=== PATIENT | male | born 1960 | race Caucasian/White ===

== ENCOUNTER 2016-07-12 14:00 | Inpatient (IN) | payer OTHER, MEDICARE ==
[~2016-07-12] VITALS: Ht 177.8 cm; Wt 69.6 kg
[2016-07-12] MEDS ORDERED: Post-op Orders (for Pharmacy) MISC XX ONE (15:30)
[2016-07-12] MEDS ORDERED: NALOXONE HCL 0.4 MG/ML AMP IV PRN (15:30)
[2016-07-12] MEDS ORDERED: MORPHINE SULFATE 4 MG/ML INJ IV PRN (15:30)
[2016-07-12] MEDS ORDERED: SODIUM CHLORIDE 0.9% FLUSH 5 ML FLUSH IVF PRN ×2 (15:30→17:00)
[2016-07-12] MEDS ORDERED: ONDANSETRON HCL 4 MG/2 ML VIAL IV PRN (15:30)
[2016-07-12 16:44] VITALS: BP 103/54; PULSE 99; RESP 18; TEMP 98.4; O2SAT 96
[2016-07-12] MEDS ORDERED: HEPARIN SODIUM - IV 10,000 UNITS/10 ML VIAL XX PRN (17:00)
[2016-07-12] MEDS: HEPARIN SODIUM - SQ 10,000 UNITS/ML VIAL SQ SCH (17:50)
[2016-07-12 17:57] LABS: BASOPHIL # 0.1 TH/MM3 (0-0.2); BASOPHIL % 0.5 % (0.0-2.0); EOSINOPHIL % 0.2 % (0.0-4.0); HEMATOCRIT 24.1 % (39.0-51.0); HEMO FLAGS DIFF FINAL; LYMPHOCYTE # 0.8 TH/MM3 (1.0-4.8); MEAN CORPUSCULAR HEMOGLOBIN 29.8 PG (27.0-34.0); MEAN CORPUSCULAR HGB CONC 32.4 % (32.0-36.0); MONO % 6.5 % (0.0-8.0); NEUT % 88.8 % (16.0-70.0); PLATELET COUNT 502 TH/MM3 (150-450); RED BLOOD COUNT 2.62 MIL/MM3 (4.50-5.90); WHITE BLOOD COUNT 19.2 TH/MM3 (4.0-11.0)
[2016-07-12] MEDS: oxyCODONE/ACETAMINOPHEN 5 MG/325 MG TAB PO PRN ×2 (17:57→17:58)
[2016-07-12] MEDS ORDERED: PANTOPRAZOLE SOD 40 MG DELAYED RELEASE TAB PO SCH (18:00)
[2016-07-12 18:14] LABS: BICARBONATE 26.5 MEQ/L (21.0-32.0); POTASSIUM 3.1 MEQ/L (3.5-5.1)
[2016-07-12 20:00] VITALS: BP 140/60; PULSE 97; RESP 20; TEMP 98.8; O2SAT 100
[2016-07-12] MEDS: SODIUM CHLORIDE 0.9% FLUSH 5 ML FLUSH IVF SCH (23:34)
[2016-07-13] VITALS (13 sets, daily range): BP systolic 151–177; BP diastolic 70–82; PULSE 68–98; RESP 16–20; TEMP 96.8–98.6; O2SAT 95–100
[2016-07-13] MEDS: oxyCODONE/ACETAMINOPHEN 5 MG/325 MG TAB PO PRN ×2 (00:27→09:08)
[2016-07-13] MEDS: HEPARIN SODIUM - SQ 10,000 UNITS/ML VIAL SQ SCH (06:00)
[2016-07-13] MEDS ORDERED: INSULIN HUMAN REGULAR 1,000 UNITS/10 ML VIAL SQ PRN (06:15)
[2016-07-13] MEDS ORDERED: METOPROLOL TARTRATE 25 MG TAB PO PRN (06:15)
[2016-07-13] MEDS: LACTATED RINGER'S 1000 ML IV SCH (09:08)
[2016-07-13] MEDS: SODIUM CHLORIDE 0.9% FLUSH 5 ML FLUSH IVF SCH ×2 (09:09→21:00)
[2016-07-13] MEDS: SODIUM CHLORID 0.9% 500 ML IV SCH ×2 (09:11→22:55)
[2016-07-13] MEDS ORDERED: POTASSIUM CHLORIDE 10 MEQ CONTROLLED RELEASE TAB PO ONE ×2 (10:30→18:15)
[2016-07-13] MEDS ORDERED: FAMOTIDINE 20 MG/2 ML VIAL ONE (10:45)
[2016-07-13] MEDS ORDERED: MIDAZOLAM HCL 5 MG/5 ML VIAL ONE (10:45)
[2016-07-13] MEDS ORDERED: BUPIVACAINE HCL PF 0.5% 30 ML VIAL NB ONE (10:52)
[2016-07-13] MEDS ORDERED: BUPIVACAINE HCL PF 0.25% 30 ML VIAL NB ONE (10:52)
[2016-07-13] MEDS ORDERED: ONDANSETRON HCL 4 MG/2 ML VIAL IV PUSH ONE (12:00)
[2016-07-13] MEDS ORDERED: PHENYLEPH/NS 1000 MCG/10 ML SYR IV ONE (12:00)
[2016-07-13] MEDS ORDERED: SODIUM CHLOR 0.9% 1000 ML INJ 1,000 ML IV ONE (12:00)
[2016-07-13] MEDS ORDERED: ePHEDrine/NS 50 MG/5 ML SYR IV ONE (12:00)
[2016-07-13] MEDS ORDERED: ATROPINE SULFATE 0.4 MG/ML VIAL IV PUSH ONE (12:00)
[2016-07-13] MEDS ORDERED: PROPOFOL 200 MG/20 ML AMP IV ONE (12:00)
[2016-07-13] MEDS: SEVELAMER CARBONATE 800 MG TAB PO SCH ×2 (12:00→17:00)
[2016-07-13] MEDS ORDERED: DOPamine INJ PREMIX 500 ML ONE (12:25)
--- NOTE | 2016-07-13 13:10 | PD.CONS ---
[facility] Service Nephrology Consult Requested By Reason for Consult ESRD on PD Primary Care Physician History of Present Illness This is a 56 y/o male patient direct admitted under the care of Dr. Kenyon with vascular services. PMH of ESRD on PD, HTN, DM II, and PAD. He was admitted for left BKA and I&D/revision of right BKA. We were consulted for dialysis management. He went to OR early this morning. Apparently he became bradycardic during the operation, was given atropine and epinephrine. He is seen in the PACU this afternoon. He is still intubated, unresponsive, hypertensive. He underwent PD last night without complications. We were consulted for PD management. (Ermelinda Jeong) Review of Systems ROS Limitations: Clinical Condition, Intubated (Ermelinda Jeong) Past Family Social History Allergies: Coded Allergies: No Known Allergies (Unverified , 06/29/16) Past Medical History ESRD on PD HTN PAD DM colon CA Past Surgical History unable to obtain previous right BKA Reported Medications reviewed with patient Active Ordered Medications Current Medications Medications (Trade) Dose Ordered Sig/Lorie Route Start Time Stop Time Status Last Admin (NS Flush) 2 ml UNSCH PRN IVF 07/12/16 15:30 (NS Flush) 2 ml BID IVF 07/12/16 21:00 07/13/16 09:09 (Zofran Inj) 4 mg Q6H PRN IV 07/12/16 15:30 (Protonix) 40 mg Q24H PO 07/12/16 18:00 07/12/16 17:50 (Percocet 5-325 Mg) 1 tab Q6H PRN PO 07/12/16 15:30 07/13/16 09:08 (Morphine Inj) 4 mg Q3H PRN IV 07/12/16 15:30 (Narcan Inj) 0.4 mg UNSCH PRN IV 07/12/16 15:30 (Heparin Inj) 5,000 units Q12H SQ 07/12/16 18:00 07/12/16 17:50 IV Flush 10 ml 10 ml UNSCH PRN IVF 07/12/16 17:00 Lactated Ringer's 1,000 ml @ 30 mls/hr Q24H IV 07/13/16 06:15 07/13/16 09:08 (NS 500 ml Inj) 500 ml @ 30 mls/hr [id number] IV 07/13/16 06:15 07/14/16 06:14 07/13/16 09:11 (Renvela) 800 mg TIDAC PO 07/13/16 12:00 Family History No hx of renal disorders Social History smoking ETOH drugs retired full code independent (Ermelinda Jeong) Physical Exam Vital Signs Vital Signs Date Time Temp Pulse Resp B/P Pulse Ox O2 Delivery O2 Flow Rate FiO2 07/13/16 09:08 Room Air 07/13/16 04:00 98.6 98 20 173/73 97 07/13/16 00:00 98.0 97 20 166/74 95 07/12/16 20:00 Room Air 07/12/16 20:00 98.8 97 20 140/60 100 07/12/16 17:03 Room Air 07/12/16 16:44 98.4 99 18 103/54 96 Physical Exam Gen: unresponsive on vent Neuro: unresponsive, CV: S1/S2, regular rate, no murmurs Resp: vented lung sounds, diminished in bases GI: PD catheter appears benign : anuric at baseline, no jaramillo Ext: b/l BKA, dressings in place bilaterally A line right femoral TLC right subclavian Laboratory Laboratory Tests Test 07/12/16 17:45 White Blood Count 19.2 Red Blood Count 2.62 Hemoglobin 7.8 Hematocrit 24.1 Mean Corpuscular Volume 92.0 Mean Corpuscular Hemoglobin 29.8 Mean Corpuscular Hemoglobin 32.4 Concent Red Cell Distribution Width 18.0 Platelet Count 502 Mean Platelet Volume 8.4 Neutrophils (%) (Auto) 88.8 Lymphocytes (%) (Auto) 4.0 Monocytes (%) (Auto) 6.5 Eosinophils (%) (Auto) 0.2 Basophils (%) (Auto) 0.5 Neutrophils # (Auto) 17.0 Lymphocytes # (Auto) 0.8 Monocytes # (Auto) 1.2 Eosinophils # (Auto) 0.0 Basophils # (Auto) 0.1 CBC Comment DIFF FINAL Differential Comment Activated Partial 25.0 Thromboplast Time Sodium Level 135 Potassium Level 3.1 Chloride Level 93 Carbon Dioxide Level 26.5 Anion Gap 16 Blood Urea Nitrogen 51 Creatinine 10.42 Estimat Glomerular Filtration 5 Rate Random Glucose 234 Calcium Level 8.6 Phosphorus Level 8.5 (Ermelinda Jeong) Result Diagram: 07/12/16 [id number] Assessment and Plan Problem List: (1) ESRD (end stage renal disease) on dialysis Plan: ESRD due to diabetic nephropathy He is on nightly PD, currently going well K low, oral replacement ordered, follow up labs monitor catheter site no evidence of acidosis or fluid excess dialysis orders reviewed, continue current plan labs in am (2) Gangrene of toe Plan: vascular (Dr. Kenyon) following had left BKA and revision of right BKA (07/13) prn pain control antibiotics per vascular if needed (3) Anemia of renal disease Plan: Hb low check iron profile will give a dose of epogen, 20,000 units (4) Diabetes Plan: monitor blood sugar insulin as needed per sliding scale (5) HTN (hypertension) Plan: Blood pressure acceptable continue oral medications (6) Metabolic bone disease Plan: Renvela initiated monitor phos periodically (Ermelinda Jeong) Assessment and Plan patient was seen and examined. He is currently intubated, sedated with Diprivan. Discussed with RN. Reviewed chart. Apparently during surgery, he became hypotensive, duration of hypotension apparently uncertain. Received Epinephrine and atropine in PACU. He had CT of the head which did not reveal any acute findings. He is a patient with ESRD on PD (Dr. Niño). Has PAD, DM2. Currently on PD. Mild hypokalemia is noted. Replace cautiously. Severe anemia is noted, blood transfusion has been ordered. Epogen ordered. Very low albumin is noted: poor prognostic indicator. His prognosis is guarded at this time. (Ricardo Liu MD) Problem Qualifiers (1) Diabetes: Ermelinda Jeong Jul 13, 2016 13:10 Ricardo Liu MD Jul 13, 2016 17:51
[2016-07-13] MEDS ORDERED: MORPHINE SULFATE 4 MG/ML INJ IV PRN (13:15)
[2016-07-13] MEDS ORDERED: PROPOFOL 1000 MG/100 ML INJ 100 ML IV SCH ×2 (13:15→17:30)
[2016-07-13] MEDS ORDERED: ONDANSETRON HCL 4 MG/2 ML VIAL IV PRN (13:15)
[2016-07-13] MEDS ORDERED: Post-op Orders (for Pharmacy) MISC XX ONE (13:15)
[2016-07-13] MEDS ORDERED: SODIUM CHLORIDE 0.9% FLUSH 5 ML FLUSH IVF PRN (13:15)
[2016-07-13] MEDS ORDERED: NALOXONE HCL 0.4 MG/ML AMP IV PRN (13:15)
[2016-07-13 14:18] LABS: BLOOD GAS BASE EXCESS -6.4 mmol/L (-2-2); BLOOD GAS CARBOXYHEMOGLOBIN 1.8 % (0-4); BLOOD GAS HCO3 19 mmol/L (22-26); BLOOD GAS METHEMOGLOBIN 1.5 % (0-2); BLOOD GAS O2 HGB SATURATION 95 % (90-100); BLOOD GAS OXYGEN CONTENT 12.1 Vol % (12.0-20.0); BLOOD GAS PCO2 38 mmHg (38-42); BLOOD GAS PO2 157 mmHg (61-120); BLOOD GAS TOTAL HGB 8.8 G/DL (12.0-16.0); CRITICAL VALUE NO; OXYGEN DEVICE VENTILATOR; TEMP CORR TO 98.6
[2016-07-13 14:19] LABS: DRAW SITE ART LINE; FIO2 50 %; NUMBER OF ARTERIAL PUNCTURES 0; STAT NO; ULNAR PULSE PRESENT; VENT SETTINGS AC16/530/PEEP5
[2016-07-13] MEDS ORDERED: LABETALOL HCL 100 MG/20 ML VIAL ONE (14:32)
[2016-07-13] MEDS ORDERED: fentaNYL CITRATE 250 MCG/5 ML AMP ONE (14:34)
[2016-07-13] MEDS ORDERED: DO NOT ADM ANY ANTICOAGULANT DRUGS XX PRN (14:45)
--- NOTE | 2016-07-13 14:47 | RADRPT ---
EXAM DATE/TIME: 07/13/2016 13:45 [facility] COMPARISON: CHEST SINGLE AP, May 10, 2016, 18:34. INDICATIONS : Intubation TLC MEDICAL HISTORY : Hypertension. Diabetes mellitus type II. SURGICAL HISTORY : Infuse a port. Amputation right lower leg. ENCOUNTER: Initial ACUITY: 1 day PAIN SCORE: Non-responsive. LOCATION: Bilateral chest FINDINGS: Endotracheal tube is present with tip 6-7 cm above the gui. Right chest port is present in satisfa ctory position and is accessed. A left subclavian central line is also present with tip overlying SVC . There is no evidence of pneumothorax. There is mild infiltrate in the lower lobes bilaterally and s mall effusions. The cardiomediastinal contours are grossly satisfactory. CONCLUSION: Satisfactory endotracheal tube and central line positioning. Bilateral infiltrates and effusions. Venkatesh Bloom MD on July 13, 2016 at 14:38 Board Certified Radiologist. This report was verified electronically.
[2016-07-13] MEDS ORDERED: OXYC1TAB63 PO (15:13)
[2016-07-13] MEDS ORDERED: AUGM875T PO (15:16)
[2016-07-13] MEDS ORDERED: COLA100C3 PO (15:17)
[2016-07-13 15:23] LABS: BLOOD GAS BASE EXCESS -4.8 mmol/L (-2-2); BLOOD GAS CARBOXYHEMOGLOBIN 1.8 % (0-4); BLOOD GAS HCO3 20 mmol/L (22-26); BLOOD GAS METHEMOGLOBIN 1.4 % (0-2); BLOOD GAS O2 HGB SATURATION 96 % (90-100); BLOOD GAS OXYGEN CONTENT 10.2 Vol % (12.0-20.0); BLOOD GAS PCO2 35 mmHg (38-42); BLOOD GAS PO2 213 mmHg (61-120); BLOOD GAS TOTAL HGB 7.1 G/DL (12.0-16.0); CRITICAL VALUE NO; DRAW SITE ART LINE; FIO2 50 %; NUMBER OF ARTERIAL PUNCTURES 0; OXYGEN DEVICE VENTILATOR; STAT YES; TEMP CORR TO 98.6; ULNAR PULSE PRESENT; VENT SETTINGS AC16/530/PEEP5
[2016-07-13] MEDS ORDERED: EPOETIN ALFA 20,000 UNITS/ML VIAL SQ ONE (15:45)
[2016-07-13] MEDS: PANTOPRAZOLE SODIUM 40 MG VIAL IV SCH (15:53)
[2016-07-13] MEDS: METOPROLOL TARTRATE 5 MG/5 ML VIAL IV PUSH SCH ×2 (15:54→21:38)
[2016-07-13 16:13] LABS: AUTOMATED NEUTROPHIL # 19.8 TH/MM3 (1.8-7.7); BASOPHIL % 0.2 % (0.0-2.0); HEMATOCRIT 22.8 % (39.0-51.0); HEMO FLAGS DIFF FINAL; LYMPHOCYTE # 0.4 TH/MM3 (1.0-4.8); MEAN CELL VOLUME 90.8 FL (80.0-100.0); MEAN CORPUSCULAR HEMOGLOBIN 28.2 PG (27.0-34.0); MEAN CORPUSCULAR HGB CONC 31.1 % (32.0-36.0); MONO % 5.5 % (0.0-8.0); NEUT % 92.3 % (16.0-70.0); PLATELET COUNT 510 TH/MM3 (150-450); RED BLOOD COUNT 2.51 MIL/MM3 (4.50-5.90); RED CELL DISTRIBUTION WIDTH 17.5 % (11.6-17.2); WHITE BLOOD COUNT 21.4 TH/MM3 (4.0-11.0)
[2016-07-13] MEDS ORDERED: EPINEPHrine HCL (1:10,000) 1 MG/10 ML SYRINGE ONE (16:30)
[2016-07-13] MEDS ORDERED: ATROPINE SULFATE 1 MG/10 ML SYRINGE ONE (16:30)
[2016-07-13 16:40] LABS: ANION GAP 15 MEQ/L (5-15)
[2016-07-13 16:46] LABS: ALKALINE PHOSPHATASE 92 U/L (45-117); ALT (GPT) 11 U/L (12-78); AST (GOT) 11 U/L (15-37); BICARBONATE 21.9 MEQ/L (21.0-32.0); BLOOD UREA NITROGEN 52 MG/DL (7-18); CHLORIDE 101 MEQ/L (98-107); GLOMERULAR FILTRATION RATE 5 ML/MIN (>89); MAGNESIUM 1.9 MG/DL (1.5-2.5); POTASSIUM 3.4 MEQ/L (3.5-5.1); SODIUM (NA) 138 MEQ/L (136-145); TOTAL BILIRUBIN ADULT 0.2 MG/DL (0.2-1.0)
--- NOTE | 2016-07-13 17:08 | PD.CONS ---
HPI Service Critical Care Medicine Consult Requested By Reason for Consult vent management Primary Care Physician History of Present Illness 56 year old male with ESRD on PD, HTN, DM II, and PAD. He was admitted for left BKA and I&D/revision of right BKA. While in the OR early this morning, he became bradycardic during the operation, was given atropine and epinephrine. He is transfered to ICU intubated, unresponsive, hypertensive. He underwent PD last night without complications. Review of Systems ROS Unable to obtain, patient is sedated and intubated Past Family Social History Allergies: Coded Allergies: No Known Allergies (Unverified , 06/29/16) Past Medical History ESRD on PD HTN PAD DM colon CA Past Surgical History previous right BKA Active Ordered Medications Current Medications Medications (Trade) Dose Ordered Sig/Lorie Route PRN Reason Start Time Stop Time Status Last Admin Dose Admin Oxycodone/ Acetaminophen (Percocet 5-325 Mg) 1 tab Q6H PRN PO PAIN SCALE 3 TO 5 07/12/16 15:30 07/13/16 09:08 Morphine Sulfate (Morphine Inj) 4 mg Q3H PRN IV BREAKTHROUGH PAIN 07/12/16 15:30 IV Flush 10 ml 10 ml UNSCH PRN IVF SEE LABEL COMMENTS 07/12/16 17:00 Lactated Ringer's 1,000 ml @ 30 mls/hr Q24H IV 07/13/16 06:15 07/13/16 09:08 Sodium Chloride (NS 500 ml Inj) 500 ml @ 30 mls/hr [id number] IV 07/13/16 06:15 07/14/16 06:14 07/13/16 09:11 Sevelamer Carbonate (Renvela) 800 mg TIDAC PO 07/13/16 12:00 IV Flush (NS Flush) 2 ml UNSCH PRN IVF FLUSH AFTER USING IV ACCESS 07/13/16 13:15 IV Flush (NS Flush) 2 ml BID IVF 07/13/16 21:00 Ondansetron HCl (Zofran Inj) 4 mg Q6H PRN IV NAUSEA OR VOMITING 07/13/16 13:15 Pantoprazole Sodium 40 mg 40 mg Q24H IV 07/13/16 15:00 07/13/16 15:53 Clindamycin Phosphate/Sodium Chloride (Cleocin Inj/NS Inj) 104 ml @ 108 mls/hr Q8H IV 07/13/16 16:00 07/14/16 08:58 Morphine Sulfate (Morphine Inj) 4 mg Q3H PRN IV Pain 6-10;if unable to take PO 07/13/16 13:15 Naloxone HCl (Narcan Inj) 0.4 mg UNSCH PRN IV SEE LABEL COMMENTS 07/13/16 13:15 Heparin Sodium (Porcine) (Heparin Inj) 5,000 units Q12H SQ 07/14/16 12:30 Metoprolol Tartrate 5 mg 5 mg Q6H IV PUSH 07/13/16 14:00 07/13/16 15:54 Propofol (Diprivan 1000 Mg/100ml Inj) 100 ml @ 0 mls/hr TITRATE IV 07/13/16 13:15 Miscellaneous Information ALL NURSING DEPARTME... UNSCH PRN XX SEE LABEL COMMENTS 07/13/16 14:45 07/14/16 14:44 Family History Noncontributory Social History Unable to obtain Physical Exam Vital Signs Vital Signs Date Time Temp Pulse Resp B/P Pulse Ox O2 Delivery O2 Flow Rate FiO2 07/13/16 15:45 97 50 07/13/16 15:20 97.5 83 16 97 Mechanical Ventilator 50 168/84 07/13/16 15:15 83 16 166/82 97 07/13/16 15:00 77 16 165/83 97 07/13/16 14:45 82 16 165/81 99 07/13/16 14:30 99 16 173/85 100 07/13/16 14:15 100 16 177/88 98 07/13/16 14:00 100 16 209/95 98 07/13/16 13:45 101 16 178/85 99 Mechanical Ventilator 50 07/13/16 13:30 50 07/13/16 13:30 97.9 111 16 223/96 99 Mechanical Ventilator 50 199/93 07/13/16 13:30 07/13/16 13:25 99 50 07/13/16 09:08 Room Air 07/13/16 04:00 98.6 98 20 173/73 97 07/13/16 00:00 98.0 97 20 166/74 95 07/12/16 20:00 Room Air 07/12/16 20:00 98.8 97 20 140/60 100 07/12/16 17:03 Room Air Physical Exam GENERAL: Well-nourished, well-developed patient, critically appearing SKIN: Warm and dry. HEAD: Normocephalic. EYES: No scleral icterus. No injection or drainage. NECK: Supple, trachea midline. No JVD or lymphadenopathy. CARDIOVASCULAR: Regular rate and rhythm without murmurs, gallops, or rubs. RESPIRATORY: Breath sounds equal bilaterally. No accessory muscle use. GASTROINTESTINAL: Abdomen soft, non-tender, nondistended. MUSCULOSKELETAL: No cyanosis, or edema. BACK: Nontender without obvious deformity. No CVA tenderness. EXTREMITIES: BL BKA Laboratory Laboratory Tests Test 07/12/16 07/13/16 07/13/16 07/13/16 17:45 13:55 14:02 15:19 White Blood Count 19.2 Red Blood Count 2.62 Hemoglobin 7.8 Hematocrit 24.1 Mean Corpuscular Volume 92.0 Mean Corpuscular Hemoglobin 29.8 Mean Corpuscular Hemoglobin 32.4 Concent Red Cell Distribution Width 18.0 Platelet Count 502 Mean Platelet Volume 8.4 Neutrophils (%) (Auto) 88.8 Lymphocytes (%) (Auto) 4.0 Monocytes (%) (Auto) 6.5 Eosinophils (%) (Auto) 0.2 Basophils (%) (Auto) 0.5 Neutrophils # (Auto) 17.0 Lymphocytes # (Auto) 0.8 Monocytes # (Auto) 1.2 Eosinophils # (Auto) 0.0 Basophils # (Auto) 0.1 CBC Comment DIFF FINAL Differential Comment Activated Partial 25.0 Thromboplast Time Sodium Level 135 Potassium Level 3.1 Chloride Level 93 Carbon Dioxide Level 26.5 Anion Gap 16 Blood Urea Nitrogen 51 Creatinine 10.42 Estimat Glomerular Filtration 5 Rate Random Glucose 234 Calcium Level 8.6 Phosphorus Level 8.5 Blood Gas Puncture Site ART LINE ART LINE Blood Gas Patient Temperature 98.6 98.6 Blood Gas HCO3 19 20 Blood Gas Base Excess -6.4 -4.8 Blood Gas Oxygen Saturation 95 96 Arterial Blood pH 7.31 7.36 Arterial Blood Partial 38 35 Pressure CO2 Arterial Blood Partial 157 213 Pressure O2 Arterial Blood Oxygen Content 12.1 10.2 Arterial Blood 1.8 1.8 Carboxyhemoglobin Arterial Blood Methemoglobin 1.5 1.4 Blood Gas Hemoglobin 8.8 7.1 Oxygen Delivery Device VENTILATOR VENTILATOR Blood Gas Ventilator Setting AC16/530/PEEP5 AC16/530/PEEP5 Blood Gas Inspired Oxygen 50 50 Total Creatine Kinase 76 Troponin I 0.31 Test 07/13/16 15:36 White Blood Count 21.4 Red Blood Count 2.51 Hemoglobin 7.1 Hematocrit 22.8 Mean Corpuscular Volume 90.8 Mean Corpuscular Hemoglobin 28.2 Mean Corpuscular Hemoglobin 31.1 Concent Red Cell Distribution Width 17.5 Platelet Count 510 Mean Platelet Volume 8.6 Neutrophils (%) (Auto) 92.3 Lymphocytes (%) (Auto) 2.0 Monocytes (%) (Auto) 5.5 Eosinophils (%) (Auto) 0.0 Basophils (%) (Auto) 0.2 Neutrophils # (Auto) 19.8 Lymphocytes # (Auto) 0.4 Monocytes # (Auto) 1.2 Eosinophils # (Auto) 0.0 Basophils # (Auto) 0.0 CBC Comment DIFF FINAL Differential Comment Sodium Level 138 Potassium Level 3.4 Chloride Level 101 Carbon Dioxide Level 21.9 Anion Gap 15 Blood Urea Nitrogen 52 Creatinine 10.29 Estimat Glomerular Filtration 5 Rate Random Glucose 236 Lactic Acid Level 1.5 Calcium Level 8.1 Magnesium Level 1.9 Total Bilirubin 0.2 Aspartate Amino Transf 11 (AST/SGOT) Alanine Aminotransferase 11 (ALT/SGPT) Alkaline Phosphatase 92 Total Protein 6.8 Albumin 1.6 Result Diagram: 07/13/16 1536 07/13/16 1536 Imaging Last 24 hours Impressions Chest X-Ray 07/13/16 0000 Signed Impressions: Service Date/Time: Wednesday, July 13, 2016 13:45 - CONCLUSION: Satisfactory endotracheal tube and central line positioning. Bilateral infiltrates and effusions. Venkatesh Bloom MD Septic Shock Reassessment Heart: Regular rate and rhythm Lungs: Clear Skin: Warm Peripheral Pulses: Bounding Right Radial Bounding Left Radial Assessment and Plan Assessment and Plan Respiratory failure - post-op - no weaning until neurologically improved - CXR, ABG daily - vent bundle - elevated head Diabetes mellitus - ISS - bedside glucose monitor Q6H Peripheral vascular disease - status post BL BKA - management per vascular surgery End-stage renal disease - peritoneal dialysis - management per nephrology Hypothyroidism - Synthroid per home dose Hypertension - Hydralazine PRN History of colon cancer - completed chemotherapy - now in remission?? DVT/GI prophylaxis - Heparin/Lansoprazole Level 3 Padilla Llanos MD Jul 13, 2016 17:08
--- NOTE | 2016-07-13 17:08 | RADRPT ---
EXAM DATE/TIME: 07/13/2016 16:54 [facility] COMPARISON: No previous studies available for comparison. INDICATIONS : New onset of fixed pupils. RADIATION DOSE: 56.35 CTDIvol (mGy) MEDICAL HISTORY : Hypertension. Carcinoma, rectal. SURGICAL HISTORY : None. ENCOUNTER: Initial ACUITY: 1 day PAIN SCALE: Non-responsive LOCATION: cranial TECHNIQUE: Multiple contiguous axial images were obtained of the head. Using automated exposure control and adj ustment of the mA and/or kV according to patient size, radiation dose was kept as low as reasonably a chievable to obtain optimal diagnostic quality images. FINDINGS: CEREBRUM: The ventricles are normal for age. No evidence of midline shift, mass lesion, hemorrhage or acute in farction. No extra-axial fluid collections are seen. POSTERIOR FOSSA: The cerebellum and brainstem are intact. The 4th ventricle is midline. The cerebellopontine angle i s unremarkable. EXTRACRANIAL: The visualized portion of the orbits is intact. SKULL: The calvaria is intact. No evidence of skull fracture. CONCLUSION: Normal examination. Venkatesh Bloom MD on July 13, 2016 at 17:05 Board Certified Radiologist. This report was verified electronically.
--- NOTE | 2016-07-13 17:11 | EC ---
Study Study Date:07/13/2016 STUDY CONCLUSIONS SUMMARY - Procedure narrative: Transthoracic echocardiography. Image quality was adequate. Scanning was performed from the parasternal, apical, and subcostal acoustic windows. - Left ventricle: The cavity size was mildly dilated. Wall thickness was normal. Global hypokinesis more pronounced in the inferior region. - Aortic valve: Trileaflet; mildly thickened leaflets. Mild regurgitation. - Mitral valve: Moderate regurgitation. - Right ventricle: Systolic function was moderately to severely reduced. - Tricuspid valve: Mild regurgitation. - Pulmonary arteries: PA peak pressure: 63mm Hg (S). - Pericardium, extracardiac: There was a left pleural effusion. If LV function is below 40, please consider prescribing an ACEI or ARB or document rationale for non-use. PROCEDURE DATA STUDY STATUS: Elective. Procedure: Transthoracic echocardiography. Image quality was adequate. Scanning was performed from the parasternal, apical, and subcostal acoustic windows. Study completion: The patient tolerated the procedure well. Transthoracic echocardiography. M-mode, complete 2D, complete spectral Doppler, and color Doppler. Height: Height: 70in. Weight: Weight: 149.7lb. Body mass index: BMI: 21.5kg/m^2. Body surface area: BSA: 1.85m^2. Patient status: Inpatient. CARDIAC ANATOMY LEFT VENTRICLE: The cavity size was mildly dilated. Wall thickness was normal. Systolic function was severely reduced. The estimated ejection fraction was 25%. Global hypokinesis more pronounced in the inferior region. AORTIC VALVE: Trileaflet; mildly thickened leaflets. Doppler: Transvalvular velocity was within the normal range. There was no stenosis. Mild regurgitation. AORTA: Aortic root: The aortic root was normal in size. MITRAL VALVE: Structurally normal valve. Doppler: Transvalvular velocity was within the normal range. There was no evidence for stenosis. Moderate regurgitation. Peak gradient: 2mm Hg (D). LEFT ATRIUM: The atrium was normal in size. RIGHT VENTRICLE: The cavity size was normal. Wall thickness was normal. Systolic function was moderately to severely reduced. PULMONIC VALVE: Doppler: Transvalvular velocity was within the normal range. There was no evidence for stenosis. No regurgitation. TRICUSPID VALVE: Structurally normal valve. Doppler: Transvalvular velocity was within the normal range. Mild regurgitation. PULMONARY ARTERY: The main pulmonary artery was normal-sized. Systolic pressure was within the normal range. RIGHT ATRIUM: The atrium was normal in size. PERICARDIUM: There was no pericardial effusion. SYSTEMIC VEINS: Inferior vena cava: The vessel was normal in size. Pleura: There was a left pleural effusion. Patient weight: 149.7lb _Ejection fraction:_ 65-75% _Fractional shortening:_ 32% up to 5Kg 5-11.5Kg 11.6-22.9Kg 23-45Kg 45-57Kg Aortic Root 7-13 <17 13-22 17-27 17-27 LA diam 6-13 <23 24-38 33-47 37-40 RVID 10-17 7-15 7-15 7-18 8-17 LVIDd 12-22 <32 24-38 33-47 37-40 LVPW 2-4 3-6 5-7 6-8 7-8 IVS 2-4 3-6 5-7 6-8 7-8 BASIC MEASUREMENTS ADULT Normal Left ventricle LV internal dimension, ED, chordal level, *54.2 mm 43-52 PLAX LV posterior wall thickness, ED 13.7 mm IVS/LVPW ratio, ED 1.12 <1.3 Ventricular septum Septal thickness, ED 15.4 mm Aortic valve Leaflet separation 18 mm 15-26 Aorta Root diameter, ED 34 mm Left atrium Anterior-posterior dimension 30 mm Anterior-posterior dimension index 1.62 cm/m^2 <2.2 Right ventricle RV internal dimension, ED, PLAX 31.1 mm 19-38 BASIC MEASUREMENTS ADULT Normal Aortic valve Leaflet separation 18 mm 15-26 DOPPLER MEASUREMENTS ADULT Normal Main pulmonary artery Pressure, S *63 mm Hg =30 Aortic valve Regurgitant velocity, ED 409 cm/s Regurgitant deceleration 3300 cm/s^2 Regurgitant pressure half-time 363 ms Regurgitant gradient, ED 67 mm Hg Mitral valve Peak E-wave velocity 78 cm/s Peak A-wave velocity 48.9 cm/s Deceleration time 173 ms 150-230 Peak gradient, D 2 mm Hg Peak E/A ratio 1.6 Tricuspid valve Regurgitant peak velocity 346 cm/s Peak RV-RA gradient, S 48 mm Hg Maximal regurgitant velocity 346 cm/s Right ventricle RV pressure, S *63 mm Hg <30 LEGEND: Mean values are shown as u=mean value. Asterisk (*) haskins values outside specified normal range. Prepared and signed by Conor Geiger [id number]
[2016-07-13] MEDS ORDERED: fentaNYL DRIP 250 ML IV SCH (17:30)
--- NOTE | 2016-07-13 17:34 | MH ---
cc: JW AGARWAL MD DATE OF ADMISSION: 07/12/[address] Agarwal, Vascular Surgery REASON FOR ADMISSION Gangrene of the left foot, ischemia of the left leg. HISTORY OF PRESENT ILLNESS This 57-year-old male presented to my office, he underwent right below-knee amputation for severe non-reconstructable vascular disease earlier this year. The patient presents with an eschar-looking area on the right stump measuring about 0.5 x 2 inches in the lateral aspect of the stump but dry. The patient says that from time to time this drains so he would like to have it revised which I agree with. On the left side, the patient unfortunately has completely gangrenous foot all the way up to his ankle. This is black with oozing and a combination of wet and dry gangrene, foul-smelling. The patient states that this has happened in the last few weeks, but his family was telling me in his presence that he refused to come to the hospital to be seen. The patient is now being admitted for a below-knee amputation. PAST MEDICAL HISTORY 1. Colon cancer for which he underwent chemotherapy. 2. Severe peripheral vascular disease. 3. Hypertension. 4. Hypothyroidism. 5. Hyperlipidemia. 6. Diabetes mellitus. 7. End-stage renal disease for which the patient is on dialysis. PAST SURGICAL HISTORY 1. Peritoneal dialysis catheter placement. 2. Port-A-Cath. 3. Right inguinal hernia repair. 4. Right and left leg angioplasty, stents, revisions. 5. Right BKA. 6. I believe colectomy but I do not see it there. MEDICATIONS Medications can be found on the record. SOCIAL HISTORY The patient has been diabetic for many, many years. Smoked until about 5-6 years ago. Lives with some roommates. PHYSICAL EXAMINATION GENERAL: Reveals an unfortunate [id number], in no acute distress. HEENT: Normocephalic. No trauma to the head. Pupils equal and reactive. Extraocular muscles intact. NECK: Neck is supple. Bilateral carotid pulses. CHEST: Bilateral breath sounds, decreased over both lung owens consistent with moderate degree of COPD. HEART: Regular rhythm. ABDOMEN: Soft, patulous, active bowel sounds. EXTREMITIES: The patient has a right BKA which has an eschar as above-noted on the right side and then has a left gangrenous leg all the way to his ankle. This is combination of wet and dry gangrene and patient needs urgent amputation. ASSESSMENT AND PLAN The patient has dopplerable groin pulse and no distal pulses. I have explained to the patient that below-knee amputation is as low as I can go and even that may not heal in the long run but the patient would like to try at least this. I also explained the risks and benefits of surgery in the sense of his general status including the risk of heart attack, stroke, long-term disability and such. The patient understands. He is being admitted for surgery and left Below-knee amputation. Jw RAINES/NERY /4:41 PM /4:56 PM ROBERT
[2016-07-13] MEDS: CLINDAMYCIN INJ 600 MG in SODIUM CHLORIDE 0.9% INJ 100 ML IV SCH ×2 (18:20→23:06)
[2016-07-13] MEDS ORDERED: POTASSIUM CL 40 MEQ/30 ML LIQ UDC TUBE ONE (20:15)
--- NOTE | 2016-07-13 20:50 | EKG ---
Date Performed: 07/13/2016 Time Performed: 06:03:30 PTAGE: 56 years EKG: Sinus rhythm Rightward axis Right bundle branch block LVH with secondary repolarization abnormality Inferior/late ral ST-T changes Abnormal ECG PREVIOUS TRACING : 04/05/2016 10.05 Compared to the previous tracing, ST-T changes present DOCTOR: Chino Moncada Interpretating Date/Time 07/13/2016 20:48:32
[2016-07-13] MEDS: hydrALAZINE HCL 20 MG/ML VIAL IV PUSH PRN (23:06)
[2016-07-14] VITALS (20 sets, daily range): BP systolic 93–183; BP diastolic 56–90; PULSE 49–93; RESP 16–19; TEMP 98.2–99.7; O2SAT 96–100
[2016-07-14] MEDS ORDERED: hydrALAZINE HCL 20 MG/ML VIAL IV PUSH ONE
[2016-07-14] MEDS: LABETALOL HCL 100 MG/20 ML VIAL IV PUSH PRN ×2 (00:33→04:31)
[2016-07-14] MEDS: METOPROLOL TARTRATE 5 MG/5 ML VIAL IV PUSH SCH ×2 (01:15→08:00)
[2016-07-14] MEDS: hydrALAZINE HCL 20 MG/ML VIAL IV PUSH PRN (03:09)
[2016-07-14] MEDS ORDERED: FOSPHENYTOIN INJ 1,000 MGPE in SODIUM CHLORIDE 0.9% INJ 50 ML IV ONE (03:15)
[2016-07-14] MEDS: amLODIPine BESYLATE 5 MG TAB TUBE SCH ×2 (03:21→09:00)
[2016-07-14 05:12] LABS: BLOOD GAS BASE EXCESS -5.2 mmol/L (-2-2); BLOOD GAS CARBOXYHEMOGLOBIN 1.2 % (0-4); BLOOD GAS HCO3 18 mmol/L (22-26); BLOOD GAS METHEMOGLOBIN 0.9 % (0-2); BLOOD GAS O2 HGB SATURATION 97 % (90-100); BLOOD GAS OXYGEN CONTENT 13.2 Vol % (12.0-20.0); BLOOD GAS PCO2 29 mmHg (38-42); BLOOD GAS PO2 138 mmHg (61-120); BLOOD GAS TOTAL HGB 9.5 G/DL (12.0-16.0); CRITICAL VALUE NO; DRAW SITE ART LINE; FIO2 40 %; OXYGEN DEVICE VENTILATOR; TEMP CORR TO 98.6; VENT SETTINGS AC 16/530/5PEEP
[2016-07-14 05:13] LABS: STAT NO
[2016-07-14 05:51] LABS: BASOPHIL % 0.3 % (0.0-2.0); HEMATOCRIT 28.4 % (39.0-51.0); HEMO FLAGS DIFF FINAL; LYMPH % 2.2 % (9.0-44.0); LYMPHOCYTE # 0.3 TH/MM3 (1.0-4.8); MEAN CELL VOLUME 87.1 FL (80.0-100.0); MEAN CORPUSCULAR HGB CONC 33.4 % (32.0-36.0); MONO % 7.8 % (0.0-8.0); NEUT % 89.7 % (16.0-70.0); PLATELET COUNT 489 TH/MM3 (150-450); RED BLOOD COUNT 3.26 MIL/MM3 (4.50-5.90); RED CELL DISTRIBUTION WIDTH 17.8 % (11.6-17.2); WHITE BLOOD COUNT 14.5 TH/MM3 (4.0-11.0)
[2016-07-14] MEDS: LACTATED RINGER'S 1000 ML IV SCH (06:15)
[2016-07-14 06:22] LABS: ALKALINE PHOSPHATASE 99 U/L (45-117); ALT (GPT) 10 U/L (12-78); ANION GAP 18 MEQ/L (5-15); AST (GOT) 25 U/L (15-37); BICARBONATE 19.7 MEQ/L (21.0-32.0); BLOOD UREA NITROGEN 48 MG/DL (7-18); CHLORIDE 97 MEQ/L (98-107); GLOMERULAR FILTRATION RATE 5 ML/MIN (>89); POTASSIUM 3.8 MEQ/L (3.5-5.1); SODIUM (NA) 135 MEQ/L (136-145); TOTAL BILIRUBIN ADULT 0.3 MG/DL (0.2-1.0)
--- NOTE | 2016-07-14 06:33 | RADRPT ---
EXAM DATE/TIME: 07/14/2016 05:41 [facility] COMPARISON: CHEST SINGLE AP, July 13, 2016, 13:45. INDICATIONS : Evaluate for pulmonary disease. MEDICAL HISTORY : Hypertension. Diabetes mellitus type II. SURGICAL HISTORY : Infuse a port. Amputation right lower leg ENCOUNTER: Subsequent ACUITY: 2 days PAIN SCORE: Non-responsive. LOCATION: Bilateral chest FINDINGS: Mild consolidation and small effusion seen right base. No pneumothorax. Mild cardiomegaly is stable. Endotracheal tube tip is about 5 cm above the gui, at the level of the thoracic inlet. There is a nasogastric tube coursing into the stomach. Bilateral subclavian central venous catheters with tips i n the superior vena cava again noted. CONCLUSION: No significant change mild consolidation and small effusion right base. Mild cardiomegaly. Venkatesh Stevens MD on July 14, 2016 at 6:31 Board Certified Radiologist. This report was verified electronically.
[2016-07-14] MEDS: SEVELAMER CARBONATE 800 MG TAB PO SCH (08:00)
[2016-07-14] MEDS: SODIUM CHLORIDE 0.9% FLUSH 5 ML FLUSH IVF SCH ×2 (08:03→21:15)
[2016-07-14] MEDS: CLINDAMYCIN INJ 600 MG in SODIUM CHLORIDE 0.9% INJ 100 ML IV SCH (10:08)
[2016-07-14] MEDS ORDERED: EPINEPHrine HCL (1:10,000) 1 MG/10 ML SYRINGE ONE ×2 (10:12→10:13)
[2016-07-14] MEDS ORDERED: ATROPINE SULFATE 1 MG/10 ML SYRINGE ONE ×2 (10:13)
[2016-07-14] MEDS ORDERED: LIDOCAINE HCL 2% 100 MG/5 ML SYRINGE ONE (10:13)
--- NOTE | 2016-07-14 11:09 | HHI.CCPN ---
Subjective Remarks/Hospital Course 56 year old male with ESRD on PD, HTN, DM II, and PAD. He was admitted for left BKA and I&D/revision of right BKA. While in the OR early this morning, he became bradycardic during the operation, was given atropine and epinephrine. He is transfered to ICU intubated, unresponsive, hypertensive. Objective Vital Signs Date Time Temp Pulse Resp B/P Pulse Ox O2 Delivery O2 Flow Rate FiO2 07/14/16 10:22 98 40 07/14/16 08:00 99.1 68 16 115/63 07/13/16 15:20 Mechanical Ventilator Intake and Output 07/13/16 07/13/16 07/14/16 08:00 16:00 00:00 Intake Total 1800 ml 229 ml Output Total 1036 ml 50 ml 50 ml Balance -1036 ml 1750 ml 179 ml Result Diagram: 07/14/16 0530 07/14/16 0530 Other Results Laboratory Tests Test 07/13/16 07/13/16 07/14/16 13:55 15:19 05:02 Blood Gas Puncture Site ART LINE ART LINE ART LINE Blood Gas Patient Temperature 98.6 98.6 98.6 Blood Gas HCO3 19 mmol/L 20 mmol/L 18 mmol/L (22-26) (22-26) (22-26) Blood Gas Base Excess -6.4 mmol/L -4.8 mmol/L -5.2 mmol/L (-2-2) (-2-2) (-2-2) Blood Gas Oxygen Saturation 95 % (90-100) 96 % (90-100) 97 % (90-100) Arterial Blood pH 7.31 7.36 7.42 (7.380-7.420) (7.380-7.420) (7.380-7.420) Arterial Blood Partial 38 mmHg (38-42) 35 mmHg (38-42) 29 mmHg (38-42) Pressure CO2 Arterial Blood Partial 157 mmHg 213 mmHg 138 mmHg Pressure O2 (61-120) (61-120) (61-120) Arterial Blood Oxygen Content 12.1 Vol % 10.2 Vol % 13.2 Vol % (12.0-20.0) (12.0-20.0) (12.0-20.0) Arterial Blood 1.8 % (0-4) 1.8 % (0-4) 1.2 % (0-4) Carboxyhemoglobin Arterial Blood Methemoglobin 1.5 % (0-2) 1.4 % (0-2) 0.9 % (0-2) Blood Gas Hemoglobin 8.8 G/DL 7.1 G/DL 9.5 G/DL (12.0-16.0) (12.0-16.0) (12.0-16.0) Oxygen Delivery Device VENTILATOR VENTILATOR VENTILATOR Blood Gas Ventilator Setting AC16/530/PEEP5 AC16/530/PEEP5 AC 16/530/5PEEP Blood Gas Inspired Oxygen 50 % 50 % 40 % Imaging Last 24 hours Impressions Chest X-Ray 07/13/16 0000 Signed Impressions: Service Date/Time: Wednesday, July 13, 2016 13:45 - CONCLUSION: Satisfactory endotracheal tube and central line positioning. Bilateral infiltrates and effusions. Venkatesh Bloom MD Objective Remarks GENERAL: Well-nourished, well-developed patient, critically appearing SKIN: Warm and dry. HEAD: Normocephalic. EYES: No scleral icterus. No injection or drainage. NECK: Supple, trachea midline. No JVD or lymphadenopathy. CARDIOVASCULAR: Regular rate and rhythm without murmurs, gallops, or rubs. RESPIRATORY: Breath sounds equal bilaterally. No accessory muscle use. GASTROINTESTINAL: Abdomen soft, non-tender, nondistended. MUSCULOSKELETAL: No cyanosis, or edema. BACK: Nontender without obvious deformity. No CVA tenderness. EXTREMITIES: BL BKA A/P Assessment and Plan Respiratory failure - post-op - anoxic brain encephalopathy??? - no weaning until neurologically improved - CXR, ABG daily - vent bundle - elevated head Encephalopathy - anoxic brain injury??? - MRI stat today - CT negative - hold sedation Diabetes mellitus - ISS - bedside glucose monitor Q6H Peripheral vascular disease - status post BL BKA - management per vascular surgery End-stage renal disease - peritoneal dialysis - further per nephrology Hypothyroidism - Synthroid per home dose Hypertension - Hydralazine PRN History of colon cancer - completed chemotherapy - now in remission?? DVT/GI prophylaxis - Heparin/Lansoprazole Level 3 Padilla Llanos MD Jul 14, 2016 11:09
--- NOTE | 2016-07-14 11:30 | RADRPT ---
EXAM DATE/TIME: 07/14/2016 10:57 [facility] COMPARISON: No previous studies available for comparison. INDICATIONS : Unresponsive. MEDICAL HISTORY : Hypertension. Carcinoma, colon. Renal disease, end stage. Diabetes. SURGICAL HISTORY : Umbilical hernia repair. Bilateral BKA. ENCOUNTER: Subsequent ACUITY: 2 day PAIN SCORE: Nonresponsive. LOCATION: head. TECHNIQUE: Multiplanar, multisequence MRI of the brain was performed without contrast. FINDINGS: CEREBRUM: The ventricles are normal for age. No evidence of midline shift, mass lesion, hemorrhage or acute in farction. No extraaxial fluid collections are seen. The pituitary gland and suprasellar cistern are normal in configuration. WHITE MATTER: No significant signal abnormalities are seen in the white matter. POSTERIOR FOSSA: The cerebellum and brainstem are intact. The 4th ventricle is midline. The cerebellopontine angle is unremarkable. The cerebellar tonsils are normal in position. DIFFUSION IMAGING: No focal areas of restricted diffusion are seen. No evidence of acute infarction. EXTRACRANIAL: The visualized portions of the orbits are unremarkable. Mucus retention cyst is noted within the left maxillary sinus. CONCLUSION: 1. No acute infarct, acute hemorrhage, mass effect or extra-axial fluid collections. 2. Mucus retention cyst within the left maxillary sinus. Dontae Segura MD on July 14, 2016 at 11:25 Board Certified Radiologist. This report was verified electronically.
[2016-07-14] MEDS ORDERED: GLUCAGON 1 MG/ML VIAL OTHER PRN (11:45)
[2016-07-14] MEDS ORDERED: DEXTROSE 50% IN WATER 50 ML VIAL(D50) IV PUSH PRN ×2 (11:45→22:00)
--- NOTE | 2016-07-14 12:05 | HHI.NPPN ---
Subjective Interval History Patient had Brain MRI and EEG today. He is unresponsive off sedation. Bradycardic, hypotensive. Also weak pulses, hands mottled, fingers cyanotic. ( Ermelinda Jeong) Review of Systems General General Remarks unable to obtain due to unresponsiveness (Ermelinda Jeong) Objective Data Data 07/13/16 07/14/16 19:00 07:00 Intake Total 1800 ml 991 ml Output Total 1086 ml 125 ml Balance 714 ml 866 ml IV Total 491 ml Packed Cells 500 ml Other 1800 ml Output Urine Total 125 ml Stool Total 0 ml Peritoneal Fluid 1036 ml Estimated Blood Loss 50 ml Vital Signs Date Time Temp Pulse Resp B/P Pulse Ox O2 Delivery O2 Flow Rate FiO2 07/14/16 10:22 98 40 07/14/16 08:00 99.1 68 16 115/63 99 07/14/16 08:00 70 07/14/16 07:57 99 40 07/14/16 04:02 98 40 07/14/16 04:00 99.7 76 16 167/76 98 07/14/16 01:50 98.4 88 16 174/84 99 07/14/16 01:07 98 40 07/14/16 00:00 98.6 93 16 183/90 98 07/13/16 22:10 100 50 07/13/16 21:20 98.6 73 16 164/78 99 07/13/16 20:00 151/71 07/13/16 20:00 98.2 68 16 177/75 100 151/70 07/13/16 20:00 68 07/13/16 19:37 100 50 07/13/16 18:00 70 07/13/16 17:00 76 07/13/16 16:44 100 07/13/16 16:00 74 07/13/16 16:00 96.8 74 16 164/78 100 07/13/16 15:45 80 07/13/16 15:45 97 50 07/13/16 15:45 97.2 80 16 174/82 100 07/13/16 15:20 97.5 83 16 97 Mechanical Ventilator 50 168/84 07/13/16 15:15 83 16 166/82 97 07/13/16 15:00 100 100 07/13/16 15:00 77 16 165/83 97 07/13/16 14:45 82 16 165/81 99 07/13/16 14:30 99 16 173/85 100 07/13/16 14:15 100 16 177/88 98 07/13/16 14:00 100 16 209/95 98 07/13/16 13:45 101 16 178/85 99 Mechanical Ventilator 50 07/13/16 13:30 50 07/13/16 13:30 97.9 111 16 223/96 99 Mechanical Ventilator 50 199/93 07/13/16 13:30 07/13/16 13:25 99 50 (Ermelinda Jeong) -: 07/14/16 0530 07/14/16 0530 Imaging Last 48 hours Impressions Chest X-Ray 07/14/16 0600 Signed Impressions: Service Date/Time: June 05:41 - CONCLUSION: No significant change mild consolidation and small effusion right base. Mild cardiomegaly. Venkatesh Stevens MD Brain MRI 07/14/16 0000 Signed Impressions: Service Date/Time: June 10:57 - CONCLUSION: 1. No acute infarct, acute hemorrhage, mass effect or extra-axial fluid collections. 2. Mucus retention cyst within the left maxillary sinus. Dontae Segura MD Head CT 07/13/16 0000 Signed Impressions: Service Date/Time: Wednesday, July 13, 2016 16:54 - CONCLUSION: Normal examination. Venkatesh Bloom MD Chest X-Ray 07/13/16 0000 Signed Impressions: Service Date/Time: Wednesday, July 13, 2016 13:45 - CONCLUSION: Satisfactory endotracheal tube and central line positioning. Bilateral infiltrates and effusions. Venkatesh Bloom MD Tubes & Lines: Tenckhoff Catheter (Ermelinda Jeong) Physical Exam General Appearance: Comfortable Appearance Remarks intubated/unresponsive (Ermelinda Jeong) Eyes Eye Exam: Pupils Equal (Ermelinda Jeong) Throat Throat Exam: Oral Mucosa [place] & Moist (Ermelinda Jeong) Pulmonary Resp Exam: Clear Bilaterally, Breath Sounds Equal (Ermelinda Jeong) Cardiology CV Exam: Regular, Bradycardia (Ermelinda Jeong) Gastrointestinal/Abdomen GI Exam: Soft, Non-Tender, Bowel Sounds Present GI Remarks PD catheter (Ermelinda Jeong) Musculoskeletal MS Exam: Joints Intact MS Remarks b/l BKA (Ermelinda Jeong) Integumentary Skin Exam: Clear, Cool Skin Remarks hands cool, mottled, cyanotic finger tips dressings in place b/l BKA (Ermelinda Jeong) Extremeties Extremities Exam: No Edema (Ermelinda Jeong) Neurologic Neuro Exam: Unresponsive (Ermelinda Jeong) Assessment/Plan Assessment Summary: Anemia of CKD, Hypotension, End Stage Renal Disease Electrolyte Assessment: Metabolic Acidosis Assessment Remarks hyperphosphatemia Problem List: (1) ESRD (end stage renal disease) on dialysis Plan: ESRD due to diabetic nephropathy He is on nightly PD, currently going well K has corrected monitor catheter site no evidence of fluid excess slight acidosis, oral bicarb ordered as I would avoid IVF in a dialysis patient dialysis orders reviewed, continue current plan labs in am (2) Gangrene of toe Plan: vascular (Dr. Kenyon) following had left BKA and revision of right BKA (07/13) prn pain control antibiotics per vascular if needed (3) Anemia of renal disease Plan: Hb low iron profile in process will give a dose of epogen, 20,000 units (4) Diabetes Plan: monitor blood sugar insulin as needed per sliding scale check A1c (5) HTN (hypertension) Plan: Blood pressure low, also bradycardic antihypertensive agents on hold receiving prn epi follow BP, pressors if needed (6) Metabolic bone disease Plan: Renvela changed to Phoslo as it will be given through OG tube monitor phos periodically (7) Encephalopathy Plan: MRI and EEG obtained unresponsive off sedation vent settings: A/C, 16/500/40/5 (Ermelinda Jeong) Plan patient was seen and examined. Discussed with dialysis staff. PD will be continued tonight. All the notes were reviewed. Patient is doing poorly. May have suffered hypoxic encephalopathy. Anemia has improved after transfusion. Potassium is acceptable. Phosphorus is very high, but currently he is getting feeding. (Ricardo Liu MD) Problem Qualifiers (1) Diabetes: Ermelinda Jeong Jul 14, 2016 12:05 Ricardo Liu MD Jul 14, 2016 18:02
[2016-07-14] MEDS ORDERED: DOPamine INJ PREMIX 500 ML ONE (12:29)
[2016-07-14] MEDS ORDERED: levETIRAcetam INJ 500 MG in SODIUM CHLORIDE 0.9% INJ 100 ML IV SCH (13:00)
[2016-07-14] MEDS ORDERED: ALBUMIN HUMAN 5% 25 GM/500 ML BOTTLE IV ONE (13:00)
[2016-07-14] MEDS ORDERED: NOREPINEPHRINE-DEXTROSE DRIP 250 ML IV ONE (13:03)
--- NOTE | 2016-07-14 13:13 | PD.CAR.PN ---
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 During the surgery, Patient the had a episode of hypotension and bradycardia is corrected by anesthesia. Patient was then brought to the ICU on the ventilator and despite discontinuation of sedation did not wake up. [place] Coma Scale remained 4 and patient had some spontaneous extremity movements Patient was taken to CT of the brain which was negative. During the CT scan patient started ripping and tearing on his endotracheal tube and lines so had to be sedated down there by the nursing and radiology staff Patient came up and was sedated and again did not wake up. Remains on the ventilator Because of decreased level of consciousness which cannot be explained by simple means patient underwent an MRI of the brain today which did not show any abnormalities either Today patient again had a period of sustained bradycardia with a heart rate in 40s and systolic blood pressure dropped into the 80s. Patient was given atropine and started on dopamine drip There are now 2 issues to consider 1. Patient's neurologic status is now not explained by simple means of either stroke intracranial bleed or such. This appears to be metabolic encephalopathy based on the hepatic and renal underlying pathology. Patient did not have hypoxia in the operating room or there after that would account for any period of anoxia or hypoxia. EEG was performed in order to rule out seizures and none were confirmed. Nonetheless patient is on prophylactic Keppra at this point This will be an issue for time will show which way the patient is going 2. Patient has periods of sustained sinus bradycardia on top of his bundle branch block which makes me think that patient probably has sick sinus syndrome Atropine corrected immediately and patient is now on small dose dopamine at 3 mics per kilo per minute sustaining hemodynamic parameters Critical care help is greatly appreciated Cardiology is consulted and we will follow their lead on this issue Objective: Vital Signs Date Time Temp Pulse Resp B/P Pulse Ox O2 Delivery O2 Flow Rate FiO2 07/14/16 10:22 98 40 07/14/16 08:00 99.1 68 16 115/63 99 07/14/16 08:00 70 07/14/16 07:57 99 40 07/14/16 04:02 98 40 07/14/16 04:00 99.7 76 16 167/76 98 07/14/16 01:50 98.4 88 16 174/84 99 07/14/16 01:07 98 40 07/14/16 00:00 98.6 93 16 183/90 98 07/13/16 22:10 100 50 07/13/16 21:20 98.6 73 16 164/78 99 07/13/16 20:00 151/71 07/13/16 20:00 98.2 68 16 177/75 100 151/70 07/13/16 20:00 68 07/13/16 19:37 100 50 07/13/16 18:00 70 07/13/16 17:00 76 07/13/16 16:44 100 07/13/16 16:00 74 07/13/16 16:00 96.8 74 16 164/78 100 07/13/16 15:45 80 07/13/16 15:45 97 50 07/13/16 15:45 97.2 80 16 174/82 100 07/13/16 15:20 97.5 83 16 97 Mechanical Ventilator 50 168/84 07/13/16 15:15 83 16 166/82 97 07/13/16 15:00 100 100 07/13/16 15:00 77 16 165/83 97 07/13/16 14:45 82 16 165/81 99 07/13/16 14:30 99 16 173/85 100 07/13/16 14:15 100 16 177/88 98 07/13/16 14:00 100 16 209/95 98 07/13/16 13:45 101 16 178/85 99 Mechanical Ventilator 50 07/13/16 13:30 50 07/13/16 13:30 97.9 111 16 223/96 99 Mechanical Ventilator 50 199/93 07/13/16 13:30 07/13/16 13:25 99 50 Labs: Laboratory Tests Test 07/14/16 07/14/16 07/14/16 05:02 05:30 11:36 Blood Gas Puncture Site ART LINE Blood Gas Patient Temperature 98.6 Blood Gas HCO3 18 mmol/L (22-26) Blood Gas Base Excess -5.2 mmol/L (-2-2) Blood Gas Oxygen Saturation 97 % (90-100) Arterial Blood pH 7.42 (7.380-7.420) Arterial Blood Partial 29 mmHg (38-42) Pressure CO2 Arterial Blood Partial 138 mmHg Pressure O2 (61-120) Arterial Blood Oxygen Content 13.2 Vol % (12.0-20.0) Arterial Blood 1.2 % (0-4) Carboxyhemoglobin Arterial Blood Methemoglobin 0.9 % (0-2) Blood Gas Hemoglobin 9.5 G/DL (12.0-16.0) Oxygen Delivery Device VENTILATOR Blood Gas Ventilator Setting AC 16/530/5PEEP Blood Gas Inspired Oxygen 40 % White Blood Count 14.5 TH/MM3 (4.0-11.0) Red Blood Count 3.26 MIL/MM3 (4.50-5.90) Hemoglobin 9.5 GM/DL (13.0-17.0) Hematocrit 28.4 % (39.0-51.0) Mean Corpuscular Volume 87.1 FL (80.0-100.0) Mean Corpuscular Hemoglobin 29.0 PG (27.0-34.0) Mean Corpuscular Hemoglobin 33.4 % Concent (32.0-36.0) Red Cell Distribution Width 17.8 % (11.6-17.2) Platelet Count 489 TH/MM3 (150-450) Mean Platelet Volume 8.6 FL (7.0-11.0) Neutrophils (%) (Auto) 89.7 % (16.0-70.0) Lymphocytes (%) (Auto) 2.2 % (9.0-44.0) Monocytes (%) (Auto) 7.8 % (0.0-8.0) Eosinophils (%) (Auto) 0.0 % (0.0-4.0) Basophils (%) (Auto) 0.3 % (0.0-2.0) Neutrophils # (Auto) 13.0 TH/MM3 (1.8-7.7) Lymphocytes # (Auto) 0.3 TH/MM3 (1.0-4.8) Monocytes # (Auto) 1.1 TH/MM3 (0-0.9) Eosinophils # (Auto) 0.0 TH/MM3 (0-0.4) Basophils # (Auto) 0.0 TH/MM3 (0-0.2) CBC Comment DIFF FINAL Differential Comment Nasal Screen MRSA (PCR) NEGATIVE (NEGATIVE) Sodium Level 135 MEQ/L (136-145) Potassium Level 3.8 MEQ/L (3.5-5.1) Chloride Level 97 MEQ/L (98-107) Carbon Dioxide Level 19.7 MEQ/L (21.0-32.0) Anion Gap 18 MEQ/L (5-15) Blood Urea Nitrogen 48 MG/DL (7-18) Creatinine 10.33 MG/DL (0.60-1.30) Estimat Glomerular Filtration 5 ML/MIN (>89) Rate Random Glucose 361 MG/DL (74-106) Calcium Level 8.7 MG/DL (8.5-10.1) Phosphorus Level 9.6 MG/DL (2.5-4.9) Magnesium Level 2.0 MG/DL (1.5-2.5) Iron Level 31 MCG/DL (65-175) Total Bilirubin 0.3 MG/DL (0.2-1.0) Aspartate Amino Transf 25 U/L (15-37) (AST/SGOT) Alanine Aminotransferase 10 U/L (12-78) (ALT/SGPT) Alkaline Phosphatase 99 U/L (45-117) Total Protein 7.6 GM/DL (6.4-8.2) Albumin 1.7 GM/DL (3.4-5.0) Thyroid Stimulating Hormone 3.080 uIU/ML 3rd Gen (0.358-3.740) Random Cortisol 133.3 MCG/DL Result Diagram: 07/14/16 0530 07/14/1630 Jw Becerra MD Jul 14, 2016 13:13
[2016-07-14] MEDS ORDERED: NOREPINEPHRINE-DEXTROSE DRIP 250 ML IV SCH (13:15)
[2016-07-14] MEDS ORDERED: TERBUTALINE INJ 1 MG/ML AMP SQ PRN (13:15)
[2016-07-14 13:22] LABS: BLOOD GAS BASE EXCESS -13.1 mmol/L (-2-2); BLOOD GAS CARBOXYHEMOGLOBIN 0.9 % (0-4); BLOOD GAS HCO3 12 mmol/L (22-26); BLOOD GAS METHEMOGLOBIN 0.8 % (0-2); BLOOD GAS O2 HGB SATURATION 96 % (90-100); BLOOD GAS OXYGEN CONTENT 16.1 Vol % (12.0-20.0); BLOOD GAS PCO2 26 mmHg (38-42); BLOOD GAS PO2 144 mmHg (61-120); BLOOD GAS TOTAL HGB 11.7 G/DL (12.0-16.0); TEMP CORR TO 98.6
[2016-07-14 13:23] LABS: CRITICAL VALUE YES; OXYGEN DEVICE VENTILATOR; VENT SETTINGS AC 16/530/+5
[2016-07-14 13:24] LABS: DRAW SITE ART LINE; FIO2 40 %; STAT YES
[2016-07-14] MEDS: HEPARIN SODIUM - SQ 10,000 UNITS/ML VIAL SQ SCH (13:24)
[2016-07-14] MEDS: SODIUM BICARBONATE 650 MG TAB PO SCH ×2 (13:24→21:15)
[2016-07-14] MEDS: levETIRAcetam INJ 500 MG in SODIUM CHLORIDE 0.9% INJ 100 ML IV SCH ×2 (13:25→21:15)
[2016-07-14] MEDS: PANTOPRAZOLE SODIUM 40 MG VIAL IV SCH (13:30)
[2016-07-14] MEDS ORDERED: HYDROCORTISONE SOD SUCCINATE 100 MG VIAL IV ONE (13:45)
[2016-07-14] MEDS ORDERED: SODIUM BICARBONATE 8.4% INJ 50 MEQ/50 ML SYR IV ONE (13:45)
[2016-07-14] MEDS ORDERED: DOPamine 800 MG/D5W PREMIX 500 ML IV SCH (13:45)
[2016-07-14] MEDS ORDERED: EPINEPHrine HCL (1:1000) 1 MG/ML VIAL IV ONE (14:00)
[2016-07-14] MEDS ORDERED: ATROPINE SULFATE 1 MG/ML VIAL IV PUSH ONE (14:00)
[2016-07-14] MEDS ORDERED: methylPREDNISolone SO SUCC INJ 500 MG in DEXTROSE 5% IN WATER 100ML INJ 100 ML IV ONE ×2 (14:00)
[2016-07-14 14:22] LABS: TRANSFERRIN IRON PROFILE 134 MG/DL (200-360)
[2016-07-14] MEDS ORDERED: SODIUM BICARBONATE 8.4% INJ 150 MEQ in DEXTROSE 5% IN WATE 1000ML INJ 1,000 ML IV SCH ×2 (15:00)
--- NOTE | 2016-07-14 15:22 | MB ---
cc: ODILIA GARZA MD DATE OF CONSULTATION: 07/14/2016 REASON FOR CONSULTATION: This is a 56-year-old who presents to the hospital with gangrene of his left lower extremity. He underwent a left below-knee amputation as well as debridement of his stump on his right side. Since his surgery he has been hypotensive and unresponsive. I have been asked to see him in that he has had problems with two episodes of bradycardia with heart rate at 46 and 48 with some drop in his blood pressure. He is currently being maintained on norepinephrine and dopamine blood pressures and heart rates have been stable for the last several hours at 136/80 with heart rates running in the 80's. Apparently no prior history of bradycardia has been present. The patient is unresponsive and unable answer questions, most of the history comes from the nurse and chart. PAST MEDICAL HISTORY: His past medical history is otherwise significant for end-stage renal disease for which he has been on peritoneal dialysis his last potassium was normal. He does have some mild anemia which is probably consequence of his surgery. He has also had a history of hypertension, hypothyroidism, hyperlipidemia and type 2 diabetes. As well as severe peripheral vascular disease. He has also underwent chemotherapy for colon cancer and the status of that at this point and time is uncertain. SOCIAL HISTORY The patient apparently was a smoker until five or six years ago he does not smoke or drink at present. PHYSICAL EXAMINATION: IN GENERAL: On physical exam he is intubated and unresponsive blood pressure is 136/70. NECK: There is no neck vein distension. Carotids are normal. LUNGS: The lungs are clear. CARDIOVASCULAR SYSTEM: The cardiovascular examination reveals a regular rate and rhythm. There is no significant murmur, no gallop is noted. ABDOMEN: The abdomen is soft without tenderness. EXTREMITIES: The extremities revealed bilateral below-knee amputation. ASSESSMENT/PLAN: The patient has had two episodes of bradycardia it is unclear why the patient is hypotensive certainly be a combination of his anesthesia and slow clearing we do note that echocardiogram was done revealing severe left ventricular dysfunction with an ejection fraction of 20 to 25%. He certainly can have trouble metabolizing his previous anesthesia. There is also a question of having suffered hypoxic injury at surgery and that being the case mild cerebral edema could also be accounting for his brief episodes of bradycardia. At this point and time we continue his supportive care as were doing. If he has any further episodes of transient bradycardia I think it would probably reasonable to put an external pacer on and we will watch carefully for that. In the meantime we will continue supportive care. MD GABINO Burns/maddie /2:37 PM /3:11 PM
--- NOTE | 2016-07-14 15:28 | PD.ID.CON ---
History of Present Illness Service ID Consult Requested By Dr Llanos Reason for Consult sepsis Primary Care Physician Diagnoses: History of Present Illness 56 yo male with severe unreconstuctable PVD and poorly controlled DM presented yday with L LE gangrene and previous RBKA failure to heal He underwent L BKA and RBKA revision last night and developped hemodynamic instability during surgery His lactic acid went from normal to 7.2 He remains intubated He is on pressors Hisd fingertips are cyanotic He was stable prior to surgery, lactic acid WNL He has ESRD and is on PD Minimal urine output Review of Systems ROS Limitations: Clinical Condition, Intubated, Altered Mental Status, Unresponsive Past Family Social History Allergies: Coded Allergies: No Known Allergies (Unverified , 06/29/16) Past Medical History ESRD on PD HTN PAD DM colon CA Past Surgical History previous right BKA Active Ordered Medications Medications where reviewed in EMR Antibiotics Include: no abx Family History Non-Contributory. Social History No Tobacco. + some ETOH. No Illicit Drugs. Physical Exam Vital Signs Vital Signs Date Time Temp Pulse Resp B/P Pulse Ox O2 Delivery O2 Flow Rate FiO2 07/14/16 13:34 96 40 07/14/16 10:22 98 40 07/14/16 08:00 99.1 68 16 115/63 99 07/14/16 08:00 70 07/14/16 07:57 99 40 07/14/16 04:02 98 40 07/14/16 04:00 99.7 76 16 167/76 98 07/14/16 01:50 98.4 88 16 174/84 99 07/14/16 01:07 98 40 07/14/16 00:00 98.6 93 16 183/90 98 07/13/16 22:10 100 50 07/13/16 21:20 98.6 73 16 164/78 99 07/13/16 20:00 151/71 07/13/16 20:00 98.2 68 16 177/75 100 151/70 07/13/16 20:00 68 07/13/16 19:37 100 50 07/13/16 18:00 70 07/13/16 17:00 76 07/13/16 16:44 100 07/13/16 16:00 74 07/13/16 16:00 96.8 74 16 164/78 100 07/13/16 15:45 80 07/13/16 15:45 97 50 07/13/16 15:45 97.2 80 16 174/82 100 Physical Exam CONSTITUTIONAL/GENERAL: This is a thin chronically ill appearing patient, in no apparent distress. Sedated intubated on merch vent TUBES/LINES/DRAINS: SKIN: No jaundice, rashes, or lesions. Skin temperature appropriate. Not diaphoretic. HEAD: Atraumatic. Normocephalic. EYES: Pupils equal and round and reactive. Extraocular motions intact. No scleral icterus. No injection or drainage. Fundi not examined. ENT: Nose without bleeding or purulent drainage. Oral mucosae partially visulaysed without visible erythema, exudates, masses, or lesions. NECK: Trachea midline. Supple, nontender. CARDIOVASCULAR: Regular rate and rhythm with + harsh systolic and diastolic 3/6 murmurs (max on RUSB), S3 gallop, no rubs. No JVD. Peripheral pulses symmetric. RESPIRATORY/CHEST: Symmetric, unlabored respirations. Clear to auscultation. Breath sounds equal bilaterally. No wheezes, rales, or rhonchi. GASTROINTESTINAL: Abdomen soft, non-tender, mildly to moderartely distended. PD cath i place LLQ No hepato-splenomegaly, or palpable masses. No guarding. Bowel sounds present. GENITOURINARY: Without palpable bladder distension. Coffman catheter in place with small amount of yellow clear urine MUSCULOSKELETAL: Upper extremities without clubbing, Marked cyanosis with cold blue fingertips with no refill No edema. Bl dressings on BLE, intact LYMPHATICS: No palpable cervical or supraclavicular adenopathy. NEUROLOGICAL:sedated iunresponsive PSYCHIATRIC: unable to assess 2/2 mental status Laboratory Laboratory Tests Test 07/13/16 07/13/16 07/14/16 07/14/16 15:36 17:56 05:02 05:30 White Blood Count 21.4 14.5 Red Blood Count 2.51 3.26 Hemoglobin 7.1 9.5 Hematocrit 22.8 28.4 Mean Corpuscular Volume 90.8 87.1 Mean Corpuscular Hemoglobin 28.2 29.0 Mean Corpuscular Hemoglobin 31.1 33.4 Concent Red Cell Distribution Width 17.5 17.8 Platelet Count 510 489 Mean Platelet Volume 8.6 8.6 Neutrophils (%) (Auto) 92.3 89.7 Lymphocytes (%) (Auto) 2.0 2.2 Monocytes (%) (Auto) 5.5 7.8 Eosinophils (%) (Auto) 0.0 0.0 Basophils (%) (Auto) 0.2 0.3 Neutrophils # (Auto) 19.8 13.0 Lymphocytes # (Auto) 0.4 0.3 Monocytes # (Auto) 1.2 1.1 Eosinophils # (Auto) 0.0 0.0 Basophils # (Auto) 0.0 0.0 CBC Comment DIFF FINAL DIFF FINAL Differential Comment Sodium Level 138 135 Potassium Level 3.4 3.8 Chloride Level 101 97 Carbon Dioxide Level 21.9 19.7 Anion Gap 15 18 Blood Urea Nitrogen 52 48 Creatinine 10.29 10.33 Estimat Glomerular Filtration 5 5 Rate Random Glucose 236 361 Lactic Acid Level 1.5 Calcium Level 8.1 8.7 Phosphorus Level 8.9 9.6 Magnesium Level 1.9 2.0 Total Bilirubin 0.2 0.3 Aspartate Amino Transf 11 25 (AST/SGOT) Alanine Aminotransferase 11 10 (ALT/SGPT) Alkaline Phosphatase 92 99 Total Protein 6.8 7.6 Albumin 1.6 1.7 Blood Type B POSITIVE Antibody Screen POSITIVE Crossmatch Leukocyte-Reduced Red Blood Cells Blood Bank Comment Blood Gas Puncture Site ART LINE Blood Gas Patient Temperature 98.6 Blood Gas HCO3 18 Blood Gas Base Excess -5.2 Blood Gas Oxygen Saturation 97 Arterial Blood pH 7.42 Arterial Blood Partial 29 Pressure CO2 Arterial Blood Partial 138 Pressure O2 Arterial Blood Oxygen Content 13.2 Arterial Blood 1.2 Carboxyhemoglobin Arterial Blood Methemoglobin 0.9 Blood Gas Hemoglobin 9.5 Oxygen Delivery Device VENTILATOR Blood Gas Ventilator Setting AC 16/530/5PEEP Blood Gas Inspired Oxygen 40 Nasal Screen MRSA (PCR) NEGATIVE Iron Level 31 Test 07/14/16 07/14/16 07/14/16 07/14/16 11:36 13:10 13:40 13:57 Thyroid Stimulating Hormone 3.080 3rd Gen Random Cortisol 133.3 Blood Gas Puncture Site ART LINE Blood Gas Patient Temperature 98.6 Blood Gas HCO3 12 Blood Gas Base Excess -13.1 Blood Gas Oxygen Saturation 96 Arterial Blood pH 7.30 Arterial Blood Partial 26 Pressure CO2 Arterial Blood Partial 144 Pressure O2 Arterial Blood Oxygen Content 16.1 Arterial Blood 0.9 Carboxyhemoglobin Arterial Blood Methemoglobin 0.8 Blood Gas Hemoglobin 11.7 Oxygen Delivery Device VENTILATOR Blood Gas Ventilator Setting AC 16/530/+5 Blood Gas Inspired Oxygen 40 Iron Level 185 Total Iron Binding Capacity 188 Percent Iron Saturation 98.6 Albumin 1.8 Phenytoin (Dilantin) Level 9.4 Lactic Acid Level 7.2 Test 07/14/16 14:17 Ammonia LESS THAN 10 Result Diagram: 07/14/16 0530 07/14/16 0530 Imaging Last Impressions Chest X-Ray 07/14/16 0600 Signed Impressions: Service Date/Time: June 05:41 - CONCLUSION: No significant change mild consolidation and small effusion right base. Mild cardiomegaly. Venkatesh Stevens MD Brain MRI 07/14/16 0000 Signed Impressions: Service Date/Time: June 10:57 - CONCLUSION: 1. No acute infarct, acute hemorrhage, mass effect or extra-axial fluid collections. 2. Mucus retention cyst within the left maxillary sinus. Dontae Segura MD Head CT 07/13/16 0000 Signed Impressions: Service Date/Time: Wednesday, July 13, 2016 16:54 - CONCLUSION: Normal examination. Venkatesh Bloom MD Assessment and Plan Assessment and Plan Sepsis Septick shock Source unclear Severe PVD s/p LBK and R BKA revision - start zosyn, vancomycin, micafungin - fu blood clx - chk PD fluid - CT A/P when stable Discussed Condition With Dr Llanos spouse at b/s Veena Benitez MD Jul 14, 2016 15:28
[2016-07-14] MEDS ORDERED: VANCOMYCIN INJ 1,000 MG in SODIUM CHLOR 0.9% 250 ML INJ 250 ML IV ONE (17:00)
[2016-07-14] MEDS: CALCIUM ACETATE 667 MG CAP PO SCH (17:00)
[2016-07-14] MEDS: INSULIN ASPART SUPPLEMENTAL SCALE SQ SCH ×2 (17:02→21:26)
--- NOTE | 2016-07-14 17:12 | MB ---
cc: ODILIA BAKER DATE OF CONSULTATION 07/14/16 A 56-year-old man with history of end-stage renal disease on peritoneal dialysis, mild anemia, hypertension, hypothyroidism, hyperlipidemia, type 2 diabetes, peripheral vascular disease, colon cancer status post chemo. He went in to have a debridement of his lower extremities and underwent a left below-knee amputation and became hypotensive and unresponsive, has not woken up since. According to the nurse, he stopped his Diprivan approximately 24 hours ago. He has not awaken. I am asked to see him for mental status change. Known ejection fraction from an echo here 20-25%. REVIEW OF SYSTEMS Unable to perform. SOCIAL HISTORY Smoker until about five years ago, not a drinker, lives with his and granddaughter. MEDICATIONS Current meds. 1. Calcium. 2. Keppra q 12 500 mg, although the nurse has not noted any seizure herself. 3. Amlodipine 4. He had a dose of fosphenytoin at 3:00 a.m. this morning, although the nurse said no prior knowledge of any seizures. The granddaughter thought he had some right facial twitching earlier today. 5. [place] as needed 6. Dilaudid 7. P.r.n. morphine. 8. He did get a Percocet on the at 9:00 a.m. PHYSICAL EXAMINATION VITAL SIGNS: 115/63, 70, 99. NECK: No carotid bruits. HEART: Regular rhythm. I did not detect a murmur. The pupils are equal. Eyes are somewhat disconjugate. With deep nasal stimulation, he had a little bit of closing of the left eye slightly more so than the right but bilaterally. To deep pain, he had some what appeared to be almost localizing flexion of the left elbow and some apparent decerebrate posturing on the right side. He has below-knee amputation bilaterally. DTRs absent throughout. He is comatose at this time. LABORATORY DATA CBC - white count 14.5, hematocrit 28, platelet count 489, sed rate in April was greater than 140, Dilantin level today was 9.4. Lactic acid 7.2, iron low at 185, albumin 1.8, TSH normal. Troponin 0.31 yesterday. Ammonia level today less than 10. CPK normal. LFTs normal. Creatinine is 10, BUN is 48. Sodium 135. CPK was normal. Blood gases have all been near normal. IMAGING STUDIES He had an MRI of his brain showed no acute abnormality. Diffusion image was negative for any infarcts. Reviewing her MRI - the flare images may show just a slight preponderance of cortical ribboning hyperintensity compared to normal and it is possible that there could be some mild diffuse cerebral damage there. Nothing shows up on the diffusion images though so if it is hypoxic change, it appears relatively mild from an MRI point of view. IMPRESSION Encephalopathy. We will continue to monitor. He evidently had an EEG done and possibly some focal seizure activity. We will watch for anymore of that and keep him off the sedatives and see what the EEG shows. I will be following him. I note he is in renal failure and a low albumin affects somewhat the antiepileptics he could take. It is unclear to me why he was started on seizure meds at this point according to a nursing point of view she had not documented any seizures. I was encouraged by his left arm response to pain, however. He is certainly not brain at this time. My hope is that he will have some slow recovery. MD LANCE Melendez/ /4:24 PM /4:43 PM
[2016-07-14] MEDS ORDERED: DIATRIZOATE MEGLUM/DIATRIZOATE SOD 9 ML CUP PO ONE (17:15)
[2016-07-14 17:42] LABS: FREE T4 1.43 NG/DL (0.76-1.46)
[2016-07-14] MEDS: PIPERACIL-TAZO 2.25 GM PREMIX 50 ML IV SCH (18:22)
--- NOTE | 2016-07-14 19:30 | RADRPT ---
EXAM DATE/TIME: 07/14/2016 19:02 [facility] COMPARISON: CT ABDOMEN & PELVIS W/O CONTRAST, March 16, 2016, 17:35. INDICATIONS : Septic ORAL CONTRAST: Prescribed oral contrast ingested. RADIATION DOSE: 14.89 CTDIvol (mGy) MEDICAL HISTORY : Hypertension. Hernia, hiatal. Diabetes mellitus type 2.Renal failure. SURGICAL HISTORY : Colectomy. ENCOUNTER: Initial ACUITY: 1 day PAIN SCALE: Non-responsive LOCATION: Diffuse abdomen TECHNIQUE: Volumetric scanning of the abdomen and pelvis was performed. Using automated exposure control and ad justment of the mA and/or kV according to patient size, radiation dose was kept as low as reasonably achievable to obtain optimal diagnostic quality images. FINDINGS: CT Abdomen: Slight bilateral pleural effusions are present with bibasilar compressive collapse and/or consolidation. There is increase in ascitic fluid since the prior examination and a Tenckhoff type c atheter is in place. The kidneys are small and shrunken bilaterally. Chronic vascular calcifications are present involving the aorta, iliac arteries without any significant stenosis or aneurysmal dilata tions for technique.The liver, spleen, pancreas, adrenals are unremarkable. There is no evidence for any appreciable pathological adenopathy, free fluid, or bowel obstruction. CT pelvis: There is no evidence for mass, abscess formation, or any significant adenopathy within the pelvis. CONCLUSION: Bilateral pleural effusions and bibasilar compressive collapse and or consolidation w ith increase in the ascitic fluid since the prior study. Cary Sanchez MD on July 14, 2016 at 19:24 Board Certified Radiologist. This report was verified electronically.
[2016-07-14 19:43] LABS: HEMOGLOBIN A1a 1.3 %; HEMOGLOBIN A1b 1.3 %; HEMOGLOBIN Ao 79.5 %; HEMOGLOBIN F 1.1 %; HEMOGLOBIN LA1C 4.4 %; HEMOGLOBIN P3 7.1 %
--- NOTE | 2016-07-14 20:42 | EKG ---
Date Performed: 07/13/2016 Time Performed: 13:38:04 PTAGE: 56 years EKG: SINUS TACHYCARDIA RIGHT BUNDLE BRANCH BLOCK WITH SECONDARY ST-T WAVE CHANGES ABNORMAL ECG PREVIOUS TRACING : 07/13/[address]-T WAVE CHANGES ARE SIMILAR TO THE PRIOR TRACING. CANNOT EXCLUDE ISCHEMIA DOCTOR: Huey Camacho Interpretating Date/Time 07/14/2016 20:41:37
[2016-07-14] MEDS: MICAFUNGIN INJ 150 MG in SODIUM CHLORIDE 0.9% INJ 100 ML IV SCH (21:16)
[2016-07-14] MEDS ORDERED: INSULIN REGULAR 100 UNITS/100 ML NS ALGORITHM 4 IV SCH ×2 (22:00)
[2016-07-15] VITALS (18 sets, daily range): BP systolic 141–191; BP diastolic 65–84; PULSE 83–95; RESP 16–19; TEMP 99.3–100.1; O2SAT 100
[2016-07-15] MEDS ORDERED: SODIUM CHLOR 0.9% 250 ML INJ 250 ML ONE (00:33)
[2016-07-15] MEDS: PIPERACIL-TAZO 2.25 GM PREMIX 50 ML IV SCH ×4 (00:46→16:34)
[2016-07-15] MEDS: HEPARIN SODIUM - SQ 10,000 UNITS/ML VIAL SQ SCH ×2 (00:46→11:52)
[2016-07-15] MEDS: niCARdipine 25 MG/NS 250 ML Vial2Bag or IV room IV SCH ×2 (00:46)
[2016-07-15 05:44] LABS: BLOOD GAS BASE EXCESS -1.1 mmol/L (-2-2); BLOOD GAS CARBOXYHEMOGLOBIN 1.7 % (0-4); BLOOD GAS HCO3 22 mmol/L (22-26); BLOOD GAS METHEMOGLOBIN 1.1 % (0-2); BLOOD GAS O2 HGB SATURATION 96 % (90-100); BLOOD GAS OXYGEN CONTENT 15.4 Vol % (12.0-20.0); BLOOD GAS PCO2 32 mmHg (38-42); BLOOD GAS PO2 126 mmHg (61-120); BLOOD GAS TOTAL HGB 11.3 G/DL (12.0-16.0); CRITICAL VALUE NO; DRAW SITE LT BRACHIAL; FIO2 40 %; NUMBER OF ARTERIAL PUNCTURES 1; OXYGEN DEVICE VENTILATOR; TEMP CORR TO 98.6; VENT SETTINGS AC16/530/PEEP5
[2016-07-15 05:45] LABS: STAT NO; ULNAR PULSE PRESENT
[2016-07-15 05:57] LABS: AUTOMATED NEUTROPHIL # 20.3 TH/MM3 (1.8-7.7); BASOPHIL % 0.1 % (0.0-2.0); HEMATOCRIT 29.8 % (39.0-51.0); LYMPH % 2.8 % (9.0-44.0); LYMPHOCYTE # 0.6 TH/MM3 (1.0-4.8); MEAN CELL VOLUME 88.2 FL (80.0-100.0); MEAN CORPUSCULAR HEMOGLOBIN 28.9 PG (27.0-34.0); MEAN CORPUSCULAR HGB CONC 32.7 % (32.0-36.0); MONO % 5.8 % (0.0-8.0); NEUT % 91.3 % (16.0-70.0); PLATELET COUNT 385 TH/MM3 (150-450); RED BLOOD COUNT 3.37 MIL/MM3 (4.50-5.90); RED CELL DISTRIBUTION WIDTH 17.2 % (11.6-17.2); WHITE BLOOD COUNT 22.2 TH/MM3 (4.0-11.0)
[2016-07-15] MEDS: LACTATED RINGER'S 1000 ML IV SCH (05:59)
[2016-07-15 06:02] LABS: HEMATOLOGY STUDY COMMENT ND; HEMO FLAGS AUTO DIFF
[2016-07-15 06:36] LABS: ALKALINE PHOSPHATASE 92 U/L (45-117); ALT (GPT) 749 U/L (12-78); ANION GAP 19 MEQ/L (5-15); AST (GOT) 5281 U/L (15-37); BLOOD UREA NITROGEN 54 MG/DL (7-18); CHLORIDE 100 MEQ/L (98-107); GLOMERULAR FILTRATION RATE 6 ML/MIN (>89); MAGNESIUM 1.7 MG/DL (1.5-2.5); SODIUM (NA) 140 MEQ/L (136-145); TOTAL BILIRUBIN ADULT 1.2 MG/DL (0.2-1.0)
[2016-07-15 06:43] LABS: POTASSIUM 2.3 MEQ/L (3.5-5.1)
--- NOTE | 2016-07-15 07:02 | RADRPT ---
EXAM DATE/TIME: 07/15/2016 06:06 [facility] COMPARISON: CHEST SINGLE AP, July 14, 2016, 5:41. INDICATIONS : Shortness of breath. MEDICAL HISTORY : Hypertension. Diabetes mellitus type II. SURGICAL HISTORY : None. ENCOUNTER: Subsequent ACUITY: 3 days PAIN SCORE: Non-responsive. LOCATION: Bilateral chest FINDINGS: Endotracheal tube is present with tip 8-9 cm below the gui. Nasogastric tube descends to the stoma ch. Left subclavian central line is stable in good position. As slight interval improvement in aerati on with some clearance of basilar parenchymal opacities. Cardiac contours are grossly stable. CONCLUSION: Improving aeration Venkatesh Bloom MD on July 15, 2016 at 6:59 Board Certified Radiologist. This report was verified electronically.
--- NOTE | 2016-07-15 07:23 | HHI.PR ---
Objective Vital Signs Date Time Temp Pulse Resp B/P Pulse Ox O2 Delivery O2 Flow Rate FiO2 07/15/16 06:00 83 07/15/16 04:00 99.5 90 19 142/65 100 145/69 07/15/16 04:00 90 07/15/16 03:58 100 40 07/15/16 02:00 88 07/15/16 00:00 99.3 86 19 191/80 100 141/84 07/15/16 00:00 87 07/14/16 23:43 100 40 07/14/16 22:00 82 07/14/16 20:25 100 100 07/14/16 20:23 100 40 07/14/16 20:00 98.2 77 18 158/77 100 07/14/16 20:00 79 07/14/16 19:00 158/75 07/14/16 18:00 73 07/14/16 18:00 133/67 07/14/16 17:56 96 40 07/14/16 17:00 145/71 07/14/16 16:00 99.0 79 19 145/71 100 07/14/16 13:34 96 40 07/14/16 12:00 99.0 49 16 93/56 100 07/14/16 10:22 98 40 07/14/16 08:00 99.1 68 16 115/63 99 07/14/16 08:00 70 07/14/16 07:57 99 40 I/O 07/14/16 07/14/16 07/14/16 07/15/16 07/15/16 07/15/16 07:00 15:00 23:00 07:00 15:00 23:00 Intake Total 762 ml 792 ml 1012 ml 820 ml Output Total 75 ml 1219 ml 30 ml 5 ml Balance 687 ml -427 ml 982 ml 815 ml IV Total 262 ml 292 ml 1012 ml 820 ml Albumin 500 ml Packed Cells 500 ml Output Urine Total 75 ml 50 ml 30 ml 5 ml Stool Total 0 ml 0 ml 0 ml Gastric Drainage Total 0 ml 0 ml Peritoneal Fluid 1169 ml Result Diagram: 07/15/16 0455 07/15/16 0455 Objective Remarks more responsive nl dolls normal but bilat depressed corneas and nasal stim much more rxt with eye blink bilat now bue pain localizes with elbow flexion Assessment and Plan Assessment and Plan imp he is twice as good as yesterday and should continue to improve unclear if a small amount of cortical edema on mri diffuselsy or just nl variant for him i would not be against hemodialysis to normalize his numbers and see if he improves mentally so much more and could even normalize if ok with family as such a young age will fu eeg and fu monday watch for any mouth twitching and if so call neuro doll surgeon none seen this am Nathan Henry MD Jul 15, 2016 07:22
[2016-07-15] MEDS ORDERED: GLUCAGON 1 MG/ML VIAL OTHER PRN (07:30)
[2016-07-15] MEDS ORDERED: DEXTROSE 50% IN WATER 50 ML VIAL(D50) IV PUSH PRN (07:30)
[2016-07-15] MEDS ORDERED: PLEASE DISCONTINUE PREVIOUS SUPPLEMENTAL SCALE INSULIN ORDERS XX ONE (07:30)
[2016-07-15] MEDS: CALCIUM ACETATE 667 MG CAP PO SCH ×3 (08:00→16:33)
--- NOTE | 2016-07-15 08:04 | MP ---
cc: JW AGARWAL MD DATE OF SURGERY: 07/13/2016 PREOPERATIVE DIAGNOSIS 1. Gangrene of the left foot. 2. Ischemia of the left leg. 3. Peripheral vascular disease. 4. Coronary artery disease. 5. Chronic renal failure. 6. Previous stroke. 7. Diabetes mellitus. POSTOPERATIVE DIAGNOSIS 1. Gangrene of the left foot. 2. Ischemia of the left leg. 3. Peripheral vascular disease. 4. Coronary artery disease. 5. Chronic renal failure. 6. Previous stroke. 7. Diabetes mellitus. OPERATIVE PROCEDURE 1. Left below-knee amputation. 2. Right BKA stump revision. SURGEON Dr. Agarwal ANESTHESIA General. ESTIMATED BLOOD LOSS 30 cc. DETAILS OF PROCEDURE The patient was prepped and draped in the usual fashion. First the left side was attended. With a silk the skin is indented in order to get a straight line of transection and then incision is made over the tibia anteriorly, carried down laterally and then inferiorly creating the posterior flap with a 10 blade. This was deepened down to the level of the tibia and fibula transecting the extensor muscles and then tying off the anterior tibial artery and veins which are essentially occluded. The fibula is now exposed and the tibia is exposed. The periosteum is elevated about 2 inches above the level of the skin incision and then both are transected with the oscillating saw. The posterior flap is created with an amputation knife and specimen removed. The trifurcation branches are barely bleeding. These are tied off with 2-0 Vicryl stick ties and this bleeding is controlled. The area is irrigated with saline. Meticulous hemostasis is obtained. The tibia is now cut under an angle with the oscillating saw and then rasped down for smoothness. The posterior flap is now flipped anteriorly and the soleus muscle and the remnants of the gastrocnemius muscles are incorporated into the closure, deep fascia to deep fascia with 0 Prolene, the superficial fascia with 0 Vicryl and skin is closed with 3-0 Prolene interrupted stitches. Dressing is applied. Now the right side is attended. The patient has an area of eschar on the right side stump. This is excised with a 10 blade in an elliptical fashion. The area is irrigated with copious amounts of saline and then closed with interrupted 3-0 Prolene. The patient tolerated the procedure well. Jw RAINES/GILBERTO /4:35 PM /7:55 AM
[2016-07-15] MEDS: SODIUM CHLORIDE 0.9% FLUSH 5 ML FLUSH IVF SCH ×2 (08:08→20:15)
--- NOTE | 2016-07-15 08:18 | PD.CARD.PN ---
Subjective Subjective Remarks Remains intubated and unresponsive. No further episodes of bradycardia. BP good on no meds and given cardene for HTN Objective Vital Signs / I&O Vital Signs Date Time Temp Pulse Resp B/P Pulse Ox O2 Delivery O2 Flow Rate FiO2 07/15/16 06:00 83 07/15/16 04:00 99.5 90 19 142/65 100 145/69 07/15/16 04:00 90 07/15/16 03:58 100 40 07/15/16 02:00 88 07/15/16 00:00 99.3 86 19 191/80 100 141/84 07/15/16 00:00 87 07/14/16 23:43 100 40 07/14/16 22:00 82 07/14/16 20:25 100 100 07/14/16 20:23 100 40 07/14/16 20:00 98.2 77 18 158/77 100 07/14/16 20:00 79 07/14/16 19:00 158/75 07/14/16 18:00 73 07/14/16 18:00 133/67 07/14/16 17:56 96 40 07/14/16 17:00 145/71 07/14/16 16:00 99.0 79 19 145/71 100 07/14/16 13:34 96 40 07/14/16 12:00 99.0 49 16 93/56 100 07/14/16 10:22 98 40 I/O 07/14/16 07/14/16 07/14/16 07/15/16 07/15/16 07/15/16 07:00 15:00 23:00 07:00 15:00 23:00 Intake Total 762 ml 792 ml 1012 ml 820 ml Output Total 75 ml 1219 ml 30 ml 5 ml Balance 687 ml -427 ml 982 ml 815 ml IV Total 262 ml 292 ml 1012 ml 820 ml Albumin 500 ml Packed Cells 500 ml Output Urine Total 75 ml 50 ml 30 ml 5 ml Stool Total 0 ml 0 ml 0 ml Gastric Drainage Total 0 ml 0 ml Peritoneal Fluid 1169 ml Physical Exam Lungs clear RRR Laboratory Laboratory Tests Test 07/14/16 07/14/16 07/14/16 07/14/16 11:36 13:10 13:40 13:57 Vitamin B12 Level 1500 PG/ML Free Thyroxine 1.43 NG/DL Thyroid Stimulating Hormone 3.080 uIU/ML 3rd Gen Random Cortisol 133.3 MCG/DL Blood Gas Puncture Site ART LINE Blood Gas Patient Temperature 98.6 Blood Gas HCO3 12 mmol/L Blood Gas Base Excess -13.1 mmol/L Blood Gas Oxygen Saturation 96 % Arterial Blood pH 7.30 Arterial Blood Partial 26 mmHg Pressure CO2 Arterial Blood Partial 144 mmHg Pressure O2 Arterial Blood Oxygen Content 16.1 Vol % Arterial Blood 0.9 % Carboxyhemoglobin Arterial Blood Methemoglobin 0.8 % Blood Gas Hemoglobin 11.7 G/DL Oxygen Delivery Device VENTILATOR Blood Gas Ventilator Setting AC 16/530/+5 Blood Gas Inspired Oxygen 40 % Hemoglobin A1c 6.2 % Iron Level 185 MCG/DL Total Iron Binding Capacity 188 MCG/DL Percent Iron Saturation 98.6 % Albumin 1.8 GM/DL Phenytoin (Dilantin) Level 9.4 MCG/ML Lactic Acid Level 7.2 mmol/L Test 07/14/16 07/15/16 07/15/16 14:17 04:55 05:36 Ammonia LESS THAN 10 MCMOL/L White Blood Count 22.2 TH/MM3 Red Blood Count 3.37 MIL/MM3 Hemoglobin 9.7 GM/DL Hematocrit 29.8 % Mean Corpuscular Volume 88.2 FL Mean Corpuscular Hemoglobin 28.9 PG Mean Corpuscular Hemoglobin 32.7 % Concent Red Cell Distribution Width 17.2 % Platelet Count 385 TH/MM3 Mean Platelet Volume 8.9 FL Neutrophils (%) (Auto) 91.3 % Lymphocytes (%) (Auto) 2.8 % Monocytes (%) (Auto) 5.8 % Eosinophils (%) (Auto) 0.0 % Basophils (%) (Auto) 0.1 % Neutrophils # (Auto) 20.3 TH/MM3 Lymphocytes # (Auto) 0.6 TH/MM3 Monocytes # (Auto) 1.3 TH/MM3 Eosinophils # (Auto) 0.0 TH/MM3 Basophils # (Auto) 0.0 TH/MM3 CBC Comment AUTO DIFF Hematology Comments Sodium Level 140 MEQ/L Potassium Level 2.3 MEQ/L Chloride Level 100 MEQ/L Carbon Dioxide Level 21.0 MEQ/L Anion Gap 19 MEQ/L Blood Urea Nitrogen 54 MG/DL Creatinine 9.64 MG/DL Estimat Glomerular Filtration 6 ML/MIN Rate Random Glucose 192 MG/DL Calcium Level 8.8 MG/DL Phosphorus Level 5.8 MG/DL Magnesium Level 1.7 MG/DL Total Bilirubin 1.2 MG/DL Aspartate Amino Transf 5281 U/L (AST/SGOT) Alanine Aminotransferase 749 U/L (ALT/SGPT) Alkaline Phosphatase 92 U/L Total Protein 7.2 GM/DL Albumin 2.0 GM/DL Random Vancomycin Level 16.1 COMMENT Blood Gas Puncture Site LT BRACHIAL Blood Gas Patient Temperature 98.6 Blood Gas HCO3 22 mmol/L Blood Gas Base Excess -1.1 mmol/L Blood Gas Oxygen Saturation 96 % Arterial Blood pH 7.46 Arterial Blood Partial 32 mmHg Pressure CO2 Arterial Blood Partial 126 mmHg Pressure O2 Arterial Blood Oxygen Content 15.4 Vol % Arterial Blood 1.7 % Carboxyhemoglobin Arterial Blood Methemoglobin 1.1 % Blood Gas Hemoglobin 11.3 G/DL Oxygen Delivery Device VENTILATOR Blood Gas Ventilator Setting AC16/530/PEEP5 Blood Gas Inspired Oxygen 40 % Assessment and Plan Assessment and Plan Stable. Once extubated will benefit from addition of carvedilol and ISI-I. Nathan Hare MD, FACC Jul 15, 2016 08:18
[2016-07-15 08:34] LABS: METAMYELOCYTES 3 % (0-1); MYELOCYTES 1 % (0-0); NEUTROPHIL # MANUAL DIFF 19.3 TH/MM3 (1.8-7.7); POLYS (SEG NEUTROPHILS) 83 % (16-70); WBC DIFF SAMPLE 100
[2016-07-15 08:35] LABS: PLATELET ESTIMATE SMEAR NORMAL (NORMAL); PLATELET MORPHOLOGY NORMAL (NORMAL); SCAN/DIFF FINAL DIFF MANUAL
[2016-07-15] MEDS: POTASSIUM CHLOR 20 MEQ PREMIX 100 ML IV SCH ×2 (09:04→09:07)
[2016-07-15] MEDS: levETIRAcetam INJ 500 MG in SODIUM CHLORIDE 0.9% INJ 100 ML IV SCH (09:04)
[2016-07-15] MEDS: SODIUM BICARBONATE 650 MG TAB PO SCH (09:04)
[2016-07-15] MEDS: amLODIPine BESYLATE 5 MG TAB TUBE SCH (09:06)
[2016-07-15 11:00] LABS: BACTERIA, URINE RARE /hpf; BLOOD, URINE MOD (NEG); GLUCOSE,URINE 300 mg/dL (NEG); KETONE, URINE TRACE mg/dL (NEG); MUCUS URINE FEW /lpf (OCC); NITRITE,URINE NEG (NEG); URINE COLOR YELLOW (YELLW/STRAW)
[2016-07-15 11:04] LABS: COMMENT (UR) CATH-CULTURE IND; CULTURE IF INDICATED CATH CULTURE IND
[2016-07-15] MEDS: HIGH DOSE INSULIN NOVOLIN REGULAR SUPPLEMENTAL SCALE SQ SCH ×3 (11:53→20:34)
--- NOTE | 2016-07-15 12:10 | PD.CAR.PN ---
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 During the surgery, Patient the had a episode of hypotension and bradycardia is corrected by anesthesia. Patient was then brought to the ICU on the ventilator and despite discontinuation of sedation did not wake up. [place] Coma Scale remained 4 and patient had some spontaneous extremity movements Patient was taken to CT of the brain which was negative. During the CT scan patient started ripping and tearing on his endotracheal tube and lines so had to be sedated down there by the nursing and radiology staff Patient came up and was sedated and again did not wake up. Remains on the ventilator Because of decreased level of consciousness which cannot be explained by simple means patient underwent an MRI of the brain today which did not show any abnormalities either Today patient again had a period of sustained bradycardia with a heart rate in 40s and systolic blood pressure dropped into the 80s. Patient was given atropine and started on dopamine drip There are now 2 issues to consider 1. Patient's neurologic status is now not explained by simple means of either stroke intracranial bleed or such. This appears to be metabolic encephalopathy based on the hepatic and renal underlying pathology. Patient did not have hypoxia in the operating room or there after that would account for any period of anoxia or hypoxia. EEG was performed in order to rule out seizures and none were confirmed. Nonetheless patient is on prophylactic Keppra at this point This will be an issue for time will show which way the patient is going 2. Patient has periods of sustained sinus bradycardia on top of his bundle branch block which makes me think that patient probably has sick sinus syndrome Atropine corrected immediately and patient is now on small dose dopamine at 3 mics per kilo per minute sustaining hemodynamic parameters Critical care help is greatly appreciated Cardiology is consulted and we will follow their lead on this issue 07/15/16 Status post BKA and revision of stump Patient at this point has metabolic encephalopathy and neurology nephrology cardiology and ICU care is greatly appreciated Neurologically patient is improved and at this point opens eyes spontaneously moves both upper and lower extremities making [place] Coma Scale about 6 or 7 Hemodynamic Patient has been stable since yesterday through the night, but earlier yesterday patient dropped blood pressure and became bradycardic as above noted. Cardiology was consulted Patient may have sick sinus syndrome with intermittent manifestations and when he wakes up and improves he may need a pacemaker Interim, patient is hypertensive on chronic basis and currently managed for the same Abdomen soft and I do not believe patient has bacterial peritonitis however it is known to happen in patients with peritoneal dialysis and sometimes presenting in an insidious way CT of abdomen and pelvis does not reveal any collections only some retained fluid Stumps are clean and dry dressing is intact Plan Will have to wait until patient wakes up and manage him supportively I've discussed this with family length Objective: Vital Signs Date Time Temp Pulse Resp B/P Pulse Ox O2 Delivery O2 Flow Rate FiO2 07/15/16 11:26 100 35 07/15/16 10:00 95 07/15/16 09:19 100 50 07/15/16 08:00 99.3 88 16 100 150/83 07/15/16 08:00 88 07/15/16 06:00 83 07/15/16 04:00 99.5 90 19 142/65 100 145/69 07/15/16 04:00 90 07/15/16 03:58 100 40 07/15/16 02:00 88 07/15/16 00:00 99.3 86 19 191/80 100 141/84 07/15/16 00:00 87 07/14/16 23:43 100 40 07/14/16 22:00 82 07/14/16 20:25 100 100 07/14/16 20:23 100 40 07/14/16 20:00 98.2 77 18 158/77 100 07/14/16 20:00 79 07/14/16 19:00 158/75 07/14/16 18:00 73 07/14/16 18:00 133/67 07/14/16 17:56 96 40 07/14/16 17:00 145/71 07/14/16 16:00 99.0 79 19 145/71 100 07/14/16 13:34 96 40 Labs: Laboratory Tests Test 07/15/16 07/15/16 07/15/16 04:55 05:36 10:26 White Blood Count 22.2 TH/MM3 (4.0-11.0) Red Blood Count 3.37 MIL/MM3 (4.50-5.90) Hemoglobin 9.7 GM/DL (13.0-17.0) Hematocrit 29.8 % (39.0-51.0) Mean Corpuscular Volume 88.2 FL (80.0-100.0) Mean Corpuscular Hemoglobin 28.9 PG (27.0-34.0) Mean Corpuscular Hemoglobin 32.7 % Concent (32.0-36.0) Red Cell Distribution Width 17.2 % (11.6-17.2) Platelet Count 385 TH/MM3 (150-450) Mean Platelet Volume 8.9 FL (7.0-11.0) Neutrophils (%) (Auto) 91.3 % (16.0-70.0) Lymphocytes (%) (Auto) 2.8 % (9.0-44.0) Monocytes (%) (Auto) 5.8 % (0.0-8.0) Eosinophils (%) (Auto) 0.0 % (0.0-4.0) Basophils (%) (Auto) 0.1 % (0.0-2.0) Neutrophils # (Auto) 20.3 TH/MM3 (1.8-7.7) Lymphocytes # (Auto) 0.6 TH/MM3 (1.0-4.8) Monocytes # (Auto) 1.3 TH/MM3 (0-0.9) Eosinophils # (Auto) 0.0 TH/MM3 (0-0.4) Basophils # (Auto) 0.0 TH/MM3 (0-0.2) CBC Comment AUTO DIFF Differential Total Cells 100 Counted Neutrophils % (Manual) 83 % (16-70) Lymphocytes % 5 % (9-44) Monocytes % 8 % (0-8) Neutrophils # (Manual) 19.3 TH/MM3 (1.8-7.7) Metamyelocytes 3 % (0-1) Myelocytes 1 % (0-0) Differential Comment FINAL DIFF MANUAL Platelet Estimate NORMAL (NORMAL) Platelet Morphology Comment NORMAL (NORMAL) Hematology Comments Sodium Level 140 MEQ/L (136-145) Potassium Level 2.3 MEQ/L (3.5-5.1) Chloride Level 100 MEQ/L (98-107) Carbon Dioxide Level 21.0 MEQ/L (21.0-32.0) Anion Gap 19 MEQ/L (5-15) Blood Urea Nitrogen 54 MG/DL (7-18) Creatinine 9.64 MG/DL (0.60-1.30) Estimat Glomerular Filtration 6 ML/MIN (>89) Rate Random Glucose 192 MG/DL (74-106) Calcium Level 8.8 MG/DL (8.5-10.1) Phosphorus Level 5.8 MG/DL (2.5-4.9) Magnesium Level 1.7 MG/DL (1.5-2.5) Total Bilirubin 1.2 MG/DL (0.2-1.0) Aspartate Amino Transf 5281 U/L (AST/SGOT) (15-37) Alanine Aminotransferase 749 U/L (12-78) (ALT/SGPT) Alkaline Phosphatase 92 U/L (45-117) Total Protein 7.2 GM/DL (6.4-8.2) Albumin 2.0 GM/DL (3.4-5.0) Random Vancomycin Level 16.1 COMMENT Blood Gas Puncture Site LT BRACHIAL Blood Gas Patient Temperature 98.6 Blood Gas HCO3 22 mmol/L (22-26) Blood Gas Base Excess -1.1 mmol/L (-2-2) Blood Gas Oxygen Saturation 96 % (90-100) Arterial Blood pH 7.46 (7.380-7.420) Arterial Blood Partial 32 mmHg (38-42) Pressure CO2 Arterial Blood Partial 126 mmHg Pressure O2 (61-120) Arterial Blood Oxygen Content 15.4 Vol % (12.0-20.0) Arterial Blood 1.7 % (0-4) Carboxyhemoglobin Arterial Blood Methemoglobin 1.1 % (0-2) Blood Gas Hemoglobin 11.3 G/DL (12.0-16.0) Oxygen Delivery Device VENTILATOR Blood Gas Ventilator Setting AC16/530/PEEP5 Blood Gas Inspired Oxygen 40 % Urine Color YELLOW (YELLW/STRAW) Urine Turbidity HAZY (CLEAR) Urine pH 6.0 (5.0-8.5) Urine Specific [place] 1.022 (1.002-1.035) Urine Protein 300 mg/dL (NEG-TRACE) Urine Glucose (UA) 300 mg/dL (NEG) Urine Ketones TRACE mg/dL (NEG) Urine Occult Blood MOD (NEG) Urine Nitrite NEG (NEG) Urine Bilirubin NEG (NEG) Urine Urobilinogen LESS THAN 2.0 MG/DL (LESS THAN 2.0) Urine Leukocyte Esterase NEG (NEG) Urine RBC 1 /hpf (0-3) Urine WBC 3 /hpf (0-5) Urine Bacteria RARE /hpf (NONE) Urine Mucus FEW /lpf (OCC) Microscopic Urinalysis Comment CATH-CULTURE IND Result Diagram: 07/15/16 0455 07/15/16 0455 Jw Becerra MD Jul 15, 2016 12:09
[2016-07-15 12:43] LABS: PERITONEAL HISTIOCYTES 1 %; PERITONEAL LYMPHS 77 %; PERITONEAL MESOTHELIAL 14 %; PERITONEAL MONOS 4 %; PERITONEAL POLYS(SEGS) 2 %; PERITONEAL WBC 145 /MM3 (0-10)
[2016-07-15 12:54] LABS: PERITONEAL FL SPECIFIC GRAVITY 1.009
--- NOTE | 2016-07-15 13:24 | HHI.NPPN ---
Subjective General Problems: Hypertension Renal Failure: Chronic, End Stage Renal Disease Interval History He remains unresponsive. On nicardipine infusion. Critically low potassium. ( Ermelinda Jeong) Review of Systems General General Remarks unable to obtain due to unresponsiveness (Ermelinda Jeong) Objective Data Data 07/14/16 07/15/16 19:00 07:00 Intake Total 792 ml 1832 ml Output Total 1219 ml 35 ml Balance -427 ml 1797 ml IV Total 292 ml 1832 ml Albumin 500 ml Output Urine Total 50 ml 35 ml Stool Total 0 ml Gastric Drainage Total 0 ml Peritoneal Fluid 1169 ml Vital Signs Date Time Temp Pulse Resp B/P Pulse Ox O2 Delivery O2 Flow Rate FiO2 07/15/16 11:26 100 35 07/15/16 10:00 95 07/15/16 09:19 100 50 07/15/16 08:00 99.3 88 16 100 150/83 07/15/16 08:00 88 07/15/16 06:00 83 07/15/16 04:00 99.5 90 19 142/65 100 145/69 07/15/16 04:00 90 07/15/16 03:58 100 40 07/15/16 02:00 88 07/15/16 00:00 99.3 86 19 191/80 100 141/84 07/15/16 00:00 87 07/14/16 23:43 100 40 07/14/16 22:00 82 07/14/16 20:25 100 100 07/14/16 20:23 100 40 07/14/16 20:00 98.2 77 18 158/77 100 07/14/16 20:00 79 07/14/16 19:00 158/75 07/14/16 18:00 73 07/14/16 18:00 133/67 07/14/16 17:56 96 40 07/14/16 17:00 145/71 07/14/16 16:00 99.0 79 19 145/71 100 07/14/16 13:34 96 40 (Ermelinda Jeong) -: 07/15/16 0455 07/15/16 0455 Microbiology 07/15/16 Aerobic Blood Culture, Received Pending 07/15/16 Anaerobic Blood Culture, Received Pending 07/15/16 Gram Stain, Received Pending 07/15/16 Sputum Culture, Received Pending 07/15/16 Urine Culture, Received Pending 07/15/16 Aerobic Blood Culture, Received Pending 07/15/16 Anaerobic Blood Culture, Received Pending Imaging Last 72 hours Impressions Chest X-Ray 07/15/16 0600 Signed Impressions: Service Date/Time: Friday, July 15, 2016 06:06 - CONCLUSION: Improving aeration Venkatesh Bloom MD Chest X-Ray 07/14/16 0600 Signed Impressions: Service Date/Time: June 05:41 - CONCLUSION: No significant change mild consolidation and small effusion right base. Mild cardiomegaly. Venkatesh Stevens MD Brain MRI 07/14/16 0000 Signed Impressions: Service Date/Time: June 10:57 - CONCLUSION: 1. No acute infarct, acute hemorrhage, mass effect or extra-axial fluid collections. 2. Mucus retention cyst within the left maxillary sinus. Dontae Segura MD Abdomen/Pelvis CT 07/14/16 0000 Signed Impressions: Service Date/Time: June 19:02 - CONCLUSION: Bilateral pleural effusions and bibasilar compressive collapse and or consolidation with increase in the ascitic fluid since the prior study. Cary Sanchez MD Head CT 07/13/16 0000 Signed Impressions: Service Date/Time: Wednesday, July 13, 2016 16:54 - CONCLUSION: Normal examination. Venkatesh Bloom MD Chest X-Ray 07/13/16 0000 Signed Impressions: Service Date/Time: Wednesday, July 13, 2016 13:45 - CONCLUSION: Satisfactory endotracheal tube and central line positioning. Bilateral infiltrates and effusions. Venkatesh Bloom MD Tubes & Lines: Tenckhoff Catheter Drip Comment bicarb drip, nicardipine, insulin (Ermelinda Jeong) Physical Exam General Appearance: Well Developed, Comfortable, Malnourished Appearance Remarks intubated/unresponsive (Ermelinda JeongP) Eyes Eye Exam: Pupils Equal (Ermelinda Jeong) Throat Throat Exam: Oral Mucosa [place] & Moist (Ermelinda JeongP) Pulmonary Resp Exam: Clear Bilaterally, Breath Sounds Equal Resp Remarks vented lung sounds (Ermelinda Jeong) Cardiology CV Exam: Regular, Bradycardia (Ermelinda Jeong) Gastrointestinal/Abdomen GI Exam: Soft, Non-Tender, Bowel Sounds Present GI Remarks PD catheter (Ermelinda Jeong) Musculoskeletal MS Exam: Joints Intact MS Remarks b/l BKA (Ermelinda Jeong) Integumentary Skin Exam: Clear, Cool Skin Remarks hands cool, mottled, cyanotic finger tips dressings in place b/l BKA (Ermelinda Jeong) Extremeties Extremities Exam: No Edema (Ermelinda Jeong) Neurologic Neuro Exam: Unresponsive, Sedated (Ermelinda Jeong) Assessment/Plan Assessment Summary: Anemia of CKD, Hypotension, End Stage Renal Disease Electrolyte Assessment: Metabolic Acidosis Problem List: (1) ESRD (end stage renal disease) on dialysis Plan: ESRD due to diabetic nephropathy He is on nightly PD, currently going well potassium critically low, IV replacement ordered, may be due to insulin drip continue bicarb drip , follow metabolic profile dialysis orders reviewed, continue current plan, if he continues to be unstable he may require hemodialysis temporarily monitor catheter site daily labs i ordered culture of peritoneal fluid per ID request (2) Gangrene of toe Plan: vascular (Dr. Kenyon) following had left BKA and revision of right BKA (07/13) prn pain control antibiotics per vascular if needed (3) Anemia of renal disease Plan: Hb low iron profile showing hemochromatosis on epogen (4) Diabetes Plan: A1c 6.2, he is on insulin drip monitor blood sugar, goal 140-180 mg/dL (5) HTN (hypertension) Plan: previously hypotensive, now on nicardipine (6) Metabolic bone disease Plan: On phoslo however he is currenaly NPO it can be given through OG tube monitor phos periodically (7) Encephalopathy Plan: unknown etiology, may have suffered anoxic injury intraoperatively MRI and EEG obtained, neurology following remains unresponsive ammonia normal vent settings: A/C, 16/500/40/5 continue supportive care (8) Septic shock Plan: unknown source, ID following on vancomycin, micafungin, and zosyn monitor levels when appropriate (Ermelinda Jeong) Problem List: (1) ESRD (end stage renal disease) on dialysis Plan: ESRD due to diabetic nephropathy He is on nightly PD, currently going well potassium critically low, IV replacement ordered, may be due to insulin drip continue bicarb drip , follow metabolic profile dialysis orders reviewed, continue current plan, if he continues to be unstable he may require hemodialysis temporarily monitor catheter site daily labs i ordered culture of peritoneal fluid per ID request (2) Gangrene of toe Plan: vascular (Dr. Kenyon) following had left BKA and revision of right BKA (07/13) prn pain control antibiotics per vascular if needed (3) Anemia of renal disease Plan: Hb low iron profile showing hemochromatosis on epogen (4) Diabetes Plan: A1c 6.2, he is on insulin drip monitor blood sugar, goal 140-180 mg/dL (5) HTN (hypertension) Plan: previously hypotensive, now on nicardipine (6) Metabolic bone disease Plan: On phoslo however he is currenaly NPO it can be given through OG tube monitor phos periodically (7) Encephalopathy Plan: unknown etiology, may have suffered anoxic injury intraoperatively MRI and EEG obtained, neurology following remains unresponsive ammonia normal vent settings: A/C, 16/500/40/5 continue supportive care (8) Septic shock Plan: unknown source, ID following on vancomycin, micafungin, and zosyn monitor levels when appropriate Plan patient was seen and examined. PD carried out at night. Potassium has been replaced. Increase in LFTs noted. He required Levophed yesterday, was hypotensive. Could be ischemic hepatitis. TF started: changed to Nepro. Off Cardene and bicarbonate drip. No immediate need to switch him to HD. Will monitor over the weekend. Obtain ammonia level. Patient continues to be critical. (Ricardo Liu MD) Problem Qualifiers (1) Diabetes: Ermelinda Jeong Jul 15, 2016 13:24 Ricardo Liu MD Jul 15, 2016 15:17
--- NOTE | 2016-07-15 14:22 | HHI.CCPN ---
Subjective Remarks/Hospital Course 56 year old male with ESRD on PD, HTN, DM II, and PAD. He was admitted for left BKA and I&D/revision of right BKA. While in the OR early this morning, he became bradycardic during the operation, was given atropine and epinephrine. He is transfered to ICU intubated, unresponsive, hypertensive. Objective Vital Signs Date Time Temp Pulse Resp B/P Pulse Ox O2 Delivery O2 Flow Rate FiO2 07/15/16 11:26 100 35 07/15/16 10:00 95 07/15/16 08:00 99.3 16 150/83 07/13/16 15:20 Mechanical Ventilator Intake and Output 07/14/16 07/14/16 07/15/16 08:00 16:00 00:00 Intake Total 762 ml 792 ml 1012 ml Output Total 1244 ml 50 ml 30 ml Balance -482 ml 742 ml 982 ml Result Diagram: 07/15/16 0455 07/15/16 0455 Other Results Laboratory Tests Test 07/15/16 05:36 Blood Gas Puncture Site LT BRACHIAL Blood Gas Patient Temperature 98.6 Blood Gas HCO3 22 mmol/L (22-26) Blood Gas Base Excess -1.1 mmol/L (-2-2) Blood Gas Oxygen Saturation 96 % (90-100) Arterial Blood pH 7.46 (7.380-7.420) Arterial Blood Partial 32 mmHg (38-42) Pressure CO2 Arterial Blood Partial 126 mmHg Pressure O2 (61-120) Arterial Blood Oxygen Content 15.4 Vol % (12.0-20.0) Arterial Blood 1.7 % (0-4) Carboxyhemoglobin Arterial Blood Methemoglobin 1.1 % (0-2) Blood Gas Hemoglobin 11.3 G/DL (12.0-16.0) Oxygen Delivery Device VENTILATOR Blood Gas Ventilator Setting AC16/530/PEEP5 Blood Gas Inspired Oxygen 40 % Imaging Last 24 hours Impressions Chest X-Ray 07/13/16 0000 Signed Impressions: Service Date/Time: Wednesday, July 13, 2016 13:45 - CONCLUSION: Satisfactory endotracheal tube and central line positioning. Bilateral infiltrates and effusions. Venkatesh Bloom MD Objective Remarks GENERAL: Well-nourished, well-developed patient, critically appearing SKIN: Warm and dry. HEAD: Normocephalic. EYES: No scleral icterus. No injection or drainage. NECK: Supple, trachea midline. No JVD or lymphadenopathy. CARDIOVASCULAR: Regular rate and rhythm without murmurs, gallops, or rubs. RESPIRATORY: Breath sounds equal bilaterally. No accessory muscle use. GASTROINTESTINAL: Abdomen soft, non-tender, nondistended. MUSCULOSKELETAL: No cyanosis, or edema. BACK: Nontender without obvious deformity. No CVA tenderness. EXTREMITIES: BL BKA A/P Assessment and Plan Respiratory failure - post-op - anoxic brain encephalopathy??? - no weaning until neurologically improved - CXR, ABG daily - vent bundle - elevated head Encephalopathy - anoxic brain injury??? - MRI without evidence of acute damage - neurology evaluation appreciated - CT negative - off sedation Diabetes mellitus - ISS - bedside glucose monitor Q6H - Insulin gtt initiated - will change D5W Bicarb to 1/2 NS Peripheral vascular disease - status post BL BKA - management per vascular surgery End-stage renal disease - peritoneal dialysis - further per nephrology Hypothyroidism - Synthroid per home dose Hypertension - Hydralazine PRN History of colon cancer - completed chemotherapy - now in remission?? DVT/GI prophylaxis - Heparin/Lansoprazole Level 3 Padilla Llanos MD Jul 15, 2016 14:22
--- NOTE | 2016-07-15 16:32 | RADRPT ---
EXAM DATE/TIME: 07/15/2016 15:09 [facility] COMPARISON: No previous studies available for comparison. EXTERNAL COMPARISON : [facility], US KIDNEY - BILATERAL, January 28, 2015 INDICATIONS : Increased lab values. MEDICAL HISTORY : Peripheral vascular disease. Gastroesophageal reflux disease. Carcinoma, colon. HTN. Thyroid disease. Dyspnea. Renal failure. Diabetes. Anemia. Gangrene. SURGICAL HISTORY : Hernia repair. Partial colon removal. Peritoneal dialysis. Blood transfusions. Chemotherapy. ENCOUNTER: Initial ACUITY: 1 day PAIN SCORE: Nonresponsive. LOCATION: Bilateral upper quadrant MEASUREMENTS: LIVER: 20.1 cm length COMMON DUCT: 5 mm RIGHT KIDNEY: 10.5 x 4.0 x 4.3 cm SPLEEN: 8.7 cm length FINDINGS: The liver is enlarged. No focal hepatic mass is noted. No biliary ductal dilatation is noted. A tin y right pleural effusion is noted. The gallbladder contains echogenic stones in the region of the ne ck. The wall of the gallbladder is mildly thickened. If there is clinical concern for acute cholecyst itis a hepatobiliary scan may be helpful to confirm cystic duct obstruction. The head and body of th e pancreas are unremarkable. The tail of the pancreas is obscured by overlying bowel gas. The right kidney is somewhat echogenic suggesting medical renal disease. There is some perinephric fluid. Ther e is no hydronephrosis or solid renal mass within the right kidney. The spleen is normal in size and contains punctate calcifications suggesting granulomatous disease. CONCLUSION: 1. Thick-walled gallbladder containing stones in the neck. If there is clinical concern for acute cho lecystitis a hepatobiliary scan may be helpful to confirm cystic duct obstruction. 2. Hepatomegaly. 3. Tiny right pleural effusion. 4. Echogenic right kidney with minimal perinephric fluid suggesting possible medical renal disease. Clinical correlation is recommended. Dontae Segura MD on July 15, 2016 at 16:08 Board Certified Radiologist. This report was verified electronically.
[2016-07-15] MEDS: PANTOPRAZOLE SODIUM 40 MG VIAL IV SCH (16:34)
[2016-07-15] MEDS: hydrALAZINE HCL 20 MG/ML VIAL IV PUSH PRN (16:46)
[2016-07-15] MEDS ORDERED: BENEPROTEIN POWDER 1 PACK G-TUBE SCH (18:00)
[2016-07-15] MEDS: MICAFUNGIN INJ 150 MG in SODIUM CHLORIDE 0.9% INJ 100 ML IV SCH (20:15)
--- NOTE | 2016-07-15 23:21 | HHI.IDPN ---
Subjective Subjective Remarks LE better today having low grade fevers remains on vent off pressors Antibiotics zosyn micafungin vanco Allergies: Coded Allergies: No Known Allergies (Unverified , 06/29/16) Objective . Vital Signs Date Time Temp Pulse Resp B/P Pulse Ox O2 Delivery O2 Flow Rate FiO2 07/15/16 22:18 100 35 07/15/16 20:25 100 35 07/15/16 18:00 95 07/15/16 16:28 100 35 07/15/16 16:00 95 07/15/16 16:00 100.0 95 16 100 156/70 07/15/16 14:00 100.0 94 16 100 164/75 07/15/16 14:00 94 07/15/16 12:00 94 07/15/16 12:00 100.1 94 16 100 163/74 07/15/16 11:26 100 35 07/15/16 10:00 95 07/15/16 09:19 100 50 07/15/16 08:00 99.3 88 16 100 150/83 07/15/16 08:00 88 07/15/16 06:00 83 07/15/16 04:00 99.5 90 19 142/65 100 145/69 07/15/16 04:00 90 07/15/16 03:58 100 40 07/15/16 02:00 88 07/15/16 00:00 99.3 86 19 191/80 100 141/84 07/15/16 00:00 87 07/14/16 23:43 100 40 07/14/16 07/14/16 07/15/16 14:59 22:59 06:59 Intake Total 792 ml 1012 ml 820 ml Output Total 1219 ml 30 ml 5 ml Balance -427 ml 982 ml 815 ml IV Total 292 ml 1012 ml 820 ml Albumin 500 ml Output Urine Total 50 ml 30 ml 5 ml Stool Total 0 ml 0 ml Gastric Drainage Total 0 ml 0 ml Peritoneal Fluid 1169 ml . Laboratory Tests Test 07/14/16 07/15/16 05:30 04:55 White Blood Count 14.5 TH/MM3 22.2 TH/MM3 Red Blood Count 3.26 MIL/MM3 3.37 MIL/MM3 Hemoglobin 9.5 GM/DL 9.7 GM/DL Hematocrit 28.4 % 29.8 % Mean Corpuscular Volume 87.1 FL 88.2 FL Mean Corpuscular Hemoglobin 29.0 PG 28.9 PG Mean Corpuscular Hemoglobin 33.4 % 32.7 % Concent Red Cell Distribution Width 17.8 % 17.2 % Platelet Count 489 TH/MM3 385 TH/MM3 Mean Platelet Volume 8.6 FL 8.9 FL Neutrophils (%) (Auto) 89.7 % 91.3 % Lymphocytes (%) (Auto) 2.2 % 2.8 % Monocytes (%) (Auto) 7.8 % 5.8 % Eosinophils (%) (Auto) 0.0 % 0.0 % Basophils (%) (Auto) 0.3 % 0.1 % Neutrophils # (Auto) 13.0 TH/MM3 20.3 TH/MM3 Lymphocytes # (Auto) 0.3 TH/MM3 0.6 TH/MM3 Monocytes # (Auto) 1.1 TH/MM3 1.3 TH/MM3 Eosinophils # (Auto) 0.0 TH/MM3 0.0 TH/MM3 Basophils # (Auto) 0.0 TH/MM3 0.0 TH/MM3 CBC Comment DIFF FINAL AUTO DIFF Differential Comment FINAL DIFF MANUAL Differential Total Cells 100 Counted Neutrophils % (Manual) 83 % Lymphocytes % 5 % Monocytes % 8 % Neutrophils # (Manual) 19.3 TH/MM3 Metamyelocytes 3 % Myelocytes 1 % Platelet Estimate NORMAL Platelet Morphology Comment NORMAL Hematology Comments Laboratory Tests Test 07/14/16 07/14/16 07/14/16 07/14/16 05:30 11:36 13:40 13:57 Sodium Level 135 MEQ/L Potassium Level 3.8 MEQ/L Chloride Level 97 MEQ/L Carbon Dioxide Level 19.7 MEQ/L Anion Gap 18 MEQ/L Blood Urea Nitrogen 48 MG/DL Creatinine 10.33 MG/DL Estimat Glomerular Filtration 5 ML/MIN Rate Random Glucose 361 MG/DL Calcium Level 8.7 MG/DL Phosphorus Level 9.6 MG/DL Magnesium Level 2.0 MG/DL Iron Level 31 MCG/DL 185 MCG/DL Total Bilirubin 0.3 MG/DL Aspartate Amino Transf 25 U/L (AST/SGOT) Alanine Aminotransferase 10 U/L (ALT/SGPT) Alkaline Phosphatase 99 U/L Total Protein 7.6 GM/DL Albumin 1.7 GM/DL 1.8 GM/DL Vitamin B12 Level 1500 PG/ML Free Thyroxine 1.43 NG/DL Thyroid Stimulating Hormone 3.080 uIU/ML 3rd Gen Random Cortisol 133.3 MCG/DL Hemoglobin A1c 6.2 % Total Iron Binding Capacity 188 MCG/DL Percent Iron Saturation 98.6 % Lactic Acid Level 7.2 mmol/L Test 07/14/16 07/15/16 07/15/16 14:17 04:55 14:40 Ammonia LESS THAN 10 LESS THAN 10 MCMOL/L MCMOL/L Sodium Level 140 MEQ/L Potassium Level 2.3 MEQ/L Chloride Level 100 MEQ/L Carbon Dioxide Level 21.0 MEQ/L Anion Gap 19 MEQ/L Blood Urea Nitrogen 54 MG/DL Creatinine 9.64 MG/DL Estimat Glomerular Filtration 6 ML/MIN Rate Random Glucose 192 MG/DL Calcium Level 8.8 MG/DL Phosphorus Level 5.8 MG/DL Magnesium Level 1.7 MG/DL Total Bilirubin 1.2 MG/DL Aspartate Amino Transf 5281 U/L (AST/SGOT) Alanine Aminotransferase 749 U/L (ALT/SGPT) Alkaline Phosphatase 92 U/L Total Protein 7.2 GM/DL Albumin 2.0 GM/DL Microbiology Date/Time Procedure Status Source Growth 07/15/16 10:20 Aerobic Blood Culture Received Blood Peripheral Pending 07/15/16 10:20 Anaerobic Blood Culture Received Blood Peripheral Pending 07/15/16 10:26 Gram Stain - Final Resulted Sputum Endotracheal 07/15/16 10:26 Sputum Culture Resulted Sputum Endotracheal Pending 07/15/16 10:26 Urine Culture Received Urine Catheterized Urine Pending 07/15/16 10:27 Aerobic Blood Culture Received Blood Peripheral Pending 07/15/16 10:27 Anaerobic Blood Culture Received Blood Peripheral Pending Imaging Last Impressions Chest X-Ray 07/15/16 0600 Signed Impressions: Service Date/Time: Friday, July 15, 2016 06:06 - CONCLUSION: Improving aeration Venkatesh Bloom MD Liver Ultrasound 07/15/16 0000 Signed Impressions: Service Date/Time: Friday, July 15, 2016 15:09 - CONCLUSION: 1. Thick-walled gallbladder containing stones in the neck. If there is clinical concern for acute cholecystitis a hepatobiliary scan may be helpful to confirm cystic duct obstruction. 2. Hepatomegaly. 3. Tiny right pleural effusion. 4. Echogenic right kidney with minimal perinephric fluid suggesting possible medical renal disease. Clinical correlation is recommended. Dontae Segura MD Brain MRI 07/14/16 0000 Signed Impressions: Service Date/Time: June 10:57 - CONCLUSION: 1. No acute infarct, acute hemorrhage, mass effect or extra-axial fluid collections. 2. Mucus retention cyst within the left maxillary sinus. Dontae Segura MD Abdomen/Pelvis CT 07/14/16 0000 Signed Impressions: Service Date/Time: June 19:02 - CONCLUSION: Bilateral pleural effusions and bibasilar compressive collapse and or consolidation with increase in the ascitic fluid since the prior study. Cary Sanchez MD Head CT 07/13/16 0000 Signed Impressions: Service Date/Time: Wednesday, July 13, 2016 16:54 - CONCLUSION: Normal examination. Venkatesh Bloom MD Physical Exam CONSTITUTIONAL/GENERAL: This is a thin chronically ill appearing patient, in no apparent distress. Sedated intubated on merch vent TUBES/LINES/DRAINS: SKIN: No jaundice, rashes, or lesions. Skin temperature appropriate. Not diaphoretic. HEAD: Atraumatic. Normocephalic. EYES: Pupils equal and round and reactive. Extraocular motions intact. No scleral icterus. No injection or drainage. Fundi not examined. ENT: Nose without bleeding or purulent drainage. Oral mucosae partially visulaysed without visible erythema, exudates, masses, or lesions. NECK: Trachea midline. Supple, nontender. CARDIOVASCULAR: Regular rate and rhythm with + harsh systolic and diastolic 3/6 murmurs (max on RUSB), S3 gallop, no rubs. No JVD. Peripheral pulses symmetric. RESPIRATORY/CHEST: Symmetric, unlabored respirations. Clear to auscultation. Breath sounds equal bilaterally. No wheezes, rales, or rhonchi. GASTROINTESTINAL: Abdomen soft, non-tender, moderartely distended. PD cath i place LLQ No hepato-splenomegaly, or palpable masses. No guarding. Bowel sounds present. GENITOURINARY: Without palpable bladder distension. Coffman catheter in place with small amount of yellow clear urine MUSCULOSKELETAL: Upper extremities without clubbing, Marked cyanosis with cold blue fingertips with no refill + some edema. Bl dressings on BLE, intact NEUROLOGICAL:sedated iunresponsive PSYCHIATRIC: unable to assess 2/2 mental status Assessment & Plan Remarks Sepsis Septick shock - improving Source unclear Severe PVD s/p LBK and R BKA revision - cont zosyn, , micafungin - vancomycin per levels - will chk in am - fu blood clx untill final - chk PD fluid - Discussed Condition With Veena Menchaca MD Jul 15, 2016 23:21
[2016-07-16] VITALS (20 sets, daily range): BP systolic 144–176; BP diastolic 65–80; PULSE 87–100; RESP 16–18; TEMP 99.7–100.4; O2SAT 100
[2016-07-16] MEDS: PIPERACIL-TAZO 2.25 GM PREMIX 50 ML IV SCH ×4 (00:31→18:36)
[2016-07-16] MEDS: HEPARIN SODIUM - SQ 10,000 UNITS/ML VIAL SQ SCH ×2 (00:34→11:42)
[2016-07-16] MEDS ORDERED: POTASSIUM CHLOR 20 MEQ PREMIX 100 ML IV SCH (00:45)
--- NOTE | 2016-07-16 02:19 | EKG ---
Date Performed: 07/14/2016 Time Performed: 12:45:18 PTAGE: 56 years EKG: Sinus rhythm Rightward axis Right bundle branch block Inferior ST elevation - possible early repolarization Infer ior/lateral ST-T changes suggest myocardial injury/ischemia Abnormal ECG PREVIOUS TRACING : 07/13/2016 13.38 Since previous tracing, no significant change noted DOCTOR: Darci Serrato Interpretating Date/Time 07/16/2016 02:16:56
[2016-07-16 05:36] LABS: BLOOD GAS CARBOXYHEMOGLOBIN 1.2 % (0-4); BLOOD GAS HCO3 23 mmol/L (22-26); BLOOD GAS METHEMOGLOBIN 0.9 % (0-2); BLOOD GAS O2 HGB SATURATION 97 % (90-100); BLOOD GAS OXYGEN CONTENT 14.9 Vol % (12.0-20.0); BLOOD GAS PCO2 34 mmHg (38-42); BLOOD GAS PO2 152 mmHg (61-120); BLOOD GAS TOTAL HGB 10.7 G/DL (12.0-16.0); CRITICAL VALUE NO; DRAW SITE ART LINE; FIO2 35 %; OXYGEN DEVICE VENTILATOR; STAT NO; TEMP CORR TO 98.6; VENT SETTINGS A/C16/530/PEEP5
[2016-07-16 05:49] LABS: BASOPHIL # 0.1 TH/MM3 (0-0.2); BASOPHIL % 0.3 % (0.0-2.0); HEMATOCRIT 30.8 % (39.0-51.0); LYMPH % 2.9 % (9.0-44.0); LYMPHOCYTE # 0.8 TH/MM3 (1.0-4.8); MEAN CELL VOLUME 87.4 FL (80.0-100.0); MEAN CORPUSCULAR HEMOGLOBIN 28.4 PG (27.0-34.0); MEAN CORPUSCULAR HGB CONC 32.5 % (32.0-36.0); MONO % 5.6 % (0.0-8.0); NEUT % 91.2 % (16.0-70.0); PLATELET COUNT 356 TH/MM3 (150-450); RED BLOOD COUNT 3.52 MIL/MM3 (4.50-5.90); RED CELL DISTRIBUTION WIDTH 17.4 % (11.6-17.2); WHITE BLOOD COUNT 26.3 TH/MM3 (4.0-11.0)
[2016-07-16 05:54] LABS: HEMO FLAGS AUTO DIFF
--- NOTE | 2016-07-16 06:18 | RADRPT ---
EXAM DATE/TIME: 07/16/2016 04:13 [facility] COMPARISON: CHEST SINGLE AP, July 15, 2016, 6:06. INDICATIONS : Shortness of breath, possible pulmonary disease. MEDICAL HISTORY : Hypertension. Diabetes mellitus type II. SURGICAL HISTORY : None. ENCOUNTER: Subsequent ACUITY: 4 - 6 days PAIN SCORE: Non-responsive. LOCATION: Bilateral chest FINDINGS: Support lines and tubes are stable in satisfactory position. Mild basilar parenchymal opacities are g rossly stable. Cardiomediastinal contours are stable. CONCLUSION: No significant change. Venkatesh Bloom MD on July 16, 2016 at 6:15 Board Certified Radiologist. This report was verified electronically.
[2016-07-16 06:20] LABS: ALKALINE PHOSPHATASE 98 U/L (45-117); ALT (GPT) 382 U/L (12-78); ANION GAP 16 MEQ/L (5-15); AST (GOT) 1047 U/L (15-37); BICARBONATE 24.9 MEQ/L (21.0-32.0); BLOOD UREA NITROGEN 63 MG/DL (7-18); CHLORIDE 95 MEQ/L (98-107); GLOMERULAR FILTRATION RATE 6 ML/MIN (>89); MAGNESIUM 1.8 MG/DL (1.5-2.5); POTASSIUM 3.8 MEQ/L (3.5-5.1); SODIUM (NA) 136 MEQ/L (136-145); TOTAL BILIRUBIN ADULT 0.7 MG/DL (0.2-1.0)
[2016-07-16] MEDS: HIGH DOSE INSULIN NOVOLIN REGULAR SUPPLEMENTAL SCALE SQ SCH ×4 (06:35→21:40)
[2016-07-16 07:25] LABS: CORRECTED NUCLEATED RBC 3 /100 WBC (0-0); NEUTROPHIL # MANUAL DIFF 24.7 TH/MM3 (1.8-7.7); PLATELET ESTIMATE SMEAR NORMAL (NORMAL); PLATELET MORPHOLOGY NORMAL (NORMAL); POLYS (SEG NEUTROPHILS) 94 % (16-70); SCAN/DIFF FINAL DIFF MANUAL; WBC DIFF SAMPLE 100
--- NOTE | 2016-07-16 08:14 | HHI.CCPN ---
Subjective Remarks/Hospital Course 56 year old male with ESRD on PD, HTN, DM II, and PAD. He was admitted for left BKA and I&D/revision of right BKA. While in the OR early this morning, he became bradycardic during the operation, was given atropine and epinephrine. He is transfered to ICU intubated, unresponsive, hypertensive. Objective Vital Signs Date Time Temp Pulse Resp B/P Pulse Ox O2 Delivery O2 Flow Rate FiO2 07/16/16 07:42 100 35 07/16/16 06:00 91 07/16/16 04:00 99.9 16 176/74 160/70 07/13/16 15:20 Mechanical Ventilator Intake and Output 07/15/16 07/15/16 07/16/16 08:00 16:00 00:00 Intake Total 820 ml 856 ml 429 ml Output Total 5 ml 5 ml 29 ml Balance 815 ml 851 ml 400 ml Result Diagram: 07/16/16 0530 07/16/16 0530 Other Results Laboratory Tests Test 07/16/16 05:26 Blood Gas Puncture Site ART LINE Blood Gas Patient Temperature 98.6 Blood Gas HCO3 23 mmol/L (22-26) Blood Gas Base Excess -1.0 mmol/L (-2-2) Blood Gas Oxygen Saturation 97 % (90-100) Arterial Blood pH 7.44 (7.380-7.420) Arterial Blood Partial 34 mmHg (38-42) Pressure CO2 Arterial Blood Partial 152 mmHg Pressure O2 (61-120) Arterial Blood Oxygen Content 14.9 Vol % (12.0-20.0) Arterial Blood 1.2 % (0-4) Carboxyhemoglobin Arterial Blood Methemoglobin 0.9 % (0-2) Blood Gas Hemoglobin 10.7 G/DL (12.0-16.0) Oxygen Delivery Device VENTILATOR Blood Gas Ventilator Setting A/C16/530/PEEP5 Blood Gas Inspired Oxygen 35 % Imaging Last 24 hours Impressions Chest X-Ray 07/13/16 0000 Signed Impressions: Service Date/Time: Wednesday, July 13, 2016 13:45 - CONCLUSION: Satisfactory endotracheal tube and central line positioning. Bilateral infiltrates and effusions. Venkatesh Bloom MD Objective Remarks GENERAL: Well-nourished, well-developed patient, critically appearing SKIN: Warm and dry. HEAD: Normocephalic. EYES: No scleral icterus. No injection or drainage. NECK: Supple, trachea midline. No JVD or lymphadenopathy. CARDIOVASCULAR: Regular rate and rhythm without murmurs, gallops, or rubs. RESPIRATORY: Breath sounds equal bilaterally. No accessory muscle use. GASTROINTESTINAL: Abdomen soft, non-tender, nondistended. MUSCULOSKELETAL: No cyanosis, or edema. BACK: Nontender without obvious deformity. No CVA tenderness. EXTREMITIES: BL BKA A/P Assessment and Plan Respiratory failure - post-op - anoxic brain encephalopathy??? - no weaning until neurologically improved - CXR, ABG daily - vent bundle - elevated head - CXR unchanged Encephalopathy - metabolic toxic? - anoxic brain injury??? - MRI without evidence of acute damage - neurology evaluation appreciated - CT negative - off sedation - monitor neurochecks per ICU routine - consider HD per nephrology if no improvement Diabetes mellitus - ISS - bedside glucose monitor Q6H - Insulin gtt initiated - will change D5W Bicarb to 1/2 NS Peripheral vascular disease - status post BL BKA - management per vascular surgery End-stage renal disease - peritoneal dialysis - considering HD - further per nephrology Hypothyroidism - Synthroid per home dose Hypertension - Hydralazine PRN History of colon cancer - completed chemotherapy - now in remission?? DVT/GI prophylaxis - Heparin/Lansoprazole Patient critically ill with multiple organ failures. Level 3 Padilla Llanos MD Jul 16, 2016 08:14
--- NOTE | 2016-07-16 09:03 | HHI.NPPN ---
Subjective General Problems: Hypertension Renal Failure: Chronic, End Stage Renal Disease Interval History patient was seen and examined. Unresponsive on the ventilator. PD carried out. Using 2.5 % dextrose PD solution. On small dose of Cardene drip. On Tube feeds. Review of Systems General General Remarks unable to obtain due to unresponsiveness Objective Data Data 07/15/16 07/16/16 19:00 07:00 Intake Total 856 ml 904 ml Output Total 5 ml 42 ml Balance 851 ml 862 ml IV Total 856 ml 682 ml Tube Feeding 222 ml Output Urine Total 5 ml 38 ml Stool Total 0 ml 4 ml Gastric Drainage Total 0 ml Vital Signs Date Time Temp Pulse Resp B/P Pulse Ox O2 Delivery O2 Flow Rate FiO2 07/16/16 07:42 100 35 07/16/16 06:00 91 07/16/16 04:28 100 35 07/16/16 04:00 99.9 94 16 176/74 100 160/70 07/16/16 04:00 94 07/16/16 02:00 92 07/16/16 01:05 100 35 07/16/16 00:00 87 07/16/16 00:00 99.9 87 16 159/67 100 144/65 07/15/16 22:18 100 35 07/15/16 22:00 91 07/15/16 20:25 100 35 07/15/16 20:00 99.5 93 16 162/67 100 153/69 07/15/16 20:00 93 07/15/16 18:00 95 07/15/16 16:28 100 35 07/15/16 16:00 95 07/15/16 16:00 100.0 95 16 100 156/70 07/15/16 14:00 100.0 94 16 100 164/75 07/15/16 14:00 94 07/15/16 12:00 94 07/15/16 12:00 100.1 94 16 100 163/74 07/15/16 11:26 100 35 07/15/16 10:00 95 07/15/16 09:19 100 50 -: 07/16/16 0530 07/16/16 0530 Microbiology 07/15/16 Aerobic Blood Culture, Received Pending 07/15/16 Anaerobic Blood Culture, Received Pending 07/15/16 Gram Stain - Final, Resulted 07/15/16 Sputum Culture, Resulted Pending 07/15/16 Urine Culture, Received Pending 07/15/16 Aerobic Blood Culture, Received Pending 07/15/16 Anaerobic Blood Culture, Received Pending Tubes & Lines: Tenckhoff Catheter Drip Comment bicarb drip, nicardipine, insulin Physical Exam General Appearance: Well Developed, Comfortable, Malnourished Eyes Eye Exam: Pupils Equal Throat Throat Exam: Oral Mucosa [place] & Moist Pulmonary Resp Exam: Clear Bilaterally, Breath Sounds Equal Cardiology CV Exam: Regular Gastrointestinal/Abdomen GI Exam: Soft, Non-Tender, Bowel Sounds Present Musculoskeletal MS Exam: Joints Intact Integumentary Skin Exam: Clear, Cool Extremeties Extremities Exam: No Edema Neurologic Neuro Exam: Unresponsive, Sedated Assessment/Plan Assessment Summary: Anemia of CKD, Hypotension, End Stage Renal Disease Electrolyte Assessment: Metabolic Acidosis Problem List: (1) ESRD (end stage renal disease) on dialysis Plan: ESRD due to diabetic nephropathy He is on nightly PD, waste products are stable. Serum potassium is now acceptable. No immediate indication for switching to HD, but will continue to monitor. (2) Gangrene of toe Plan: vascular (Dr. Kenyon) following had left BKA and revision of right BKA (07/13) (3) Anemia of renal disease Plan: Hb low iron profile showing hemochromatosis on epogen (4) Diabetes Plan: A1c 6.2, insulin drip has been stopped. Blood sugar is high today, recommend insulin coverage to maintain blood glucose of 140-180. Hyperglycemia may impair fluid removal with PD. (5) HTN (hypertension) Plan: previously hypotensive, now on nicardipine (6) Metabolic bone disease Plan: phosphorus is high at 7.1. Preferable to use non calcium containing binders. Talked to pharmacy, Will switch to Fosrenol which can be crushed and given through OG tube. (7) Encephalopathy Plan: Neurology following. Anoxic encephalopathy is a possibility. Metabolic encephalopathy is in the differential. Also appears to be septic. (8) Septic shock Plan: ID following. Peritoneal dialysate WBC count more than 100 suggesting peritonitis? On Micafungin, Vancomycin and Zosyn. Problem Qualifiers (1) Diabetes: Ricardo Liu MD Jul 16, 2016 09:03
[2016-07-16] MEDS: SODIUM CHLORIDE 0.9% FLUSH 5 ML FLUSH IVF SCH ×2 (09:41→21:00)
[2016-07-16] MEDS: INSULIN DETEMIR 100 UNITS/ML VIAL SQ SCH ×2 (09:41→21:40)
[2016-07-16] MEDS: amLODIPine BESYLATE 5 MG TAB TUBE SCH (09:42)
--- NOTE | 2016-07-16 11:12 | PD.CAR.PN ---
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 During the surgery, Patient the had a episode of hypotension and bradycardia is corrected by anesthesia. Patient was then brought to the ICU on the ventilator and despite discontinuation of sedation did not wake up. [place] Coma Scale remained 4 and patient had some spontaneous extremity movements Patient was taken to CT of the brain which was negative. During the CT scan patient started ripping and tearing on his endotracheal tube and lines so had to be sedated down there by the nursing and radiology staff Patient came up and was sedated and again did not wake up. Remains on the ventilator Because of decreased level of consciousness which cannot be explained by simple means patient underwent an MRI of the brain today which did not show any abnormalities either Today patient again had a period of sustained bradycardia with a heart rate in 40s and systolic blood pressure dropped into the 80s. Patient was given atropine and started on dopamine drip There are now 2 issues to consider 1. Patient's neurologic status is now not explained by simple means of either stroke intracranial bleed or such. This appears to be metabolic encephalopathy based on the hepatic and renal underlying pathology. Patient did not have hypoxia in the operating room or there after that would account for any period of anoxia or hypoxia. EEG was performed in order to rule out seizures and none were confirmed. Nonetheless patient is on prophylactic Keppra at this point This will be an issue for time will show which way the patient is going 2. Patient has periods of sustained sinus bradycardia on top of his bundle branch block which makes me think that patient probably has sick sinus syndrome Atropine corrected immediately and patient is now on small dose dopamine at 3 mics per kilo per minute sustaining hemodynamic parameters Critical care help is greatly appreciated Cardiology is consulted and we will follow their lead on this issue 07/15/16 Status post BKA and revision of stump Patient at this point has metabolic encephalopathy and neurology nephrology cardiology and ICU care is greatly appreciated Neurologically patient is improved and at this point opens eyes spontaneously moves both upper and lower extremities making [place] Coma Scale about 6 or 7 Hemodynamic Patient has been stable since yesterday through the night, but earlier yesterday patient dropped blood pressure and became bradycardic as above noted. Cardiology was consulted Patient may have sick sinus syndrome with intermittent manifestations and when he wakes up and improves he may need a pacemaker Interim, patient is hypertensive on chronic basis and currently managed for the same Abdomen soft and I do not believe patient has bacterial peritonitis however it is known to happen in patients with peritoneal dialysis and sometimes presenting in an insidious way CT of abdomen and pelvis does not reveal any collections only some retained fluid Stumps are clean and dry dressing is intact Plan Will have to wait until patient wakes up and manage him supportively I've discussed this with family length 07/16/16 Patient is neurologically unchanged he opens his eyes flexes on the left side more than the right which might be slight improvement actually At this point working diagnosis is toxic encephalopathy, but hypoxic damage of course possible On the ventilator patient is doing well we'll try him on CPAP trial but regardless of it level of consciousness does not allow for extubation for patient could not keep his upper airway open Barring any improvements patient will require tracheostomy We'll go ahead with tracheostomy Monday if patient doesn't improve neurologically Dressing has been removed from right and left BKA stump and both are well- perfused healing nicely incisions are clean and dry Objective: Vital Signs Date Time Temp Pulse Resp B/P Pulse Ox O2 Delivery O2 Flow Rate FiO2 07/16/16 07:42 100 35 07/16/16 06:00 91 07/16/16 04:28 100 35 07/16/16 04:00 99.9 94 16 176/74 100 160/70 07/16/16 04:00 94 07/16/16 02:00 92 07/16/16 01:05 100 35 07/16/16 00:00 87 07/16/16 00:00 99.9 87 16 159/67 100 144/65 07/15/16 22:18 100 35 07/15/16 22:00 91 07/15/16 20:25 100 35 07/15/16 20:00 99.5 93 16 162/67 100 153/69 07/15/16 20:00 93 07/15/16 18:00 95 07/15/16 16:28 100 35 07/15/16 16:00 95 07/15/16 16:00 100.0 95 16 100 156/70 07/15/16 14:00 100.0 94 16 100 164/75 07/15/16 14:00 94 07/15/16 12:00 94 07/15/16 12:00 100.1 94 16 100 163/74 07/15/16 11:26 100 35 Labs: Laboratory Tests Test 07/16/16 07/16/16 05:26 05:30 Blood Gas Puncture Site ART LINE Blood Gas Patient Temperature 98.6 Blood Gas HCO3 23 mmol/L (22-26) Blood Gas Base Excess -1.0 mmol/L (-2-2) Blood Gas Oxygen Saturation 97 % (90-100) Arterial Blood pH 7.44 (7.380-7.420) Arterial Blood Partial 34 mmHg (38-42) Pressure CO2 Arterial Blood Partial 152 mmHg Pressure O2 (61-120) Arterial Blood Oxygen Content 14.9 Vol % (12.0-20.0) Arterial Blood 1.2 % (0-4) Carboxyhemoglobin Arterial Blood Methemoglobin 0.9 % (0-2) Blood Gas Hemoglobin 10.7 G/DL (12.0-16.0) Oxygen Delivery Device VENTILATOR Blood Gas Ventilator Setting A/C16/530/PEEP5 Blood Gas Inspired Oxygen 35 % White Blood Count 26.3 TH/MM3 (4.0-11.0) Red Blood Count 3.52 MIL/MM3 (4.50-5.90) Hemoglobin 10.0 GM/DL (13.0-17.0) Hematocrit 30.8 % (39.0-51.0) Mean Corpuscular Volume 87.4 FL (80.0-100.0) Mean Corpuscular Hemoglobin 28.4 PG (27.0-34.0) Mean Corpuscular Hemoglobin 32.5 % Concent (32.0-36.0) Red Cell Distribution Width 17.4 % (11.6-17.2) Platelet Count 356 TH/MM3 (150-450) Mean Platelet Volume 9.4 FL (7.0-11.0) Neutrophils (%) (Auto) 91.2 % (16.0-70.0) Lymphocytes (%) (Auto) 2.9 % (9.0-44.0) Monocytes (%) (Auto) 5.6 % (0.0-8.0) Eosinophils (%) (Auto) 0.0 % (0.0-4.0) Basophils (%) (Auto) 0.3 % (0.0-2.0) Neutrophils # (Auto) 24.0 TH/MM3 (1.8-7.7) Lymphocytes # (Auto) 0.8 TH/MM3 (1.0-4.8) Monocytes # (Auto) 1.5 TH/MM3 (0-0.9) Eosinophils # (Auto) 0.0 TH/MM3 (0-0.4) Basophils # (Auto) 0.1 TH/MM3 (0-0.2) CBC Comment AUTO DIFF Differential Total Cells 100 Counted Neutrophils % (Manual) 94 % (16-70) Lymphocytes % 3 % (9-44) Monocytes % 3 % (0-8) Neutrophils # (Manual) 24.7 TH/MM3 (1.8-7.7) Nucleated Red Blood Cells 3 /100 WBC (0-0) Differential Comment FINAL DIFF MANUAL Platelet Estimate NORMAL (NORMAL) Platelet Morphology Comment NORMAL (NORMAL) Sodium Level 136 MEQ/L (136-145) Potassium Level 3.8 MEQ/L (3.5-5.1) Chloride Level 95 MEQ/L (98-107) Carbon Dioxide Level 24.9 MEQ/L (21.0-32.0) Anion Gap 16 MEQ/L (5-15) Blood Urea Nitrogen 63 MG/DL (7-18) Creatinine 9.35 MG/DL (0.60-1.30) Estimat Glomerular Filtration 6 ML/MIN (>89) Rate Random Glucose 401 MG/DL (74-106) Calcium Level 8.3 MG/DL (8.5-10.1) Phosphorus Level 7.1 MG/DL (2.5-4.9) Magnesium Level 1.8 MG/DL (1.5-2.5) Total Bilirubin 0.7 MG/DL (0.2-1.0) Aspartate Amino Transf 1047 U/L (AST/SGOT) (15-37) Alanine Aminotransferase 382 U/L (12-78) (ALT/SGPT) Alkaline Phosphatase 98 U/L (45-117) Total Protein 6.7 GM/DL (6.4-8.2) Albumin 1.9 GM/DL (3.4-5.0) Random Vancomycin Level 12.4 COMMENT Result Diagram: 07/16/1652907/16/16529 Jw Becerra MD Jul 16, 2016 11:12
[2016-07-16] MEDS: niCARdipine 25 MG/NS 250 ML Vial2Bag or IV room IV SCH ×6 (11:41→21:49)
[2016-07-16] MEDS ORDERED: CALCIUM ACETATE 667 MG CAP OG SCH ×2 (13:00)
--- NOTE | 2016-07-16 13:57 | HHI.IDPN ---
Subjective Subjective Remarks ID COVERAGE Notes reviewed D/W RN Temps ok Not on pressors On the vent Not waking up BLE stump looks good, dry, no ischemia noted, no redness or drainage Has thick secretions from ET Sputum normal resp rosetta All BC negative CXR stable opacities Antibiotics zosyn micafungin vanco Lines Port R chest LSC TLC Past Medical History Reviewed Allergies: Coded Allergies: No Known Allergies (Unverified , 06/29/16) Objective . Vital Signs Date Time Temp Pulse Resp B/P Pulse Ox O2 Delivery O2 Flow Rate FiO2 07/16/16 12:39 100 60 07/16/16 12:34 100 35 07/16/16 07:42 100 35 07/16/16 06:00 91 07/16/16 04:28 100 35 07/16/16 04:00 99.9 94 16 176/74 100 160/70 07/16/16 04:00 94 07/16/16 02:00 92 07/16/16 01:05 100 35 07/16/16 00:00 87 07/16/16 00:00 99.9 87 16 159/67 100 144/65 07/15/16 22:18 100 35 07/15/16 22:00 91 07/15/16 20:25 100 35 07/15/16 20:00 99.5 93 16 162/67 100 153/69 07/15/16 20:00 93 07/15/16 18:00 95 07/15/16 16:28 100 35 07/15/16 16:00 95 07/15/16 16:00 100.0 95 16 100 156/70 07/15/16 14:00 100.0 94 16 100 164/75 07/15/16 14:00 94 07/15/16 07/15/16 07/16/16 15:00 23:00 07:00 Intake Total 856 ml 429 ml 475 ml Output Total 5 ml 29 ml 13 ml Balance 851 ml 400 ml 462 ml IV Total 856 ml 333 ml 349 ml Tube Feeding 96 ml 126 ml Output Urine Total 5 ml 28 ml 10 ml Stool Total 0 ml 1 ml 3 ml Gastric Drainage Total 0 ml . Laboratory Tests Test 07/15/16 07/16/16 04:55 05:30 White Blood Count 22.2 TH/MM3 26.3 TH/MM3 Red Blood Count 3.37 MIL/MM3 3.52 MIL/MM3 Hemoglobin 9.7 GM/DL 10.0 GM/DL Hematocrit 29.8 % 30.8 % Mean Corpuscular Volume 88.2 FL 87.4 FL Mean Corpuscular Hemoglobin 28.9 PG 28.4 PG Mean Corpuscular Hemoglobin 32.7 % 32.5 % Concent Red Cell Distribution Width 17.2 % 17.4 % Platelet Count 385 TH/MM3 356 TH/MM3 Mean Platelet Volume 8.9 FL 9.4 FL Neutrophils (%) (Auto) 91.3 % 91.2 % Lymphocytes (%) (Auto) 2.8 % 2.9 % Monocytes (%) (Auto) 5.8 % 5.6 % Eosinophils (%) (Auto) 0.0 % 0.0 % Basophils (%) (Auto) 0.1 % 0.3 % Neutrophils # (Auto) 20.3 TH/MM3 24.0 TH/MM3 Lymphocytes # (Auto) 0.6 TH/MM3 0.8 TH/MM3 Monocytes # (Auto) 1.3 TH/MM3 1.5 TH/MM3 Eosinophils # (Auto) 0.0 TH/MM3 0.0 TH/MM3 Basophils # (Auto) 0.0 TH/MM3 0.1 TH/MM3 CBC Comment AUTO DIFF AUTO DIFF Differential Total Cells 100 100 Counted Neutrophils % (Manual) 83 % 94 % Lymphocytes % 5 % 3 % Monocytes % 8 % 3 % Neutrophils # (Manual) 19.3 TH/MM3 24.7 TH/MM3 Metamyelocytes 3 % Myelocytes 1 % Differential Comment FINAL DIFF FINAL DIFF MANUAL MANUAL Platelet Estimate NORMAL NORMAL Platelet Morphology Comment NORMAL NORMAL Hematology Comments Nucleated Red Blood Cells 3 /100 WBC Laboratory Tests Test 07/14/16 07/14/16 07/15/16 07/15/16 13:57 14:17 04:55 14:40 Lactic Acid Level 7.2 mmol/L Ammonia LESS THAN 10 LESS THAN 10 MCMOL/L MCMOL/L Sodium Level 140 MEQ/L Potassium Level 2.3 MEQ/L Chloride Level 100 MEQ/L Carbon Dioxide Level 21.0 MEQ/L Anion Gap 19 MEQ/L Blood Urea Nitrogen 54 MG/DL Creatinine 9.64 MG/DL Estimat Glomerular Filtration 6 ML/MIN Rate Random Glucose 192 MG/DL Calcium Level 8.8 MG/DL Phosphorus Level 5.8 MG/DL Magnesium Level 1.7 MG/DL Total Bilirubin 1.2 MG/DL Aspartate Amino Transf 5281 U/L (AST/SGOT) Alanine Aminotransferase 749 U/L (ALT/SGPT) Alkaline Phosphatase 92 U/L Total Protein 7.2 GM/DL Albumin 2.0 GM/DL Test 07/15/16 07/16/16 22:45 05:30 Potassium Level 3.3 MEQ/L 3.8 MEQ/L Sodium Level 136 MEQ/L Chloride Level 95 MEQ/L Carbon Dioxide Level 24.9 MEQ/L Anion Gap 16 MEQ/L Blood Urea Nitrogen 63 MG/DL Creatinine 9.35 MG/DL Estimat Glomerular Filtration 6 ML/MIN Rate Random Glucose 401 MG/DL Calcium Level 8.3 MG/DL Phosphorus Level 7.1 MG/DL Magnesium Level 1.8 MG/DL Total Bilirubin 0.7 MG/DL Aspartate Amino Transf 1047 U/L (AST/SGOT) Alanine Aminotransferase 382 U/L (ALT/SGPT) Alkaline Phosphatase 98 U/L Total Protein 6.7 GM/DL Albumin 1.9 GM/DL Microbiology Date/Time Procedure Status Source Growth 07/15/16 10:20 Aerobic Blood Culture - Preliminary Resulted Blood Peripheral NO GROWTH IN 1 DAY 07/15/16 10:20 Anaerobic Blood Culture - Preliminary Resulted Blood Peripheral NO GROWTH IN 1 DAY 07/15/16 10:26 Gram Stain - Final Resulted Sputum Endotracheal 07/15/16 10:26 Sputum Culture - Preliminary Resulted Sputum Endotracheal HEAVY GROWTH NORMAL RESPIRATORY ROSETTA... 07/15/16 10:26 Urine Culture - Preliminary Resulted Urine Catheterized Urine NO GROWTH IN 24 HOURS. 07/15/16 10:27 Aerobic Blood Culture - Preliminary Resulted Blood Peripheral NO GROWTH IN 1 DAY 07/15/16 10:27 Anaerobic Blood Culture - Preliminary Resulted Blood Peripheral NO GROWTH IN 1 DAY Imaging Last Impressions Chest X-Ray 07/15/16 0600 Signed Impressions: Service Date/Time: Friday, July 15, 2016 06:06 - CONCLUSION: Improving aeration Venkatesh Bloom MD Liver Ultrasound 07/15/16 0000 Signed Impressions: Service Date/Time: Friday, July 15, 2016 15:09 - CONCLUSION: 1. Thick-walled gallbladder containing stones in the neck. If there is clinical concern for acute cholecystitis a hepatobiliary scan may be helpful to confirm cystic duct obstruction. 2. Hepatomegaly. 3. Tiny right pleural effusion. 4. Echogenic right kidney with minimal perinephric fluid suggesting possible medical renal disease. Clinical correlation is recommended. Dontae Segura MD Brain MRI 07/14/16 0000 Signed Impressions: Service Date/Time: June 10:57 - CONCLUSION: 1. No acute infarct, acute hemorrhage, mass effect or extra-axial fluid collections. 2. Mucus retention cyst within the left maxillary sinus. Dontae Segura MD Abdomen/Pelvis CT 07/14/16 0000 Signed Impressions: Service Date/Time: June 19:02 - CONCLUSION: Bilateral pleural effusions and bibasilar compressive collapse and or consolidation with increase in the ascitic fluid since the prior study. Cary Sanchez MD Head CT 07/13/16 0000 Signed Impressions: Service Date/Time: Wednesday, July 13, 2016 16:54 - CONCLUSION: Normal examination. Venkatesh Bloom MD Physical Exam GENERAL: Sedated, intubated SKIN: No jaundice, rashes, or lesions. Skin temperature appropriate. Not diaphoretic. HEENT: Pupils equal and round and reactive. No scleral icterus. No injection or drainage. ET in mouth NECK: Trachea midline. Supple, nontender. CARDIOVASCULAR: Regular rate and rhythm with + harsh systolic and diastolic 3/6 murmurs (max on RUSB) RESPIRATORY/CHEST: Symmetric, unlabored respirations. Clear to auscultation. Breath sounds equal bilaterally. No wheezes, rales, or rhonchi. GASTROINTESTINAL: Abdomen soft, non-tender, not distended. PD cath in place. No guarding. Bowel sounds present. GENITOURINARY: Without palpable bladder distension. Coffman catheter in place with small amount of yellow clear urine MUSCULOSKELETAL: BLE BKA stump - dry, no redness, no ischemia. Has cyanosis RMF NEUROLOGICAL:sedated, unresponsive PSYCHIATRIC: unable to assess LINES: NO evidence of infection Assessment & Plan Remarks Sepsis, shock, better - C/S negative - ?due to ischemic BLE Severe PVD S/P LBK and R BKA revision Respiratory failure Encephalopathy PLAN: Continue Zosyn Stop Micafungin Will not give further Vanco MOnitor progress Weaning if mental status improved D/W Dr Llanos D/W RN Spoke with family UrielEmma MD Jul 16, 2016 13:57
[2016-07-16] MEDS: LANTHANUM CARBONATE 500 MG CHEWABLE TABLET OG SCH ×2 (15:31→18:36)
[2016-07-16] MEDS: PANTOPRAZOLE SODIUM 40 MG VIAL IV SCH (15:32)
[2016-07-16] MEDS: hydrALAZINE HCL 20 MG/ML VIAL IV PUSH PRN (17:49)
[2016-07-17] VITALS (19 sets, daily range): BP systolic 157–170; BP diastolic 69–80; PULSE 94–104; RESP 16–22; TEMP 99.3–100.4; O2SAT 100
[2016-07-17] MEDS: PIPERACIL-TAZO 2.25 GM PREMIX 50 ML IV SCH ×4 (00:54→17:03)
[2016-07-17] MEDS: HEPARIN SODIUM - SQ 10,000 UNITS/ML VIAL SQ SCH ×2 (00:54→11:22)
[2016-07-17] MEDS: niCARdipine 25 MG/NS 250 ML Vial2Bag or IV room IV SCH ×8 (01:10→22:06)
[2016-07-17 04:18] LABS: AUTOMATED NEUTROPHIL # 20.6 TH/MM3 (1.8-7.7); BASOPHIL # 0.1 TH/MM3 (0-0.2); BASOPHIL % 0.4 % (0.0-2.0); EOSINOPHIL % 0.1 % (0.0-4.0); HEMATOCRIT 30.7 % (39.0-51.0); LYMPH % 6.1 % (9.0-44.0); LYMPHOCYTE # 1.5 TH/MM3 (1.0-4.8); MEAN CORPUSCULAR HEMOGLOBIN 28.2 PG (27.0-34.0); MONO % 9.5 % (0.0-8.0); NEUT % 83.9 % (16.0-70.0); PLATELET COUNT 357 TH/MM3 (150-450); RED BLOOD COUNT 3.48 MIL/MM3 (4.50-5.90); RED CELL DISTRIBUTION WIDTH 17.4 % (11.6-17.2); WHITE BLOOD COUNT 24.5 TH/MM3 (4.0-11.0)
[2016-07-17 04:34] LABS: HEMO FLAGS AUTO DIFF
[2016-07-17 04:52] LABS: AST (GOT) 410 U/L (15-37); CHLORIDE 99 MEQ/L (98-107); GLOMERULAR FILTRATION RATE 6 ML/MIN (>89); POTASSIUM 3.5 MEQ/L (3.5-5.1); SODIUM (NA) 140 MEQ/L (136-145)
[2016-07-17 05:02] LABS: ALKALINE PHOSPHATASE 129 U/L (45-117); ALT (GPT) 236 U/L (12-78); ANION GAP 16 MEQ/L (5-15); BICARBONATE 25.2 MEQ/L (21.0-32.0); BLOOD UREA NITROGEN 65 MG/DL (7-18); TOTAL BILIRUBIN ADULT 0.5 MG/DL (0.2-1.0)
[2016-07-17 05:03] LABS: CORRECTED NUCLEATED RBC 7 /100 WBC (0-0); MYELOCYTES 1 % (0-0); NEUTROPHIL # MANUAL DIFF 22.3 TH/MM3 (1.8-7.7); OVALOCYTES 1+ (NORMAL); POLYS (SEG NEUTROPHILS) 90 % (16-70); TARGET CELLS 1+ (NORMAL); WBC DIFF SAMPLE 100
[2016-07-17 05:04] LABS: PLATELET ESTIMATE SMEAR HIGH (NORMAL); PLATELET MORPHOLOGY NORMAL (NORMAL); SCAN/DIFF FINAL DIFF MANUAL
--- NOTE | 2016-07-17 05:22 | RADRPT ---
EXAM DATE/TIME: 07/17/2016 03:35 [facility] COMPARISON: CHEST SINGLE AP, July 16, 2016, 4:13. INDICATIONS : Shortness of breath, possible pulmonary disease. MEDICAL HISTORY : Hypertension. Diabetes mellitus type II. SURGICAL HISTORY : None. ENCOUNTER: Subsequent ACUITY: 4 - 6 days PAIN SCORE: Non-responsive. LOCATION: Bilateral chest FINDINGS: Endotracheal tube is present with tip 7 cm above the gui. Left subclavian central line and nasogas tric tube are stable. Right chest port is again noted. Aeration is grossly stable with persistent mil d hazy pleuroparenchymal opacity in the bases. Visualized cardiac contours are grossly stable. CONCLUSION: No significant interval change Venkatesh Bloom MD on July 17, 2016 at 5:18 Board Certified Radiologist. This report was verified electronically.
[2016-07-17 05:36] LABS: BLOOD GAS BASE EXCESS 1.3 mmol/L (-2-2); BLOOD GAS CARBOXYHEMOGLOBIN 1.3 % (0-4); BLOOD GAS HCO3 25 mmol/L (22-26); BLOOD GAS O2 HGB SATURATION 97 % (90-100); BLOOD GAS OXYGEN CONTENT 14.3 Vol % (12.0-20.0); BLOOD GAS PCO2 36 mmHg (38-42); BLOOD GAS PO2 150 mmHg (61-120); BLOOD GAS TOTAL HGB 10.3 G/DL (12.0-16.0); TEMP CORR TO 98.6
[2016-07-17 05:37] LABS: CRITICAL VALUE NO; FIO2 35 %; OXYGEN DEVICE VENTILATOR; VENT SETTINGS AC/RR16/VT530/PEEP5
[2016-07-17 05:38] LABS: DRAW SITE ART LINE; NUMBER OF ARTERIAL PUNCTURES 0; STAT NO; ULNAR PULSE PRESENT
[2016-07-17] MEDS: HIGH DOSE INSULIN NOVOLIN REGULAR SUPPLEMENTAL SCALE SQ SCH ×4 (06:10→20:42)
--- NOTE | 2016-07-17 07:43 | HHI.CCPN ---
Subjective Remarks/Hospital Course 56 year old male with ESRD on PD, HTN, DM II, and PAD. He was admitted for left BKA and I&D/revision of right BKA. During a procedure in the OR, he became bradycardic during the operation, was given atropine and epinephrine. He is transferred to ICU intubated, unresponsive, hypertensive. Objective Vital Signs Date Time Temp Pulse Resp B/P Pulse Ox O2 Delivery O2 Flow Rate FiO2 07/17/16 07:17 35 07/17/16 07:17 100 07/17/16 06:00 98 07/17/16 04:00 100.4 17 157/70 162/70 07/13/16 15:20 Mechanical Ventilator Intake and Output 07/16/16 07/16/16 07/17/16 08:00 16:00 00:00 Intake Total 475 ml 749 ml 845 ml Output Total 13 ml 12 ml 6 ml Balance 462 ml 737 ml 839 ml Result Diagram: 07/17/16 0400 07/17/16 0400 Other Results Laboratory Tests Test 07/17/16 05:27 Blood Gas Puncture Site ART LINE Blood Gas Patient Temperature 98.6 Blood Gas HCO3 25 mmol/L (22-26) Blood Gas Base Excess 1.3 mmol/L (-2-2) Blood Gas Oxygen Saturation 97 % (90-100) Arterial Blood pH 7.45 (7.380-7.420) Arterial Blood Partial 36 mmHg (38-42) Pressure CO2 Arterial Blood Partial 150 mmHg Pressure O2 (61-120) Arterial Blood Oxygen Content 14.3 Vol % (12.0-20.0) Arterial Blood 1.3 % (0-4) Carboxyhemoglobin Arterial Blood Methemoglobin 1.0 % (0-2) Blood Gas Hemoglobin 10.3 G/DL (12.0-16.0) Oxygen Delivery Device VENTILATOR Blood Gas Ventilator Setting AC/RR16/VT530/PEEP5 Blood Gas Inspired Oxygen 35 % Imaging Last 24 hours Impressions Chest X-Ray 07/17/16 0600 Signed Impressions: Service Date/Time: Sunday, July 17, 2016 03:35 - CONCLUSION: No significant interval change Venkatesh Bloom MD Last 24 hours Impressions Chest X-Ray 07/13/16 0000 Signed Impressions: Service Date/Time: Wednesday, July 13, 2016 13:45 - CONCLUSION: Satisfactory endotracheal tube and central line positioning. Bilateral infiltrates and effusions. Venkatesh Bloom MD Objective Remarks GENERAL: Well-nourished, well-developed patient, critically appearing SKIN: Warm and dry. HEAD: Normocephalic. EYES: No scleral icterus. No injection or drainage. NECK: Supple, trachea midline. No JVD or lymphadenopathy. CARDIOVASCULAR: Regular rate and rhythm without murmurs, gallops, or rubs. RESPIRATORY: Breath sounds equal bilaterally. No accessory muscle use. GASTROINTESTINAL: Abdomen soft, non-tender, nondistended. MUSCULOSKELETAL: No cyanosis, or edema. BACK: Nontender without obvious deformity. No CVA tenderness. EXTREMITIES: BL BKA A/P Assessment and Plan Respiratory failure - post-op - anoxic brain encephalopathy??? - no weaning until neurologically improved - CXR, ABG daily - vent bundle - elevated head - CXR unchanged Encephalopathy - metabolic toxic? - anoxic brain injury??? - MRI without evidence of acute damage - neurology evaluation appreciated - EEG w/o seizure activity - CT negative - off sedation - monitor neurochecks per ICU routine - consider HD per nephrology if no improvement Diabetes mellitus - ISS - bedside glucose monitor Q6H - Insulin gtt initiated - D5W Bicarb changed to 1/2 NS Peripheral vascular disease - status post BL BKA - management per vascular surgery End-stage renal disease - peritoneal dialysis - considering HD today - further per nephrology Hypothyroidism - Synthroid per home dose Hypertension - Hydralazine PRN History of colon cancer - completed chemotherapy - now in remission DVT/GI prophylaxis - Heparin/Lansoprazole Patient critically ill with multiple organ failures. Level 3 Padilla Llanos MD Jul 17, 2016 07:43
[2016-07-17] MEDS: LANTHANUM CARBONATE 500 MG CHEWABLE TABLET OG SCH ×3 (08:13→17:03)
[2016-07-17] MEDS: SODIUM CHLORIDE 0.9% FLUSH 5 ML FLUSH IVF SCH ×2 (08:13→20:42)
[2016-07-17] MEDS: INSULIN DETEMIR 100 UNITS/ML VIAL SQ SCH ×2 (08:13→20:42)
[2016-07-17] MEDS: amLODIPine BESYLATE 5 MG TAB TUBE SCH (08:13)
--- NOTE | 2016-07-17 08:36 | HHI.NPPN ---
Subjective General Problems: Hypertension Renal Failure: Chronic, End Stage Renal Disease Interval History patient was seen and examined. Remains unresponsive. On Cardene drip 5 mg / hour. On TF. Right BKA stump is "dusky". Review of Systems General General Remarks unable to obtain due to unresponsiveness Objective Data Data 07/16/16 07/17/16 18:59 06:59 Intake Total 749 ml 1635 ml Output Total 12 ml 7 ml Balance 737 ml 1628 ml IV Total 351 ml 1031 ml Tube Feeding 338 ml 484 ml Tube Irrigant 60 ml 120 ml Output Urine Total 10 ml 5 ml Stool Total 2 ml 2 ml Vital Signs Date Time Temp Pulse Resp B/P Pulse Ox O2 Delivery O2 Flow Rate FiO2 07/17/16 07:17 35 07/17/16 07:17 100 35 07/17/16 06:00 98 07/17/16 04:14 100 35 07/17/16 04:00 100.4 94 17 157/70 100 162/70 07/17/16 04:00 94 07/17/16 02:00 98 07/17/16 01:01 100 35 07/17/16 00:00 96 07/17/16 00:00 99.9 96 16 158/70 100 168/70 07/16/16 22:17 100 35 07/16/16 22:00 96 07/16/16 20:00 100.4 97 17 158/68 100 172/72 07/16/16 20:00 97 07/16/16 19:47 100 35 07/16/16 18:00 100 07/16/16 16:00 35 07/16/16 16:00 94 07/16/16 16:00 100.0 94 18 167/74 100 172/80 07/16/16 15:35 35 07/16/16 15:35 100 35 07/16/16 14:00 94 07/16/16 12:39 100 60 07/16/16 12:34 100 35 07/16/16 12:00 94 07/16/16 12:00 99.7 94 17 159/75 100 156/78 07/16/16 10:00 92 -: 07/17/16 0400 07/17/16 0400 Tubes & Lines: Tenckhoff Catheter Drip Comment bicarb drip, nicardipine, insulin Physical Exam General Appearance: Well Developed, Comfortable, Malnourished Eyes Eye Exam: Pupils Equal Throat Throat Exam: Oral Mucosa Lund & Moist Pulmonary Resp Exam: Clear Bilaterally, Breath Sounds Equal Cardiology CV Exam: Regular Gastrointestinal/Abdomen GI Exam: Soft, Non-Tender, Bowel Sounds Present Musculoskeletal MS Exam: Joints Intact Integumentary Skin Exam: Clear, Cool Extremeties Extremities Exam: No Edema Neurologic Neuro Exam: Unresponsive, Sedated Assessment/Plan Assessment Summary: Anemia of CKD, Hypotension, End Stage Renal Disease Electrolyte Assessment: Metabolic Acidosis Problem List: (1) ESRD (end stage renal disease) on dialysis Plan: ESRD due to diabetic nephropathy Continue PD. Serum potassium lower at 3.5, ordered replacement. No immediate indication for switching to HD, but will continue to monitor. (2) Gangrene of toe Plan: vascular (Dr. 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 Another dose of Epogen today. (4) Diabetes Plan: A1c 6.2, insulin drip has been stopped. Blood sugar is high today, recommend insulin coverage to maintain blood glucose of 140-180. Hyperglycemia may impair fluid removal with PD. (5) HTN (hypertension) Plan: previously hypotensive, now on nicardipine (6) Metabolic bone disease Plan: phosphorus was high at 7.1. Preferable to use non calcium containing binders. Switched phosphorus binder to Lanthanum. (7) Encephalopathy Plan: Neurology following. Anoxic encephalopathy is a possibility. Metabolic encephalopathy is in the differential. Also appears to be septic. (8) Septic shock Plan: ID following. Peritoneal dialysate WBC count more than 100 suggesting peritonitis? Micafungin and Vancomycin stopped, now on Zosyn. Problem Qualifiers (1) Diabetes: Ricardo Liu MD Jul 17, 2016 08:36
[2016-07-17] MEDS ORDERED: EPOETIN ALFA 10,000 UNITS/ML VIAL SQ ONE (08:45)
[2016-07-17] MEDS ORDERED: POTASSIUM CHLORIDE 20 MEQ CONTROLLED RELEASE TAB PO ONE (08:45)
--- NOTE | 2016-07-17 11:11 | PD.CAR.PN ---
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 During the surgery, Patient the had a episode of hypotension and bradycardia is corrected by anesthesia. Patient was then brought to the ICU on the ventilator and despite discontinuation of sedation did not wake up. Deedee Coma Scale remained 4 and patient had some spontaneous extremity movements Patient was taken to CT of the brain which was negative. During the CT scan patient started ripping and tearing on his endotracheal tube and lines so had to be sedated down there by the nursing and radiology staff Patient came up and was sedated and again did not wake up. Remains on the ventilator Because of decreased level of consciousness which cannot be explained by simple means patient underwent an MRI of the brain today which did not show any abnormalities either Today patient again had a period of sustained bradycardia with a heart rate in 40s and systolic blood pressure dropped into the 80s. Patient was given atropine and started on dopamine drip There are now 2 issues to consider 1. Patient's neurologic status is now not explained by simple means of either stroke intracranial bleed or such. This appears to be metabolic encephalopathy based on the hepatic and renal underlying pathology. Patient did not have hypoxia in the operating room or there after that would account for any period of anoxia or hypoxia. EEG was performed in order to rule out seizures and none were confirmed. Nonetheless patient is on prophylactic Keppra at this point This will be an issue for time will show which way the patient is going 2. Patient has periods of sustained sinus bradycardia on top of his bundle branch block which makes me think that patient probably has sick sinus syndrome Atropine corrected immediately and patient is now on small dose dopamine at 3 mics per kilo per minute sustaining hemodynamic parameters Critical care help is greatly appreciated Cardiology is consulted and we will follow their lead on this issue 07/15/16 Status post BKA and revision of stump Patient at this point has metabolic encephalopathy and neurology nephrology cardiology and ICU care is greatly appreciated Neurologically patient is improved and at this point opens eyes spontaneously moves both upper and lower extremities making Fenton Coma Scale about 6 or 7 Hemodynamic Patient has been stable since yesterday through the night, but earlier yesterday patient dropped blood pressure and became bradycardic as above noted. Cardiology was consulted Patient may have sick sinus syndrome with intermittent manifestations and when he wakes up and improves he may need a pacemaker Interim, patient is hypertensive on chronic basis and currently managed for the same Abdomen soft and I do not believe patient has bacterial peritonitis however it is known to happen in patients with peritoneal dialysis and sometimes presenting in an insidious way CT of abdomen and pelvis does not reveal any collections only some retained fluid Stumps are clean and dry dressing is intact Plan Will have to wait until patient wakes up and manage him supportively I've discussed this with family length 07/16/16 Patient is neurologically unchanged he opens his eyes flexes on the left side more than the right which might be slight improvement actually At this point working diagnosis is toxic encephalopathy, but hypoxic damage of course possible On the ventilator patient is doing well we'll try him on CPAP trial but regardless of it level of consciousness does not allow for extubation for patient could not keep his upper airway open Barring any improvements patient will require tracheostomy We'll go ahead with tracheostomy Monday if patient doesn't improve neurologically Dressing has been removed from right and left BKA stump and both are well- perfused healing nicely incisions are clean and dry 07/17/16 No change in neurologic status Discussed with below the when we will repeat the CT scan of the head today to see there is any swelling to account for patient's neurologic deficits Moves all 4 extremities but without purpose opens eyes on stimulation BKA stump was very nice and well perfused yesterday however today there is a livid discoloration of the lower portion of the stump Patient has such precarious flow to this area that he may not maintain the stump and may end up with the above-knee amputation but this is also predicated on his neurologic function in the future We will discuss with family the final goals of this therapy and patient's wishes. Will likely involve palliative care as well Objective: Vital Signs Date Time Temp Pulse Resp B/P Pulse Ox O2 Delivery O2 Flow Rate FiO2 07/17/16 10:00 101 07/17/16 09:48 100 35 07/17/16 08:00 100 07/17/16 08:00 100.1 101 18 160/80 100 Automatic Cuff 07/17/16 07:17 35 07/17/16 07:17 100 35 07/17/16 06:00 98 07/17/16 04:14 100 35 07/17/16 04:00 100.4 94 17 157/70 100 162/70 07/17/16 04:00 94 07/17/16 02:00 98 07/17/16 01:01 100 35 07/17/16 00:00 96 07/17/16 00:00 99.9 96 16 158/70 100 168/70 07/16/16 22:17 100 35 07/16/16 22:00 96 07/16/16 20:00 100.4 97 17 158/68 100 172/72 07/16/16 20:00 97 07/16/16 19:47 100 35 07/16/16 18:00 100 07/16/16 16:00 35 07/16/16 16:00 94 07/16/16 16:00 100.0 94 18 167/74 100 172/80 07/16/16 15:35 35 07/16/16 15:35 100 35 07/16/16 14:00 94 07/16/16 12:39 100 60 07/16/16 12:34 100 35 07/16/16 12:00 94 07/16/16 12:00 99.7 94 17 159/75 100 156/78 Labs: Laboratory Tests Test 07/17/16 07/17/16 04:00 05:27 White Blood Count 24.5 TH/MM3 (4.0-11.0) Red Blood Count 3.48 MIL/MM3 (4.50-5.90) Hemoglobin 9.8 GM/DL (13.0-17.0) Hematocrit 30.7 % (39.0-51.0) Mean Corpuscular Volume 88.0 FL (80.0-100.0) Mean Corpuscular Hemoglobin 28.2 PG (27.0-34.0) Mean Corpuscular Hemoglobin 32.0 % Concent (32.0-36.0) Red Cell Distribution Width 17.4 % (11.6-17.2) Platelet Count 357 TH/MM3 (150-450) Mean Platelet Volume 9.2 FL (7.0-11.0) Neutrophils (%) (Auto) 83.9 % (16.0-70.0) Lymphocytes (%) (Auto) 6.1 % (9.0-44.0) Monocytes (%) (Auto) 9.5 % (0.0-8.0) Eosinophils (%) (Auto) 0.1 % (0.0-4.0) Basophils (%) (Auto) 0.4 % (0.0-2.0) Neutrophils # (Auto) 20.6 TH/MM3 (1.8-7.7) Lymphocytes # (Auto) 1.5 TH/MM3 (1.0-4.8) Monocytes # (Auto) 2.3 TH/MM3 (0-0.9) Eosinophils # (Auto) 0.0 TH/MM3 (0-0.4) Basophils # (Auto) 0.1 TH/MM3 (0-0.2) CBC Comment AUTO DIFF Differential Total Cells 100 Counted Neutrophils % (Manual) 90 % (16-70) Lymphocytes % 6 % (9-44) Monocytes % 3 % (0-8) Neutrophils # (Manual) 22.3 TH/MM3 (1.8-7.7) Myelocytes 1 % (0-0) Nucleated Red Blood Cells 7 /100 WBC (0-0) Differential Comment FINAL DIFF MANUAL Platelet Estimate HIGH (NORMAL) Platelet Morphology Comment NORMAL (NORMAL) Target Cells 1+ (NORMAL) Ovalocytes 1+ (NORMAL) Sodium Level 140 MEQ/L (136-145) Potassium Level 3.5 MEQ/L (3.5-5.1) Chloride Level 99 MEQ/L (98-107) Carbon Dioxide Level 25.2 MEQ/L (21.0-32.0) Anion Gap 16 MEQ/L (5-15) Blood Urea Nitrogen 65 MG/DL (7-18) Creatinine 9.31 MG/DL (0.60-1.30) Estimat Glomerular Filtration 6 ML/MIN (>89) Rate Random Glucose 249 MG/DL (74-106) Calcium Level 8.2 MG/DL (8.5-10.1) Phosphorus Level 5.4 MG/DL (2.5-4.9) Magnesium Level 2.0 MG/DL (1.5-2.5) Total Bilirubin 0.5 MG/DL (0.2-1.0) Aspartate Amino Transf 410 U/L (15-37) (AST/SGOT) Alanine Aminotransferase 236 U/L (12-78) (ALT/SGPT) Alkaline Phosphatase 129 U/L (45-117) Total Protein 6.7 GM/DL (6.4-8.2) Albumin 1.7 GM/DL (3.4-5.0) Blood Gas Puncture Site ART LINE Blood Gas Patient Temperature 98.6 Blood Gas HCO3 25 mmol/L (22-26) Blood Gas Base Excess 1.3 mmol/L (-2-2) Blood Gas Oxygen Saturation 97 % (90-100) Arterial Blood pH 7.45 (7.380-7.420) Arterial Blood Partial 36 mmHg (38-42) Pressure CO2 Arterial Blood Partial 150 mmHg Pressure O2 (61-120) Arterial Blood Oxygen Content 14.3 Vol % (12.0-20.0) Arterial Blood 1.3 % (0-4) Carboxyhemoglobin Arterial Blood Methemoglobin 1.0 % (0-2) Blood Gas Hemoglobin 10.3 G/DL (12.0-16.0) Oxygen Delivery Device VENTILATOR Blood Gas Ventilator Setting AC/RR16/VT530/PEEP5 Blood Gas Inspired Oxygen 35 % Result Diagram: 07/17/16 0400 07/17/16 0400 Jw Becerra MD Jul 17, 2016 11:11
--- NOTE | 2016-07-17 14:04 | HHI.IDPN ---
Subjective Subjective Remarks ID COVERAGE Notes reviewed Temps ok Not on pressors On the vent Has light purplish color on his LLE stump Sputum normal resp rosetta All BC negative CXR stable opacities Antibiotics zosyn micafungin vanco Lines Port R chest LSC TLC Past Medical History Reviewed Allergies: Coded Allergies: No Known Allergies (Unverified , 06/29/16) Objective . Vital Signs Date Time Temp Pulse Resp B/P Pulse Ox O2 Delivery O2 Flow Rate FiO2 07/17/16 13:00 100 35 07/17/16 12:00 99.3 104 18 165/69 100 07/17/16 12:00 100 07/17/16 10:00 101 07/17/16 09:48 100 35 07/17/16 08:00 100 07/17/16 08:00 100.1 101 18 160/80 100 Automatic Cuff 07/17/16 07:17 35 07/17/16 07:17 100 35 07/17/16 06:00 98 07/17/16 04:14 100 35 07/17/16 04:00 100.4 94 17 157/70 100 162/70 07/17/16 04:00 94 07/17/16 02:00 98 07/17/16 01:01 100 35 07/17/16 00:00 96 07/17/16 00:00 99.9 96 16 158/70 100 168/70 07/16/16 22:17 100 35 07/16/16 22:00 96 07/16/16 20:00 100.4 97 17 158/68 100 172/72 07/16/16 20:00 97 07/16/16 19:47 100 35 07/16/16 18:00 100 07/16/16 16:00 35 07/16/16 16:00 94 07/16/16 16:00 100.0 94 18 167/74 100 172/80 07/16/16 15:35 35 07/16/16 15:35 100 35 07/16/16 07/16/16 07/17/16 15:00 23:00 07:00 Intake Total 749 ml 845 ml 790 ml Output Total 12 ml 6 ml 1 ml Balance 737 ml 839 ml 789 ml IV Total 351 ml 513 ml 518 ml Tube Feeding 338 ml 272 ml 212 ml Tube Irrigant 60 ml 60 ml 60 ml Output Urine Total 10 ml 5 ml 0 ml Stool Total 2 ml 1 ml 1 ml . Laboratory Tests Test 07/16/16 07/17/16 05:30 04:00 White Blood Count 26.3 TH/MM3 24.5 TH/MM3 Red Blood Count 3.52 MIL/MM3 3.48 MIL/MM3 Hemoglobin 10.0 GM/DL 9.8 GM/DL Hematocrit 30.8 % 30.7 % Mean Corpuscular Volume 87.4 FL 88.0 FL Mean Corpuscular Hemoglobin 28.4 PG 28.2 PG Mean Corpuscular Hemoglobin 32.5 % 32.0 % Concent Red Cell Distribution Width 17.4 % 17.4 % Platelet Count 356 TH/MM3 357 TH/MM3 Mean Platelet Volume 9.4 FL 9.2 FL Neutrophils (%) (Auto) 91.2 % 83.9 % Lymphocytes (%) (Auto) 2.9 % 6.1 % Monocytes (%) (Auto) 5.6 % 9.5 % Eosinophils (%) (Auto) 0.0 % 0.1 % Basophils (%) (Auto) 0.3 % 0.4 % Neutrophils # (Auto) 24.0 TH/MM3 20.6 TH/MM3 Lymphocytes # (Auto) 0.8 TH/MM3 1.5 TH/MM3 Monocytes # (Auto) 1.5 TH/MM3 2.3 TH/MM3 Eosinophils # (Auto) 0.0 TH/MM3 0.0 TH/MM3 Basophils # (Auto) 0.1 TH/MM3 0.1 TH/MM3 CBC Comment AUTO DIFF AUTO DIFF Differential Total Cells 100 100 Counted Neutrophils % (Manual) 94 % 90 % Lymphocytes % 3 % 6 % Monocytes % 3 % 3 % Neutrophils # (Manual) 24.7 TH/MM3 22.3 TH/MM3 Nucleated Red Blood Cells 3 /100 WBC 7 /100 WBC Differential Comment FINAL DIFF FINAL DIFF MANUAL MANUAL Platelet Estimate NORMAL HIGH Platelet Morphology Comment NORMAL NORMAL Myelocytes 1 % Target Cells 1+ Ovalocytes 1+ Laboratory Tests Test 07/15/16 07/15/16 07/16/16 07/17/16 14:40 22:45 05:30 04:00 Ammonia LESS THAN 10 MCMOL/L Potassium Level 3.3 MEQ/L 3.8 MEQ/L 3.5 MEQ/L Sodium Level 136 MEQ/L 140 MEQ/L Chloride Level 95 MEQ/L 99 MEQ/L Carbon Dioxide Level 24.9 MEQ/L 25.2 MEQ/L Anion Gap 16 MEQ/L 16 MEQ/L Blood Urea Nitrogen 63 MG/DL 65 MG/DL Creatinine 9.35 MG/DL 9.31 MG/DL Estimat Glomerular Filtration 6 ML/MIN 6 ML/MIN Rate Random Glucose 401 MG/DL 249 MG/DL Calcium Level 8.3 MG/DL 8.2 MG/DL Phosphorus Level 7.1 MG/DL 5.4 MG/DL Magnesium Level 1.8 MG/DL 2.0 MG/DL Total Bilirubin 0.7 MG/DL 0.5 MG/DL Aspartate Amino Transf 1047 U/L 410 U/L (AST/SGOT) Alanine Aminotransferase 382 U/L 236 U/L (ALT/SGPT) Alkaline Phosphatase 98 U/L 129 U/L Total Protein 6.7 GM/DL 6.7 GM/DL Albumin 1.9 GM/DL 1.7 GM/DL Microbiology Date/Time Procedure Status Source Growth 07/15/16 10:20 Aerobic Blood Culture - Preliminary Resulted Blood Peripheral NO GROWTH IN 2 DAYS 07/15/16 10:20 Anaerobic Blood Culture - Preliminary Resulted Blood Peripheral NO GROWTH IN 2 DAYS 07/15/16 10:26 Gram Stain - Final Complete Sputum Endotracheal 07/15/16 10:26 Sputum Culture - Final Complete Sputum Endotracheal HEAVY GROWTH NORMAL RESPIRATORY ROSETTA 07/15/16 10:26 Urine Culture - Final Complete Urine Catheterized Urine NO GROWTH IN 48 HOURS. 07/15/16 10:27 Aerobic Blood Culture - Preliminary Resulted Blood Peripheral NO GROWTH IN 2 DAYS 07/15/16 10:27 Anaerobic Blood Culture - Preliminary Resulted Blood Peripheral NO GROWTH IN 2 DAYS Imaging Last Impressions Chest X-Ray 07/15/16 0600 Signed Impressions: Service Date/Time: Friday, July 15, 2016 06:06 - CONCLUSION: Improving aeration Venkatesh Bloom MD Liver Ultrasound 07/15/16 0000 Signed Impressions: Service Date/Time: Friday, July 15, 2016 15:09 - CONCLUSION: 1. Thick-walled gallbladder containing stones in the neck. If there is clinical concern for acute cholecystitis a hepatobiliary scan may be helpful to confirm cystic duct obstruction. 2. Hepatomegaly. 3. Tiny right pleural effusion. 4. Echogenic right kidney with minimal perinephric fluid suggesting possible medical renal disease. Clinical correlation is recommended. Dontae Segura MD Brain MRI 07/14/16 0000 Signed Impressions: Service Date/Time: June 10:57 - CONCLUSION: 1. No acute infarct, acute hemorrhage, mass effect or extra-axial fluid collections. 2. Mucus retention cyst within the left maxillary sinus. Dontae Segura MD Abdomen/Pelvis CT 07/14/16 0000 Signed Impressions: Service Date/Time: June 19:02 - CONCLUSION: Bilateral pleural effusions and bibasilar compressive collapse and or consolidation with increase in the ascitic fluid since the prior study. Cary Sanchez MD Head CT 07/13/16 0000 Signed Impressions: Service Date/Time: Wednesday, July 13, 2016 16:54 - CONCLUSION: Normal examination. Venkatesh Bloom MD Physical Exam GENERAL: Sedated, intubated SKIN: No jaundice, rashes, or lesions. Skin temperature appropriate. Not diaphoretic. HEENT: [place] conjunctiva. No scleral icterus. No injection or drainage. ET in mouth NECK: Trachea midline. Supple, nontender. CARDIOVASCULAR: Regular rate and rhythm with + harsh systolic and diastolic 3/6 murmurs (max on RUSB) RESPIRATORY/CHEST: Clear to auscultation. Breath sounds equal bilaterally. No wheezes, rales, or rhonchi. GASTROINTESTINAL: Abdomen soft, non-tender, not distended. PD cath in place. No guarding. Bowel sounds present. GENITOURINARY: Without palpable bladder distension. Coffman catheter in place with small amount of yellow clear urine MUSCULOSKELETAL: BLE BKA stump - dry, no redness. Has light purple color on his LLE stump. Has cyanosis RMF NEUROLOGICAL:sedated, unresponsive PSYCHIATRIC: unable to assess LINES: NO evidence of infection Assessment & Plan Remarks Sepsis, shock, better - C/S negative - ?due to ischemic BLE Severe PVD S/P LBK and R BKA revision Respiratory failure Encephalopathy PLAN: Continue Zosyn If stable, prob D/C all Abx tomorrow Monitor progress Weaning if mental status improved Emma Trevino MD Jul 17, 2016 14:04
[2016-07-17] MEDS: PANTOPRAZOLE SODIUM 40 MG VIAL IV SCH (14:47)
--- NOTE | 2016-07-17 16:39 | RADRPT ---
EXAM DATE/TIME: 07/17/2016 16:20 [facility] COMPARISON: CT BRAIN W/O CONTRAST, July 13, 2016, 16:54. INDICATIONS : Evaluate for anoxic brain injury. RADIATION DOSE: 50.45 CTDIvol (mGy) MEDICAL HISTORY : Hypertension. Renal failure, chronic. Diabetes mellitus type 1.Colon cancer SURGICAL HISTORY : None. ENCOUNTER: Initial ACUITY: 1 day PAIN SCALE: Non-responsive LOCATION: cranial TECHNIQUE: Multiple contiguous axial images were obtained of the head. Using automated exposure control and adj ustment of the mA and/or kV according to patient size, radiation dose was kept as low as reasonably a chievable to obtain optimal diagnostic quality images. FINDINGS: There is no evidence for intracranial hemorrhage, mass effect, mass lesions, edema, or extra-axial fl uid collections. The visualized bony structures appear intact. The ventricles are normal size for t he patient's age. There are no signs of acute infarction for technique. There is opacification of th e left maxillary sinus chronic in nature. CONCLUSION: Unremarkable study. Cary Sanchez MD on July 17, 2016 at 16:35 Board Certified Radiologist. This report was verified electronically.
[2016-07-18] VITALS (18 sets, daily range): BP systolic 154–170; BP diastolic 68–79; PULSE 64–100; RESP 18–28; TEMP 99.5–101.1; O2SAT 99–100
[2016-07-18] MEDS: PIPERACIL-TAZO 2.25 GM PREMIX 50 ML IV SCH ×4 (00:13→17:08)
[2016-07-18] MEDS: HEPARIN SODIUM - SQ 10,000 UNITS/ML VIAL SQ SCH ×2 (00:13→11:12)
[2016-07-18] MEDS: niCARdipine 25 MG/NS 250 ML Vial2Bag or IV room IV SCH ×8 (01:01→11:12)
[2016-07-18 04:31] LABS: HEMATOCRIT 29.4 % (39.0-51.0); MEAN CELL VOLUME 88.1 FL (80.0-100.0); MEAN CORPUSCULAR HGB CONC 32.9 % (32.0-36.0); PLATELET COUNT 330 TH/MM3 (150-450); RED BLOOD COUNT 3.34 MIL/MM3 (4.50-5.90); RED CELL DISTRIBUTION WIDTH 17.1 % (11.6-17.2); WHITE BLOOD COUNT 23.4 TH/MM3 (4.0-11.0)
[2016-07-18 04:48] LABS: HEMO FLAGS AUTO DIFF
[2016-07-18 04:51] LABS: BLOOD UREA NITROGEN 74 MG/DL (7-18); GLOMERULAR FILTRATION RATE 6 ML/MIN (>89)
[2016-07-18 04:52] LABS: ALKALINE PHOSPHATASE 142 U/L (45-117); ALT (GPT) 139 U/L (12-78); AST (GOT) 233 U/L (15-37); SODIUM (NA) 138 MEQ/L (136-145); TOTAL BILIRUBIN ADULT 0.5 MG/DL (0.2-1.0)
[2016-07-18 04:53] LABS: ANION GAP 14 MEQ/L (5-15); CHLORIDE 100 MEQ/L (98-107); POTASSIUM 3.7 MEQ/L (3.5-5.1)
[2016-07-18 05:22] LABS: BLOOD GAS BASE EXCESS -0.5 mmol/L (-2-2); BLOOD GAS CARBOXYHEMOGLOBIN 1.5 % (0-4); BLOOD GAS HCO3 23 mmol/L (22-26); BLOOD GAS O2 HGB SATURATION 96 % (90-100); BLOOD GAS OXYGEN CONTENT 13.1 Vol % (12.0-20.0); BLOOD GAS PCO2 32 mmHg (38-42); BLOOD GAS PO2 127 mmHg (61-120); BLOOD GAS TOTAL HGB 9.5 G/DL (12.0-16.0); CRITICAL VALUE NO; DRAW SITE ART LINE; FIO2 35 %; OXYGEN DEVICE VENTILATOR; TEMP CORR TO 98.6; VENT SETTINGS AC/16/530/PEEP 5
[2016-07-18 05:23] LABS: STAT NO
[2016-07-18 05:40] LABS: BANDS 3 % (0-6); CORRECTED NUCLEATED RBC 4 /100 WBC (0-0); EOSINOPHILS 1 % (0-4); NEUTROPHIL # MANUAL DIFF 19.9 TH/MM3 (1.8-7.7); PLATELET ESTIMATE SMEAR NORMAL (NORMAL); PLATELET MORPHOLOGY NORMAL (NORMAL); POLYS (SEG NEUTROPHILS) 82 % (16-70); SCAN/DIFF FINAL DIFF MANUAL; TOXIC VACUOLATION PRESENT (NONE SEEN); WBC DIFF SAMPLE 100
--- NOTE | 2016-07-18 05:41 | MG ---
cc: TYRESE KELLY MD Lab No: [id number] Date: 07/17/2016 Age: 56 Sex: M Race: DATE OF 1960 INDICATIONS A 56-year-old with history of stuporous state. FINDINGS Generalized 1-2 Hz, 10-20 microvolt delta activity occurring with rare frontal sharp transients. Single lead EKG showing sinus rhythm. No driving with photic stimulation. INTERPRETATION Severe encephalopathy. Clinical correlation. Jonathan Gamble MD MG/SSB /5:46 PM /5:39 AM
--- NOTE | 2016-07-18 06:42 | RADRPT ---
EXAM DATE/TIME: 07/18/2016 05:32 [facility] COMPARISON: CHEST SINGLE AP, July 17, 2016, 3:35. INDICATIONS : Shortness of breath and respiratory failure. MEDICAL HISTORY : Hypertension. Diabetes mellitus type II. SURGICAL HISTORY : None. ENCOUNTER: Subsequent ACUITY: 1 week PAIN SCORE: Non-responsive. LOCATION: Bilateral chest FINDINGS: A single AP semierect view of the chest was obtained and again demonstrates an endotracheal tube in p lace with tip now at the level of thoracic inlet proximally 6 cm above the gui. A nasogastric tube is again seen coursing through the esophagus into the stomach. The right subclavian central venous c atheter remains in place. There is mild opacity in the lung bases and the right costophrenic angle ma y be mildly blunted. The bony thorax is intact. CONCLUSION: 1. No significant change. Hazy opacity remains at the lung bases and possible small right effusion. 2. The patient remains intubated. Eliecer Magaña MD on July 18, 2016 at 6:39 Board Certified Radiologist. This report was verified electronically.
[2016-07-18] MEDS: HIGH DOSE INSULIN NOVOLIN REGULAR SUPPLEMENTAL SCALE SQ SCH ×2 (07:00→11:00)
[2016-07-18] MEDS: INSULIN DETEMIR 100 UNITS/ML VIAL SQ SCH ×2 (08:27→21:46)
[2016-07-18] MEDS: SODIUM CHLORIDE 0.9% FLUSH 5 ML FLUSH IVF SCH ×2 (08:28→21:45)
[2016-07-18] MEDS: amLODIPine BESYLATE 5 MG TAB TUBE SCH (08:28)
[2016-07-18] MEDS: LANTHANUM CARBONATE 500 MG CHEWABLE TABLET OG SCH ×3 (08:28→17:46)
--- NOTE | 2016-07-18 10:35 | MG ---
cc: LISA BRISCOE MD Lab No: [id number] Date: 07/14/16 Age: 56 Sex: M Race: DATE OF 1960 A 56-year-old with a very allergic comatose state. DESCRIPTION Generalized 1-2 Hz delta activity with pseudoperiodic delta waveforms. No driving with photic stimulation. Single lead EKG showing sinus rhythm. INTERPRETATION Severe encephalopathy. MD PRACHI Márquez/BJF /9:17 PM /10:33 AM MTDD
--- NOTE | 2016-07-18 12:17 | HHI.CCPN ---
Subjective Remarks/Hospital Course 56 year old male with ESRD on PD, HTN, DM II, and PAD. He was admitted for left BKA and I&D/revision of right BKA. During a procedure in the OR, he became bradycardic during the operation, was given atropine and epinephrine. He is transferred to ICU intubated, unresponsive, hypertensive. Subjective 07/18: Currently resting in bed on PSV trial. Unresponsive on the ventilator. Tmax 101.1. Currently 100.1. Tolerating tube feeding at 40 cc an hour with Nepro. No bowel movement. Objective Vital Signs Date Time Temp Pulse Resp B/P Pulse Ox O2 Delivery O2 Flow Rate FiO2 07/18/16 11:35 100 35 07/18/16 10:00 98 07/18/16 08:00 100.1 18 165/72 Intake and Output 07/17/16 07/17/16 07/17/16 07:59 15:59 23:59 Intake Total 790 ml 1234 ml 1610 ml Output Total 1 ml 784 ml 15 ml Balance 789 ml 450 ml 1595 ml Result Diagram: 07/18/16 0410 07/18/16 0410 Other Results Microbiology Date/Time Procedure Status Source Growth 07/15/16 10:27 Aerobic Blood Culture - Preliminary Resulted Blood Peripheral NO GROWTH IN 3 DAYS 07/15/16 10:27 Anaerobic Blood Culture - Preliminary Resulted Blood Peripheral NO GROWTH IN 3 DAYS 07/15/16 10:26 Urine Culture - Final Complete Urine Catheterized Urine NO GROWTH IN 48 HOURS. 07/15/16 10:26 Gram Stain - Final Complete Sputum Endotracheal 07/15/16 10:26 Sputum Culture - Final Complete Sputum Endotracheal HEAVY GROWTH NORMAL RESPIRATORY PAVEL Imaging Last Impressions Chest X-Ray 07/18/16 0600 Signed Impressions: Service Date/Time: Monday, July 18, 2016 05:32 - CONCLUSION: 1. No significant change. Hazy opacity remains at the lung bases and possible small right effusion. 2. The patient remains intubated. Eliecer Magaña MD Head CT 07/17/16 0000 Signed Impressions: Service Date/Time: Sunday, July 17, 2016 16:20 - CONCLUSION: Unremarkable study. KSantos Sanchez MD Liver Ultrasound 07/15/16 0000 Signed Impressions: Service Date/Time: Friday, July 15, 2016 15:09 - CONCLUSION: 1. Thick-walled gallbladder containing stones in the neck. If there is clinical concern for acute cholecystitis a hepatobiliary scan may be helpful to confirm cystic duct obstruction. 2. Hepatomegaly. 3. Tiny right pleural effusion. 4. Echogenic right kidney with minimal perinephric fluid suggesting possible medical renal disease. Clinical correlation is recommended. Dontae Segura MD Brain MRI 07/14/16 0000 Signed Impressions: Service Date/Time: June 10:57 - CONCLUSION: 1. No acute infarct, acute hemorrhage, mass effect or extra-axial fluid collections. 2. Mucus retention cyst within the left maxillary sinus. Dontae Segura MD Abdomen/Pelvis CT 07/14/16 0000 Signed Impressions: Service Date/Time: June 19:02 - CONCLUSION: Bilateral pleural effusions and bibasilar compressive collapse and or consolidation with increase in the ascitic fluid since the prior study. Cary Sanchez MD Objective Remarks GENERAL: 86-year-old male, critically ill currently resting in bed orotracheally intubated SKIN: Warm and dry. Noted bilateral below the medications with some mottling left lower extremity HEAD: Normocephalic. EYES: No scleral icterus. No injection or drainage. NECK: Supple, trachea midline. No JVD or lymphadenopathy. CARDIOVASCULAR: Tachycardic, RR. S1, S2. No S4 without murmur RESPIRATORY: Breath sounds equal bilaterally without wheezes rales or rhonchi. No accessory muscle use. GASTROINTESTINAL: Abdomen soft, non-tender, nondistended. MUSCULOSKELETAL: No new skin peripheral edema. BACK: Nontender without obvious deformity. No CVA tenderness. EXTREMITIES: BL BKA A/P Assessment and Plan Neuro/Psych: Encephalopathy - anoxic versus toxic metabolic - MRI brain without evidence of acute damage - neurology evaluation appreciated - EEG 07/14 and 07/17 revealed severe encephalopathy w/o seizure activity - Off all sedation. Limit any kind of sedation - monitor neurochecks per ICU routine - Neurology following - Previously on Lyrica for peripheral neuropathy CV: Hypertension History dyslipidemia Peripheral vascular disease Status post left [id number] amputation with right [id number] amputation revision 07/[address] Becerra Currently on Cardene drip at 7 mg an hour. Currently on Norvasc 5 mg by mouth daily. Will add Coreg 6.25 twice a day and switched to Cleviprex to limit volume 2-D echocardiogram revealed EF 25-30%. LV dilated. Goal hypokinesis especially inferior. Mild air. Moderate MR. GUZMAN 63 mm Hg Previously on Methyldopa 250 daily and Prinivil 20 mg by mouth daily for blood pressure management Resp: Likely vent dependent respiratory failure - Currently on PSV trial 2/2 and 35% - no weaning until neurologically improved - vent bundle - elevated head - CXR unchanged GI: Transaminitis likely shock liver improving Currently Nepro goal 50 cc an hour Protonix for GI prophylaxis Colace/as needed Senokot for bowel regimen : Coffman if indicated Endo: Diabetes mellitus Hyperglycemia Hypothyroidism Currently on Levemir 20 units subcutaneous twice a day with sliding scale insulin/low lying Accu-Cheks every 4 hours to maintain euglycemia Currently not on any medications for hypothyroidism Renal: End-stage kidney disease - peritoneal dialysis Peritoneal dialysis per nephrology. Heme: History of colon cancer in remission status post radiation therapy Leukocytosis Normocytic anemia/anemia of chronic kidney disease Monitor CBC ID: Currently on Zosyn per infectious disease Pertinent cultures 07/15 - blood cultures 2 - no growth 07/15 - urine culture - negative 07/15 - sputum culture - no growth MSK: PT OT evaluate and treat FEN: Hyperphosphatemia Currently on Fosrenol 1 g every 8 hours Access - Left subclavian CVL - Right Port-A-Cath Prophylaxis - GI - Protonix - DVT - heparin subcutaneous Critical Care: The total critical care time was 35 minutes. Time to perform other separately billable procedures was not included in the critical care time. Jarek Jenkins MD Jul 18, 2016 12:17
[2016-07-18] MEDS ORDERED: SENNOSIDES SYRUP 8.8 MG/5 ML CUP PO ONE (13:00)
[2016-07-18] MEDS: CARVEDILOL 6.25 MG TAB PO SCH ×2 (13:22→21:46)
--- NOTE | 2016-07-18 15:10 | PD.CAR.PN ---
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 During the surgery, Patient the had a episode of hypotension and bradycardia is corrected by anesthesia. Patient was then brought to the ICU on the ventilator and despite discontinuation of sedation did not wake up. [place] Coma Scale remained 4 and patient had some spontaneous extremity movements Patient was taken to CT of the brain which was negative. During the CT scan patient started ripping and tearing on his endotracheal tube and lines so had to be sedated down there by the nursing and radiology staff Patient came up and was sedated and again did not wake up. Remains on the ventilator Because of decreased level of consciousness which cannot be explained by simple means patient underwent an MRI of the brain today which did not show any abnormalities either Today patient again had a period of sustained bradycardia with a heart rate in 40s and systolic blood pressure dropped into the 80s. Patient was given atropine and started on dopamine drip There are now 2 issues to consider 1. Patient's neurologic status is now not explained by simple means of either stroke intracranial bleed or such. This appears to be metabolic encephalopathy based on the hepatic and renal underlying pathology. Patient did not have hypoxia in the operating room or there after that would account for any period of anoxia or hypoxia. EEG was performed in order to rule out seizures and none were confirmed. Nonetheless patient is on prophylactic Keppra at this point This will be an issue for time will show which way the patient is going 2. Patient has periods of sustained sinus bradycardia on top of his bundle branch block which makes me think that patient probably has sick sinus syndrome Atropine corrected immediately and patient is now on small dose dopamine at 3 mics per kilo per minute sustaining hemodynamic parameters Critical care help is greatly appreciated Cardiology is consulted and we will follow their lead on this issue 07/15/16 Status post BKA and revision of stump Patient at this point has metabolic encephalopathy and neurology nephrology cardiology and ICU care is greatly appreciated Neurologically patient is improved and at this point opens eyes spontaneously moves both upper and lower extremities making [place] Coma Scale about 6 or 7 Hemodynamic Patient has been stable since yesterday through the night, but earlier yesterday patient dropped blood pressure and became bradycardic as above noted. Cardiology was consulted Patient may have sick sinus syndrome with intermittent manifestations and when he wakes up and improves he may need a pacemaker Interim, patient is hypertensive on chronic basis and currently managed for the same Abdomen soft and I do not believe patient has bacterial peritonitis however it is known to happen in patients with peritoneal dialysis and sometimes presenting in an insidious way CT of abdomen and pelvis does not reveal any collections only some retained fluid Stumps are clean and dry dressing is intact Plan Will have to wait until patient wakes up and manage him supportively I've discussed this with family length 07/16/16 Patient is neurologically unchanged he opens his eyes flexes on the left side more than the right which might be slight improvement actually At this point working diagnosis is toxic encephalopathy, but hypoxic damage of course possible On the ventilator patient is doing well we'll try him on CPAP trial but regardless of it level of consciousness does not allow for extubation for patient could not keep his upper airway open Barring any improvements patient will require tracheostomy We'll go ahead with tracheostomy Monday if patient doesn't improve neurologically Dressing has been removed from right and left BKA stump and both are well- perfused healing nicely incisions are clean and dry 07/17/16 No change in neurologic status Discussed with below the when we will repeat the CT scan of the head today to see there is any swelling to account for patient's neurologic deficits Moves all 4 extremities but without purpose opens eyes on stimulation BKA stump was very nice and well perfused yesterday however today there is a livid discoloration of the lower portion of the stump Patient has such precarious flow to this area that he may not maintain the stump and may end up with the above-knee amputation but this is also predicated on his neurologic function in the future We will discuss with family the final goals of this therapy and patient's wishes. Will likely involve palliative care as well 07/18/16 Patient has no change in neurologic status at this time Opens eyes spontaneously moves his legs Stump looks fairly ischemic yesterday but today looks better and I'm not sure if vasospasm or some other factors are responsible for this but the livid appearance of the flap yesterday has improved since and now appears to be warmer and well perfused Considering that patient is not waking up its my opinion the patient will need tracheostomy for further care and I'll discuss this with his family We will proceed with tracheostomy probably Monday if patient doesn't get better Repeat CT scan of the brain did not reveal any abnormalities and it somewhat elusive and puzzling why patient is not waking up and what type of metabolic encephalopathy is responsible for this Clearly ischemia as an option at a possibility but no changes on CAT scan are evident in the white matter dhillon matter or the interface Objective: Vital Signs Date Time Temp Pulse Resp B/P Pulse Ox O2 Delivery O2 Flow Rate FiO2 07/18/16 14:00 81 07/18/16 12:00 35 07/18/16 12:00 100 07/18/16 12:00 99.5 100 28 165/76 100 07/18/16 11:35 100 35 07/18/16 10:32 35 07/18/16 10:30 35 07/18/16 10:00 98 07/18/16 08:00 100.1 100 18 165/72 100 07/18/16 08:00 100 07/18/16 08:00 35 07/18/16 07:49 100 35 07/18/16 06:00 96 07/18/16 04:00 96 07/18/16 04:00 100 35 07/18/16 04:00 101.1 96 22 162/68 100 07/18/16 02:00 100 07/18/16 00:57 100 35 07/18/16 00:00 100 07/18/16 00:00 100.7 100 25 170/68 100 07/17/16 22:00 98 07/17/16 20:00 101 07/17/16 20:00 99.7 100 22 170/74 100 07/17/16 19:27 100 35 07/17/16 16:46 100 35 07/17/16 16:30 100 100 07/17/16 15:41 100 35 Labs: Laboratory Tests Test 07/18/16 07/18/16 04:10 05:15 White Blood Count 23.4 TH/MM3 (4.0-11.0) Red Blood Count 3.34 MIL/MM3 (4.50-5.90) Hemoglobin 9.7 GM/DL (13.0-17.0) Hematocrit 29.4 % (39.0-51.0) Mean Corpuscular Volume 88.1 FL (80.0-100.0) Mean Corpuscular Hemoglobin 29.0 PG (27.0-34.0) Mean Corpuscular Hemoglobin 32.9 % Concent (32.0-36.0) Red Cell Distribution Width 17.1 % (11.6-17.2) Platelet Count 330 TH/MM3 (150-450) Mean Platelet Volume 10.2 FL (7.0-11.0) Neutrophils (%) (Auto) % (16.0-70.0) Lymphocytes (%) (Auto) % (9.0-44.0) Monocytes (%) (Auto) % (0.0-8.0) Eosinophils (%) (Auto) % (0.0-4.0) Basophils (%) (Auto) % (0.0-2.0) Neutrophils # (Auto) TH/MM3 (1.8-7.7) Lymphocytes # (Auto) TH/MM3 (1.0-4.8) Monocytes # (Auto) TH/MM3 (0-0.9) Eosinophils # (Auto) TH/MM3 (0-0.4) Basophils # (Auto) TH/MM3 (0-0.2) CBC Comment AUTO DIFF Differential Total Cells 100 Counted Neutrophils % (Manual) 82 % (16-70) Band Neutrophils % 3 % (0-6) Lymphocytes % 5 % (9-44) Monocytes % 9 % (0-8) Eosinophils % 1 % (0-4) Neutrophils # (Manual) 19.9 TH/MM3 (1.8-7.7) Nucleated Red Blood Cells 4 /100 WBC (0-0) Differential Comment FINAL DIFF MANUAL Toxic Vacuolation PRESENT (NONE SEEN) Platelet Estimate NORMAL (NORMAL) Platelet Morphology Comment NORMAL (NORMAL) Red Cell Morphology Comment NORMAL (NORMAL) Sodium Level 138 MEQ/L (136-145) Potassium Level 3.7 MEQ/L (3.5-5.1) Chloride Level 100 MEQ/L (98-107) Carbon Dioxide Level 24.0 MEQ/L (21.0-32.0) Anion Gap 14 MEQ/L (5-15) Blood Urea Nitrogen 74 MG/DL (7-18) Creatinine 9.03 MG/DL (0.60-1.30) Estimat Glomerular Filtration 6 ML/MIN (>89) Rate Random Glucose 248 MG/DL (74-106) Calcium Level 7.6 MG/DL (8.5-10.1) Phosphorus Level 4.9 MG/DL (2.5-4.9) Magnesium Level 2.0 MG/DL (1.5-2.5) Total Bilirubin 0.5 MG/DL (0.2-1.0) Aspartate Amino Transf 233 U/L (15-37) (AST/SGOT) Alanine Aminotransferase 139 U/L (12-78) (ALT/SGPT) Alkaline Phosphatase 142 U/L (45-117) Total Protein 6.6 GM/DL (6.4-8.2) Albumin 1.6 GM/DL (3.4-5.0) Blood Gas Puncture Site ART LINE Blood Gas Patient Temperature 98.6 Blood Gas HCO3 23 mmol/L (22-26) Blood Gas Base Excess -0.5 mmol/L (-2-2) Blood Gas Oxygen Saturation 96 % (90-100) Arterial Blood pH 7.46 (7.380-7.420) Arterial Blood Partial 32 mmHg (38-42) Pressure CO2 Arterial Blood Partial 127 mmHg Pressure O2 (61-120) Arterial Blood Oxygen Content 13.1 Vol % (12.0-20.0) Arterial Blood 1.5 % (0-4) Carboxyhemoglobin Arterial Blood Methemoglobin 1.0 % (0-2) Blood Gas Hemoglobin 9.5 G/DL (12.0-16.0) Oxygen Delivery Device VENTILATOR Blood Gas Ventilator Setting AC/16/530/PEEP 5 Blood Gas Inspired Oxygen 35 % Result Diagram: 07/18/16 0410 07/18/16 0410 Jw Becerra MD Jul 18, 2016 15:10
[2016-07-18] MEDS: INSULIN NovoLIN REGULAR SUPPLEMENTAL SCALE SQ SCH ×2 (15:17→20:00)
[2016-07-18] MEDS: PANTOPRAZOLE SODIUM 40 MG VIAL IV SCH (15:30)
[2016-07-18] MEDS: hydrALAZINE HCL 20 MG/ML VIAL IV PUSH PRN ×2 (17:49→22:05)
--- NOTE | 2016-07-18 17:53 | HHI.NPPN ---
Subjective General Problems: Hypertension Renal Failure: Chronic, End Stage Renal Disease History of Present Illness Patient remains intubated. Review of Systems General General Remarks unable to obtain due to unresponsiveness Objective Data Data 07/17/16 07/18/16 18:59 06:59 Intake Total 1234 ml 2512 ml Output Total 784 ml 20 ml Balance 450 ml 2492 ml Intake Oral 0 ml IV Total 881 ml 2166 ml Tube Feeding 353 ml 246 ml Other 100 ml Output Urine Total 0 ml 20 ml Hemodialysis 784 ml # Bowel Movements 1 1 Vital Signs Date Time Temp Pulse Resp B/P Pulse Ox O2 Delivery O2 Flow Rate FiO2 07/18/16 16:00 35 07/18/16 16:00 64 07/18/16 16:00 100.1 64 21 154/78 100 07/18/16 15:35 99 35 07/18/16 15:17 35 07/18/16 14:00 81 07/18/16 12:00 35 07/18/16 12:00 100 07/18/16 12:00 99.5 100 28 165/76 100 07/18/16 11:35 100 35 07/18/16 10:32 35 07/18/16 10:30 35 07/18/16 10:00 98 07/18/16 08:00 100.1 100 18 165/72 100 07/18/16 08:00 100 07/18/16 08:00 35 07/18/16 07:49 100 35 07/18/16 06:00 96 07/18/16 04:00 96 07/18/16 04:00 100 35 07/18/16 04:00 101.1 96 22 162/68 100 07/18/16 02:00 100 07/18/16 00:57 100 35 07/18/16 00:00 100 07/18/16 00:00 100.7 100 25 170/68 100 07/17/16 22:00 98 07/17/16 20:00 101 07/17/16 20:00 99.7 100 22 170/74 100 07/17/16 19:27 100 35 -: 07/18/16 0410 07/18/16 0410 Tubes & Lines: Tenckhoff Catheter Drip Comment bicarb drip, nicardipine, insulin Medication Review Current Medications . Heparin Sodium (Porcine) (Heparin Inj) 5,000 units Q12H SQ Last administered on 07/12/16at 17:50; Start 07/12/16 at 18:00; Stop 07/13/16 at 14:54; Status DC Heparin Sodium (Porcine) (Heparin Inj) 1,000 units WITH DIALYSIS PRN XX SEE LABEL COMMENTS; Start 07/12/16 at 17:00 IV Flush 10 ml 10 ml UNSCH PRN IVF SEE LABEL COMMENTS; Start 07/12/16 at 17:00 Lactated Ringer's 1,000 ml @ 30 mls/hr Q24H IV Last administered on at 09:08; Start 07/13/16 at 06:15; Stop 07/15/16 at 13:18; Status DC Sodium Chloride (NS 500 ml Inj) 500 ml @ 30 mls/hr [id number] IV Last administered on 07/13/16at 09:11; Start 07/13/16 at 06:15; Stop 07/14/16 at 06 :14; Status DC Insulin Human Regular (NovoLIN R INJ) See Protocol Table ... UNSCH X1 PRN SQ SEE PROTOCOL; Start 07/13/16 at 06:15; Stop 07/14/16 at 06:14; Status DC Metoprolol Tartrate (Lopressor) 25 mg UNSCH X1 PRN PO SEE LABEL COMMENTS; Start 07/13/16 at 06:15; Stop 07/14/16 at 06:14; Status DC Potassium Chloride (KCl) 40 meq ONCE ONCE PO ; Start 07/13/16 at 10:30; Stop 07/13/16 at 10:38; Status DC Sevelamer Carbonate (Renvela) 800 mg TIDAC PO ; Start 07/13/16 at 12:00; Stop 07/14/16 at 12:08; Status DC Midazolam HCl (Versed Inj) 5 mg STK-MED ONCE .ROUTE Last administered on at 10:50; Start 07/13/16 at 10:45; Stop 07/13/16 at 10:46; Status DC Famotidine 20 mg 20 mg STK-MED ONCE .ROUTE Last administered on 07/13/16at 10: 47; Start 07/13/16 at 10:45; Stop 07/13/16 at 10:46; Status DC Dopamine HCl/ Dextrose (DOPamine INJ PREMIX) 500 ml @ As Directed STK-MED ONCE .ROUTE ; Start 07/13/16 at 12:25; Stop 07/13/16 at 12:26; Status DC IV Flush (NS Flush) 2 ml UNSCH PRN IVF FLUSH AFTER USING IV ACCESS; Start at 13:15 IV Flush (NS Flush) 2 ml BID IVF Last administered on 07/18/16at 08:28; Start 07/13/16 at 21:00 Ondansetron HCl (Zofran Inj) 4 mg Q6H PRN IV NAUSEA OR VOMITING; Start at 13:15 Pantoprazole Sodium 40 mg 40 mg Q24H IV Last administered on 07/18/16at 15:30; Start 07/13/16 at 15:00 Clindamycin Phosphate/Sodium Chloride (Cleocin Inj/NS Inj) 104 ml @ 108 mls/hr Q8H IV Last administered on 07/14/16at 10:08; Start 07/13/16 at 16:00; Stop 07/14/16 at 08:58; Status DC Miscellaneous Information (Post-op Orders (for Pharmacy)) STAT ONCE XX ; Start 07/13/16 at 13:15; Stop 07/13/16 at 14:53; Status DC Morphine Sulfate (Morphine Inj) 4 mg Q3H PRN IV Pain 6-10;if unable to take PO ; Start 07/13/16 at 13:15; Stop 07/14/16 at 16:34; Status DC Naloxone HCl (Narcan Inj) 0.4 mg UNSCH PRN IV SEE LABEL COMMENTS; Start at 13:15 Heparin Sodium (Porcine) (Heparin Inj) 5,000 units Q12H SQ Last administered on 07/18/16at 11:12; Start 07/14/16 at 12:30 Metoprolol Tartrate 5 mg 5 mg Q6H IV PUSH Last administered on 07/14/16at 01:15 ; Start 07/13/16 at 14:00; Stop 07/14/16 at 13:15; Status DC Propofol (Diprivan 1000 Mg/100ml Inj) 100 ml @ 0 mls/hr TITRATE IV ; Start at 13:15; Stop 07/13/16 at 17:36; Status DC Miscellaneous Information ALL NURSING DEPARTME... UNSCH PRN XX SEE LABEL COMMENTS; Start 07/13/16 at 14:45; Stop 07/14/16 at 14:44; Status DC Labetalol HCl (Trandate Inj) 100 mg STK-MED ONCE .ROUTE Last administered on at 14:32; Start 07/13/16 at 14:32; Stop 07/14/16 at 13:15; Status DC Fentanyl Citrate (fentaNYL INJ) 250 mcg STK-MED ONCE .ROUTE ; Start 07/13/16 at 14:34; Stop 07/13/16 at 14:35; Status DC Epoetin Warren (Epogen Inj) 20,000 units ONCE ONCE SQ Last administered on 07/13at 15:45; Start 07/13/16 at 15:45; Stop 07/13/16 at 15:46; Status DC Epinephrine HCl (EPINEPHrine (1:10,000) INJ) 1 mg STK-MED ONCE .ROUTE ; Start 07/13/16 at 16:30; Stop 07/13/16 at 16:31; Status DC Atropine Sulfate 1 mg 1 mg STK-MED ONCE .ROUTE ; Start 07/13/16 at 16:30; Stop 07/13/16 at 16:31; Status DC Propofol 100 ml @ 0 mls/hr TITRATE IV ; Start 07/13/16 at 17:30; Stop at 14:31; Status DC Fentanyl Citrate (fentaNYL DRIP) 250 ml @ 0 mls/hr TITRATE IV ; Start 07/13/16 at 17:30; Stop 07/15/16 at 14:32; Status DC Potassium Chloride (KCl) 30 meq ONCE ONCE PO ; Start 07/13/16 at 18:15; Stop 07/13/16 at 18:16; Status DC Potassium Chloride (KCl 40 Meq/30 ml Liq) 30 meq ONCE ONCE TUBE Last administered on 07/13/16at 21:38; Start 07/13/16 at 20:15; Stop 07/13/16 at 20 :16; Status DC Hydralazine HCl (Apresoline Inj) 10 mg Q4H PRN IV PUSH SBP >160 Last administered on 07/18/16at 17:49; Start 07/13/16 at 22:30 Hydralazine HCl (Apresoline Inj) 10 mg ONCE ONCE IV PUSH Last administered on 07/14/16at 00:00; Start 07/14/16 at 00:00; Stop 07/14/16 at 00:01; Status DC Labetalol HCl (Trandate Inj) 10 mg Q4H PRN IV PUSH SBP >160 Last administered on 07/14/16at 04:31; Start 07/14/16 at 00:00; Stop 07/14/16 at 13:15; Status DC Amlodipine Besylate 5 mg 5 mg DAILY TUBE Last administered on 07/18/16at 08:28 ; Start 07/14/16 at 03:15 Fosphenytoin Sodium/Sodium Chloride (Cerebyx Inj/NS Inj) 70 ml @ 280 mls/hr ONCE ONCE IV Last administered on 07/14/16at 04:19; Start 07/14/16 at 03:15; Stop 07/14/16 at 03:29; Status DC Propofol (Diprivan 200 Mg/20 ml Inj) 200 mg STK-MED ONCE IV ; Start 07/13/16 at 12:00; Stop 07/14/16 at 08:39; Status DC Ondansetron HCl 4 mg 4 mg STK-MED ONCE IV PUSH ; Start 07/13/16 at 12:00; Stop 07/14/16 at 08:39; Status DC Sodium Chloride (NS 1000 ml Inj) 1,000 ml @ As Directed STK-MED ONCE IV ; Start 07/13/16 at 12:00; Stop 07/14/16 at 08:39; Status DC Ephedrine Sulfate (ePHEDrine/NS 50 MG/5 ML SYR) 50 mg STK-MED ONCE IV ; Start 07/13/16 at 12:00; Stop 07/14/16 at 08:39; Status DC Phenylephrine HCl (Neosynephrine/ NS 1000 Mcg/10ml Syr) 1,000 mcg STK-MED ONCE IV ; Start 07/13/16 at 12:00; Stop 07/14/16 at 08:39; Status DC Atropine Sulfate (Atropine Inj) 0.2 mg STK-MED ONCE IV PUSH ; Start 07/13/16 at 12:00; Stop 07/14/16 at 08:42; Status DC Sodium Bicarbonate (Sodium Bicarbonate) 650 mg Q12HR PO Last administered on at 09:04; Start 07/14/16 at 10:15; Stop 07/15/16 at 13:18; Status DC Epinephrine HCl (EPINEPHrine (1:10,000) INJ) 1 mg STK-MED ONCE .ROUTE ; Start 07/14/16 at 10:12; Stop 07/14/16 at 10:13; Status DC Lidocaine HCl (Xylocaine 2% Inj) 100 mg STK-MED ONCE .ROUTE ; Start 07/14/16 at 10:13; Stop 07/14/16 at 10:14; Status DC Atropine Sulfate (Atropine Inj) 1 mg STK-MED ONCE .ROUTE ; Start 07/14/16 at 10 :13; Stop 07/14/16 at 10:14; Status DC Epinephrine HCl (EPINEPHrine (1:10,000) INJ) 1 mg STK-MED ONCE .ROUTE ; Start 07/14/16 at 10:13; Stop 07/14/16 at 10:14; Status DC Atropine Sulfate (Atropine Inj) 1 mg STK-MED ONCE .ROUTE ; Start 07/14/16 at 10 :13; Stop 07/14/16 at 10:14; Status DC Bupivacaine HCl (Marcaine Pf 0.5% Inj) 20 ml STK-MED ONCE NB ; Start 07/13/16 at 10:52; Stop 07/14/16 at 10:52; Status DC Bupivacaine HCl (Marcaine Pf 0.25% Inj) 20 ml STK-MED ONCE NB ; Start 07/13/16 at 10:52; Stop 07/14/16 at 10:52; Status DC Dextrose (D50w (Vial) Inj) 25 ml UNSCH PRN IV PUSH HYPOGLYCEMIA-SEE COMMENTS; Start 07/14/16 at 11:45; Stop 07/14/16 at 21:57; Status DC Glucagon (Glucagon Inj) 1 mg UNSCH PRN OTHER HYPOGLYCEMIA-SEE COMMENTS; Start 07/14/16 at 11:45; Stop 07/14/16 at 21:57; Status DC Insulin Aspart (NovoLOG SUPPLEMENTAL SCALE) 1 ACHS SLIDING SCALE SQ Last administered on 07/14/16at 21:26; Start 07/14/16 at 16:00; Stop 07/14/16 at 21 :57; Status DC Calcium Acetate (Phoslo) 1,334 mg TIDAC PO Last administered on 07/15/16at 16: 33; Start 07/14/16 at 17:00; Stop 07/16/16 at 08:58; Status DC Albumin Human 25 gm 25 gm ONCE ONCE IV Last administered on 07/14/16at 13:23; Start 07/14/16 at 13:00; Stop 07/14/16 at 13:01; Status DC Levetriacetam 500 mg/Sodium Chloride 105 ml @ 420 mls/hr Q12HR IV ; Start at 13:00; Stop 07/14/16 at 13:22; Status DC Dopamine HCl/ Dextrose 500 ml @ As Directed STK-MED ONCE .ROUTE ; Start at 12:29; Stop 07/14/16 at 12:30; Status DC Levetriacetam 500 mg/Sodium Chloride 105 ml @ 420 mls/hr Q12HR IV Last administered on 07/15/16at 09:04; Start 07/14/16 at 14:00; Stop 07/15/16 at 14 :32; Status DC Methylprednisolone Sodium Succinate 500 mg/Dextrose 100 ml @ 200 mls/hr ONCE ONCE IV ; Start 07/14/16 at 14:00; Stop 07/14/16 at 14:29; Status Cancel Norepinephrine Bitartrate 250 ml @ As Directed STK-MED ONCE IV ; Start at 13:03; Stop 07/14/16 at 13:04; Status DC Norepinephrine Bitartrate (Levophed-Dextrose Drip) 250 ml @ 0 mls/hr TITRATE IV Last administered on 07/14/16at 13:50; Start 07/14/16 at 13:15; Stop at 12:19; Status DC Terbutaline Sulfate 1 mg 1 mg UNSCH PRN SQ For Extravasation; Start 07/14/16 at 13:15; Stop 07/18/16 at 12:19; Status DC Dopamine HCl/ Dextrose (DOPamine INJ PREMIX) 500 ml @ 0 mls/hr TITRATE IV Last administered on 07/14/16at 13:50; Start 07/14/16 at 13:45; Stop 07/15/16 at 14 :32; Status DC Sodium Bicarbonate (Sodium Bicarbonate 8.4% Inj) 100 meq NOW ONCE IV Last administered on 07/14/16at 13:48; Start 07/14/16 at 13:45; Stop 07/14/16 at 13 :46; Status DC Hydrocortisone Sodium Succinate (SoluCORTEF INJ) 100 mg NOW ONCE IV Last administered on 07/14/16at 13:48; Start 07/14/16 at 13:45; Stop 07/14/16 at 13 :46; Status DC Epinephrine HCl (Adrenalin (1:1000) Inj) 0.5 mg NOW ONCE IV Last administered on 07/14/16at 14:00; Start 07/14/16 at 14:00; Stop 07/14/16 at 14:01; Status DC Atropine Sulfate 1 mg 1 mg NOW ONCE IV PUSH Last administered on 07/14/16at 14 :00; Start 07/14/16 at 14:00; Stop 07/14/16 at 14:01; Status DC Sodium Bicarbonate 150 meq/Dextrose 1,150 ml @ 42 mls/hr Q24H IV Last administered on 07/14/16at 16:31; Start 07/14/16 at 15:00; Stop 07/15/16 at 14 :32; Status DC Vancomycin HCl 1000 mg/Sodium Chloride 250 ml @ 250 mls/hr ONCE ONCE IV Last administered on 07/14/16at 17:20; Start 07/14/16 at 17:00; Stop 07/14/16 at 17 :59; Status DC Piperacillin Sod/ Tazobactam Sod 50 ml @ 100 mls/hr Q6H IV Last administered on 07/18/16at 17:08; Start 07/14/16 at 18:00 Micafungin Sodium/ Sodium Chloride (Mycamine Inj/NS Inj) 100 ml @ 100 mls/hr Q24H IV Last administered on 07/15/16at 20:15; Start 07/14/16 at 20:00; Stop 07/16/16 at 13:51; Status DC Diatrizoate Meglum/ Diatrizoate Sod 18 ml 18 ml ONCE ONCE PO Last administered on 07/14/16at 17:20; Start 07/14/16 at 17:15; Stop 07/14/16 at 17 :16; Status DC Insulin Human Regular/Sodium Chloride (NovoLIN R (IV INFUSION)/NS Inj) 100 ml @ 0 mls/hr TITRATE IV Last administered on 07/14/16at 22:48; Start 07/14/16 at 22:00; Stop 07/15/16 at 14:32; Status DC Dextrose (D50w (Vial) Inj) 25 ml UNSCH PRN IV PUSH HYPOGLYCEMIA- SEE COMMENTS; Start 07/14/16 at 22:00; Stop 07/15/16 at 07:26; Status DC Nicardipine HCl 25 mg 25 mg STK-MED ONCE .ROUTE ; Start 07/15/16 at 00:33; Stop 07/15/16 at 00:34; Status DC Sodium Chloride 250 ml @ As Directed STK-MED ONCE .ROUTE ; Start 07/15/16 at 00:33; Stop 07/15/16 at 00:34; Status DC Nicardipine HCl/ Sodium Chloride (Cardene Inj/NS 250 ml Inj) 260 ml @ 0 mls/hr TITRATE IV Last administered on 07/18/16at 11:12; Start 07/15/16 at 00:45; Stop 07/18/16 at 12:19; Status DC Miscellaneous Medication ([facility] Information) Please discontinue previ... ONCE ONCE XX Last administered on 07/15/16at 07:30; Start 07/15/16 at 07:30; Stop 07/15/16 at 07:31; Status DC Dextrose (D50w (Vial) Inj) 25 ml UNSCH PRN IV PUSH Per Hypoglycemic Protocol; Start 07/15/16 at 07:30 Glucagon (Glucagon Inj) 1 mg UNSCH PRN OTHER Per Hypoglycemic Protocol; Start 07/15/16 at 07:30 Insulin Human Regular 1 1 ACHS SLIDING SCALE SQ Last administered on at 11:00; Start 07/15/16 at 11:00; Stop 07/18/16 at 12:32; Status DC Potassium Chloride (KCl 20 Meq Premix Inj) 100 ml @ 50 mls/hr Q2H IV Last administered on 07/15/16at 09:07; Start 07/15/16 at 08:00; Stop 07/15/16 at 11 :59; Status DC Protein 2 pack 2 pack TID G-TUBE ; Start 07/15/16 at 18:00; Status UNV Potassium Chloride (KCl 20 Meq Premix Inj) 100 ml @ 50 mls/hr UNSCH X1 IV Last administered on 07/16/16at 01:26; Start 07/16/16 at 00:45; Stop 12/24/16 at 03:00; Status DC Insulin Detemir (Levemir Inj) 10 units Q12HR SQ Last administered on at 08:27; Start 07/16/16 at 09:00; Stop 07/18/16 at 12:35; Status DC Calcium Acetate (Phoslo) 667 mg TID OG ; Start 07/16/16 at 13:00; Stop at 13:00; Status DC Calcium Acetate (Phoslo) 1,334 mg TID OG ; Start 07/16/16 at 13:00; Stop 07/16 at 13:00; Status DC Lanthanum Carbonate (Fosrenol Chew) 1,000 mg TID OG Last administered on at 17:46; Start 07/16/16 at 13:00 Potassium Chloride (KCl) 20 meq ONCE ONCE PO Last administered on 07/17/16at 11:22; Start 07/17/16 at 08:45; Stop 07/17/16 at 08:46; Status DC Epoetin Warren 32578 units 10,000 units ONCE ONCE SQ Last administered on at 11:22; Start 07/17/16 at 08:45; Stop 07/17/16 at 08:46; Status DC Clevidipine (Cleviprex Inj) 50 ml @ 0 mls/hr TITRATE IV ; Start 07/18/16 at 13: 00 Carvedilol (Coreg) 6.25 mg Q12HR PO Last administered on 07/18/16at 13:22; Start 07/18/16 at 13:00 Docusate Sodium (Colace Liq) 100 mg Q12HR PO ; Start 07/18/16 at 21:00 Sennosides (Senna Liq) 8.8 mg ONCE ONCE PO ; Start 07/18/16 at 13:00; Stop 07/18/16 at 13:01; Status DC Sennosides (Senna Liq) 8.8 mg DAILY PO ; Start 07/19/16 at 09:00 Insulin Human Regular (NovoLIN R SUPPLEMENTAL SCALE) 1 Q4HR SQ ; Start at 16:00 Insulin Detemir (Levemir Inj) 20 units Q12HR SQ ; Start 07/18/16 at 21:00 Physical Exam General Appearance: Well Developed, Comfortable, Malnourished Eyes Eye Exam: Pupils Equal Throat Throat Exam: Oral Mucosa Sand Pillow & Moist Pulmonary Resp Exam: Clear Bilaterally, Breath Sounds Equal Cardiology CV Exam: Regular Gastrointestinal/Abdomen GI Exam: Soft, Non-Tender, Bowel Sounds Present Musculoskeletal MS Exam: Joints Intact Integumentary Skin Exam: Clear, Cool Extremeties Extremities Exam: No Edema Neurologic Neuro Exam: Unresponsive, Sedated Assessment/Plan Assessment Summary: Anemia of CKD, Hypotension, End Stage Renal Disease Electrolyte Assessment: Metabolic Acidosis Problem List: (1) ESRD (end stage renal disease) on dialysis Plan: ESRD due to diabetic nephropathy Continue peritoneal dialysis for the present. Patient is at nutritional risk and may require conversion to hemodialysis timing to be determined. Continue peritoneal dialysis for the present. (2) Gangrene of toe Plan: vascular (Dr. 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 Continue Epogen as indicated. (4) Diabetes Plan: A1c 6.2, insulin drip has been stopped. Blood sugar is high today, recommend insulin coverage to maintain blood glucose of 140-180. Hyperglycemia may impair fluid removal with PD. (5) HTN (hypertension) Plan: previously hypotensive, now on nicardipine (6) Metabolic bone disease Plan: phosphorus was high at 7.1. Preferable to use non calcium containing binders. Switched phosphorus binder to Lanthanum. (7) Encephalopathy Plan: Neurology following. Anoxic encephalopathy is a possibility. Metabolic encephalopathy is in the differential. Also appears to be septic. (8) Septic shock Plan: ID following. Peritoneal fluid sent for cell count, Gram stain and culture. Micafungin and Vancomycin stopped, now on Zosyn. Problem Qualifiers (1) Diabetes: Chiara Niño MD Jul 18, 2016 17:53
--- NOTE | 2016-07-18 18:01 | HHI.NPPN ---
Subjective General Problems: Hypertension Renal Failure: Chronic, End Stage Renal Disease History of Present Illness This is a 56 y/o male patient direct admitted under the care of Dr. Kenyon with vascular services. PMH of ESRD on PD, HTN, DM II, and PAD. He was admitted for left BKA and I&D/revision of right BKA. We were consulted for dialysis management. He went to OR early this morning. Apparently he became bradycardic during the operation, was given atropine and epinephrine. He is seen in the PACU this afternoon. He is still intubated, unresponsive, hypertensive. He underwent PD last night without complications. We were consulted for PD management. Interval History Pt remains intubated. Receiving nightly PD Encephalopathy persists (Toma Gonzalez) Review of Systems General General Remarks unable to obtain due to unresponsiveness (Toma Gonzalez) Objective Data Data 07/17/16 07/18/16 19:00 07:00 Intake Total 1234 ml 2512 ml Output Total 784 ml 20 ml Balance 450 ml 2492 ml Intake Oral 0 ml IV Total 881 ml 2166 ml Tube Feeding 353 ml 246 ml Other 100 ml Output Urine Total 0 ml 20 ml Hemodialysis 784 ml # Bowel Movements 1 1 Vital Signs Date Time Temp Pulse Resp B/P Pulse Ox O2 Delivery O2 Flow Rate FiO2 07/18/16 16:00 35 07/18/16 16:00 64 07/18/16 16:00 100.1 64 21 154/78 100 07/18/16 15:35 99 35 07/18/16 15:17 35 07/18/16 14:00 81 07/18/16 12:00 35 07/18/16 12:00 100 07/18/16 12:00 99.5 100 28 165/76 100 07/18/16 11:35 100 35 07/18/16 10:32 35 07/18/16 10:30 35 07/18/16 10:00 98 07/18/16 08:00 100.1 100 18 165/72 100 07/18/16 08:00 100 07/18/16 08:00 35 07/18/16 07:49 100 35 07/18/16 06:00 96 07/18/16 04:00 96 07/18/16 04:00 100 35 07/18/16 04:00 101.1 96 22 162/68 100 07/18/16 02:00 100 07/18/16 00:57 100 35 07/18/16 00:00 100 07/18/16 00:00 100.7 100 25 170/68 100 07/17/16 22:00 98 07/17/16 20:00 101 07/17/16 20:00 99.7 100 22 170/74 100 07/17/16 19:27 100 35 (Toma Gonzalez) -: 07/18/16 0410 07/18/16 0410 Imaging Last Impressions Chest X-Ray 07/18/16 0600 Signed Impressions: Service Date/Time: Monday, July 18, 2016 05:32 - CONCLUSION: 1. No significant change. Hazy opacity remains at the lung bases and possible small right effusion. 2. The patient remains intubated. Eliecer Magaña MD Head CT 07/17/16 0000 Signed Impressions: Service Date/Time: Sunday, July 17, 2016 16:20 - CONCLUSION: Unremarkable study. Cary Sanchez MD Liver Ultrasound 07/15/16 0000 Signed Impressions: Service Date/Time: Friday, July 15, 2016 15:09 - CONCLUSION: 1. Thick-walled gallbladder containing stones in the neck. If there is clinical concern for acute cholecystitis a hepatobiliary scan may be helpful to confirm cystic duct obstruction. 2. Hepatomegaly. 3. Tiny right pleural effusion. 4. Echogenic right kidney with minimal perinephric fluid suggesting possible medical renal disease. Clinical correlation is recommended. Dontae Segura MD Brain MRI 07/14/16 0000 Signed Impressions: Service Date/Time: June 10:57 - CONCLUSION: 1. No acute infarct, acute hemorrhage, mass effect or extra-axial fluid collections. 2. Mucus retention cyst within the left maxillary sinus. Dontae Segura MD Abdomen/Pelvis CT 07/14/16 0000 Signed Impressions: Service Date/Time: June 19:02 - CONCLUSION: Bilateral pleural effusions and bibasilar compressive collapse and or consolidation with increase in the ascitic fluid since the prior study. Cary Sanchez MD Tubes & Lines: Tenckhoff Catheter Medication Review Current Medications Medications (Trade) Dose Ordered Sig/Lorie Route Start Time Stop Time Status Last Admin (NS Flush) 10 ml UNSCH PRN IVF 07/12/16 17:00 (NS Flush) 2 ml UNSCH PRN IVF 07/13/16 13:15 (NS Flush) 2 ml BID IVF 07/13/16 21:00 07/18/16 08:28 (Zofran Inj) 4 mg Q6H PRN IV 07/13/16 13:15 (Protonix Inj) 40 mg Q24H IV 07/13/16 15:00 07/18/16 15:30 (Narcan Inj) 0.4 mg UNSCH PRN IV 07/13/16 13:15 (Heparin Inj) 5,000 units Q12H SQ 07/14/16 12:30 07/18/16 11:12 (Apresoline Inj) 10 mg Q4H PRN IV PUSH 07/13/16 22:30 07/18/16 17:49 Amlodipine Besylate 5 mg 5 mg DAILY TUBE 07/14/16 03:15 07/18/16 08:28 (Zosyn 2.25 Gm Premix) 50 ml @ 100 mls/hr Q6H IV 07/14/16 18:00 07/18/16 17:08 (D50w (Vial) Inj) 25 ml UNSCH PRN IV PUSH 07/15/16 07:30 (Glucagon Inj) 1 mg UNSCH PRN OTHER 07/15/16 07:30 Lanthanum Carbonate 1000 mg 1,000 mg TID OG 07/16/16 13:00 07/18/16 17:46 (Cleviprex Inj) 50 ml @ 0 mls/hr TITRATE IV 07/18/16 13:00 (Coreg) 6.25 mg Q12HR PO 07/18/16 13:00 07/18/16 13:22 (Colace Liq) 100 mg Q12HR PO 07/18/16 21:00 (Senna Liq) 8.8 mg DAILY PO 07/19/16 09:00 (NovoLIN R SUPPLEMENTAL SCALE) 1 Q4HR SQ 07/18/16 16:00 (Levemir Inj) 20 units Q12HR SQ 07/18/16 21:00 (Toma Gonzalez) Physical Exam General Appearance: No Acute Distress, Malnourished (Toma Gonzalez) Eyes Eye Exam: Pupils Equal (Toma Gonzalez) Pulmonary Resp Exam: Clear Bilaterally, Breath Sounds Equal (Toma Gonzalez) Cardiology CV Exam: Regular (Toma Gonzalez) Gastrointestinal/Abdomen GI Exam: Soft, Non-Tender, Bowel Sounds Present (Toma Gonzalez) Musculoskeletal MS Exam: Joints Intact (Toma Gonzalez) Integumentary Skin Exam: Clear, Cool (Toma Gonzalez) Extremeties Extremities Exam: Trace Edema Extremeties Remarks Edema upper extremities (Toma Gonzalez) Neurologic Neuro Exam: Unresponsive, Sedated (Toma Gonzalez) Assessment/Plan Assessment Summary: Anemia of CKD, Hypotension, End Stage Renal Disease Electrolyte Assessment: Metabolic Acidosis Problem List: (1) ESRD (end stage renal disease) on dialysis Plan: ESRD due to diabetic nephropathy Continue on PD for the present. Will check peritoneal cell count and culture tonight. Febrile today Consideration to be given to switch to HD with his severe encephalopathy. (2) Gangrene of toe Plan: vascular (Dr. 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 Another dose of Epogen today. (4) Diabetes Plan: A1c 6.2, insulin drip has been stopped. Blood sugar is high today, recommend insulin coverage to maintain blood glucose of 140-180. Hyperglycemia may impair fluid removal with PD. (5) HTN (hypertension) Plan: Continue on current regimen (6) Metabolic bone disease Plan: Continue on Fosrenol (7) Encephalopathy Plan: Neurology following. Anoxic encephalopathy is a possibility. Metabolic encephalopathy is in the differential. Also appears to be septic. (8) Septic shock Plan: ID following. As above, check PD cell count and culture (Toma Gonzalez) Plan The exam, history, and the medical decision-making described in the above note were completed with the assistance of the PAElinorC. I reviewed and agree with the findings presented. (Chiara Niño MD) Problem Qualifiers (1) Diabetes: Toma Gonzalez Jul 18, 2016 18:01 Chiara Niño MD Jul 23, 2016 12:55
[2016-07-18] MEDS: DOCUSATE SODIUM 100 MG/10 ML UDC PO SCH (21:45)
[2016-07-19] VITALS (18 sets, daily range): BP systolic 145–164; BP diastolic 65–73; PULSE 73–98; RESP 16–23; TEMP 98.2–100; O2SAT 94–100
[2016-07-19] MEDS: PIPERACIL-TAZO 2.25 GM PREMIX 50 ML IV SCH ×4 (00:43→16:55)
[2016-07-19] MEDS: HEPARIN SODIUM - SQ 10,000 UNITS/ML VIAL SQ SCH ×2 (00:46→11:17)
[2016-07-19] MEDS: hydrALAZINE HCL 20 MG/ML VIAL IV PUSH PRN ×2 (03:37→07:21)
[2016-07-19] MEDS: INSULIN NovoLIN REGULAR SUPPLEMENTAL SCALE SQ SCH ×6 (04:00→20:00)
[2016-07-19 06:07] LABS: AUTOMATED NEUTROPHIL # 19.3 TH/MM3 (1.8-7.7); BASOPHIL # 0.1 TH/MM3 (0-0.2); BASOPHIL % 0.3 % (0.0-2.0); EOSINOPHIL # 0.1 TH/MM3 (0-0.4); EOSINOPHIL % 0.5 % (0.0-4.0); HEMATOCRIT 29.4 % (39.0-51.0); LYMPH % 4.1 % (9.0-44.0); MEAN CELL VOLUME 89.9 FL (80.0-100.0); MEAN CORPUSCULAR HEMOGLOBIN 28.2 PG (27.0-34.0); MEAN CORPUSCULAR HGB CONC 31.4 % (32.0-36.0); MONO % 13.8 % (0.0-8.0); NEUT % 81.3 % (16.0-70.0); PLATELET COUNT 309 TH/MM3 (150-450); RED BLOOD COUNT 3.27 MIL/MM3 (4.50-5.90); RED CELL DISTRIBUTION WIDTH 16.8 % (11.6-17.2); WHITE BLOOD COUNT 23.8 TH/MM3 (4.0-11.0)
[2016-07-19 06:09] LABS: HEMO FLAGS AUTO DIFF
[2016-07-19 06:22] LABS: ANION GAP 14 MEQ/L (5-15); AST (GOT) 116 U/L (15-37); BICARBONATE 24.9 MEQ/L (21.0-32.0); BLOOD UREA NITROGEN 83 MG/DL (7-18); CHLORIDE 99 MEQ/L (98-107); GLOMERULAR FILTRATION RATE 6 ML/MIN (>89); MAGNESIUM 2.1 MG/DL (1.5-2.5); POTASSIUM 3.7 MEQ/L (3.5-5.1); SODIUM (NA) 138 MEQ/L (136-145)
[2016-07-19 06:26] LABS: ALKALINE PHOSPHATASE 154 U/L (45-117); ALT (GPT) 73 U/L (12-78); TOTAL BILIRUBIN ADULT 0.5 MG/DL (0.2-1.0)
[2016-07-19 07:13] LABS: BANDS 3 % (0-6); CORRECTED NUCLEATED RBC 2 /100 WBC (0-0); METAMYELOCYTES 1 % (0-1); MYELOCYTES 1 % (0-0); PLATELET ESTIMATE SMEAR NORMAL (NORMAL); PLATELET MORPHOLOGY ENLARGED (NORMAL); POLYS (SEG NEUTROPHILS) 79 % (16-70); SCAN/DIFF FINAL DIFF MANUAL; WBC DIFF SAMPLE 100
[2016-07-19] MEDS: SODIUM CHLORIDE 0.9% FLUSH 5 ML FLUSH IVF SCH ×2 (08:03→20:24)
[2016-07-19] MEDS: LANTHANUM CARBONATE 500 MG CHEWABLE TABLET OG SCH ×3 (08:04→16:55)
[2016-07-19] MEDS: DOCUSATE SODIUM 100 MG/10 ML UDC PO SCH ×2 (08:04→20:23)
[2016-07-19] MEDS: amLODIPine BESYLATE 5 MG TAB TUBE SCH (08:04)
[2016-07-19] MEDS: SENNOSIDES SYRUP 8.8 MG/5 ML CUP PO SCH (08:04)
[2016-07-19] MEDS: INSULIN DETEMIR 100 UNITS/ML VIAL SQ SCH ×2 (08:04→21:00)
[2016-07-19] MEDS: CLEVIDIPINE INJ 50 ML IV SCH ×4 (08:05→23:23)
[2016-07-19] MEDS: CARVEDILOL 12.5 MG TAB PO SCH ×2 (08:32→20:23)
--- NOTE | 2016-07-19 08:45 | HHI.PR ---
Subjective Remarks no sedatives Objective Vital Signs Date Time Temp Pulse Resp B/P Pulse Ox O2 Delivery O2 Flow Rate FiO2 07/19/16 08:00 99.5 93 23 159/68 100 07/19/16 08:00 35 07/19/16 07:30 100 35 07/19/16 07:30 35 07/19/16 06:01 92 07/19/16 04:01 100 35 07/19/16 04:00 92 07/19/16 04:00 35 07/19/16 04:00 99.0 92 23 164/72 100 07/19/16 02:00 94 07/19/16 01:10 100 35 07/19/16 00:00 99.7 86 22 162/72 100 07/19/16 00:00 94 07/19/16 00:00 35 07/18/16 22:02 100 35 07/18/16 22:00 96 07/18/16 20:00 94 07/18/16 20:00 35 07/18/16 20:00 99.6 94 20 170/79 100 07/18/16 19:25 100 35 07/18/16 18:00 88 07/18/16 16:00 35 07/18/16 16:00 64 07/18/16 16:00 100.1 64 21 154/78 100 07/18/16 15:35 99 35 07/18/16 15:17 35 07/18/16 14:00 81 07/18/16 12:00 35 07/18/16 12:00 100 07/18/16 12:00 99.5 100 28 165/76 100 07/18/16 11:35 100 35 07/18/16 10:32 35 07/18/16 10:30 35 07/18/16 10:00 98 I/O 07/18/16 07/18/16 07/18/16 07/19/16 07/19/16 07/19/16 06:59 14:59 22:59 06:59 14:59 22:59 Intake Total 902 ml 1120 ml 300 ml 748 ml Output Total 5 ml 1125 ml 30 ml 200 ml 441 ml Balance 897 ml -5 ml 270 ml 548 ml -441 ml IV Total 852 ml 700 ml 40 ml 252 ml Tube Feeding 180 ml 200 ml 496 ml Other 50 ml 240 ml 60 ml Output Urine Total 5 ml 25 ml 30 ml 0 ml Stool Total 200 ml Peritoneal Fluid 441 ml Hemodialysis 1100 ml # Bowel Movements 2 Result Diagram: 07/19/1653907/19/16539 Objective Remarks more responsive nl dolls normal and opens eyelids just a little to voice by no response threat and not follow commands Assessment and Plan Assessment and Plan imp improved but still obtunded unclear if a small amount of cortical edema on mri diffuselsy or just nl variant for him i would befor hemodialysis to normalize his numbers and see if he improves mentally for a set period of time? two weeks and if not better could dc HD or change back to PD if ok with family as such a young age eeg cw met Nathan Adkins MD Jul 19, 2016 08:45
--- NOTE | 2016-07-19 09:53 | HHI.CCPN ---
Subjective Remarks/Hospital Course 56 year old male with ESRD on PD, HTN, DM II, and PAD. He was admitted for left BKA and I&D/revision of right BKA. During a procedure in the OR, he became bradycardic during the operation, was given atropine and epinephrine. He is transferred to ICU intubated, unresponsive, hypertensive. 07/18: Currently resting in bed on PSV trial. Unresponsive on the ventilator. Tmax 101.1. Currently 100.1. Tolerating tube feeding at 40 cc an hour with Nepro. No bowel movement. Subjective 07/19: Tmax 100.1. Currently 99.7. Unresponsive on the ventilator. Tolerating tube feedings with Nepro. 2 bowel movements. Objective Vital Signs Date Time Temp Pulse Resp B/P Pulse Ox O2 Delivery O2 Flow Rate FiO2 07/19/16 08:00 99.5 93 23 159/68 100 07/19/16 08:00 35 Intake and Output 07/18/16 07/18/16 07/19/16 08:00 16:00 00:00 Intake Total 902 ml 1120 ml 300 ml Output Total 1105 ml 25 ml 30 ml Balance -203 ml 1095 ml 270 ml Result Diagram: 07/19/16 0540 07/19/16 0540 Other Results Microbiology Date/Time Procedure Status Source Growth 07/18/16 15:30 Gram Stain Received Fluid Peritoneal Fluid Pending 07/18/16 15:30 Body Fluid Culture Received Fluid Peritoneal Fluid Pending 07/15/16 10:27 Aerobic Blood Culture - Preliminary Resulted Blood Peripheral NO GROWTH IN 3 DAYS 07/15/16 10:27 Anaerobic Blood Culture - Preliminary Resulted Blood Peripheral NO GROWTH IN 3 DAYS 07/15/16 10:26 Urine Culture - Final Complete Urine Catheterized Urine NO GROWTH IN 48 HOURS. 07/15/16 10:26 Gram Stain - Final Complete Sputum Endotracheal 07/15/16 10:26 Sputum Culture - Final Complete Sputum Endotracheal HEAVY GROWTH NORMAL RESPIRATORY PAVEL Imaging Last Impressions Chest X-Ray 07/18/16 0600 Signed Impressions: Service Date/Time: Monday, July 18, 2016 05:32 - CONCLUSION: 1. No significant change. Hazy opacity remains at the lung bases and possible small right effusion. 2. The patient remains intubated. Eliecer Magaña MD Head CT 07/17/16 0000 Signed Impressions: Service Date/Time: Sunday, July 17, 2016 16:20 - CONCLUSION: Unremarkable study. Cary Sanchez MD Liver Ultrasound 07/15/16 0000 Signed Impressions: Service Date/Time: Friday, July 15, 2016 15:09 - CONCLUSION: 1. Thick-walled gallbladder containing stones in the neck. If there is clinical concern for acute cholecystitis a hepatobiliary scan may be helpful to confirm cystic duct obstruction. 2. Hepatomegaly. 3. Tiny right pleural effusion. 4. Echogenic right kidney with minimal perinephric fluid suggesting possible medical renal disease. Clinical correlation is recommended. Dontae Segura MD Brain MRI 07/14/16 0000 Signed Impressions: Service Date/Time: June 10:57 - CONCLUSION: 1. No acute infarct, acute hemorrhage, mass effect or extra-axial fluid collections. 2. Mucus retention cyst within the left maxillary sinus. Dontae Segura MD Abdomen/Pelvis CT 07/14/16 0000 Signed Impressions: Service Date/Time: June 19:02 - CONCLUSION: Bilateral pleural effusions and bibasilar compressive collapse and or consolidation with increase in the ascitic fluid since the prior study. Cary Sanchez MD Objective Remarks GENERAL: 86-year-old male, critically ill currently resting in bed orotracheally intubated SKIN: Warm and dry. Noted bilateral below the medications with some mottling left lower extremity HEAD: Normocephalic. EYES: No scleral icterus. No injection or drainage. NECK: Supple, trachea midline. No JVD or lymphadenopathy. CARDIOVASCULAR: Tachycardic, RR. S1, S2. No S4 without murmur RESPIRATORY: Breath sounds equal bilaterally without wheezes rales or rhonchi. No accessory muscle use. GASTROINTESTINAL: Abdomen soft, non-tender, nondistended. MUSCULOSKELETAL: No new skin peripheral edema. BACK: Nontender without obvious deformity. No CVA tenderness. EXTREMITIES: BL BKA Vascular Central Line Catheter: Yes Assessment to: Continue Date of Insertion: Jul 13, 2016 Line: Central Venous Catheter Side: Left Location: Subclavian A/P Assessment and Plan Neuro/Psych: Encephalopathy - anoxic versus toxic metabolic - MRI brain without evidence of acute damage - neurology evaluation appreciated - EEG 07/14 and 07/17 revealed severe encephalopathy w/o seizure activity - Off all sedation. Limit any kind of sedation - monitor neurochecks per ICU routine - Neurology following - Previously on Lyrica for peripheral neuropathy CV: Hypertension History dyslipidemia Peripheral vascular disease Status post left [id number] amputation with right [id number] amputation revision 07/[address] Becerra Currently on Cleviprex drip. Has been restarted Currently on Norvasc 5 mg by mouth daily. Will increase Coreg to 12.5 twice a day 2-D echocardiogram revealed EF 25-30%. LV dilated. Goal hypokinesis especially inferior. Mild air. Moderate MR. GUZMAN 63 mm Hg Previously on Methyldopa 250 daily and Prinivil 20 mg by mouth daily for blood pressure management Resp: Likely vent dependent respiratory failure - Currently on PSV trial / and 35%. On ACV overnight - no weaning until neurologically improved - vent bundle - elevated head - CXR unchanged GI: Transaminitis likely shock liver improving Currently Nepro with a stated goal 50 cc an hour Protonix for GI prophylaxis Colace/as needed Senokot for bowel regimen : [place] if indicated Endo: Diabetes mellitus Hyperglycemia Hypothyroidism Currently on Levemir 16 units subcutaneous twice a day with sliding scale insulin/low lying Accu-Cheks every 4 hours to maintain euglycemia. 25 units sliding-scale insulin past 24 hours Currently not on any medications for hypothyroidism Renal: End-stage kidney disease - peritoneal dialysis Peritoneal dialysis per nephrology. Heme: History of colon cancer in remission status post radiation therapy Leukocytosis Normocytic anemia/anemia of chronic kidney disease Monitor CBC ID: Currently on Zosyn per infectious disease. Previously micafungin and vancomycin Pertinent cultures 07/15 - blood cultures 2 - no growth 07/15 - urine culture - negative 07/15 - sputum culture - no growth 07/18 - . Peritoneal fluid - pending MSK: PT OT evaluate and treat FEN: Hyperphosphatemia Currently on Fosrenol 1 g every 8 hours Access - Left subclavian CVL - Right Port-A-Cath Prophylaxis - GI - Protonix - DVT - heparin subcutaneous Critical Care: The total critical care time was 35 minutes. Time to perform other separately billable procedures was not included in the critical care time. Jarek Jenkins MD Jul 19, 2016 09:53
--- NOTE | 2016-07-19 10:55 | HHI.NPPN ---
Subjective General Problems: Hypertension Renal Failure: Chronic, End Stage Renal Disease History of Present Illness This is a 56 y/o male patient direct admitted under the care of Dr. Kenyon with vascular services. PMH of ESRD on PD, HTN, DM II, and PAD. He was admitted for left BKA and I&D/revision of right BKA. We were consulted for dialysis management. He went to OR early this morning. Apparently he became bradycardic during the operation, was given atropine and epinephrine. He is seen in the PACU this afternoon. He is still intubated, unresponsive, hypertensive. He underwent PD last night without complications. We were consulted for PD management. Interval History Remains intubated. Tmax 99.7 PD culture and cell count pending (Toma Gonzalez) Review of Systems General General Remarks unable to obtain due to unresponsiveness (Toma Gonzalez) Objective Data Data 07/18/16 07/19/16 19:00 07:00 Intake Total 1120 ml 1048 ml Output Total 1125 ml 230 ml Balance -5 ml 818 ml IV Total 700 ml 292 ml Tube Feeding 180 ml 696 ml Other 240 ml 60 ml Output Urine Total 25 ml 30 ml Stool Total 200 ml Hemodialysis 1100 ml # Bowel Movements 2 Vital Signs Date Time Temp Pulse Resp B/P Pulse Ox O2 Delivery O2 Flow Rate FiO2 07/19/16 10:00 97 07/19/16 08:00 99.5 93 23 159/68 100 07/19/16 08:00 35 07/19/16 08:00 93 07/19/16 07:30 100 35 07/19/16 07:30 35 07/19/16 06:01 92 07/19/16 04:01 100 35 07/19/16 04:00 92 07/19/16 04:00 35 07/19/16 04:00 99.0 92 23 164/72 100 07/19/16 02:00 94 07/19/16 01:10 100 35 07/19/16 00:00 99.7 86 22 162/72 100 07/19/16 00:00 94 07/19/16 00:00 35 07/18/16 22:02 100 35 07/18/16 22:00 96 07/18/16 20:00 94 07/18/16 20:00 35 07/18/16 20:00 99.6 94 20 170/79 100 07/18/16 19:25 100 35 07/18/16 18:00 88 07/18/16 16:00 35 07/18/16 16:00 64 07/18/16 16:00 100.1 64 21 154/78 100 07/18/16 15:35 99 35 07/18/16 15:17 35 07/18/16 14:00 81 07/18/16 12:00 35 07/18/16 12:00 100 07/18/16 12:00 99.5 100 28 165/76 100 07/18/16 11:35 100 35 (Toma Gonzalez) -: 07/19/16 0540 07/19/16 0540 Microbiology 07/18/16 Gram Stain - Final, Resulted 07/18/16 Body Fluid Culture, Resulted Pending Tubes & Lines: Tenckhoff Catheter Medication Review Current Medications Medications (Trade) Dose Ordered Sig/Lorie Route Start Time Stop Time Status Last Admin (NS Flush) 10 ml UNSCH PRN IVF 07/12/16 17:00 (NS Flush) 2 ml UNSCH PRN IVF 07/13/16 13:15 (NS Flush) 2 ml BID IVF 07/13/16 21:00 07/19/16 08:03 (Zofran Inj) 4 mg Q6H PRN IV 07/13/16 13:15 (Protonix Inj) 40 mg Q24H IV 07/13/16 15:00 07/18/16 15:30 (Narcan Inj) 0.4 mg UNSCH PRN IV 07/13/16 13:15 (Heparin Inj) 5,000 units Q12H SQ 07/14/16 12:30 07/19/16 00:46 (Apresoline Inj) 10 mg Q4H PRN IV PUSH 07/13/16 22:30 07/19/16 07:21 Amlodipine Besylate 5 mg 5 mg DAILY TUBE 07/14/16 03:15 07/19/16 08:04 (Zosyn 2.25 Gm Premix) 50 ml @ 100 mls/hr Q6H IV 07/14/16 18:00 07/19/16 05:28 (D50w (Vial) Inj) 25 ml UNSCH PRN IV PUSH 07/15/16 07:30 (Glucagon Inj) 1 mg UNSCH PRN OTHER 07/15/16 07:30 Lanthanum Carbonate 1000 mg 1,000 mg TID OG 07/16/16 13:00 07/19/16 08:04 (Cleviprex Inj) 50 ml @ 0 mls/hr TITRATE IV 07/18/16 13:00 07/19/16 08:05 (Colace Liq) 100 mg Q12HR PO 07/18/16 21:00 07/18/16 21:45 (Senna Liq) 8.8 mg DAILY PO 07/19/16 09:00 (NovoLIN R SUPPLEMENTAL SCALE) 1 Q4HR SQ 07/18/16 16:00 07/19/16 04:00 (Coreg) 12.5 mg Q12HR PO 07/19/16 09:00 07/19/16 08:32 (Levemir Inj) 16 units Q12HR SQ 07/19/16 21:00 (Toma Gonzalez) Physical Exam General Appearance: No Acute Distress, Malnourished (Toma Gonzalez) Pulmonary Resp Exam: Clear Bilaterally, Breath Sounds Equal (Toma Gonzalez) Cardiology CV Exam: Regular (Toma Gonzalez) Gastrointestinal/Abdomen GI Exam: Soft, Non-Tender, Bowel Sounds Present (Toma Gonzalez) Musculoskeletal MS Exam: Joints Intact (Toma Gonzalez) Integumentary Skin Exam: Clear, Cool (Toma Gonzalez) Extremeties Extremities Exam: Trace Edema Extremeties Remarks Edema upper extremities (Toma Gonzalez) Neurologic Neuro Exam: Unresponsive, Sedated (Toma Gonzalez) Assessment/Plan Assessment Summary: Anemia of CKD, Hypotension, End Stage Renal Disease Electrolyte Assessment: Metabolic Acidosis Problem List: (1) ESRD (end stage renal disease) on dialysis Plan: ESRD due to diabetic nephropathy Given the patient's continued encephalopathy, will convert the patient to HD. Remains to be seen if he will be able to transition back to PD. Discussed with Constantino Jenkins who said he will attempt to place VasCath today. Given his severe PVD, may need IR. Plan for 1st HD tomorrow. Contacted dialysis nurse. (2) Gangrene of toe Plan: vascular (Dr. Kenyon) following had left BKA and revision of right BKA (07/13) (3) Anemia of renal disease Plan: Continue on Epogen (4) Diabetes Plan: A1c 6.2, insulin drip has been stopped. Blood sugar is high today, recommend insulin coverage to maintain blood glucose of 140-180. Hyperglycemia may impair fluid removal with PD. (5) HTN (hypertension) Plan: Continue on current regimen (6) Metabolic bone disease Plan: Continue on Fosrenol (7) Encephalopathy Plan: Neurology following. Anoxic encephalopathy is a possibility. Metabolic encephalopathy is in the differential. Also appears to be septic. (8) Septic shock Plan: ID following. Pending PD fluid cell count and cx (Toma Gonzalez) Plan The exam, history, and the medical decision-making described in the above note were completed with the assistance of the PA-C. I reviewed and agree with the findings presented. I attest that I had a [id number] encounter with the patient on the same day, and personally performed and documented my assessment and findings in the medical record. (Chiara Niño MD) Problem Qualifiers (1) Diabetes: Toma Gonzalez Jul 19, 2016 10:55 Chiara Niño MD Jul 23, 2016 12:56
[2016-07-19] MEDS ORDERED: SODIUM CHLOR 0.9% 1000 ML INJ 1,000 ML IV PRN (12:19)
[2016-07-19] MEDS ORDERED: HEPARIN SODIUM - IV 10,000 UNITS/10 ML VIAL IVF PRN ×2 (12:30→13:45)
[2016-07-19] MEDS ORDERED: cloNIDine HCL 0.1 MG TAB PO PRN (12:30)
[2016-07-19] MEDS ORDERED: diphenhydrAMINE HCL 25 MG CAP PO PRN (12:30)
[2016-07-19] MEDS ORDERED: ONDANSETRON HCL 4 MG/2 ML VIAL IV PRN (12:30)
[2016-07-19] MEDS ORDERED: GELATIN 12 MM/7 MM FOAM TOP PRN (12:30)
[2016-07-19] MEDS ORDERED: MANNITOL 12.5 GM/50 ML VIAL IV PRN (12:30)
[2016-07-19] MEDS ORDERED: ALBUMIN HUMAN 25% 25 GM/100 ML BAGP IV PRN (12:30)
[2016-07-19] MEDS ORDERED: NITROGLYCERIN 0.4 MG SL 25 TABS/BTL SL PRN (12:30)
--- NOTE | 2016-07-19 13:37 | PD.PROCEDR ---
Procedure Note Procedure DATE: 07/19/2016 HD LINE PLACEMENT: Right internal jugular vein. Ultrasound-guided INDICATION: Dialysis access CONSENT Informed consent for procedure was obtained. DESCRIPTION OF THE PROCEDURE The patient was placed in supine position. The skin was cleansed with Chloraprep. Additional barrier precautions included large sterile drape, sterile gloves, sterile gown, face mask, and hat. 1 % lidocaine was used for local anesthesia. Under direct ultrasound guidance and on first attempt, the vein was accessed with an introducer needle. The guide wire was advanced and the tract was dilated. Using Seldinger technique a 14 [place] 20 cm dual-lumen hemodialysis catheter was advanced to a depth of 18 centimeters. The guide wire was removed. All ports had good return of dark venous blood and flushed easily with saline. The central line was secured with 2.0 silk. A sterile dressing with antibiotic disc was applied. ESTIMATED BLOOD LOSS: Minimal COMPLICATIONS: No apparent complications. STAT chest x-ray pending at time of dictation Jarek Jenkins MD Jul 19, 2016 13:37
[2016-07-19] MEDS ORDERED: SODIUM CHLORIDE 0.9% FLUSH 5 ML FLUSH IVF PRN (13:45)
--- NOTE | 2016-07-19 13:58 | PD.CAR.PN ---
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 During the surgery, Patient the had a episode of hypotension and bradycardia is corrected by anesthesia. Patient was then brought to the ICU on the ventilator and despite discontinuation of sedation did not wake up. [place] Coma Scale remained 4 and patient had some spontaneous extremity movements Patient was taken to CT of the brain which was negative. During the CT scan patient started ripping and tearing on his endotracheal tube and lines so had to be sedated down there by the nursing and radiology staff Patient came up and was sedated and again did not wake up. Remains on the ventilator Because of decreased level of consciousness which cannot be explained by simple means patient underwent an MRI of the brain today which did not show any abnormalities either Today patient again had a period of sustained bradycardia with a heart rate in 40s and systolic blood pressure dropped into the 80s. Patient was given atropine and started on dopamine drip There are now 2 issues to consider 1. Patient's neurologic status is now not explained by simple means of either stroke intracranial bleed or such. This appears to be metabolic encephalopathy based on the hepatic and renal underlying pathology. Patient did not have hypoxia in the operating room or there after that would account for any period of anoxia or hypoxia. EEG was performed in order to rule out seizures and none were confirmed. Nonetheless patient is on prophylactic Keppra at this point This will be an issue for time will show which way the patient is going 2. Patient has periods of sustained sinus bradycardia on top of his bundle branch block which makes me think that patient probably has sick sinus syndrome Atropine corrected immediately and patient is now on small dose dopamine at 3 mics per kilo per minute sustaining hemodynamic parameters Critical care help is greatly appreciated Cardiology is consulted and we will follow their lead on this issue 07/15/16 Status post BKA and revision of stump Patient at this point has metabolic encephalopathy and neurology nephrology cardiology and ICU care is greatly appreciated Neurologically patient is improved and at this point opens eyes spontaneously moves both upper and lower extremities making [place] Coma Scale about 6 or 7 Hemodynamic Patient has been stable since yesterday through the night, but earlier yesterday patient dropped blood pressure and became bradycardic as above noted. Cardiology was consulted Patient may have sick sinus syndrome with intermittent manifestations and when he wakes up and improves he may need a pacemaker Interim, patient is hypertensive on chronic basis and currently managed for the same Abdomen soft and I do not believe patient has bacterial peritonitis however it is known to happen in patients with peritoneal dialysis and sometimes presenting in an insidious way CT of abdomen and pelvis does not reveal any collections only some retained fluid Stumps are clean and dry dressing is intact Plan Will have to wait until patient wakes up and manage him supportively I've discussed this with family length 07/16/16 Patient is neurologically unchanged he opens his eyes flexes on the left side more than the right which might be slight improvement actually At this point working diagnosis is toxic encephalopathy, but hypoxic damage of course possible On the ventilator patient is doing well we'll try him on CPAP trial but regardless of it level of consciousness does not allow for extubation for patient could not keep his upper airway open Barring any improvements patient will require tracheostomy We'll go ahead with tracheostomy Monday if patient doesn't improve neurologically Dressing has been removed from right and left BKA stump and both are well- perfused healing nicely incisions are clean and dry 07/17/16 No change in neurologic status Discussed with below the when we will repeat the CT scan of the head today to see there is any swelling to account for patient's neurologic deficits Moves all 4 extremities but without purpose opens eyes on stimulation BKA stump was very nice and well perfused yesterday however today there is a livid discoloration of the lower portion of the stump Patient has such precarious flow to this area that he may not maintain the stump and may end up with the above-knee amputation but this is also predicated on his neurologic function in the future We will discuss with family the final goals of this therapy and patient's wishes. Will likely involve palliative care as well 07/18/16 Patient has no change in neurologic status at this time Opens eyes spontaneously moves his legs Stump looks fairly ischemic yesterday but today looks better and I'm not sure if vasospasm or some other factors are responsible for this but the livid appearance of the flap yesterday has improved since and now appears to be warmer and well perfused Considering that patient is not waking up its my opinion the patient will need tracheostomy for further care and I'll discuss this with his family We will proceed with tracheostomy probably Monday if patient doesn't get better Repeat CT scan of the brain did not reveal any abnormalities and it somewhat elusive and puzzling why patient is not waking up and what type of metabolic encephalopathy is responsible for this Clearly ischemia as an option at a possibility but no changes on CAT scan are evident in the white matter dhillon matter or the interface 07/19/16 No change in current neurologic status Patient is opening eyes spontaneously Will place a Vas-Cath for dialysis and started on hemodialysis as opposed to peritoneal dialysis as per nephrology We'll go ahead with tracheostomy tomorrow Intensive care management is greatly appreciated The left BKA stump looks better today and the flat looks better perfused This patient is prone to suddenly developed vasospasm turning his hands livid/ purple and turning the stumps purple and then after several hours this will resolve. This has happened numerous times now and is just question of time before the vasospasm and livid changes last long enough to permanently devitalized the stump flap but for the time being it is viable Objective: Vital Signs Date Time Temp Pulse Resp B/P Pulse Ox O2 Delivery O2 Flow Rate FiO2 07/19/16 12:00 98 07/19/16 12:00 98.2 98 16 145/73 94 07/19/16 12:00 35 07/19/16 11:20 98 35 07/19/16 10:00 97 07/19/16 08:00 99.5 93 23 159/68 100 07/19/16 08:00 35 07/19/16 08:00 93 07/19/16 07:30 100 35 07/19/16 07:30 35 07/19/16 06:01 92 07/19/16 04:01 100 35 07/19/16 04:00 92 07/19/16 04:00 35 07/19/16 04:00 99.0 92 23 164/72 100 07/19/16 02:00 94 07/19/16 01:10 100 35 07/19/16 00:00 99.7 86 22 162/72 100 07/19/16 00:00 94 07/19/16 00:00 35 07/18/16 22:02 100 35 07/18/16 22:00 96 07/18/16 20:00 94 07/18/16 20:00 35 07/18/16 20:00 99.6 94 20 170/79 100 07/18/16 19:25 100 35 07/18/16 18:00 88 07/18/16 16:00 35 07/18/16 16:00 64 07/18/16 16:00 100.1 64 21 154/78 100 07/18/16 15:35 99 35 07/18/16 15:17 35 07/18/16 14:00 81 Labs: Laboratory Tests Test 07/19/16 05:40 White Blood Count 23.8 TH/MM3 (4.0-11.0) Red Blood Count 3.27 MIL/MM3 (4.50-5.90) Hemoglobin 9.2 GM/DL (13.0-17.0) Hematocrit 29.4 % (39.0-51.0) Mean Corpuscular Volume 89.9 FL (80.0-100.0) Mean Corpuscular Hemoglobin 28.2 PG (27.0-34.0) Mean Corpuscular Hemoglobin 31.4 % Concent (32.0-36.0) Red Cell Distribution Width 16.8 % (11.6-17.2) Platelet Count 309 TH/MM3 (150-450) Mean Platelet Volume 10.4 FL (7.0-11.0) Neutrophils (%) (Auto) 81.3 % (16.0-70.0) Lymphocytes (%) (Auto) 4.1 % (9.0-44.0) Monocytes (%) (Auto) 13.8 % (0.0-8.0) Eosinophils (%) (Auto) 0.5 % (0.0-4.0) Basophils (%) (Auto) 0.3 % (0.0-2.0) Neutrophils # (Auto) 19.3 TH/MM3 (1.8-7.7) Lymphocytes # (Auto) 1.0 TH/MM3 (1.0-4.8) Monocytes # (Auto) 3.3 TH/MM3 (0-0.9) Eosinophils # (Auto) 0.1 TH/MM3 (0-0.4) Basophils # (Auto) 0.1 TH/MM3 (0-0.2) CBC Comment AUTO DIFF Differential Total Cells 100 Counted Neutrophils % (Manual) 79 % (16-70) Band Neutrophils % 3 % (0-6) Lymphocytes % 5 % (9-44) Monocytes % 11 % (0-8) Neutrophils # (Manual) 20.0 TH/MM3 (1.8-7.7) Metamyelocytes 1 % (0-1) Myelocytes 1 % (0-0) Nucleated Red Blood Cells 2 /100 WBC (0-0) Differential Comment FINAL DIFF MANUAL Platelet Estimate NORMAL (NORMAL) Platelet Morphology Comment ENLARGED (NORMAL) Sodium Level 138 MEQ/L (136-145) Potassium Level 3.7 MEQ/L (3.5-5.1) Chloride Level 99 MEQ/L (98-107) Carbon Dioxide Level 24.9 MEQ/L (21.0-32.0) Anion Gap 14 MEQ/L (5-15) Blood Urea Nitrogen 83 MG/DL (7-18) Creatinine 9.24 MG/DL (0.60-1.30) Estimat Glomerular Filtration 6 ML/MIN (>89) Rate Random Glucose 133 MG/DL (74-106) Calcium Level 7.7 MG/DL (8.5-10.1) Phosphorus Level 6.1 MG/DL (2.5-4.9) Magnesium Level 2.1 MG/DL (1.5-2.5) Total Bilirubin 0.5 MG/DL (0.2-1.0) Aspartate Amino Transf 116 U/L (15-37) (AST/SGOT) Alanine Aminotransferase 73 U/L (12-78) (ALT/SGPT) Alkaline Phosphatase 154 U/L (45-117) Total Protein 6.7 GM/DL (6.4-8.2) Albumin 1.5 GM/DL (3.4-5.0) Result Diagram: 07/19/16 0540 07/19/16 0540 Jw Becerra MD Jul 19, 2016 13:58
--- NOTE | 2016-07-19 14:22 | RADRPT ---
EXAM DATE/TIME: 07/19/2016 13:51 [facility] COMPARISON: CHEST SINGLE AP, July 18, 2016, 5:32. INDICATIONS : Central line placement. MEDICAL HISTORY : Hypertension. Diabetes mellitus type II. SURGICAL HISTORY : Infuse a port. Amputation right lower leg. ENCOUNTER: Subsequent ACUITY: 1 week PAIN SCORE: Non-responsive. LOCATION: Bilateral chest FINDINGS: A single portable view of the chest shows no significant change. Tiny bilateral pleural effusions and bibasilar parenchymal opacities are unchanged. Heart remains enlarged. A left subclavian central refugio e has been placed with the tip at the cavoatrial junction. No pneumothorax. Tip of the endotracheal t ube is 4 cm cephalad to the gui. Nasogastric tube tip courses off the inferior margin of the film. A Port-A-Cath overlies the right chest. A catheter overlies the right chest likely a dialysis cathet er. CONCLUSION: 1. Lines and tubes as detailed above without pneumothorax. 2. Unchanged small effusions and bibasilar infiltrates. Nasir Adan Jr., MD on July 19, 2016 at 14:18 Board Certified Radiologist. This report was verified electronically.
[2016-07-19] MEDS: PANTOPRAZOLE SODIUM 40 MG VIAL IV SCH (15:36)
--- NOTE | 2016-07-19 19:23 | HHI.IDPN ---
Subjective Subjective Remarks Internmittent low grade fever remains on vent UOP is minimal Antibiotics zosyn Lines Port R chest LSC TLC Past Medical History Reviewed Allergies: Coded Allergies: No Known Allergies (Unverified , 06/29/16) Objective . Vital Signs Date Time Temp Pulse Resp B/P Pulse Ox O2 Delivery O2 Flow Rate FiO2 07/19/16 19:10 100 40 07/19/16 18:00 83 07/19/16 16:00 82 07/19/16 16:00 40 07/19/16 16:00 100.0 82 18 154/65 100 Arterial Line 07/19/16 15:19 100 40 07/19/16 14:00 81 07/19/16 12:00 98 07/19/16 12:00 98.2 98 16 145/73 94 07/19/16 12:00 35 07/19/16 11:20 98 35 07/19/16 10:00 97 07/19/16 08:00 99.5 93 23 159/68 100 07/19/16 08:00 35 07/19/16 08:00 93 07/19/16 07:30 100 35 07/19/16 07:30 35 07/19/16 06:01 92 07/19/16 04:01 100 35 07/19/16 04:00 92 07/19/16 04:00 35 07/19/16 04:00 99.0 92 23 164/72 100 07/19/16 02:00 94 07/19/16 01:10 100 35 07/19/16 00:00 99.7 86 22 162/72 100 07/19/16 00:00 94 07/19/16 00:00 35 07/18/16 22:02 100 35 07/18/16 22:00 96 07/18/16 20:00 94 07/18/16 20:00 35 07/18/16 20:00 99.6 94 20 170/79 100 07/18/16 19:25 100 35 07/18/16 07/18/16 07/19/16 15:00 23:00 07:00 Intake Total 1120 ml 300 ml 748 ml Output Total 1125 ml 30 ml 200 ml Balance -5 ml 270 ml 548 ml IV Total 700 ml 40 ml 252 ml Tube Feeding 180 ml 200 ml 496 ml Other 240 ml 60 ml Output Urine Total 25 ml 30 ml 0 ml Stool Total 200 ml Hemodialysis 1100 ml # Bowel Movements 2 . Laboratory Tests Test 07/18/16 07/19/16 04:10 05:40 White Blood Count 23.4 TH/MM3 23.8 TH/MM3 Red Blood Count 3.34 MIL/MM3 3.27 MIL/MM3 Hemoglobin 9.7 GM/DL 9.2 GM/DL Hematocrit 29.4 % 29.4 % Mean Corpuscular Volume 88.1 FL 89.9 FL Mean Corpuscular Hemoglobin 29.0 PG 28.2 PG Mean Corpuscular Hemoglobin 32.9 % 31.4 % Concent Red Cell Distribution Width 17.1 % 16.8 % Platelet Count 330 TH/MM3 309 TH/MM3 Mean Platelet Volume 10.2 FL 10.4 FL Neutrophils (%) (Auto) % 81.3 % Lymphocytes (%) (Auto) % 4.1 % Monocytes (%) (Auto) % 13.8 % Eosinophils (%) (Auto) % 0.5 % Basophils (%) (Auto) % 0.3 % Neutrophils # (Auto) TH/MM3 19.3 TH/MM3 Lymphocytes # (Auto) TH/MM3 1.0 TH/MM3 Monocytes # (Auto) TH/MM3 3.3 TH/MM3 Eosinophils # (Auto) TH/MM3 0.1 TH/MM3 Basophils # (Auto) TH/MM3 0.1 TH/MM3 CBC Comment AUTO DIFF AUTO DIFF Differential Total Cells 100 100 Counted Neutrophils % (Manual) 82 % 79 % Band Neutrophils % 3 % 3 % Lymphocytes % 5 % 5 % Monocytes % 9 % 11 % Eosinophils % 1 % Neutrophils # (Manual) 19.9 TH/MM3 20.0 TH/MM3 Nucleated Red Blood Cells 4 /100 WBC 2 /100 WBC Differential Comment FINAL DIFF FINAL DIFF MANUAL MANUAL Toxic Vacuolation PRESENT Platelet Estimate NORMAL NORMAL Platelet Morphology Comment NORMAL ENLARGED Red Cell Morphology Comment NORMAL Metamyelocytes 1 % Myelocytes 1 % Laboratory Tests Test 07/18/16 07/19/16 04:10 05:40 Sodium Level 138 MEQ/L 138 MEQ/L Potassium Level 3.7 MEQ/L 3.7 MEQ/L Chloride Level 100 MEQ/L 99 MEQ/L Carbon Dioxide Level 24.0 MEQ/L 24.9 MEQ/L Anion Gap 14 MEQ/L 14 MEQ/L Blood Urea Nitrogen 74 MG/DL 83 MG/DL Creatinine 9.03 MG/DL 9.24 MG/DL Estimat Glomerular Filtration 6 ML/MIN 6 ML/MIN Rate Random Glucose 248 MG/DL 133 MG/DL Calcium Level 7.6 MG/DL 7.7 MG/DL Phosphorus Level 4.9 MG/DL 6.1 MG/DL Magnesium Level 2.0 MG/DL 2.1 MG/DL Total Bilirubin 0.5 MG/DL 0.5 MG/DL Aspartate Amino Transf 233 U/L 116 U/L (AST/SGOT) Alanine Aminotransferase 139 U/L 73 U/L (ALT/SGPT) Alkaline Phosphatase 142 U/L 154 U/L Total Protein 6.6 GM/DL 6.7 GM/DL Albumin 1.6 GM/DL 1.5 GM/DL Microbiology Date/Time Procedure Status Source Growth 07/18/16 15:30 Gram Stain - Final Resulted Fluid Peritoneal Fluid 07/18/16 15:30 Body Fluid Culture Resulted Fluid Peritoneal Fluid Pending 07/19/16 11:01 Gram Stain - Final Resulted Sputum Expectorated Sputum 07/19/16 11:01 Sputum Culture Resulted Sputum Expectorated Sputum Pending 07/19/16 11:05 Aerobic Blood Culture Received Blood Peripheral Pending 07/19/16 11:05 Anaerobic Blood Culture Received Blood Peripheral Pending 07/19/16 11:09 Aerobic Blood Culture Received Blood Peripheral Pending 07/19/16 11:09 Anaerobic Blood Culture Received Blood Peripheral Pending Imaging Last Impressions Chest X-Ray 07/19/16 1337 Signed Impressions: Service Date/Time: Tuesday, July 19, 2016 13:51 - CONCLUSION: 1. Lines and tubes as detailed above without pneumothorax. 2. Unchanged small effusions and bibasilar infiltrates. Nasir Adan Jr., MD Head CT 07/17/16 0000 Signed Impressions: Service Date/Time: Sunday, July 17, 2016 16:20 - CONCLUSION: Unremarkable study. K. Campos Sanchez MD Liver Ultrasound 07/15/16 0000 Signed Impressions: Service Date/Time: Friday, July 15, 2016 15:09 - CONCLUSION: 1. Thick-walled gallbladder containing stones in the neck. If there is clinical concern for acute cholecystitis a hepatobiliary scan may be helpful to confirm cystic duct obstruction. 2. Hepatomegaly. 3. Tiny right pleural effusion. 4. Echogenic right kidney with minimal perinephric fluid suggesting possible medical renal disease. Clinical correlation is recommended. Dontae Segura MD Brain MRI 07/14/16 0000 Signed Impressions: Service Date/Time: June 10:57 - CONCLUSION: 1. No acute infarct, acute hemorrhage, mass effect or extra-axial fluid collections. 2. Mucus retention cyst within the left maxillary sinus. Dontae Segura MD Abdomen/Pelvis CT 07/14/16 0000 Signed Impressions: Service Date/Time: June 19:02 - CONCLUSION: Bilateral pleural effusions and bibasilar compressive collapse and or consolidation with increase in the ascitic fluid since the prior study. Cary Sanchez MD Physical Exam GENERAL: Sedated, intubated SKIN: No jaundice, rashes, or lesions. Skin temperature appropriate. Not diaphoretic. HEENT: [place] conjunctiva. No scleral icterus. No injection or drainage. ET in mouth NECK: Trachea midline. Supple, nontender. CARDIOVASCULAR: Regular rate and rhythm with + harsh systolic and diastolic 3/6 murmurs (max on RUSB) RESPIRATORY/CHEST: Clear to auscultation. Breath sounds equal bilaterally. No wheezes, rales, or rhonchi. GASTROINTESTINAL: Abdomen soft, non-tender, not distended. PD cath in place. No guarding. Bowel sounds present. GENITOURINARY: Without palpable bladder distension. Coffman catheter in place with small amount of yellow clear urine MUSCULOSKELETAL: BLE BKA dressings in place Has cyanosis RMF NEUROLOGICAL:sedated, unresponsive PSYCHIATRIC: unable to assess LINES: NO evidence of infection Assessment & Plan Remarks Sepsis, shock, better - C/S negative - ?due to ischemic BLE - PD fluid not sugg of infection Severe PVD S/P LBK and R BKA revision Respiratory failure Encephalopathy ESRD, on PD - converting to HD PLAN: Continue Zosyn cont P PD fluid sputum and blood clx monitor tempps and WBC Veena Benitez MD Jul 19, 2016 19:23
[2016-07-20] VITALS (19 sets, daily range): BP systolic 153–171; BP diastolic 67–77; PULSE 66–93; RESP 12–30; TEMP 97.4–100.4; O2SAT 99–100
[2016-07-20] MEDS: HEPARIN SODIUM - SQ 10,000 UNITS/ML VIAL SQ SCH ×2 (00:30→11:48)
[2016-07-20] MEDS: INSULIN NovoLIN REGULAR SUPPLEMENTAL SCALE SQ SCH ×6 (04:00→20:00)
[2016-07-20 05:03] LABS: AUTOMATED NEUTROPHIL # 20.8 TH/MM3 (1.8-7.7); BASOPHIL # 0.2 TH/MM3 (0-0.2); BASOPHIL % 0.8 % (0.0-2.0); EOSINOPHIL # 0.2 TH/MM3 (0-0.4); EOSINOPHIL % 0.9 % (0.0-4.0); HEMATOCRIT 28.9 % (39.0-51.0); LYMPH % 3.7 % (9.0-44.0); LYMPHOCYTE # 0.9 TH/MM3 (1.0-4.8); MEAN CELL VOLUME 88.8 FL (80.0-100.0); MEAN CORPUSCULAR HEMOGLOBIN 28.5 PG (27.0-34.0); MEAN CORPUSCULAR HGB CONC 32.1 % (32.0-36.0); NEUT % 82.6 % (16.0-70.0); PLATELET COUNT 327 TH/MM3 (150-450); RED BLOOD COUNT 3.25 MIL/MM3 (4.50-5.90); RED CELL DISTRIBUTION WIDTH 17.3 % (11.6-17.2); WHITE BLOOD COUNT 25.2 TH/MM3 (4.0-11.0)
[2016-07-20 05:19] LABS: HEMO FLAGS AUTO DIFF
[2016-07-20 05:26] LABS: ANION GAP 16 MEQ/L (5-15); AST (GOT) 71 U/L (15-37); BICARBONATE 23.5 MEQ/L (21.0-32.0); CHLORIDE 98 MEQ/L (98-107); GLOMERULAR FILTRATION RATE 6 ML/MIN (>89); MAGNESIUM 2.3 MG/DL (1.5-2.5); POTASSIUM 3.2 MEQ/L (3.5-5.1); SODIUM (NA) 137 MEQ/L (136-145); TOTAL BILIRUBIN ADULT 0.5 MG/DL (0.2-1.0)
[2016-07-20] MEDS: PIPERACIL-TAZO 2.25 GM PREMIX 50 ML IV SCH ×4 (05:31→17:27)
[2016-07-20 05:32] LABS: ALKALINE PHOSPHATASE 164 U/L (45-117); ALT (GPT) 49 U/L (12-78); BLOOD UREA NITROGEN 88 MG/DL (7-18)
[2016-07-20] MEDS: CLEVIDIPINE INJ 50 ML IV SCH ×6 (06:26→20:07)
[2016-07-20 08:56] LABS: BANDS 6 % (0-6); CORRECTED NUCLEATED RBC 1 /100 WBC (0-0); EOSINOPHILS 2 % (0-4); NEUTROPHIL # MANUAL DIFF 22.4 TH/MM3 (1.8-7.7); PLATELET ESTIMATE SMEAR NORMAL (NORMAL); PLATELET MORPHOLOGY NORMAL (NORMAL); POLYS (SEG NEUTROPHILS) 83 % (16-70); SCAN/DIFF FINAL DIFF MANUAL; WBC DIFF SAMPLE 100
[2016-07-20] MEDS: SENNOSIDES SYRUP 8.8 MG/5 ML CUP PO SCH (09:00)
[2016-07-20] MEDS: INSULIN DETEMIR 100 UNITS/ML VIAL SQ SCH ×2 (09:00→20:29)
[2016-07-20] MEDS: DOCUSATE SODIUM 100 MG/10 ML UDC PO SCH ×2 (09:00→20:29)
[2016-07-20] MEDS: CARVEDILOL 12.5 MG TAB PO SCH ×2 (09:28→20:29)
[2016-07-20] MEDS: amLODIPine BESYLATE 5 MG TAB TUBE SCH (09:28)
[2016-07-20] MEDS: LANTHANUM CARBONATE 500 MG CHEWABLE TABLET OG SCH ×3 (09:28→17:26)
[2016-07-20] MEDS: SODIUM CHLORIDE 0.9% FLUSH 5 ML FLUSH IVF SCH ×2 (09:29→20:29)
[2016-07-20] MEDS ORDERED: POTASSIUM CHLOR 20 MEQ PREMIX 100 ML IV ONE (09:30)
[2016-07-20] MEDS: SODIUM CHLORIDE 0.9% FLUSH 5 ML FLUSH IVF PRN (09:38)
[2016-07-20] MEDS: GENTAMICIN SULFATE (DIALYSIS USE ONLY) 20 MG/2 ML VIAL IV PRN (09:38)
[2016-07-20] MEDS: SODIUM CHLOR 0.9% 1000 ML INJ 1,000 ML IV PRN ×2 (09:38)
[2016-07-20] MEDS: HEPARIN SODIUM - IV 10,000 UNITS/10 ML VIAL PRN (09:38)
[2016-07-20] MEDS ORDERED: CARVEDILOL 12.5 MG TAB PO ONE (10:15)
--- NOTE | 2016-07-20 10:20 | HHI.CCPN ---
Subjective Remarks/Hospital Course 56 year old male with ESRD on PD, HTN, DM II, and PAD. He was admitted for left BKA and I&D/revision of right BKA. During a procedure in the OR, he became bradycardic during the operation, was given atropine and epinephrine. He is transferred to ICU intubated, unresponsive, hypertensive. 07/18: Currently resting in bed on PSV trial. Unresponsive on the ventilator. Tmax 101.1. Currently 100.1. Tolerating tube feeding at 40 cc an hour with Nepro. No bowel movement. 07/19: Tmax 100.1. Currently 99.7. Unresponsive on the ventilator. Tolerating tube feedings with Nepro. 2 bowel movements. Subjective 07/20: Tmax 100. Currently 99.3. Unresponsive on the ventilator. Currently on hemodialysis. Positive BM. Objective Vital Signs Date Time Temp Pulse Resp B/P Pulse Ox O2 Delivery O2 Flow Rate FiO2 07/20/16 08:00 99.3 92 30 171/77 100 07/20/16 08:00 40 Intake and Output 07/19/16 07/19/16 07/19/16 07:59 15:59 23:59 Intake Total 748 ml 759 ml 608 ml Output Total 641 ml 130 ml 55 ml Balance 107 ml 629 ml 553 ml Result Diagram: 07/20/16 0450 07/20/16 0450 Other Results Microbiology Date/Time Procedure Status Source Growth 07/19/16 11:09 Aerobic Blood Culture Received Blood Peripheral Pending 07/19/16 11:09 Anaerobic Blood Culture Received Blood Peripheral Pending 07/19/16 11:01 Gram Stain - Final Resulted Sputum Expectorated Sputum 07/19/16 11:01 Sputum Culture Resulted Sputum Expectorated Sputum Pending 07/15/16 10:27 Aerobic Blood Culture - Preliminary Resulted Blood Peripheral NO GROWTH IN 4 DAYS 07/15/16 10:27 Anaerobic Blood Culture - Preliminary Resulted Blood Peripheral NO GROWTH IN 4 DAYS 07/15/16 10:26 Urine Culture - Final Complete Urine Catheterized Urine NO GROWTH IN 48 HOURS. Imaging Last Impressions Chest X-Ray 07/19/16 7670 Signed Impressions: Service Date/Time: Tuesday, July 19, 2016 13:51 - CONCLUSION: 1. Lines and tubes as detailed above without pneumothorax. 2. Unchanged small effusions and bibasilar infiltrates. Nasir Adan Jr., MD Head CT 07/17/16 0000 Signed Impressions: Service Date/Time: Sunday, July 17, 2016 16:20 - CONCLUSION: Unremarkable study. Cary Sanchez MD Liver Ultrasound 07/15/16 0000 Signed Impressions: Service Date/Time: Friday, July 15, 2016 15:09 - CONCLUSION: 1. Thick-walled gallbladder containing stones in the neck. If there is clinical concern for acute cholecystitis a hepatobiliary scan may be helpful to confirm cystic duct obstruction. 2. Hepatomegaly. 3. Tiny right pleural effusion. 4. Echogenic right kidney with minimal perinephric fluid suggesting possible medical renal disease. Clinical correlation is recommended. Dontae Segura MD Brain MRI 07/14/16 0000 Signed Impressions: Service Date/Time: June 10:57 - CONCLUSION: 1. No acute infarct, acute hemorrhage, mass effect or extra-axial fluid collections. 2. Mucus retention cyst within the left maxillary sinus. Dontae Segura MD Abdomen/Pelvis CT 07/14/16 0000 Signed Impressions: Service Date/Time: June 19:02 - CONCLUSION: Bilateral pleural effusions and bibasilar compressive collapse and or consolidation with increase in the ascitic fluid since the prior study. Cary Sanchez MD Objective Remarks GENERAL: 86-year-old male, critically ill currently resting in bed orotracheally intubated SKIN: Warm and dry. Noted bilateral below the medications with some mottling left lower extremity HEAD: Normocephalic. EYES: No scleral icterus. No injection or drainage. NECK: Supple, trachea midline. No JVD or lymphadenopathy. CARDIOVASCULAR: Tachycardic, RR. S1, S2. No S4 without murmur RESPIRATORY: Breath sounds equal bilaterally without wheezes rales or rhonchi. No accessory muscle use. GASTROINTESTINAL: Abdomen soft, non-tender, nondistended. MUSCULOSKELETAL: No new skin peripheral edema. BACK: Nontender without obvious deformity. No CVA tenderness. EXTREMITIES: BL BKA Date of Insertion: Jul 13, 2016 Line: Central Venous Catheter Side: Left Location: Subclavian A/P Assessment and Plan Neuro/Psych: Encephalopathy - anoxic versus toxic metabolic - MRI brain without evidence of acute damage - neurology evaluation appreciated - EEG 07/14 and 07/17 revealed severe encephalopathy w/o seizure activity - Off all sedation. Limit any kind of sedation - monitor neurochecks per ICU routine - Neurology following - Previously on Lyrica for peripheral neuropathy CV: Hypertension History dyslipidemia Peripheral vascular disease Status post left [id number] amputation with right [id number] amputation revision 07/[address] Becerra Currently on Cleviprex drip. Has been restarted Currently on Norvasc 5 mg by mouth daily. Will increase Coreg to 12.5 twice a day 2-D echocardiogram revealed EF 25-30%. LV dilated. Goal hypokinesis especially inferior. Mild air. Moderate MR. GUZMAN 63 mm Hg Previously on Methyldopa 250 daily and Prinivil 20 mg by mouth daily for blood pressure management Resp: Likely vent dependent respiratory failure - Currently on PSV trial / and 35%. On ACV overnight - no weaning until neurologically improved - vent bundle - elevated head - CXR unchanged GI: Transaminitis likely shock liver improving Currently Nepro with a stated goal 50 cc an hour Protonix for GI prophylaxis Colace/as needed Senokot for bowel regimen : Coffman if indicated Endo: Diabetes mellitus Hyperglycemia Hypothyroidism Currently on Levemir 16 units subcutaneous twice a day with sliding scale insulin/low lying Accu-Cheks every 4 hours to maintain euglycemia. 25 units sliding-scale insulin past 24 hours Currently not on any medications for hypothyroidism Renal: End-stage kidney disease - peritoneal dialysis Peritoneal dialysis per nephrology. Heme: History of colon cancer in remission status post radiation therapy Leukocytosis Normocytic anemia/anemia of chronic kidney disease Monitor CBC ID: Currently on Zosyn per infectious disease. Previously micafungin and vancomycin Pertinent cultures 07/15 - blood cultures 2 - no growth 07/15 - urine culture - negative 07/15 - sputum culture - no growth 07/18 - . Peritoneal fluid - pending 07/19: Blood cultures 2/sputum cultures - pending MSK: PT OT evaluate and treat FEN: Hyperphosphatemia Currently on Fosrenol 1 g every 8 hours Access - Left subclavian CVL - Right Port-A-Cath - Right IJ CVL day #2 Prophylaxis - GI - Protonix - DVT - heparin subcutaneous Critical Care: The total critical care time was 35 minutes. Time to perform other separately billable procedures was not included in the critical care time. Jarek Jenkins MD Jul 20, 2016 10:20
--- NOTE | 2016-07-20 11:31 | PD.CAR.PN ---
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 During the surgery, Patient the had a episode of hypotension and bradycardia is corrected by anesthesia. Patient was then brought to the ICU on the ventilator and despite discontinuation of sedation did not wake up. [place] Coma Scale remained 4 and patient had some spontaneous extremity movements Patient was taken to CT of the brain which was negative. During the CT scan patient started ripping and tearing on his endotracheal tube and lines so had to be sedated down there by the nursing and radiology staff Patient came up and was sedated and again did not wake up. Remains on the ventilator Because of decreased level of consciousness which cannot be explained by simple means patient underwent an MRI of the brain today which did not show any abnormalities either Today patient again had a period of sustained bradycardia with a heart rate in 40s and systolic blood pressure dropped into the 80s. Patient was given atropine and started on dopamine drip There are now 2 issues to consider 1. Patient's neurologic status is now not explained by simple means of either stroke intracranial bleed or such. This appears to be metabolic encephalopathy based on the hepatic and renal underlying pathology. Patient did not have hypoxia in the operating room or there after that would account for any period of anoxia or hypoxia. EEG was performed in order to rule out seizures and none were confirmed. Nonetheless patient is on prophylactic Keppra at this point This will be an issue for time will show which way the patient is going 2. Patient has periods of sustained sinus bradycardia on top of his bundle branch block which makes me think that patient probably has sick sinus syndrome Atropine corrected immediately and patient is now on small dose dopamine at 3 mics per kilo per minute sustaining hemodynamic parameters Critical care help is greatly appreciated Cardiology is consulted and we will follow their lead on this issue 07/15/16 Status post BKA and revision of stump Patient at this point has metabolic encephalopathy and neurology nephrology cardiology and ICU care is greatly appreciated Neurologically patient is improved and at this point opens eyes spontaneously moves both upper and lower extremities making [place] Coma Scale about 6 or 7 Hemodynamic Patient has been stable since yesterday through the night, but earlier yesterday patient dropped blood pressure and became bradycardic as above noted. Cardiology was consulted Patient may have sick sinus syndrome with intermittent manifestations and when he wakes up and improves he may need a pacemaker Interim, patient is hypertensive on chronic basis and currently managed for the same Abdomen soft and I do not believe patient has bacterial peritonitis however it is known to happen in patients with peritoneal dialysis and sometimes presenting in an insidious way CT of abdomen and pelvis does not reveal any collections only some retained fluid Stumps are clean and dry dressing is intact Plan Will have to wait until patient wakes up and manage him supportively I've discussed this with family length 07/16/16 Patient is neurologically unchanged he opens his eyes flexes on the left side more than the right which might be slight improvement actually At this point working diagnosis is toxic encephalopathy, but hypoxic damage of course possible On the ventilator patient is doing well we'll try him on CPAP trial but regardless of it level of consciousness does not allow for extubation for patient could not keep his upper airway open Barring any improvements patient will require tracheostomy We'll go ahead with tracheostomy Monday if patient doesn't improve neurologically Dressing has been removed from right and left BKA stump and both are well- perfused healing nicely incisions are clean and dry 07/17/16 No change in neurologic status Discussed with below the when we will repeat the CT scan of the head today to see there is any swelling to account for patient's neurologic deficits Moves all 4 extremities but without purpose opens eyes on stimulation BKA stump was very nice and well perfused yesterday however today there is a livid discoloration of the lower portion of the stump Patient has such precarious flow to this area that he may not maintain the stump and may end up with the above-knee amputation but this is also predicated on his neurologic function in the future We will discuss with family the final goals of this therapy and patient's wishes. Will likely involve palliative care as well 07/18/16 Patient has no change in neurologic status at this time Opens eyes spontaneously moves his legs Stump looks fairly ischemic yesterday but today looks better and I'm not sure if vasospasm or some other factors are responsible for this but the livid appearance of the flap yesterday has improved since and now appears to be warmer and well perfused Considering that patient is not waking up its my opinion the patient will need tracheostomy for further care and I'll discuss this with his family We will proceed with tracheostomy probably Monday if patient doesn't get better Repeat CT scan of the brain did not reveal any abnormalities and it somewhat elusive and puzzling why patient is not waking up and what type of metabolic encephalopathy is responsible for this Clearly ischemia as an option at a possibility but no changes on CAT scan are evident in the white matter dhillon matter or the interface 07/19/16 No change in current neurologic status Patient is opening eyes spontaneously Will place a Vas-Cath for dialysis and started on hemodialysis as opposed to peritoneal dialysis as per nephrology We'll go ahead with tracheostomy tomorrow Intensive care management is greatly appreciated The left BKA stump looks better today and the flat looks better perfused This patient is prone to suddenly developed vasospasm turning his hands livid/ purple and turning the stumps purple and then after several hours this will resolve. This has happened numerous times now and is just question of time before the vasospasm and livid changes last long enough to permanently devitalized the stump flap but for the time being it is viable 07/20/16 Patient slightly more awake today opens eyes spontaneously and non-voice commands seems to be tracking with his eyes a bit is clearly improvement from the other day Remains on ventilator Now on hemodialysis instead of peritoneal dialysis White count remains high although patient doesn't have any source of sepsis or any other symptoms such Peritoneal dialysate is clear Will go ahead with tracheostomy tomorrow Help from a medical intensivists is greatly appreciated in management of this complex gentleman Objective: Vital Signs Date Time Temp Pulse Resp B/P Pulse Ox O2 Delivery O2 Flow Rate FiO2 07/20/16 10:00 88 07/20/16 08:00 99.3 92 30 171/77 100 07/20/16 08:00 93 07/20/16 08:00 40 07/20/16 07:43 40 07/20/16 07:40 100 40 07/20/16 06:00 87 07/20/16 04:46 100 40 07/20/16 04:00 98.1 85 16 163/71 100 07/20/16 04:00 85 07/20/16 04:00 40 07/20/16 02:00 86 07/20/16 02:00 98.1 86 16 167/71 100 07/20/16 01:08 100 40 07/20/16 00:00 40 07/20/16 00:00 78 07/19/16 22:00 73 07/19/16 22:00 100 40 07/19/16 20:00 40 07/19/16 20:00 98.4 80 16 155/69 100 07/19/16 20:00 80 07/19/16 19:10 100 40 07/19/16 18:00 83 07/19/16 16:00 82 07/19/16 16:00 40 07/19/16 16:00 100.0 82 18 154/65 100 Arterial Line 07/19/16 15:19 100 40 07/19/16 14:00 81 07/19/16 12:00 98 07/19/16 12:00 98.2 98 16 145/73 94 07/19/16 12:00 35 Labs: Laboratory Tests Test 07/20/16 04:50 White Blood Count 25.2 TH/MM3 (4.0-11.0) Red Blood Count 3.25 MIL/MM3 (4.50-5.90) Hemoglobin 9.3 GM/DL (13.0-17.0) Hematocrit 28.9 % (39.0-51.0) Mean Corpuscular Volume 88.8 FL (80.0-100.0) Mean Corpuscular Hemoglobin 28.5 PG (27.0-34.0) Mean Corpuscular Hemoglobin 32.1 % Concent (32.0-36.0) Red Cell Distribution Width 17.3 % (11.6-17.2) Platelet Count 327 TH/MM3 (150-450) Mean Platelet Volume 10.9 FL (7.0-11.0) Neutrophils (%) (Auto) 82.6 % (16.0-70.0) Lymphocytes (%) (Auto) 3.7 % (9.0-44.0) Monocytes (%) (Auto) 12.0 % (0.0-8.0) Eosinophils (%) (Auto) 0.9 % (0.0-4.0) Basophils (%) (Auto) 0.8 % (0.0-2.0) Neutrophils # (Auto) 20.8 TH/MM3 (1.8-7.7) Lymphocytes # (Auto) 0.9 TH/MM3 (1.0-4.8) Monocytes # (Auto) 3.0 TH/MM3 (0-0.9) Eosinophils # (Auto) 0.2 TH/MM3 (0-0.4) Basophils # (Auto) 0.2 TH/MM3 (0-0.2) CBC Comment AUTO DIFF Differential Total Cells 100 Counted Neutrophils % (Manual) 83 % (16-70) Band Neutrophils % 6 % (0-6) Lymphocytes % 4 % (9-44) Monocytes % 5 % (0-8) Eosinophils % 2 % (0-4) Neutrophils # (Manual) 22.4 TH/MM3 (1.8-7.7) Nucleated Red Blood Cells 1 /100 WBC (0-0) Differential Comment FINAL DIFF MANUAL Platelet Estimate NORMAL (NORMAL) Platelet Morphology Comment NORMAL (NORMAL) Sodium Level 137 MEQ/L (136-145) Potassium Level 3.2 MEQ/L (3.5-5.1) Chloride Level 98 MEQ/L (98-107) Carbon Dioxide Level 23.5 MEQ/L (21.0-32.0) Anion Gap 16 MEQ/L (5-15) Blood Urea Nitrogen 88 MG/DL (7-18) Creatinine 9.58 MG/DL (0.60-1.30) Estimat Glomerular Filtration 6 ML/MIN (>89) Rate Random Glucose 215 MG/DL (74-106) Lactic Acid Level 2.1 mmol/L (0.4-2.0) Calcium Level 8.0 MG/DL (8.5-10.1) Phosphorus Level 5.8 MG/DL (2.5-4.9) Magnesium Level 2.3 MG/DL (1.5-2.5) Total Bilirubin 0.5 MG/DL (0.2-1.0) Aspartate Amino Transf 71 U/L (15-37) (AST/SGOT) Alanine Aminotransferase 49 U/L (12-78) (ALT/SGPT) Alkaline Phosphatase 164 U/L (45-117) Ammonia 16 MCMOL/L (11-32) Total Protein 6.6 GM/DL (6.4-8.2) Albumin 1.4 GM/DL (3.4-5.0) Result Diagram: 07/20/16 0450 07/20/16 0450 Jw Becerra MD Jul 20, 2016 11:30
[2016-07-20] MEDS: ISOSORBIDE DINITRATE 10 MG TAB PO SCH (13:40)
[2016-07-20] MEDS: hydrALAZINE HCL 50 MG TAB PO SCH (13:41)
--- NOTE | 2016-07-20 14:04 | HHI.NPPN ---
Subjective General Problems: Hypertension Renal Failure: Chronic, End Stage Renal Disease History of Present Illness This is a 56 y/o male patient direct admitted under the care of Dr. Kenyon with vascular services. PMH of ESRD on PD, HTN, DM II, and PAD. He was admitted for left BKA and I&D/revision of right BKA. We were consulted for dialysis management. He went to OR early this morning. Apparently he became bradycardic during the operation, was given atropine and epinephrine. He is seen in the PACU this afternoon. He is still intubated, unresponsive, hypertensive. He underwent PD last night without complications. We were consulted for PD management. Interval History s/p PD last evening. Seen during first HD today. Plans for 3 consecutive days of HD to see if this helps with encephalopathy Does open eyes slightly during exam, but makes no meaningful movements. Apparent plan for trach tomorrow. (Toma Gonzalez) Review of Systems General General Remarks unable to obtain due to unresponsiveness (Toma Gonzalez) Objective Data Data 07/19/16 07/20/16 19:00 07:00 Intake Total 759 ml 1323 ml Output Total 571 ml 155 ml Balance 188 ml 1168 ml IV Total 130 ml 485 ml Tube Feeding 409 ml 778 ml Other 220 ml 60 ml Output Urine Total 30 ml 5 ml Stool Total 100 ml 150 ml Peritoneal Fluid 441 ml Vital Signs Date Time Temp Pulse Resp B/P Pulse Ox O2 Delivery O2 Flow Rate FiO2 07/20/16 12:01 100 40 07/20/16 12:00 97.4 66 14 156/71 100 07/20/16 12:00 66 07/20/16 12:00 40 07/20/16 10:00 88 07/20/16 08:00 99.3 92 30 171/77 100 07/20/16 08:00 93 07/20/16 08:00 40 07/20/16 07:43 40 07/20/16 07:40 100 40 07/20/16 06:00 87 07/20/16 04:46 100 40 07/20/16 04:00 98.1 85 16 163/71 100 07/20/16 04:00 85 07/20/16 04:00 40 07/20/16 02:00 86 07/20/16 02:00 98.1 86 16 167/71 100 07/20/16 01:08 100 40 07/20/16 00:00 40 07/20/16 00:00 78 07/19/16 22:00 73 07/19/16 22:00 100 40 07/19/16 20:00 40 07/19/16 20:00 98.4 80 16 155/69 100 07/19/16 20:00 80 07/19/16 19:10 100 40 07/19/16 18:00 83 07/19/16 16:00 82 07/19/16 16:00 40 07/19/16 16:00 100.0 82 18 154/65 100 Arterial Line 07/19/16 15:19 100 40 (Toma Gonzalez) -: 07/20/16 0450 07/20/16 0450 Tubes & Lines: Vas-Cath, Tenckhoff Catheter Medication Review Current Medications Medications (Trade) Dose Ordered Sig/Lorie Route Start Time Stop Time Status Last Admin (NS Flush) 10 ml UNSCH PRN IVF 07/12/16 17:00 (NS Flush) 2 ml UNSCH PRN IVF 07/13/16 13:15 (NS Flush) 2 ml BID IVF 07/13/16 21:00 07/20/16 09:29 (Zofran Inj) 4 mg Q6H PRN IV 07/13/16 13:15 (Protonix Inj) 40 mg Q24H IV 07/13/16 15:00 07/19/16 15:36 (Narcan Inj) 0.4 mg UNSCH PRN IV 07/13/16 13:15 (Heparin Inj) 5,000 units Q12H SQ 07/14/16 12:30 07/20/16 11:48 Hydralazine HCl 10 mg 10 mg Q4H PRN IV PUSH 07/13/16 22:30 07/19/16 07:21 (Zosyn 2.25 Gm Premix) 50 ml @ 100 mls/hr Q6H IV 07/14/16 18:00 07/20/16 11:49 (D50w (Vial) Inj) 25 ml UNSCH PRN IV PUSH 07/15/16 07:30 07/20/16 09:28 (Glucagon Inj) 1 mg UNSCH PRN OTHER 07/15/16 07:30 Lanthanum Carbonate 1000 mg 1,000 mg TID OG 07/16/16 13:00 07/20/16 12:17 (Cleviprex Inj) 50 ml @ 0 mls/hr TITRATE IV 07/18/16 13:00 07/20/16 11:28 (Colace Liq) 100 mg Q12HR PO 07/18/16 21:00 07/19/16 20:23 (Senna Liq) 8.8 mg DAILY PO 07/19/16 09:00 (NovoLIN R SUPPLEMENTAL SCALE) 1 Q4HR SQ 07/18/16 16:00 07/20/16 04:00 Insulin Detemir 16 units 16 units Q12HR SQ 07/19/16 21:00 07/19/16 21:00 (NS 1000 ml Inj) 1,000 ml @ 0 mls/hr Q0M PRN IV 07/19/16 12:19 07/20/16 09:38 Heparin Sodium (Porcine) 8000 units 8,000 units UNSCH PRN IVF 07/19/16 12:30 Sodium Chloride 1,000 ml @ 200 mls/hr Q5H PRN IV 07/19/16 12:19 (NS 1000 ml Inj) 1,000 ml @ 0 mls/hr Q0M PRN IV 07/19/16 12:19 07/20/16 09:38 (Mannitol Inj) 12.5 gm UNSCH PRN IV 07/19/16 12:30 (Albumin 25% Inj) 25 gm UNSCH PRN IV 07/19/16 12:30 (NS Flush) 5 ml UNSCH PRN IVF 07/19/16 12:30 07/20/16 09:38 (Heparin Inj) UNSCH PRN .XX 07/19/16 12:30 07/20/16 09:38 (Gentamicin (Dialysis) Inj) 20 mg UNSCH PRN IV 07/19/16 12:30 07/20/16 09:38 (Zofran Inj) 4 mg UNSCH PRN IV 07/19/16 12:30 (Tylenol) 650 mg UNSCH PRN PO 07/19/16 12:30 (Benadryl) 25 mg UNSCH PRN PO 07/19/16 12:30 (Nitrostat Sl) 0.4 mg UNSCH PRN SL 12/27/16 12:30 (Catapres) 0.1 mg UNSCH PRN PO 07/19/16 12:30 (Gelfoam 12 Mm/7 Mm Top) 1 foam UNSCH PRN TOP 07/19/16 12:30 (NS Flush) UNSCH PRN IVF 07/19/16 13:45 (Heparin Inj) UNSCH PRN IVF 07/19/16 13:45 (Norvasc) 10 mg DAILY TUBE 07/21/16 09:00 (Coreg) 25 mg Q12HR PO 07/20/16 21:00 (Apresoline) 50 mg Q8HR PO 07/20/16 14:00 07/20/16 13:41 (Isordil) 10 mg Q8HR PO 07/20/16 14:00 07/20/16 13:40 (Toma Gonzalez) Physical Exam General Appearance: No Acute Distress, Malnourished (Toma Gonzalez) Pulmonary Resp Exam: Clear Bilaterally, Breath Sounds Equal (Toma Gonzalez PA) Cardiology CV Exam: Regular (Toma Gonzalez) Gastrointestinal/Abdomen GI Exam: Soft, Non-Tender, Bowel Sounds Present (Toma Gonzalez PA) Musculoskeletal MS Exam: Joints Intact (Toma Gonzalez PA) Integumentary Skin Exam: Clear, Cool (Toma Gonzalez) Extremeties Extremities Exam: Trace Edema Extremeties Remarks Edema upper extremities (Toma Gonzalez PA) Neurologic Neuro Exam: Unresponsive, Sedated (Toma Gonzalez) Assessment/Plan Assessment Summary: Anemia of CKD, Hypotension, End Stage Renal Disease Electrolyte Assessment: Metabolic Acidosis Problem List: (1) ESRD (end stage renal disease) on dialysis Plan: ESRD due to diabetic nephropathy Started HD for 3 consecutive days Remains to be seen if HD will help with encephalopathy. Given the patient's hypotensive episode and bradycardia, he may have sustained neurologic injury. Minimal UF as discussed with RN. (2) Gangrene of toe Plan: vascular (Dr. Kenyon) following had left BKA and revision of right BKA (07/13) (3) Anemia of renal disease Plan: Continue on Epogen (4) Diabetes Plan: A1c 6.2, insulin drip has been stopped. Blood sugar is high today, recommend insulin coverage to maintain blood glucose of 140-180. Hyperglycemia may impair fluid removal with PD. (5) HTN (hypertension) Plan: Continue on current regimen (6) Metabolic bone disease Plan: Continue on Fosrenol (7) Encephalopathy Plan: Neurology following. Anoxic encephalopathy is a possibility. Metabolic encephalopathy is in the differential. Also appears to be septic. (8) Septic shock Plan: ID following. Pending PD fluid cell count and cx (Toma Gonzalez) Plan The exam, history, and the medical decision-making described in the above note were completed with the assistance of the PA-Minnie. I reviewed and agree with the findings presented. I attest that I had a [id number] encounter with the patient on the same day, and personally performed and documented my assessment and findings in the medical record. (Chiara Niño MD) Problem Qualifiers (1) Diabetes: Toma Gonzalez Jul 20, 2016 14:04 Chiara Niño MD Jul 23, 2016 12:54
[2016-07-20] MEDS: PANTOPRAZOLE SODIUM 40 MG VIAL IV SCH (15:25)
[2016-07-20] MEDS: ACETAMINOPHEN 325 MG TAB PO PRN (22:24)
[2016-07-21] VITALS (19 sets, daily range): BP systolic 143–190; BP diastolic 64–78; PULSE 75–90; RESP 16–18; TEMP 99–102.9; O2SAT 98–100
[2016-07-21] MEDS: HEPARIN SODIUM - SQ 10,000 UNITS/ML VIAL SQ SCH ×2 (00:30→12:30)
[2016-07-21] MEDS: hydrALAZINE HCL 50 MG TAB PO SCH ×2 (00:51→05:35)
[2016-07-21] MEDS: ISOSORBIDE DINITRATE 10 MG TAB PO SCH ×2 (00:51→05:35)
[2016-07-21] MEDS: CLEVIDIPINE INJ 50 ML IV SCH ×4 (00:51→21:08)
[2016-07-21 03:49] LABS: HEMATOCRIT 28.5 % (39.0-51.0); MEAN CELL VOLUME 88.3 FL (80.0-100.0); MEAN CORPUSCULAR HEMOGLOBIN 28.9 PG (27.0-34.0); MEAN CORPUSCULAR HGB CONC 32.8 % (32.0-36.0); PLATELET COUNT 341 TH/MM3 (150-450); RED BLOOD COUNT 3.23 MIL/MM3 (4.50-5.90); RED CELL DISTRIBUTION WIDTH 17.2 % (11.6-17.2); WHITE BLOOD COUNT 28.4 TH/MM3 (4.0-11.0)
[2016-07-21 03:53] LABS: HEMO FLAGS AUTO DIFF
[2016-07-21] MEDS: INSULIN NovoLIN REGULAR SUPPLEMENTAL SCALE SQ SCH ×5 (04:00→20:00)
[2016-07-21 04:24] LABS: POTASSIUM 3.8 MEQ/L (3.5-5.1)
[2016-07-21 04:31] LABS: BANDS 3 % (0-6); CORRECTED NUCLEATED RBC 1 /100 WBC (0-0); EOSINOPHILS 1 % (0-4); METAMYELOCYTES 1 % (0-1); NEUTROPHIL # MANUAL DIFF 26.1 TH/MM3 (1.8-7.7); POLYS (SEG NEUTROPHILS) 88 % (16-70); WBC DIFF SAMPLE 100
[2016-07-21 04:32] LABS: PLATELET ESTIMATE SMEAR NORMAL (NORMAL); PLATELET MORPHOLOGY ENLARGED (NORMAL); SCAN/DIFF FINAL DIFF MANUAL
[2016-07-21 04:33] LABS: TOXIC GRANULATION 1+ (NORMAL); TOXIC VACUOLATION PRESENT (NONE SEEN)
[2016-07-21] MEDS: PIPERACIL-TAZO 2.25 GM PREMIX 50 ML IV SCH ×4 (05:35→17:48)
[2016-07-21] MEDS: ACETAMINOPHEN 325 MG TAB PO PRN (05:40)
[2016-07-21] MEDS: HEPARIN SODIUM - IV 10,000 UNITS/10 ML VIAL PRN (08:01)
[2016-07-21] MEDS: SODIUM CHLOR 0.9% 1000 ML INJ 1,000 ML IV PRN (08:01)
[2016-07-21] MEDS: GENTAMICIN SULFATE (DIALYSIS USE ONLY) 20 MG/2 ML VIAL IV PRN (08:02)
[2016-07-21] MEDS: SODIUM CHLORIDE 0.9% FLUSH 5 ML FLUSH IVF SCH ×2 (09:00→21:00)
[2016-07-21] MEDS: SENNOSIDES SYRUP 8.8 MG/5 ML CUP PO SCH (09:00)
[2016-07-21] MEDS: LANTHANUM CARBONATE 500 MG CHEWABLE TABLET OG SCH ×3 (09:00→17:48)
[2016-07-21] MEDS: INSULIN DETEMIR 100 UNITS/ML VIAL SQ SCH ×2 (09:00→21:00)
[2016-07-21] MEDS: DOCUSATE SODIUM 100 MG/10 ML UDC PO SCH ×2 (09:00→21:00)
[2016-07-21] MEDS ORDERED: MIDAZOLAM HCL 5 MG/5 ML VIAL IV PUSH ONE (10:00)
[2016-07-21] MEDS ORDERED: ROCURONIUM INJ 100 MG/10 ML VIAL IV ONE (10:00)
--- NOTE | 2016-07-21 10:08 | HHI.CCPN ---
Subjective Remarks/Hospital Course 56 year old male with ESRD on PD, HTN, DM II, and PAD. He was admitted for left BKA and I&D/revision of right BKA. During a procedure in the OR, he became bradycardic during the operation, was given atropine and epinephrine. He is transferred to ICU intubated, unresponsive, hypertensive. 07/18: Currently resting in bed on PSV trial. Unresponsive on the ventilator. Tmax 101.1. Currently 100.1. Tolerating tube feeding at 40 cc an hour with Nepro. No bowel movement. 07/19: Tmax 100.1. Currently 99.7. Unresponsive on the ventilator. Tolerating tube feedings with Nepro. 2 bowel movements. 07/20: Tmax 100. Currently 99.3. Unresponsive on the ventilator. Currently on hemodialysis. Positive BM. Subjective 07/21: Tmax 102.9. Currently 99. Moves head and opens eyes to stimulation. Plan for tracheostomy today. Positive BM. Tube feeds on hold. Objective Vital Signs Date Time Temp Pulse Resp B/P Pulse Ox O2 Delivery O2 Flow Rate FiO2 07/21/16 08:21 100 40 07/21/16 08:00 80 07/21/16 08:00 99.0 16 170/71 Intake and Output 07/20/16 07/20/16 07/21/16 08:00 16:00 00:00 Intake Total 715 ml 705 ml 666 ml Output Total 1017 ml 1320 ml 110 ml Balance -302 ml -615 ml 556 ml Result Diagram: 07/21/16 0340 07/21/16 0340 Other Results Microbiology Date/Time Procedure Status Source Growth 07/19/16 11:09 Aerobic Blood Culture - Preliminary Resulted Blood Peripheral NO GROWTH IN 1 DAY 07/19/16 11:09 Anaerobic Blood Culture - Preliminary Resulted Blood Peripheral NO GROWTH IN 1 DAY 07/19/16 11:01 Gram Stain - Final Complete Sputum Expectorated Sputum 07/19/16 11:01 Sputum Culture - Final Complete Sputum Expectorated Sputum HEAVY GROWTH NORMAL RESPIRATORY PAVEL Imaging Last Impressions Chest X-Ray 07/19/16 1337 Signed Impressions: Service Date/Time: Tuesday, July 19, 2016 13:51 - CONCLUSION: 1. Lines and tubes as detailed above without pneumothorax. 2. Unchanged small effusions and bibasilar infiltrates. Nasir Adan Jr., MD Head CT 07/17/16 0000 Signed Impressions: Service Date/Time: Sunday, July 17, 2016 16:20 - CONCLUSION: Unremarkable study. Cary Sanchez MD Liver Ultrasound 07/15/16 0000 Signed Impressions: Service Date/Time: Friday, July 15, 2016 15:09 - CONCLUSION: 1. Thick-walled gallbladder containing stones in the neck. If there is clinical concern for acute cholecystitis a hepatobiliary scan may be helpful to confirm cystic duct obstruction. 2. Hepatomegaly. 3. Tiny right pleural effusion. 4. Echogenic right kidney with minimal perinephric fluid suggesting possible medical renal disease. Clinical correlation is recommended. Dontae Segura MD Brain MRI 07/14/16 0000 Signed Impressions: Service Date/Time: June 10:57 - CONCLUSION: 1. No acute infarct, acute hemorrhage, mass effect or extra-axial fluid collections. 2. Mucus retention cyst within the left maxillary sinus. Dontae Segura MD Abdomen/Pelvis CT 07/14/16 0000 Signed Impressions: Service Date/Time: June 19:02 - CONCLUSION: Bilateral pleural effusions and bibasilar compressive collapse and or consolidation with increase in the ascitic fluid since the prior study. Cary Sanchez MD Objective Remarks GENERAL: 86-year-old male, critically ill currently resting in bed orotracheally intubated SKIN: Warm and dry. Noted bilateral below the medications with some mottling left lower extremity HEAD: Normocephalic. EYES: No scleral icterus. No injection or drainage. NECK: Supple, trachea midline. No JVD or lymphadenopathy. CARDIOVASCULAR: Tachycardic, RR. S1, S2. No S4 without murmur RESPIRATORY: Breath sounds equal bilaterally without wheezes rales or rhonchi. No accessory muscle use. GASTROINTESTINAL: Abdomen soft, non-tender, nondistended. MUSCULOSKELETAL: No new skin peripheral edema. BACK: Nontender without obvious deformity. No CVA tenderness. EXTREMITIES: BL BKA Date of Insertion: Jul 13, 2016 Line: Central Venous Catheter Side: Left Location: Subclavian A/P Assessment and Plan Neuro/Psych: Encephalopathy - anoxic versus toxic metabolic - MRI brain without evidence of acute damage - neurology evaluation appreciated - EEG 07/14 and 07/17 revealed severe encephalopathy w/o seizure activity - Off all sedation. Limit any kind of sedation - monitor neurochecks per ICU routine - Neurology following - Previously on Lyrica for peripheral neuropathy CV: Hypertension History dyslipidemia Peripheral vascular disease Status post left [id number] amputation with right [id number] amputation revision 07/[address] Becerra Currently on Cleviprex drip. Currently at 9 Currently on Norvasc 10 mg by mouth daily. Will increase Coreg to 25 twice a day . Methyldopa 250 mg daily will be restarted today 2-D echocardiogram revealed EF 25-30%. LV dilated. Goal hypokinesis especially inferior. Mild air. Moderate MR. GUZMAN 63 mm Hg Previously on Methyldopa 250 daily and Prinivil 20 mg by mouth daily for blood pressure management Resp: Likely vent dependent respiratory failure - Currently on PSV trial 2/ and 35%. On ACV overnight and will be on for tracheostomy - no weaning until neurologically improved - vent bundle - elevated head - CXR unchanged GI: Transaminitis likely shock liver improving Currently Nepro with a stated goal 50 cc an hour. This is been held for tracheostomy today Protonix for GI prophylaxis Colace/as needed Senokot for bowel regimen : [place] if indicated Endo: Diabetes mellitus Hyperglycemia Hypothyroidism Currently on Levemir 16 units subcutaneous twice a day with sliding scale insulin/low lying Accu-Cheks every 4 hours to maintain euglycemia. Currently not on any medications for hypothyroidism Renal: End-stage kidney disease - peritoneal dialysis Peritoneal dialysis per nephrology. Heme: History of colon cancer in remission status post radiation therapy Leukocytosis Normocytic anemia/anemia of chronic kidney disease Monitor CBC ID: Currently on Zosyn per infectious disease. Previously micafungin and vancomycin Pertinent cultures 07/15 - blood cultures 2 - no growth 07/15 - urine culture - negative 07/15 - sputum culture - no growth 07/18 - . Peritoneal fluid - pending 07/19: Blood cultures 2/sputum cultures -no growth MSK: PT OT evaluate and treat FEN: Hyperphosphatemia Currently on Fosrenol 1 g every 8 hours Access - Left subclavian CVL - Right Port-A-Cath - Right IJ CVL day #3 Prophylaxis - GI - Protonix - DVT - heparin subcutaneous Critical Care: The total critical care time was 35 minutes. Time to perform other separately billable procedures was not included in the critical care time. Jarek Jenkins MD Jul 21, 2016 10:08
[2016-07-21] MEDS ORDERED: METHYLDOPA 250 MG TAB PO ONE (12:00)
--- NOTE | 2016-07-21 13:29 | PD.CAR.PN ---
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 During the surgery, Patient the had a episode of hypotension and bradycardia is corrected by anesthesia. Patient was then brought to the ICU on the ventilator and despite discontinuation of sedation did not wake up. Deedee Coma Scale remained 4 and patient had some spontaneous extremity movements Patient was taken to CT of the brain which was negative. During the CT scan patient started ripping and tearing on his endotracheal tube and lines so had to be sedated down there by the nursing and radiology staff Patient came up and was sedated and again did not wake up. Remains on the ventilator Because of decreased level of consciousness which cannot be explained by simple means patient underwent an MRI of the brain today which did not show any abnormalities either Today patient again had a period of sustained bradycardia with a heart rate in 40s and systolic blood pressure dropped into the 80s. Patient was given atropine and started on dopamine drip There are now 2 issues to consider 1. Patient's neurologic status is now not explained by simple means of either stroke intracranial bleed or such. This appears to be metabolic encephalopathy based on the hepatic and renal underlying pathology. Patient did not have hypoxia in the operating room or there after that would account for any period of anoxia or hypoxia. EEG was performed in order to rule out seizures and none were confirmed. Nonetheless patient is on prophylactic Keppra at this point This will be an issue for time will show which way the patient is going 2. Patient has periods of sustained sinus bradycardia on top of his bundle branch block which makes me think that patient probably has sick sinus syndrome Atropine corrected immediately and patient is now on small dose dopamine at 3 mics per kilo per minute sustaining hemodynamic parameters Critical care help is greatly appreciated Cardiology is consulted and we will follow their lead on this issue 07/15/16 Status post BKA and revision of stump Patient at this point has metabolic encephalopathy and neurology nephrology cardiology and ICU care is greatly appreciated Neurologically patient is improved and at this point opens eyes spontaneously moves both upper and lower extremities making [place] Coma Scale about 6 or 7 Hemodynamic Patient has been stable since yesterday through the night, but earlier yesterday patient dropped blood pressure and became bradycardic as above noted. Cardiology was consulted Patient may have sick sinus syndrome with intermittent manifestations and when he wakes up and improves he may need a pacemaker Interim, patient is hypertensive on chronic basis and currently managed for the same Abdomen soft and I do not believe patient has bacterial peritonitis however it is known to happen in patients with peritoneal dialysis and sometimes presenting in an insidious way CT of abdomen and pelvis does not reveal any collections only some retained fluid Stumps are clean and dry dressing is intact Plan Will have to wait until patient wakes up and manage him supportively I've discussed this with family length 07/16/16 Patient is neurologically unchanged he opens his eyes flexes on the left side more than the right which might be slight improvement actually At this point working diagnosis is toxic encephalopathy, but hypoxic damage of course possible On the ventilator patient is doing well we'll try him on CPAP trial but regardless of it level of consciousness does not allow for extubation for patient could not keep his upper airway open Barring any improvements patient will require tracheostomy We'll go ahead with tracheostomy Monday if patient doesn't improve neurologically Dressing has been removed from right and left BKA stump and both are well- perfused healing nicely incisions are clean and dry 07/17/16 No change in neurologic status Discussed with below the when we will repeat the CT scan of the head today to see there is any swelling to account for patient's neurologic deficits Moves all 4 extremities but without purpose opens eyes on stimulation BKA stump was very nice and well perfused yesterday however today there is a livid discoloration of the lower portion of the stump Patient has such precarious flow to this area that he may not maintain the stump and may end up with the above-knee amputation but this is also predicated on his neurologic function in the future We will discuss with family the final goals of this therapy and patient's wishes. Will likely involve palliative care as well 07/18/16 Patient has no change in neurologic status at this time Opens eyes spontaneously moves his legs Stump looks fairly ischemic yesterday but today looks better and I'm not sure if vasospasm or some other factors are responsible for this but the livid appearance of the flap yesterday has improved since and now appears to be warmer and well perfused Considering that patient is not waking up its my opinion the patient will need tracheostomy for further care and I'll discuss this with his family We will proceed with tracheostomy probably Monday if patient doesn't get better Repeat CT scan of the brain did not reveal any abnormalities and it somewhat elusive and puzzling why patient is not waking up and what type of metabolic encephalopathy is responsible for this Clearly ischemia as an option at a possibility but no changes on CAT scan are evident in the white matter dhillon matter or the interface 07/19/16 No change in current neurologic status Patient is opening eyes spontaneously Will place a Vas-Cath for dialysis and started on hemodialysis as opposed to peritoneal dialysis as per nephrology We'll go ahead with tracheostomy tomorrow Intensive care management is greatly appreciated The left BKA stump looks better today and the flat looks better perfused This patient is prone to suddenly developed vasospasm turning his hands livid/ purple and turning the stumps purple and then after several hours this will resolve. This has happened numerous times now and is just question of time before the vasospasm and livid changes last long enough to permanently devitalized the stump flap but for the time being it is viable 07/20/16 Patient slightly more awake today opens eyes spontaneously and non-voice commands seems to be tracking with his eyes a bit is clearly improvement from the other day Remains on ventilator Now on hemodialysis instead of peritoneal dialysis White count remains high although patient doesn't have any source of sepsis or any other symptoms such Peritoneal dialysate is clear Will go ahead with tracheostomy tomorrow Help from a medical intensivists is greatly appreciated in management of this complex gentleman 07/21/16 Neurologically very little change patient is opening eyes spontaneously and staring however doesn't focus or follow Moves all 4 extremities Patient is unable to keep up her airway considering low Deedee Coma Scale and therefore tracheostomy will be today followed by PEG when scheduled by GI Stump is clean and dry and actually looks better perfused than last few days Patient still has leukocytosis with a left shift but the sources remains elusive Peritoneal fluid is clear and so is the lab evaluation of the same For tracheostomy today Objective: Vital Signs Date Time Temp Pulse Resp B/P Pulse Ox O2 Delivery O2 Flow Rate FiO2 07/21/16 12:16 100 40 07/21/16 12:00 80 07/21/16 12:00 100 07/21/16 12:00 99.4 86 16 190/78 100 07/21/16 10:00 77 07/21/16 08:21 100 40 07/21/16 08:00 80 07/21/16 08:00 99.0 75 16 170/71 100 07/21/16 08:00 40 07/21/16 06:00 77 07/21/16 04:00 80 07/21/16 04:00 100.2 80 16 170/74 100 07/21/16 04:00 40 07/21/16 02:56 99 40 07/21/16 02:00 78 07/21/16 00:00 102.9 83 16 145/65 100 07/21/16 00:00 78 07/21/16 00:00 40 07/20/16 23:48 99 40 07/20/16 22:00 81 07/20/16 20:05 100 40 07/20/16 20:00 100.4 89 12 153/67 100 07/20/16 20:00 89 07/20/16 20:00 40 07/20/16 18:00 80 07/20/16 16:00 76 07/20/16 16:00 40 07/20/16 16:00 98.6 76 14 153/69 100 07/20/16 15:33 100 40 07/20/16 14:00 71 Labs: Laboratory Tests Test 07/21/16 03:40 White Blood Count 28.4 TH/MM3 (4.0-11.0) Red Blood Count 3.23 MIL/MM3 (4.50-5.90) Hemoglobin 9.3 GM/DL (13.0-17.0) Hematocrit 28.5 % (39.0-51.0) Mean Corpuscular Volume 88.3 FL (80.0-100.0) Mean Corpuscular Hemoglobin 28.9 PG (27.0-34.0) Mean Corpuscular Hemoglobin 32.8 % Concent (32.0-36.0) Red Cell Distribution Width 17.2 % (11.6-17.2) Platelet Count 341 TH/MM3 (150-450) Mean Platelet Volume 10.9 FL (7.0-11.0) Neutrophils (%) (Auto) % (16.0-70.0) Lymphocytes (%) (Auto) % (9.0-44.0) Monocytes (%) (Auto) % (0.0-8.0) Eosinophils (%) (Auto) % (0.0-4.0) Basophils (%) (Auto) % (0.0-2.0) Neutrophils # (Auto) TH/MM3 (1.8-7.7) Lymphocytes # (Auto) TH/MM3 (1.0-4.8) Monocytes # (Auto) TH/MM3 (0-0.9) Eosinophils # (Auto) TH/MM3 (0-0.4) Basophils # (Auto) TH/MM3 (0-0.2) CBC Comment AUTO DIFF Differential Total Cells 100 Counted Neutrophils % (Manual) 88 % (16-70) Band Neutrophils % 3 % (0-6) Lymphocytes % 5 % (9-44) Monocytes % 2 % (0-8) Eosinophils % 1 % (0-4) Neutrophils # (Manual) 26.1 TH/MM3 (1.8-7.7) Metamyelocytes 1 % (0-1) Nucleated Red Blood Cells 1 /100 WBC (0-0) Differential Comment FINAL DIFF MANUAL Toxic Granulation 1+ (NORMAL) Toxic Vacuolation PRESENT (NONE SEEN) Platelet Estimate NORMAL (NORMAL) Platelet Morphology Comment ENLARGED (NORMAL) Sodium Level 136 MEQ/L (136-145) Potassium Level 3.8 MEQ/L (3.5-5.1) Chloride Level 95 MEQ/L (98-107) Carbon Dioxide Level 27.0 MEQ/L (21.0-32.0) Anion Gap 14 MEQ/L (5-15) Blood Urea Nitrogen 70 MG/DL (7-18) Creatinine 7.41 MG/DL (0.60-1.30) Estimat Glomerular Filtration 8 ML/MIN (>89) Rate Random Glucose 157 MG/DL (74-106) Calcium Level 7.7 MG/DL (8.5-10.1) Phosphorus Level 5.3 MG/DL (2.5-4.9) Magnesium Level 2.0 MG/DL (1.5-2.5) Albumin 1.3 GM/DL (3.4-5.0) Result Diagram: 07/21/16 0340 07/21/16 0340 Jw Becerra MD Jul 21, 2016 13:29
[2016-07-21] MEDS: hydrALAZINE HCL 25 MG TAB PO SCH ×2 (14:00→21:09)
--- NOTE | 2016-07-21 14:22 | PD.PROCEDR ---
Procedure Note Procedure Procedure DATE: 07/21/2016 Diagnostic and therapeutic bronchoscopy INDICATION: Status post percutaneous tracheostomy placement CONSENT Informed consent for procedure was obtained from family. DESCRIPTION OF THE PROCEDURE The patient was placed at 0. Sedation was with 7.5 mg Versed, 50 fentanyl and 50 mg rocuronium. The patient was placed on 100% FIO2 and a volume control mode of ventilation. Dr. Becerra dissected the neck tissues without bleeding trachea. Bronchoscope was inserted through 7.5 ET tube and withdrawn to 18 cm. Insertion needle/catheter was seen directly inserting into the trachea without reaching the back wall. Guidewire was placed down to the lungs. Site was dilated 2 and a #8.0 Shiley percutaneous tracheostomy was placed without Complication. Site Was Sutured into Place and Trach Collar Was Placed. After the Procedure, The fiberoptic bronchoscopy was inserted via 8.0 cuffed Shiley tracheostomy. The trachea, right and left mainstem bronchi, and sub-segmental bronchi were evaluated. The endobronchial anatomy was normal. The gui was sharp. The new Coso was normal. Findings: The left mainstem, lingular and left lower lobe were normal. Within the right lower lobes there was thick cloudy mucus which possibly 30 cc of sterile saline was used to suctioned. Set up for samples. Were suctioned without complication. No suctioned trauma was noted upon reinspection . BAL samples: Right lower lobe BALs were sent. The patient tolerated the procedure well with no hemodynamic instability or hypoxia. There were no immediate complications noted. At the conclusion of the procedure, the patient was placed back on their pre-procedure ventilatory settings. There was minimal EBL. ESTIMATED BLOOD LOSS: Minimal COMPLICATIONS: No apparent complications. Chest x-ray pending at time of dictation Jarek Jenkins MD Jul 21, 2016 14:22
--- NOTE | 2016-07-21 14:47 | RADRPT ---
EXAM DATE/TIME: 07/21/2016 14:30 [facility] COMPARISON: CHEST SINGLE AP, July 19, 2016, 13:51. INDICATIONS : Post tracheostomy MEDICAL HISTORY : Hypertension. Diabetes mellitus type II. SURGICAL HISTORY : Infuse a port. Amputation right lower leg. ENCOUNTER: Subsequent ACUITY: 1 week PAIN SCORE: Non-responsive. LOCATION: Bilateral chest FINDINGS: The tracheostomy tube appears to be in good position. There is no evidence of pneumothorax. There is an NG tube in the stomach. Bilateral central lines remain in place. The lung owens are grossly clear . The heart size is stable. CONCLUSION: The tracheostomy tube appears to be in good position. No evidence of pneumothorax. Reese Roy MD on July 21, 2016 at 14:45 Board Certified Radiologist. This report was verified electronically.
[2016-07-21] MEDS: CARVEDILOL 12.5 MG TAB PO SCH ×2 (15:41→21:09)
[2016-07-21] MEDS: ISOSORBIDE DINITRATE 20 MG TAB PO SCH ×2 (15:41→21:09)
[2016-07-21] MEDS: PANTOPRAZOLE SODIUM 40 MG VIAL IV SCH (15:46)
--- NOTE | 2016-07-21 17:47 | HHI.NPPN ---
Subjective General Problems: Hypertension Renal Failure: Chronic, End Stage Renal Disease History of Present Illness This is a 56 y/o male patient direct admitted under the care of Dr. Kenyon with vascular services. PMH of ESRD on PD, HTN, DM II, and PAD. He was admitted for left BKA and I&D/revision of right BKA. We were consulted for dialysis management. He went to OR early this morning. Apparently he became bradycardic during the operation, was given atropine and epinephrine. He is seen in the PACU this afternoon. He is still intubated, unresponsive, hypertensive. He underwent PD last night without complications. We were consulted for PD management. Interval History Patient opens eyes to verbal and tactile stimuli however not responding to simple commands. Eyes do not follow. Review of Systems General General Remarks unable to obtain due to unresponsiveness Objective Data Data 07/20/16 07/21/16 18:59 06:59 Intake Total 705 ml 1029 ml Output Total 2237 ml 112 ml Balance -1532 ml 917 ml IV Total 347 ml 568 ml Tube Feeding 358 ml 461 ml Output Urine Total 20 ml 10 ml Stool Total 300 ml 102 ml Peritoneal Fluid 917 ml Hemodialysis 1000 ml Vital Signs Date Time Temp Pulse Resp B/P Pulse Ox O2 Delivery O2 Flow Rate FiO2 07/21/16 16:40 100 35 07/21/16 16:00 40 07/21/16 16:00 99.2 90 16 143/64 100 07/21/16 16:00 80 07/21/16 14:00 77 07/21/16 13:30 100 100 07/21/16 12:16 100 40 07/21/16 12:00 80 07/21/16 12:00 100 07/21/16 12:00 99.4 86 16 190/78 100 07/21/16 10:00 77 07/21/16 08:21 100 40 07/21/16 08:00 80 07/21/16 08:00 99.0 75 16 170/71 100 07/21/16 08:00 40 07/21/16 06:00 77 07/21/16 04:00 80 07/21/16 04:00 100.2 80 16 170/74 100 07/21/16 04:00 40 07/21/16 02:56 99 40 07/21/16 02:00 78 07/21/16 00:00 102.9 83 16 145/65 100 07/21/16 00:00 78 07/21/16 00:00 40 07/20/16 23:48 99 40 07/20/16 22:00 81 07/20/16 20:05 100 40 07/20/16 20:00 100.4 89 12 153/67 100 07/20/16 20:00 89 07/20/16 20:00 40 07/20/16 18:00 80 -: 07/21/16 0340 07/21/16 0340 Microbiology 07/21/16 Gram Stain, Received Pending 07/21/16 Bronchial Culture, Received Pending 07/21/16 Acid Fast Stain, Received Pending 07/21/16 Mycobacterial Culture, Received Pending 07/21/16 Fungal Smear, Received Pending 07/21/16 Fungal Culture, Received Pending Tubes & Lines: Vas-Cath, Tenckhoff Catheter Physical Exam General Appearance: No Acute Distress, Malnourished Pulmonary Resp Exam: Clear Bilaterally, Breath Sounds Equal Cardiology CV Exam: Regular Gastrointestinal/Abdomen GI Exam: Soft, Non-Tender, Bowel Sounds Present Musculoskeletal MS Exam: Joints Intact Integumentary Skin Exam: Clear, Cool Extremeties Extremities Exam: Trace Edema Neurologic Neuro Exam: Unresponsive, Sedated Assessment/Plan Assessment Summary: Anemia of CKD, Hypotension, End Stage Renal Disease Electrolyte Assessment: Metabolic Acidosis Problem List: (1) ESRD (end stage renal disease) on dialysis Plan: ESRD due to diabetic nephropathy Started HD for 3 consecutive days with further treatment tomorrow and then subsequently Monday schedule. Unfortunately no improvement in neurological status so far with more aggressive dialysis. Remains to be seen if HD will help with encephalopathy. Given the patient's hypotensive episode and bradycardia, he may have sustained neurologic injury. Minimal UF as discussed with RN. (2) Gangrene of toe Plan: vascular (Dr. Kenyon) following had left BKA and revision of right BKA (07/13) (3) Anemia of renal disease Plan: Continue on Epogen (4) Diabetes Plan: A1c 6.2, insulin drip has been stopped. Blood sugar is high today, recommend insulin coverage to maintain blood glucose of 140-180. Hyperglycemia may impair fluid removal with PD. (5) HTN (hypertension) Plan: Continue on current regimen (6) Metabolic bone disease Plan: Continue on Fosrenol (7) Encephalopathy Plan: Neurology following. Anoxic encephalopathy is a possibility. Metabolic encephalopathy is in the differential. Also appears to be septic. (8) Septic shock Plan: ID following. Peritoneal fluid cultures were negative. Problem Qualifiers (1) Diabetes: Chiara Niño MD Jul 21, 2016 17:47
[2016-07-21 19:08] LABS: BRONCHOALVEOLAR LAVAGE RBC 270 /MM3; BRONCHOALVEOLAR LAVAGE WBC 446 /MM3; BRONCHOAVEOLAR EOSINOPHILS 2 %; BRONCHOAVEOLAR HISTIOCYTES 3 %; BRONCHOAVEOLAR LYMPHOCYTES 34 %; BRONCHOAVEOLAR NEUTROPHILS 61 %; LAVAGE TOTAL WBC COUNT 6.7 MILLION (4.7-7.1)
--- NOTE | 2016-07-21 22:38 | MP ---
cc: ENRICO AGARWAL MD DATE OF SURGERY 07/21/2016 PREOPERATIVE DIAGNOSIS Respiratory failure, diabetes mellitus, coronary artery disease, decreased level of consciousness. POSTOPERATIVE DIAGNOSIS Respiratory failure, diabetes mellitus, coronary artery disease, decreased level of consciousness. PROCEDURE Blue rhino tracheostomy SURGEON Dr. Corrie Agarwal Bronchoscopy - Dr. Wiley Jenkins ANESTHESIA 1% Xylocaine local and MAC. ESTIMATED BLOOD LOSS Minimal. PROCEDURE IN DETAIL The patient prepped and draped usual fashion. Area filtrated with 1% Xylocaine. Vertical incision made over the anterior neck, deepened down with spreading the tissues to the tracheal rings with the hemostat. The needle is inserted between second and third ring under bronchoscopy visualization and then wire passed downward. The rest of the procedure is were performed under bronchoscopic visualization. Over the wire first a 4-Italian dilator was placed and then this was followed by the dilator guide and the blue rhino dilator dilating it to the eight Shiley trache. The small dilator and 8 Shiley trache are now passed over the wire and then guide system withdrawn. Tracheostomy connected to the ventilator, end-tidal CO2 checked. Tracheostomy sutured to skin with 2-0 Prolene. Chest x-ray Obtained and bronchoscopy completed by Dr. Jenkins. Enrico RAINES/ /2:49 PM /10:32 PM
[2016-07-22] VITALS (18 sets, daily range): BP systolic 148–170; BP diastolic 66–71; PULSE 68–87; RESP 17–22; TEMP 99.1–101.8; O2SAT 94–100
[2016-07-22] MEDS: PIPERACIL-TAZO 2.25 GM PREMIX 50 ML IV SCH ×4 (00:22→17:06)
[2016-07-22] MEDS: HEPARIN SODIUM - SQ 10,000 UNITS/ML VIAL SQ SCH ×2 (00:23→12:40)
[2016-07-22] MEDS: METHYLDOPA 250 MG TAB PO SCH ×3 (00:23→21:28)
[2016-07-22] MEDS: INSULIN NovoLIN REGULAR SUPPLEMENTAL SCALE SQ SCH ×4 (04:00→18:00)
[2016-07-22 04:46] LABS: AUTOMATED NEUTROPHIL # 18.7 TH/MM3 (1.8-7.7); BASOPHIL # 0.1 TH/MM3 (0-0.2); BASOPHIL % 0.5 % (0.0-2.0); EOSINOPHIL % 0.2 % (0.0-4.0); HEMATOCRIT 27.8 % (39.0-51.0); LYMPH % 4.9 % (9.0-44.0); LYMPHOCYTE # 1.1 TH/MM3 (1.0-4.8); MEAN CELL VOLUME 88.7 FL (80.0-100.0); MEAN CORPUSCULAR HEMOGLOBIN 28.4 PG (27.0-34.0); MONO % 11.2 % (0.0-8.0); NEUT % 83.2 % (16.0-70.0); PLATELET COUNT 345 TH/MM3 (150-450); RED BLOOD COUNT 3.13 MIL/MM3 (4.50-5.90); RED CELL DISTRIBUTION WIDTH 17.1 % (11.6-17.2); WHITE BLOOD COUNT 22.4 TH/MM3 (4.0-11.0)
[2016-07-22 05:20] LABS: HEMO FLAGS AUTO DIFF
[2016-07-22 05:24] LABS: BICARBONATE 26.9 MEQ/L (21.0-32.0); POTASSIUM 3.9 MEQ/L (3.5-5.1)
[2016-07-22] MEDS: ISOSORBIDE DINITRATE 20 MG TAB PO SCH ×3 (06:07→21:28)
[2016-07-22] MEDS: hydrALAZINE HCL 25 MG TAB PO SCH ×3 (06:07→21:28)
[2016-07-22 08:14] LABS: KERATOCYTES OCC (NORMAL); PLATELET ESTIMATE SMEAR NORMAL (NORMAL); PLATELET MORPHOLOGY NORMAL (NORMAL); SCAN/DIFF AUTO DIFF CONFIRMED
--- NOTE | 2016-07-22 08:47 | HHI.PR ---
Subjective Remarks no sedatives Objective Vital Signs Date Time Temp Pulse Resp B/P Pulse Ox O2 Delivery O2 Flow Rate FiO2 07/22/16 08:20 100 35 07/22/16 08:00 99.1 80 19 161/70 100 07/22/16 08:00 80 07/22/16 08:00 40 07/22/16 06:00 76 07/22/16 04:00 40 07/22/16 04:00 70 07/22/16 04:00 100.0 70 18 154/70 100 07/22/16 03:45 99 35 07/22/16 02:00 68 07/22/16 01:10 99 35 07/22/16 00:00 73 07/22/16 00:00 100.2 73 17 148/67 100 07/22/16 00:00 40 07/21/16 22:50 98 35 07/21/16 22:00 82 07/21/16 20:00 87 07/21/16 20:00 101.1 87 18 178/76 100 07/21/16 20:00 40 07/21/16 19:51 100 35 07/21/16 18:00 80 07/21/16 16:40 100 35 07/21/16 16:00 40 07/21/16 16:00 99.2 90 16 143/64 100 07/21/16 16:00 80 07/21/16 14:00 77 07/21/16 13:30 100 100 07/21/16 12:16 100 40 07/21/16 12:00 80 07/21/16 12:00 100 07/21/16 12:00 99.4 86 16 190/78 100 07/21/16 10:00 77 I/O 07/21/16 07/21/16 07/21/16 07/22/16 07/22/16 07/22/16 06:59 14:59 22:59 06:59 14:59 22:59 Intake Total 363 ml 634 ml 128 ml Output Total 2 ml 1000 ml 125 ml 185 ml Balance 361 ml -1000 ml 509 ml -57 ml IV Total 302 ml 464 ml 78 ml Tube Feeding 61 ml 170 ml 50 ml Output Urine Total 0 ml 25 ml 10 ml Stool Total 2 ml 100 ml 175 ml Hemodialysis 1000 ml # Bowel Movements 3 Result Diagram: 07/22/1641907/22/16419 Objective Remarks eyes open but no rxt threat or pain Assessment and Plan Assessment and Plan imp improved but stilllooks almost vegetative unclear if a small amount of cortical edema on mri diffusely or just nl variant for him on hd looking more like some anoxic enceph will see how does on next week of hd but i am not so optimistic at this time i will fu monday Nathan Henry MD Jul 22, 2016 08:46
[2016-07-22] MEDS: SODIUM CHLOR 0.9% 1000 ML INJ 1,000 ML IV PRN ×2 (08:56)
[2016-07-22] MEDS: SODIUM CHLORIDE 0.9% FLUSH 5 ML FLUSH IVF PRN (08:56)
[2016-07-22] MEDS: HEPARIN SODIUM - IV 10,000 UNITS/10 ML VIAL PRN (08:57)
[2016-07-22] MEDS: GENTAMICIN SULFATE (DIALYSIS USE ONLY) 20 MG/2 ML VIAL IV PRN (08:58)
[2016-07-22] MEDS: DOCUSATE SODIUM 100 MG/10 ML UDC PO SCH ×2 (09:00→21:28)
[2016-07-22] MEDS: SODIUM CHLORIDE 0.9% FLUSH 5 ML FLUSH IVF SCH ×2 (09:00→21:29)
[2016-07-22] MEDS: SENNOSIDES SYRUP 8.8 MG/5 ML CUP PO SCH (09:00)
[2016-07-22] MEDS: LANTHANUM CARBONATE 500 MG CHEWABLE TABLET OG SCH ×3 (09:57→17:06)
[2016-07-22] MEDS: CARVEDILOL 12.5 MG TAB PO SCH ×2 (09:57→21:28)
[2016-07-22] MEDS: INSULIN DETEMIR 100 UNITS/ML VIAL SQ SCH ×2 (09:58→21:29)
--- NOTE | 2016-07-22 12:48 | HHI.CCPN ---
Subjective Remarks/Hospital Course 56 year old male with ESRD on PD, HTN, DM II, and PAD. He was admitted for left BKA and I&D/revision of right BKA. During a procedure in the OR, he became bradycardic during the operation, was given atropine and epinephrine. He is transferred to ICU intubated, unresponsive, hypertensive. 07/18: Currently resting in bed on PSV trial. Unresponsive on the ventilator. Tmax 101.1. Currently 100.1. Tolerating tube feeding at 40 cc an hour with Nepro. No bowel movement. 07/19: Tmax 100.1. Currently 99.7. Unresponsive on the ventilator. Tolerating tube feedings with Nepro. 2 bowel movements. 07/20: Tmax 100. Currently 99.3. Unresponsive on the ventilator. Currently on hemodialysis. Positive BM. 07/21: Tmax 102.9. Currently 99. Moves head and opens eyes to stimulation. Plan for tracheostomy today. Positive BM. Tube feeds on hold. Subjective 07/22: Tmax 101.1. Currently 99.9. -1500 cc with hemodialysis today. Stable encephalopathic state. Tolerating tube feeds. Positive BM Objective Vital Signs Date Time Temp Pulse Resp B/P Pulse Ox O2 Delivery O2 Flow Rate FiO2 07/22/16 12:00 99.9 75 20 170/71 100 07/22/16 12:00 35 Intake and Output 07/21/16 07/21/16 07/22/16 08:00 16:00 00:00 Intake Total 363 ml 293 ml 341 ml Output Total 2 ml 1110 ml 15 ml Balance 361 ml -817 ml 326 ml Result Diagram: 07/22/16 0420 07/22/16 0420 Other Results Microbiology Date/Time Procedure Status Source Growth 07/21/16 13:16 Gram Stain - Final Resulted Bronchial Washings Right Lower Lobe 07/21/16 13:16 Bronchial Culture Resulted Bronchial Washings Right Lower Lobe Pending 07/21/16 13:16 Fungal Smear - Final Resulted Bronchial Washings Right Lower Lobe RARE BUDDING YEAST CELLS 07/21/16 13:16 Fungal Culture Resulted Bronchial Washings Right Lower Lobe Pending 07/21/16 13:16 Acid Fast Stain Received Bronchial Washings Right Lower Lobe Pending 07/21/16 13:16 Mycobacterial Culture Received Bronchial Washings Right Lower Lobe Pending 07/19/16 11:09 Aerobic Blood Culture - Preliminary Resulted Blood Peripheral NO GROWTH IN 3 DAYS 07/19/16 11:09 Anaerobic Blood Culture - Preliminary Resulted Blood Peripheral NO GROWTH IN 3 DAYS Imaging Last Impressions Chest X-Ray 07/21/16 0000 Signed Impressions: Service Date/Time: June 14:30 - CONCLUSION: The tracheostomy tube appears to be in good position. No evidence of pneumothorax. Reese Roy MD Head CT 07/17/16 0000 Signed Impressions: Service Date/Time: Sunday, July 17, 2016 16:20 - CONCLUSION: Unremarkable study. Cary Sanchez MD Liver Ultrasound 07/15/16 0000 Signed Impressions: Service Date/Time: Friday, July 15, 2016 15:09 - CONCLUSION: 1. Thick-walled gallbladder containing stones in the neck. If there is clinical concern for acute cholecystitis a hepatobiliary scan may be helpful to confirm cystic duct obstruction. 2. Hepatomegaly. 3. Tiny right pleural effusion. 4. Echogenic right kidney with minimal perinephric fluid suggesting possible medical renal disease. Clinical correlation is recommended. Dontae Segura MD Brain MRI 07/14/16 0000 Signed Impressions: Service Date/Time: June 10:57 - CONCLUSION: 1. No acute infarct, acute hemorrhage, mass effect or extra-axial fluid collections. 2. Mucus retention cyst within the left maxillary sinus. Dontae Segura MD Abdomen/Pelvis CT 07/14/16 0000 Signed Impressions: Service Date/Time: June 19:02 - CONCLUSION: Bilateral pleural effusions and bibasilar compressive collapse and or consolidation with increase in the ascitic fluid since the prior study. Cary Sanchez MD Objective Remarks GENERAL: 86-year-old male, critically ill currently resting in bed orotracheally intubated SKIN: Warm and dry. Noted bilateral below the medications with some mottling left lower extremity HEAD: Normocephalic. EYES: No scleral icterus. No injection or drainage. NECK: Supple, trachea midline. No JVD or lymphadenopathy. CARDIOVASCULAR: Tachycardic, RR. S1, S2. No S4 without murmur RESPIRATORY: Breath sounds equal bilaterally without wheezes rales or rhonchi. No accessory muscle use. GASTROINTESTINAL: Abdomen soft, non-tender, nondistended. MUSCULOSKELETAL: No new skin peripheral edema. BACK: Nontender without obvious deformity. No CVA tenderness. EXTREMITIES: BL BKA Vascular Central Line Catheter: Yes Assessment to: Continue Date of Insertion: Jul 13, 2016 Line: Central Venous Catheter Side: Left Location: Subclavian A/P Assessment and Plan Neuro/Psych: Encephalopathy - anoxic versus toxic metabolic - MRI brain without evidence of acute damage - neurology evaluation appreciated - EEG 07/14 and 07/17 revealed severe encephalopathy w/o seizure activity - Off all sedation. Limit any kind of sedation - monitor neurochecks per ICU routine - Neurology following - Previously on Lyrica for peripheral neuropathy CV: Hypertension History dyslipidemia Peripheral vascular disease Status post left [id number] amputation with right [id number] amputation revision 07/[address] Becerra Currently on Cleviprex drip. Currently at 9 Currently on Norvasc 10 mg by mouth daily. Will increase Coreg to 25 twice a day . Methyldopa 250 mg daily will be restarted today 2-D echocardiogram revealed EF 25-30%. LV dilated. Goal hypokinesis especially inferior. Mild air. Moderate MR. GUZMAN 63 mm Hg Previously on Methyldopa 250 daily and Prinivil 20 mg by mouth daily for blood pressure management Resp: Likely vent dependent respiratory failure - Currently on PSV trial 2/ and 35%. On ACV overnight and will be on for tracheostomy - no weaning until neurologically improved - vent bundle - elevated head - CXR unchanged - Status post percutaneous tracheostomy [address] Becerra 07/21 GI: Transaminitis likely shock liver improving Currently Nepro with a stated goal 50 cc an hour. This is been held for tracheostomy today Protonix for GI prophylaxis Colace/as needed Senokot for bowel regimen : [place] if indicated Endo: Diabetes mellitus Hyperglycemia Hypothyroidism Currently on Levemir 16 units subcutaneous twice a day with sliding scale insulin/low lying Accu-Cheks every 4 hours to maintain euglycemia. Currently not on any medications for hypothyroidism Renal: End-stage kidney disease - peritoneal dialysis Peritoneal dialysis per nephrology. Heme: History of colon cancer in remission status post radiation therapy Leukocytosis Normocytic anemia/anemia of chronic kidney disease Monitor CBC ID: Currently on Zosyn per infectious disease. Previously micafungin and vancomycin Pertinent cultures 07/15 - blood cultures 2 - no growth 07/15 - urine culture - negative 07/15 - sputum culture - no growth 07/18 - . Peritoneal fluid - pending 07/19: Blood cultures 2/sputum cultures -no growth 07/21 - BAL yeast MSK: PT OT evaluate and treat FEN: Hyperphosphatemia Currently on Fosrenol 1 g every 8 hours Access - Left subclavian CVL - Right Port-A-Cath - Right IJ CVL day #3 Prophylaxis - GI - Protonix - DVT - heparin subcutaneous Critical Care: The total critical care time was 35 minutes. Time to perform other separately billable procedures was not included in the critical care time. Jarek Jenkins MD Jul 22, 2016 12:48
--- NOTE | 2016-07-22 14:02 | HHI.NPPN ---
Subjective General Problems: Hypertension Renal Failure: Chronic, End Stage Renal Disease History of Present Illness This is a 56 y/o male patient direct admitted under the care of Dr. Kenyon with vascular services. PMH of ESRD on PD, HTN, DM II, and PAD. He was admitted for left BKA and I&D/revision of right BKA. We were consulted for dialysis management. He went to OR early this morning. Apparently he became bradycardic during the operation, was given atropine and epinephrine. He is seen in the PACU this afternoon. He is still intubated, unresponsive, hypertensive. He underwent PD last night without complications. We were consulted for PD management. Interval History s/p 3rd HD today. No improvement in neurologic status. Opens eyes to verbal stimulation, but does not track. (Toma Gonzalez) Review of Systems General General Remarks unable to obtain due to unresponsiveness (Toma Gonzalez) Objective Data Data 07/21/16 07/22/16 19:00 07:00 Intake Total 293 ml 469 ml Output Total 1110 ml 200 ml Balance -817 ml 269 ml IV Total 243 ml 299 ml Tube Feeding 50 ml 170 ml Output Urine Total 10 ml 25 ml Stool Total 100 ml 175 ml Hemodialysis 1000 ml # Bowel Movements 3 Vital Signs Date Time Temp Pulse Resp B/P Pulse Ox O2 Delivery O2 Flow Rate FiO2 07/22/16 12:00 99.9 75 20 170/71 100 07/22/16 12:00 75 07/22/16 12:00 35 07/22/16 11:18 35 07/22/16 11:18 100 35 07/22/16 10:00 85 07/22/16 08:20 100 35 07/22/16 08:00 99.1 80 19 161/70 100 07/22/16 08:00 80 07/22/16 08:00 40 07/22/16 06:00 76 07/22/16 04:00 40 07/22/16 04:00 70 07/22/16 04:00 100.0 70 18 154/70 100 07/22/16 03:45 99 35 07/22/16 02:00 68 07/22/16 01:10 99 35 07/22/16 00:00 73 07/22/16 00:00 100.2 73 17 148/67 100 07/22/16 00:00 40 07/21/16 22:50 98 35 07/21/16 22:00 82 07/21/16 20:00 87 07/21/16 20:00 101.1 87 18 178/76 100 07/21/16 20:00 40 07/21/16 19:51 100 35 07/21/16 18:00 80 07/21/16 16:40 100 35 07/21/16 16:00 40 07/21/16 16:00 99.2 90 16 143/64 100 07/21/16 16:00 80 07/21/16 14:00 77 (Toma Gonzalez) -: 07/22/16 0420 07/22/16 0420 Tubes & Lines: Vas-Cath, Tenckhoff Catheter Medication Review Current Medications Medications (Trade) Dose Ordered Sig/Lorie Route Start Time Stop Time Status Last Admin (NS Flush) 10 ml UNSCH PRN IVF 07/12/16 17:00 (NS Flush) 2 ml UNSCH PRN IVF 07/13/16 13:15 (NS Flush) 2 ml BID IVF 07/13/16 21:00 07/21/16 21:00 (Zofran Inj) 4 mg Q6H PRN IV 07/13/16 13:15 (Protonix Inj) 40 mg Q24H IV 07/13/16 15:00 07/21/16 15:46 (Narcan Inj) 0.4 mg UNSCH PRN IV 07/13/16 13:15 (Heparin Inj) 5,000 units Q12H SQ 07/14/16 12:30 07/22/16 12:40 Hydralazine HCl 10 mg 10 mg Q4H PRN IV PUSH 07/13/16 22:30 07/19/16 07:21 (Zosyn 2.25 Gm Premix) 50 ml @ 100 mls/hr Q6H IV 07/14/16 18:00 07/22/16 12:40 (D50w (Vial) Inj) 25 ml UNSCH PRN IV PUSH 07/15/16 07:30 07/20/16 09:28 (Glucagon Inj) 1 mg UNSCH PRN OTHER 07/15/16 07:30 Lanthanum Carbonate 1000 mg 1,000 mg TID OG 07/16/16 13:00 07/22/16 12:41 (Cleviprex Inj) 50 ml @ 0 mls/hr TITRATE IV 07/18/16 13:00 07/21/16 21:08 (Colace Liq) 100 mg Q12HR PO 07/18/16 21:00 07/21/16 21:00 Sennosides 8.8 mg 8.8 mg DAILY PO 07/19/16 09:00 (NS 1000 ml Inj) 1,000 ml @ 0 mls/hr Q0M PRN IV 07/19/16 12:19 07/22/16 08:56 Heparin Sodium (Porcine) 8000 units 8,000 units UNSCH PRN IVF 07/19/16 12:30 Sodium Chloride 1,000 ml @ 200 mls/hr Q5H PRN IV 07/19/16 12:19 (NS 1000 ml Inj) 1,000 ml @ 0 mls/hr Q0M PRN IV 07/19/16 12:19 07/22/16 08:56 (Mannitol Inj) 12.5 gm UNSCH PRN IV 07/19/16 12:30 (Albumin 25% Inj) 25 gm UNSCH PRN IV 07/19/16 12:30 (NS Flush) 5 ml UNSCH PRN IVF 07/19/16 12:30 07/22/16 08:56 (Heparin Inj) UNSCH PRN .XX 07/19/16 12:30 07/22/16 08:57 (Gentamicin (Dialysis) Inj) 20 mg UNSCH PRN IV 07/19/16 12:30 07/22/16 08:58 (Zofran Inj) 4 mg UNSCH PRN IV 07/19/16 12:30 (Tylenol) 650 mg UNSCH PRN PO 07/19/16 12:30 07/21/16 05:40 (Benadryl) 25 mg UNSCH PRN PO 07/19/16 12:30 (Nitrostat Sl) 0.4 mg UNSCH PRN SL 07/19/16 12:30 (Catapres) 0.1 mg UNSCH PRN PO 07/19/16 12:30 (Gelfoam 12 Mm/7 Mm Top) 1 foam UNSCH PRN TOP 07/19/16 12:30 (NS Flush) UNSCH PRN IVF 12/27/16 13:45 (Heparin Inj) UNSCH PRN IVF 07/19/16 13:45 (Norvasc) 10 mg DAILY TUBE 07/21/16 09:00 07/22/16 09:57 (Coreg) 25 mg Q12HR PO 07/20/16 21:00 07/22/16 09:57 (Apresoline) 75 mg Q8HR PO 07/21/16 14:00 07/22/16 12:41 (Isordil) 20 mg Q8HR PO 07/21/16 14:00 07/22/16 12:41 (Aldomet) 250 mg Q12HR PO 07/21/16 21:00 07/22/16 09:00 (Levemir Inj) 14 units Q12HR SQ 07/22/16 21:00 (NovoLIN R SUPPLEMENTAL SCALE) 1 Q6HR SQ 07/22/16 18:00 (Toma Gonzalez) Physical Exam General Appearance: Malnourished (Toma Gonzalez) Pulmonary Resp Exam: Clear Bilaterally, Breath Sounds Equal (Toma Gonzalez) Cardiology CV Exam: Regular (Toma Gonzalez) Gastrointestinal/Abdomen GI Exam: Soft, Non-Tender, Bowel Sounds Present (Toma Gonzalez) Musculoskeletal MS Remarks s/p bilat BKA. L stump is dusky in appearance. (Toma Gonzalez) Integumentary Skin Exam: Clear, Cool (Toma Gonzalez) Extremeties Extremities Exam: Trace Edema Extremeties Remarks Edema upper extremities (Toma Gonzalez) Neurologic Neuro Exam: Unresponsive Neuro Remarks Opens eyes to verbal stimuli, but does not track. (Toma Gonzalez) Assessment/Plan Assessment Summary: Anemia of CKD, Hypotension, End Stage Renal Disease Electrolyte Assessment: Metabolic Acidosis Problem List: (1) ESRD (end stage renal disease) on dialysis Plan: ESRD due to diabetic nephropathy Unfortunately no improvement in neurological status so far with more aggressive dialysis so doubtful that this is a metabolic encephalopathy. Neurology note reviewed and leaning toward anoxic brain injury. Will continue on HD MWF for the present. Medications should be adjusted for the patient's ESRD. Avoid gadolinium. (2) Gangrene of toe Plan: vascular (Dr. Kenyon) following had left BKA and revision of right BKA (07/13) (3) Anemia of renal disease Plan: Continue on Epogen (4) Diabetes Plan: A1c 6.2, insulin drip has been stopped. Blood sugar is high today, recommend insulin coverage to maintain blood glucose of 140-180. Hyperglycemia may impair fluid removal with PD. (5) HTN (hypertension) Plan: Continue on current regimen (6) Metabolic bone disease Plan: Continue on Fosrenol (7) Encephalopathy Plan: Neurology following. Anoxic encephalopathy is a possibility. Metabolic encephalopathy is in the differential. Also appears to be septic. (8) Septic shock Plan: ID following. Peritoneal fluid cultures were negative. (Toma Gonzalez) Plan The exam, history, and the medical decision-making described in the above note were completed with the assistance of the PAArchie. I reviewed and agree with the findings presented. . (Chiara Niño MD) Problem Qualifiers (1) Diabetes: Toma Gonzalez Jul 22, 2016 14:02 Chiara Niño MD Jul 22, 2016 16:04
[2016-07-22] MEDS: PANTOPRAZOLE SODIUM 40 MG VIAL IV SCH (15:51)
--- NOTE | 2016-07-22 16:20 | PD.CAR.PN ---
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 During the surgery, Patient the had a episode of hypotension and bradycardia is corrected by anesthesia. Patient was then brought to the ICU on the ventilator and despite discontinuation of sedation did not wake up. [place] Coma Scale remained 4 and patient had some spontaneous extremity movements Patient was taken to CT of the brain which was negative. During the CT scan patient started ripping and tearing on his endotracheal tube and lines so had to be sedated down there by the nursing and radiology staff Patient came up and was sedated and again did not wake up. Remains on the ventilator Because of decreased level of consciousness which cannot be explained by simple means patient underwent an MRI of the brain today which did not show any abnormalities either Today patient again had a period of sustained bradycardia with a heart rate in 40s and systolic blood pressure dropped into the 80s. Patient was given atropine and started on dopamine drip There are now 2 issues to consider 1. Patient's neurologic status is now not explained by simple means of either stroke intracranial bleed or such. This appears to be metabolic encephalopathy based on the hepatic and renal underlying pathology. Patient did not have hypoxia in the operating room or there after that would account for any period of anoxia or hypoxia. EEG was performed in order to rule out seizures and none were confirmed. Nonetheless patient is on prophylactic Keppra at this point This will be an issue for time will show which way the patient is going 2. Patient has periods of sustained sinus bradycardia on top of his bundle branch block which makes me think that patient probably has sick sinus syndrome Atropine corrected immediately and patient is now on small dose dopamine at 3 mics per kilo per minute sustaining hemodynamic parameters Critical care help is greatly appreciated Cardiology is consulted and we will follow their lead on this issue 07/15/16 Status post BKA and revision of stump Patient at this point has metabolic encephalopathy and neurology nephrology cardiology and ICU care is greatly appreciated Neurologically patient is improved and at this point opens eyes spontaneously moves both upper and lower extremities making [place] Coma Scale about 6 or 7 Hemodynamic Patient has been stable since yesterday through the night, but earlier yesterday patient dropped blood pressure and became bradycardic as above noted. Cardiology was consulted Patient may have sick sinus syndrome with intermittent manifestations and when he wakes up and improves he may need a pacemaker Interim, patient is hypertensive on chronic basis and currently managed for the same Abdomen soft and I do not believe patient has bacterial peritonitis however it is known to happen in patients with peritoneal dialysis and sometimes presenting in an insidious way CT of abdomen and pelvis does not reveal any collections only some retained fluid Stumps are clean and dry dressing is intact Plan Will have to wait until patient wakes up and manage him supportively I've discussed this with family length 07/16/16 Patient is neurologically unchanged he opens his eyes flexes on the left side more than the right which might be slight improvement actually At this point working diagnosis is toxic encephalopathy, but hypoxic damage of course possible On the ventilator patient is doing well we'll try him on CPAP trial but regardless of it level of consciousness does not allow for extubation for patient could not keep his upper airway open Barring any improvements patient will require tracheostomy We'll go ahead with tracheostomy Monday if patient doesn't improve neurologically Dressing has been removed from right and left BKA stump and both are well- perfused healing nicely incisions are clean and dry 07/17/16 No change in neurologic status Discussed with below the when we will repeat the CT scan of the head today to see there is any swelling to account for patient's neurologic deficits Moves all 4 extremities but without purpose opens eyes on stimulation BKA stump was very nice and well perfused yesterday however today there is a livid discoloration of the lower portion of the stump Patient has such precarious flow to this area that he may not maintain the stump and may end up with the above-knee amputation but this is also predicated on his neurologic function in the future We will discuss with family the final goals of this therapy and patient's wishes. Will likely involve palliative care as well 07/18/16 Patient has no change in neurologic status at this time Opens eyes spontaneously moves his legs Stump looks fairly ischemic yesterday but today looks better and I'm not sure if vasospasm or some other factors are responsible for this but the livid appearance of the flap yesterday has improved since and now appears to be warmer and well perfused Considering that patient is not waking up its my opinion the patient will need tracheostomy for further care and I'll discuss this with his family We will proceed with tracheostomy probably Monday if patient doesn't get better Repeat CT scan of the brain did not reveal any abnormalities and it somewhat elusive and puzzling why patient is not waking up and what type of metabolic encephalopathy is responsible for this Clearly ischemia as an option at a possibility but no changes on CAT scan are evident in the white matter dhillon matter or the interface 07/19/16 No change in current neurologic status Patient is opening eyes spontaneously Will place a Vas-Cath for dialysis and started on hemodialysis as opposed to peritoneal dialysis as per nephrology We'll go ahead with tracheostomy tomorrow Intensive care management is greatly appreciated The left BKA stump looks better today and the flat looks better perfused This patient is prone to suddenly developed vasospasm turning his hands livid/ purple and turning the stumps purple and then after several hours this will resolve. This has happened numerous times now and is just question of time before the vasospasm and livid changes last long enough to permanently devitalized the stump flap but for the time being it is viable 07/20/16 Patient slightly more awake today opens eyes spontaneously and non-voice commands seems to be tracking with his eyes a bit is clearly improvement from the other day Remains on ventilator Now on hemodialysis instead of peritoneal dialysis White count remains high although patient doesn't have any source of sepsis or any other symptoms such Peritoneal dialysate is clear Will go ahead with tracheostomy tomorrow Help from a medical intensivists is greatly appreciated in management of this complex gentleman 07/21/16 Neurologically very little change patient is opening eyes spontaneously and staring however doesn't focus or follow Moves all 4 extremities Patient is unable to keep up her airway considering low [place] Coma Scale and therefore tracheostomy will be today followed by PEG when scheduled by GI Stump is clean and dry and actually looks better perfused than last few days Patient still has leukocytosis with a left shift but the sources remains elusive Peritoneal fluid is clear and so is the lab evaluation of the same For tracheostomy today 07/22/16 Neurologic the patient is somewhat improved he is now opening eyes spontaneously and actually tracking Moves upper extremities and lower extremities Both BKA stumps are now americo and hitting the mattress and I'm afraid that he will develop pressure sores on both of these and will eventually require above-knee amputations bilaterally should his general condition improved Every effort should be made to prevent decubiti formation on BKA stumps for the blood supplies precarious anyway Patient underwent yesterday successful tracheostomy and is being weaned off the respirator His inspiratory effort is adequate however he is unable to keep his upper airway and when the respiratory support is decreased he develops rapid shallow breathing Abdomen is soft Patient will require feeding tube placement/PEG At this point it is noted that in face of all the comorbidities and current clinical situation as well as permanent neurologic deficit this patient's prognosis in long-term is grave and there is very little chance of meaningful recovery Have discussed this with his family Objective: Vital Signs Date Time Temp Pulse Resp B/P Pulse Ox O2 Delivery O2 Flow Rate FiO2 07/22/16 12:00 99.9 75 20 170/71 100 07/22/16 12:00 75 07/22/16 12:00 35 07/22/16 11:18 35 07/22/16 11:18 100 35 07/22/16 10:00 85 07/22/16 08:20 100 35 07/22/16 08:00 99.1 80 19 161/70 100 07/22/16 08:00 80 07/22/16 08:00 40 07/22/16 06:00 76 07/22/16 04:00 40 07/22/16 04:00 70 07/22/16 04:00 100.0 70 18 154/70 100 07/22/16 03:45 99 35 07/22/16 02:00 68 07/22/16 01:10 99 35 07/22/16 00:00 73 07/22/16 00:00 100.2 73 17 148/67 100 07/22/16 00:00 40 07/21/16 22:50 98 35 07/21/16 22:00 82 07/21/16 20:00 87 07/21/16 20:00 101.1 87 18 178/76 100 07/21/16 20:00 40 07/21/16 19:51 100 35 07/21/16 18:00 80 07/21/16 16:40 100 35 Labs: Laboratory Tests Test 07/22/16 04:20 White Blood Count 22.4 TH/MM3 (4.0-11.0) Red Blood Count 3.13 MIL/MM3 (4.50-5.90) Hemoglobin 8.9 GM/DL (13.0-17.0) Hematocrit 27.8 % (39.0-51.0) Mean Corpuscular Volume 88.7 FL (80.0-100.0) Mean Corpuscular Hemoglobin 28.4 PG (27.0-34.0) Mean Corpuscular Hemoglobin 32.0 % Concent (32.0-36.0) Red Cell Distribution Width 17.1 % (11.6-17.2) Platelet Count 345 TH/MM3 (150-450) Mean Platelet Volume 11.2 FL (7.0-11.0) Neutrophils (%) (Auto) 83.2 % (16.0-70.0) Lymphocytes (%) (Auto) 4.9 % (9.0-44.0) Monocytes (%) (Auto) 11.2 % (0.0-8.0) Eosinophils (%) (Auto) 0.2 % (0.0-4.0) Basophils (%) (Auto) 0.5 % (0.0-2.0) Neutrophils # (Auto) 18.7 TH/MM3 (1.8-7.7) Lymphocytes # (Auto) 1.1 TH/MM3 (1.0-4.8) Monocytes # (Auto) 2.5 TH/MM3 (0-0.9) Eosinophils # (Auto) 0.0 TH/MM3 (0-0.4) Basophils # (Auto) 0.1 TH/MM3 (0-0.2) CBC Comment AUTO DIFF Differential Comment AUTO DIFF CONFIRMED Platelet Estimate NORMAL (NORMAL) Platelet Morphology Comment NORMAL (NORMAL) Keratocytes OCC (NORMAL) Sodium Level 138 MEQ/L (136-145) Potassium Level 3.9 MEQ/L (3.5-5.1) Chloride Level 97 MEQ/L (98-107) Carbon Dioxide Level 26.9 MEQ/L (21.0-32.0) Anion Gap 14 MEQ/L (5-15) Blood Urea Nitrogen 52 MG/DL (7-18) Creatinine 5.84 MG/DL (0.60-1.30) Estimat Glomerular Filtration 10 ML/MIN (>89) Rate Random Glucose 82 MG/DL (74-106) Calcium Level 7.8 MG/DL (8.5-10.1) Phosphorus Level 7.5 MG/DL (2.5-4.9) Albumin 1.2 GM/DL (3.4-5.0) Parathyroid Hormone (Intact) 488.8 PG/ML (12.4-76.8) Result Diagram: 07/22/16 0420 07/22/16 0420 Jw Becerra MD Jul 22, 2016 16:20
[2016-07-22] MEDS: ACETAMINOPHEN 325 MG TAB PO PRN (21:28)
[2016-07-23] VITALS (19 sets, daily range): BP systolic 140–154; BP diastolic 62–70; PULSE 75–90; RESP 13–29; TEMP 99.3–100.9; O2SAT 100
[2016-07-23] MEDS: PIPERACIL-TAZO 2.25 GM PREMIX 50 ML IV SCH ×4 (00:15→17:43)
[2016-07-23] MEDS: HEPARIN SODIUM - SQ 10,000 UNITS/ML VIAL SQ SCH ×2 (00:15→11:34)
[2016-07-23] MEDS: ISOSORBIDE DINITRATE 20 MG TAB PO SCH ×3 (04:25→21:11)
[2016-07-23] MEDS: hydrALAZINE HCL 25 MG TAB PO SCH ×3 (04:25→21:11)
[2016-07-23 04:59] LABS: BASOPHIL # 0.1 TH/MM3 (0-0.2); BASOPHIL % 0.4 % (0.0-2.0); EOSINOPHIL # 0.1 TH/MM3 (0-0.4); EOSINOPHIL % 0.3 % (0.0-4.0); HEMATOCRIT 27.6 % (39.0-51.0); LYMPH % 5.3 % (9.0-44.0); LYMPHOCYTE # 1.3 TH/MM3 (1.0-4.8); MEAN CORPUSCULAR HEMOGLOBIN 27.9 PG (27.0-34.0); MEAN CORPUSCULAR HGB CONC 31.4 % (32.0-36.0); MONO % 9.7 % (0.0-8.0); NEUT % 84.3 % (16.0-70.0); PLATELET COUNT 377 TH/MM3 (150-450); RED CELL DISTRIBUTION WIDTH 17.6 % (11.6-17.2); WHITE BLOOD COUNT 23.7 TH/MM3 (4.0-11.0)
[2016-07-23 05:04] LABS: HEMO FLAGS AUTO DIFF
[2016-07-23 05:16] LABS: BICARBONATE 27.7 MEQ/L (21.0-32.0); MAGNESIUM 2.2 MG/DL (1.5-2.5); POTASSIUM 3.4 MEQ/L (3.5-5.1)
[2016-07-23] MEDS: INSULIN NovoLIN REGULAR SUPPLEMENTAL SCALE SQ SCH ×4 (06:00→18:00)
[2016-07-23] MEDS: DOCUSATE SODIUM 100 MG/10 ML UDC PO SCH ×2 (09:00→21:11)
[2016-07-23] MEDS: SENNOSIDES SYRUP 8.8 MG/5 ML CUP PO SCH (09:00)
[2016-07-23] MEDS: SODIUM CHLORIDE 0.9% FLUSH 5 ML FLUSH IVF SCH ×2 (09:00→21:00)
[2016-07-23 09:28] LABS: BANDS 1 % (0-6); EOSINOPHILS 1 % (0-4); NEUTROPHIL # MANUAL DIFF 19.7 TH/MM3 (1.8-7.7); PLASMA CELLS 2 % (0-0); PLATELET ESTIMATE SMEAR NORMAL (NORMAL); PLATELET MORPHOLOGY NORMAL (NORMAL); POLYS (SEG NEUTROPHILS) 82 % (16-70); SCAN/DIFF FINAL DIFF MANUAL; WBC DIFF SAMPLE 100
--- NOTE | 2016-07-23 09:29 | HHI.CCPN ---
Subjective Remarks/Hospital Course 56 year old male with ESRD on PD, HTN, DM II, and PAD. He was admitted for left BKA and I&D/revision of right BKA. During a procedure in the OR, he became bradycardic during the operation, was given atropine and epinephrine. He is transferred to ICU intubated, unresponsive, hypertensive. 07/18: Currently resting in bed on PSV trial. Unresponsive on the ventilator. Tmax 101.1. Currently 100.1. Tolerating tube feeding at 40 cc an hour with Nepro. No bowel movement. 07/19: Tmax 100.1. Currently 99.7. Unresponsive on the ventilator. Tolerating tube feedings with Nepro. 2 bowel movements. 07/20: Tmax 100. Currently 99.3. Unresponsive on the ventilator. Currently on hemodialysis. Positive BM. 07/21: Tmax 102.9. Currently 99. Moves head and opens eyes to stimulation. Plan for tracheostomy today. Positive BM. Tube feeds on hold. 07/22: Tmax 101.1. Currently 99.9. -1500 cc with hemodialysis today. Stable encephalopathic state. Tolerating tube feeds. Positive BM Subjective 07/23: Stinging in bed. Noted stage II to 3 decubitus ulcer/sacral. Remains relatively unresponsive on the ventilator. He gags, coughs occasionally. Objective Vital Signs Date Time Temp Pulse Resp B/P Pulse Ox O2 Delivery O2 Flow Rate FiO2 07/23/16 09:13 30 07/23/16 07:39 100 07/23/16 06:00 86 07/23/16 04:00 100.4 17 144/62 Intake and Output 07/22/16 07/22/16 07/23/16 08:00 16:00 00:00 Intake Total 128 ml 449 ml 599 ml Output Total 185 ml 1605 ml 160 ml Balance -57 ml -1156 ml 439 ml Result Diagram: 07/23/16 0430 07/23/16 0430 Other Results Microbiology Date/Time Procedure Status Source Growth 07/22/16 21:39 Aerobic Blood Culture Received Blood Peripheral Pending 07/22/16 21:39 Anaerobic Blood Culture Received Blood Peripheral Pending 07/21/16 13:16 Gram Stain - Final Complete Bronchial Washings Right Lower Lobe 07/21/16 13:16 Bronchial Culture - Final Complete Bronchial Washings Right Lower Lobe HEAVY GROWTH NORMAL RESPIRATORY PAVEL 07/21/16 13:16 Fungal Smear - Final Resulted Bronchial Washings Right Lower Lobe RARE BUDDING YEAST CELLS 07/21/16 13:16 Fungal Culture Resulted Bronchial Washings Right Lower Lobe Pending 07/21/16 13:16 Acid Fast Stain - Final Resulted Bronchial Washings Right Lower Lobe NO ACID FAST BACILLI SEEN 07/21/16 13:16 Mycobacterial Culture Resulted Bronchial Washings Right Lower Lobe Pending 07/19/16 11:09 Aerobic Blood Culture - Preliminary Resulted Blood Peripheral NO GROWTH IN 3 DAYS 07/19/16 11:09 Anaerobic Blood Culture - Preliminary Resulted Blood Peripheral NO GROWTH IN 3 DAYS Imaging Last Impressions Chest X-Ray 07/21/16 0000 Signed Impressions: Service Date/Time: June 14:30 - CONCLUSION: The tracheostomy tube appears to be in good position. No evidence of pneumothorax. Reese Roy MD Head CT 07/17/16 0000 Signed Impressions: Service Date/Time: Sunday, July 17, 2016 16:20 - CONCLUSION: Unremarkable study. Cary Sanchez MD Liver Ultrasound 07/15/16 0000 Signed Impressions: Service Date/Time: Friday, July 15, 2016 15:09 - CONCLUSION: 1. Thick-walled gallbladder containing stones in the neck. If there is clinical concern for acute cholecystitis a hepatobiliary scan may be helpful to confirm cystic duct obstruction. 2. Hepatomegaly. 3. Tiny right pleural effusion. 4. Echogenic right kidney with minimal perinephric fluid suggesting possible medical renal disease. Clinical correlation is recommended. Dontae Segura MD Brain MRI 07/14/16 0000 Signed Impressions: Service Date/Time: June 10:57 - CONCLUSION: 1. No acute infarct, acute hemorrhage, mass effect or extra-axial fluid collections. 2. Mucus retention cyst within the left maxillary sinus. Dontae Segura MD Abdomen/Pelvis CT 07/14/16 0000 Signed Impressions: Service Date/Time: June 19:02 - CONCLUSION: Bilateral pleural effusions and bibasilar compressive collapse and or consolidation with increase in the ascitic fluid since the prior study. Cary Sanchez MD Objective Remarks GENERAL: 86-year-old male, critically ill currently resting in bed status post tracheostomy SKIN: Warm and dry. Noted bilateral below the medications with some mottling left lower extremity HEAD: Normocephalic. EYES: No scleral icterus. No injection or drainage. NECK: Supple, trachea midline. No JVD or lymphadenopathy. CARDIOVASCULAR: Tachycardic, RR. S1, S2. No S4 without murmur RESPIRATORY: Breath sounds equal bilaterally without wheezes rales or rhonchi. No accessory muscle use. GASTROINTESTINAL: Abdomen soft, non-tender, nondistended. MUSCULOSKELETAL: No new skin peripheral edema. BACK: Nontender without obvious deformity. No CVA tenderness. EXTREMITIES: BL BKA Date of Insertion: Jul 13, 2016 Line: Central Venous Catheter Side: Left Location: Subclavian A/P Assessment and Plan Neuro/Psych: Encephalopathy - anoxic versus toxic metabolic - MRI brain without evidence of acute damage - neurology evaluation appreciated - EEG 07/14 and 07/17 revealed severe encephalopathy w/o seizure activity - Off all sedation. Limit any kind of sedation - monitor neurochecks per ICU routine - Previously on Lyrica for peripheral neuropathy CV: Hypertension History dyslipidemia Peripheral vascular disease Status post left [id number] amputation with right [id number] amputation revision 07/[address] Becerra Currently off Cleviprex drip. Currently on Norvasc 10 mg by mouth daily, Coreg to 25 twice a day Methyldopa 250 mg daily restarted 07/22 2-D echocardiogram revealed EF 25-30%. LV dilated. Goal hypokinesis especially inferior. Mild air. Moderate MR. GUZMAN 63 mm Hg Previously on Methyldopa 250 daily and Prinivil 20 mg by mouth daily for blood pressure management Resp: Likely vent dependent respiratory failure - Currently on PSV trial 15/5 and 35%. On ACV overnight and will be on for tracheostomy - no weaning until neurologically improved - vent bundle - elevated head - CXR unchanged - Status post percutaneous tracheostomy [address] Becerra 07/21 GI: Transaminitis likely shock liver improving Currently Nepro with a stated goal 50 cc an hour. This is been held for tracheostomy today Protonix for GI prophylaxis Colace/as needed Senokot for bowel regimen : [place] if indicated Endo: Diabetes mellitus Hyperglycemia Hypothyroidism Currently on Levemir 16 units subcutaneous twice a day with sliding scale insulin/low lying Accu-Cheks every 4 hours to maintain euglycemia. Currently not on any medications for hypothyroidism Renal: End-stage kidney disease - peritoneal dialysis Peritoneal dialysis per nephrology. Heme: History of colon cancer in remission status post radiation therapy Leukocytosis Normocytic anemia/anemia of chronic kidney disease Monitor CBC ID: Currently on Zosyn per infectious disease. Previously micafungin and vancomycin Pertinent cultures 07/15 - blood cultures 2 - no growth 07/15 - urine culture - negative 07/15 - sputum culture - no growth 07/18 - . Peritoneal fluid - pending 07/19: Blood cultures 2/sputum cultures -no growth 07/21 - BAL yeast MSK: PT OT evaluate and treat FEN: Hyperphosphatemia Currently on Fosrenol 1 g every 8 hours Access - Left subclavian CVL - Right Port-A-Cath - Right IJ HEMODIALYSIS CATHETER day #4 Prophylaxis - GI - Protonix - DVT - heparin subcutaneous Critical Care: The total critical care time was 35 minutes. Time to perform other separately billable procedures was not included in the critical care time. Jarek Jenkins MD Jul 23, 2016 09:28
[2016-07-23] MEDS: INSULIN DETEMIR 100 UNITS/ML VIAL SQ SCH ×2 (10:05→21:11)
[2016-07-23] MEDS: LANTHANUM CARBONATE 500 MG CHEWABLE TABLET OG SCH ×3 (10:05→17:43)
[2016-07-23] MEDS: CARVEDILOL 12.5 MG TAB PO SCH ×2 (10:05→21:11)
[2016-07-23] MEDS: METHYLDOPA 250 MG TAB PO SCH ×2 (10:05→21:11)
[2016-07-23] MEDS: ACETAMINOPHEN 325 MG TAB PO PRN (11:20)
[2016-07-23] MEDS: hydrALAZINE HCL 20 MG/ML VIAL IV PUSH PRN (11:34)
--- NOTE | 2016-07-23 12:52 | HHI.NPPN ---
Subjective General Problems: Hypertension Renal Failure: Chronic, End Stage Renal Disease History of Present Illness This is a 56 y/o male patient direct admitted under the care of Dr. Kenyon with vascular services. PMH of ESRD on PD, HTN, DM II, and PAD. He was admitted for left BKA and I&D/revision of right BKA. We were consulted for dialysis management. He went to OR early this morning. Apparently he became bradycardic during the operation, was given atropine and epinephrine. He is seen in the PACU this afternoon. He is still intubated, unresponsive, hypertensive. He underwent PD last night without complications. We were consulted for PD management. Interval History Patient nonverbal. Review of Systems General General Remarks unable to obtain due to unresponsiveness Objective Data Data 07/22/16 07/23/16 18:59 06:59 Intake Total 449 ml 1134 ml Output Total 1605 ml 195 ml Balance -1156 ml 939 ml IV Total 173 ml 292 ml Tube Feeding 276 ml 722 ml Other 120 ml Output Urine Total 5 ml 10 ml Stool Total 100 ml 185 ml Hemodialysis 1500 ml Vital Signs Date Time Temp Pulse Resp B/P Pulse Ox O2 Delivery O2 Flow Rate FiO2 07/23/16 11:50 100 30 07/23/16 10:00 90 07/23/16 09:13 30 07/23/16 08:00 30 07/23/16 08:00 100.8 88 20 154/70 100 07/23/16 08:00 88 07/23/16 07:39 100 30 07/23/16 06:00 86 07/23/16 04:00 30 07/23/16 04:00 85 07/23/16 04:00 100.4 86 17 144/62 100 07/23/16 03:48 100 30 07/23/16 02:00 75 07/23/16 00:44 100 30 07/23/16 00:00 30 07/23/16 00:00 100.9 75 17 144/62 100 07/23/16 00:00 75 07/22/16 22:00 87 07/22/16 20:00 30 07/22/16 20:00 101.8 82 20 163/70 100 07/22/16 20:00 82 07/22/16 19:40 100 30 07/22/16 18:00 79 07/22/16 17:40 100 35 07/22/16 16:00 35 07/22/16 16:00 80 07/22/16 16:00 100.9 82 22 149/66 94 07/22/16 14:00 79 -: 07/23/16 0430 07/23/16 0430 Microbiology 07/22/16 Aerobic Blood Culture - Preliminary, Resulted NO GROWTH IN 1 DAY 07/22/16 Anaerobic Blood Culture - Preliminary, Resulted NO GROWTH IN 1 DAY 07/22/16 Aerobic Blood Culture - Preliminary, Resulted NO GROWTH IN 1 DAY 07/22/16 Anaerobic Blood Culture - Preliminary, Resulted NO GROWTH IN 1 DAY Tubes & Lines: Vas-Cath, Tenckhoff Catheter Physical Exam General Appearance: Malnourished Pulmonary Resp Exam: Clear Bilaterally, Breath Sounds Equal Cardiology CV Exam: Regular Gastrointestinal/Abdomen GI Exam: Soft, Non-Tender, Bowel Sounds Present Integumentary Skin Exam: Clear, Cool Extremeties Extremities Exam: Trace Edema Neurologic Neuro Exam: Awake Assessment/Plan Assessment Summary: Anemia of CKD, Hypotension, End Stage Renal Disease Electrolyte Assessment: Metabolic Acidosis Problem List: (1) ESRD (end stage renal disease) on dialysis Plan: Patient seems more awake however still not responding to simple commands or questions. Continue hemodialysis Monday and Monday 3 and half hours per treatment. Next dialysis Monday. Medications should be adjusted for the patient's ESRD. Avoid gadolinium. (2) Gangrene of toe Plan: vascular (Dr. Kenyon) following had left BKA and revision of right BKA (07/13) (3) Anemia of renal disease Plan: Continue on Epogen (4) Diabetes Plan: A1c 6.2, insulin drip has been stopped. Blood sugar is high today, recommend insulin coverage to maintain blood glucose of 140-180. Hyperglycemia may impair fluid removal with PD. (5) HTN (hypertension) Plan: Continue on current regimen (6) Metabolic bone disease Plan: Continue on Fosrenol (7) Encephalopathy Plan: Neurology following. Patient's renal indices have improved with hemodialysis but mental status is only marginally better. We'll continue hemodialysis and follow. Change in mental status likely was multifactorial. (8) Septic shock Plan: ID following. Peritoneal fluid cultures were negative. Plan The exam, history, and the medical decision-making described in the above note were completed with the assistance of the XOCHIT[facility]. I reviewed and agree with the findings presented. . Problem Qualifiers (1) Diabetes: Chiara Niño MD Jul 23, 2016 12:52
--- NOTE | 2016-07-23 12:56 | PD.CAR.PN ---
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 During the surgery, Patient the had a episode of hypotension and bradycardia is corrected by anesthesia. Patient was then brought to the ICU on the ventilator and despite discontinuation of sedation did not wake up. Deedee Coma Scale remained 4 and patient had some spontaneous extremity movements Patient was taken to CT of the brain which was negative. During the CT scan patient started ripping and tearing on his endotracheal tube and lines so had to be sedated down there by the nursing and radiology staff Patient came up and was sedated and again did not wake up. Remains on the ventilator Because of decreased level of consciousness which cannot be explained by simple means patient underwent an MRI of the brain today which did not show any abnormalities either Today patient again had a period of sustained bradycardia with a heart rate in 40s and systolic blood pressure dropped into the 80s. Patient was given atropine and started on dopamine drip There are now 2 issues to consider 1. Patient's neurologic status is now not explained by simple means of either stroke intracranial bleed or such. This appears to be metabolic encephalopathy based on the hepatic and renal underlying pathology. Patient did not have hypoxia in the operating room or there after that would account for any period of anoxia or hypoxia. EEG was performed in order to rule out seizures and none were confirmed. Nonetheless patient is on prophylactic Keppra at this point This will be an issue for time will show which way the patient is going 2. Patient has periods of sustained sinus bradycardia on top of his bundle branch block which makes me think that patient probably has sick sinus syndrome Atropine corrected immediately and patient is now on small dose dopamine at 3 mics per kilo per minute sustaining hemodynamic parameters Critical care help is greatly appreciated Cardiology is consulted and we will follow their lead on this issue 07/15/16 Status post BKA and revision of stump Patient at this point has metabolic encephalopathy and neurology nephrology cardiology and ICU care is greatly appreciated Neurologically patient is improved and at this point opens eyes spontaneously moves both upper and lower extremities making [place] Coma Scale about 6 or 7 Hemodynamic Patient has been stable since yesterday through the night, but earlier yesterday patient dropped blood pressure and became bradycardic as above noted. Cardiology was consulted Patient may have sick sinus syndrome with intermittent manifestations and when he wakes up and improves he may need a pacemaker Interim, patient is hypertensive on chronic basis and currently managed for the same Abdomen soft and I do not believe patient has bacterial peritonitis however it is known to happen in patients with peritoneal dialysis and sometimes presenting in an insidious way CT of abdomen and pelvis does not reveal any collections only some retained fluid Stumps are clean and dry dressing is intact Plan Will have to wait until patient wakes up and manage him supportively I've discussed this with family length 07/16/16 Patient is neurologically unchanged he opens his eyes flexes on the left side more than the right which might be slight improvement actually At this point working diagnosis is toxic encephalopathy, but hypoxic damage of course possible On the ventilator patient is doing well we'll try him on CPAP trial but regardless of it level of consciousness does not allow for extubation for patient could not keep his upper airway open Barring any improvements patient will require tracheostomy We'll go ahead with tracheostomy Monday if patient doesn't improve neurologically Dressing has been removed from right and left BKA stump and both are well- perfused healing nicely incisions are clean and dry 07/17/16 No change in neurologic status Discussed with below the when we will repeat the CT scan of the head today to see there is any swelling to account for patient's neurologic deficits Moves all 4 extremities but without purpose opens eyes on stimulation BKA stump was very nice and well perfused yesterday however today there is a livid discoloration of the lower portion of the stump Patient has such precarious flow to this area that he may not maintain the stump and may end up with the above-knee amputation but this is also predicated on his neurologic function in the future We will discuss with family the final goals of this therapy and patient's wishes. Will likely involve palliative care as well 07/18/16 Patient has no change in neurologic status at this time Opens eyes spontaneously moves his legs Stump looks fairly ischemic yesterday but today looks better and I'm not sure if vasospasm or some other factors are responsible for this but the livid appearance of the flap yesterday has improved since and now appears to be warmer and well perfused Considering that patient is not waking up its my opinion the patient will need tracheostomy for further care and I'll discuss this with his family We will proceed with tracheostomy probably Monday if patient doesn't get better Repeat CT scan of the brain did not reveal any abnormalities and it somewhat elusive and puzzling why patient is not waking up and what type of metabolic encephalopathy is responsible for this Clearly ischemia as an option at a possibility but no changes on CAT scan are evident in the white matter dhillon matter or the interface 07/19/16 No change in current neurologic status Patient is opening eyes spontaneously Will place a Vas-Cath for dialysis and started on hemodialysis as opposed to peritoneal dialysis as per nephrology We'll go ahead with tracheostomy tomorrow Intensive care management is greatly appreciated The left BKA stump looks better today and the flat looks better perfused This patient is prone to suddenly developed vasospasm turning his hands livid/ purple and turning the stumps purple and then after several hours this will resolve. This has happened numerous times now and is just question of time before the vasospasm and livid changes last long enough to permanently devitalized the stump flap but for the time being it is viable 07/20/16 Patient slightly more awake today opens eyes spontaneously and non-voice commands seems to be tracking with his eyes a bit is clearly improvement from the other day Remains on ventilator Now on hemodialysis instead of peritoneal dialysis White count remains high although patient doesn't have any source of sepsis or any other symptoms such Peritoneal dialysate is clear Will go ahead with tracheostomy tomorrow Help from a medical intensivists is greatly appreciated in management of this complex gentleman 07/21/16 Neurologically very little change patient is opening eyes spontaneously and staring however doesn't focus or follow Moves all 4 extremities Patient is unable to keep up her airway considering low Deedee Coma Scale and therefore tracheostomy will be today followed by PEG when scheduled by GI Stump is clean and dry and actually looks better perfused than last few days Patient still has leukocytosis with a left shift but the sources remains elusive Peritoneal fluid is clear and so is the lab evaluation of the same For tracheostomy today 07/22/16 Neurologic the patient is somewhat improved he is now opening eyes spontaneously and actually tracking Moves upper extremities and lower extremities Both BKA stumps are now americo and hitting the mattress and I'm afraid that he will develop pressure sores on both of these and will eventually require above-knee amputations bilaterally should his general condition improved Every effort should be made to prevent decubiti formation on BKA stumps for the blood supplies precarious anyway Patient underwent yesterday successful tracheostomy and is being weaned off the respirator His inspiratory effort is adequate however he is unable to keep his upper airway and when the respiratory support is decreased he develops rapid shallow breathing Abdomen is soft Patient will require feeding tube placement/PEG At this point it is noted that in face of all the comorbidities and current clinical situation as well as permanent neurologic deficit this patient's prognosis in long-term is grave and there is very little chance of meaningful recovery Have discussed this with his family 07/23/16 Neurologically patient is unchanged has preserved cough and gag reflex Opens eyes spontaneously and occasionally to be tracking and at other times not Bilateral breath sounds Abdomen is soft Patient is malnourished and in poor condition and general He is starting to develop contractures of both BKA stumps which is usually associated with development of decubiti on both We have elevated the stumps on the pillows, nonetheless the chance of breakdown is high in face of ischemia and pressure In bedridden patients the preferred approach is to do above-knee amputations however this patient initially had some potential of rehabilitation but with deterioration of his neurologic function this is not of question Again I've discussed with family at length his wishes and I'm told by his daughter and sister that he would not want to live like this Palliative care will be consulted to discuss various options with the family Objective: Vital Signs Date Time Temp Pulse Resp B/P Pulse Ox O2 Delivery O2 Flow Rate FiO2 07/23/16 11:50 100 30 07/23/16 10:00 90 07/23/16 09:13 30 07/23/16 08:00 30 07/23/16 08:00 100.8 88 20 154/70 100 07/23/16 08:00 88 07/23/16 07:39 100 30 07/23/16 06:00 86 07/23/16 04:00 30 07/23/16 04:00 85 07/23/16 04:00 100.4 86 17 144/62 100 07/23/16 03:48 100 30 07/23/16 02:00 75 07/23/16 00:44 100 30 07/23/16 00:00 30 07/23/16 00:00 100.9 75 17 144/62 100 07/23/16 00:00 75 07/22/16 22:00 87 07/22/16 20:00 30 07/22/16 20:00 101.8 82 20 163/70 100 07/22/16 20:00 82 07/22/16 19:40 100 30 07/22/16 18:00 79 07/22/16 17:40 100 35 07/22/16 16:00 35 07/22/16 16:00 80 07/22/16 16:00 100.9 82 22 149/66 94 07/22/16 14:00 79 Labs: Laboratory Tests Test 07/23/16 04:30 White Blood Count 23.7 TH/MM3 (4.0-11.0) Red Blood Count 3.10 MIL/MM3 (4.50-5.90) Hemoglobin 8.7 GM/DL (13.0-17.0) Hematocrit 27.6 % (39.0-51.0) Mean Corpuscular Volume 89.0 FL (80.0-100.0) Mean Corpuscular Hemoglobin 27.9 PG (27.0-34.0) Mean Corpuscular Hemoglobin 31.4 % Concent (32.0-36.0) Red Cell Distribution Width 17.6 % (11.6-17.2) Platelet Count 377 TH/MM3 (150-450) Mean Platelet Volume 11.2 FL (7.0-11.0) Neutrophils (%) (Auto) 84.3 % (16.0-70.0) Lymphocytes (%) (Auto) 5.3 % (9.0-44.0) Monocytes (%) (Auto) 9.7 % (0.0-8.0) Eosinophils (%) (Auto) 0.3 % (0.0-4.0) Basophils (%) (Auto) 0.4 % (0.0-2.0) Neutrophils # (Auto) 20.0 TH/MM3 (1.8-7.7) Lymphocytes # (Auto) 1.3 TH/MM3 (1.0-4.8) Monocytes # (Auto) 2.3 TH/MM3 (0-0.9) Eosinophils # (Auto) 0.1 TH/MM3 (0-0.4) Basophils # (Auto) 0.1 TH/MM3 (0-0.2) CBC Comment AUTO DIFF Differential Total Cells 100 Counted Neutrophils % (Manual) 82 % (16-70) Band Neutrophils % 1 % (0-6) Lymphocytes % 4 % (9-44) Monocytes % 10 % (0-8) Eosinophils % 1 % (0-4) Neutrophils # (Manual) 19.7 TH/MM3 (1.8-7.7) Differential Comment FINAL DIFF MANUAL Plasma Cells 2 % (0-0) Platelet Estimate NORMAL (NORMAL) Platelet Morphology Comment NORMAL (NORMAL) Sodium Level 139 MEQ/L (136-145) Potassium Level 3.4 MEQ/L (3.5-5.1) Chloride Level 97 MEQ/L (98-107) Carbon Dioxide Level 27.7 MEQ/L (21.0-32.0) Anion Gap 14 MEQ/L (5-15) Blood Urea Nitrogen 54 MG/DL (7-18) Creatinine 5.30 MG/DL (0.60-1.30) Estimat Glomerular Filtration 11 ML/MIN (>89) Rate Random Glucose 172 MG/DL (74-106) Calcium Level 7.9 MG/DL (8.5-10.1) Phosphorus Level 5.7 MG/DL (2.5-4.9) Magnesium Level 2.2 MG/DL (1.5-2.5) Result Diagram: 07/23/16 0430 07/23/16 0430 Jw Becerra MD Jul 23, 2016 12:56
[2016-07-23] MEDS ORDERED: POTASSIUM CHLORIDE 20 MEQ/15 ML NG ONE (13:00)
[2016-07-23] MEDS: PANTOPRAZOLE SODIUM 40 MG VIAL IV SCH (13:15)
[2016-07-23] MEDS ORDERED: POTASSIUM CL 40 MEQ/30 ML LIQ UDC TUBE ONE (15:30)
--- NOTE | 2016-07-23 17:31 | HHI.IDPN ---
Subjective Subjective Remarks IOccasional, low grade fever remains on vent UOP is minimal Antibiotics zosyn Lines Port R chest LSC TLC Past Medical History Reviewed Allergies: Coded Allergies: No Known Allergies (Unverified , 06/29/16) Objective . Vital Signs Date Time Temp Pulse Resp B/P Pulse Ox O2 Delivery O2 Flow Rate FiO2 07/23/16 16:00 30 07/23/16 16:00 99.7 82 29 148/67 100 07/23/16 16:00 82 07/23/16 15:55 100 30 07/23/16 14:00 90 07/23/16 12:00 30 07/23/16 12:00 87 07/23/16 12:00 100.9 88 13 150/65 100 07/23/16 11:50 100 30 07/23/16 10:00 90 07/23/16 09:13 30 07/23/16 08:00 30 07/23/16 08:00 100.8 88 20 154/70 100 07/23/16 08:00 88 07/23/16 07:39 100 30 07/23/16 06:00 86 07/23/16 04:00 30 07/23/16 04:00 85 07/23/16 04:00 100.4 86 17 144/62 100 07/23/16 03:48 100 30 07/23/16 02:00 75 07/23/16 00:44 100 30 07/23/16 00:00 30 07/23/16 00:00 100.9 75 17 144/62 100 07/23/16 00:00 75 07/22/16 22:00 87 07/22/16 20:00 30 07/22/16 20:00 101.8 82 20 163/70 100 07/22/16 20:00 82 07/22/16 19:40 100 30 07/22/16 18:00 79 07/22/16 17:40 100 35 07/22/16 07/22/16 07/23/16 15:00 23:00 07:00 Intake Total 449 ml 599 ml 535 ml Output Total 1605 ml 160 ml 35 ml Balance -1156 ml 439 ml 500 ml IV Total 173 ml 129 ml 163 ml Tube Feeding 276 ml 350 ml 372 ml Other 120 ml Output Urine Total 5 ml 10 ml 0 ml Stool Total 100 ml 150 ml 35 ml Hemodialysis 1500 ml . Laboratory Tests Test 07/22/16 07/23/16 04:20 04:30 White Blood Count 22.4 TH/MM3 23.7 TH/MM3 Red Blood Count 3.13 MIL/MM3 3.10 MIL/MM3 Hemoglobin 8.9 GM/DL 8.7 GM/DL Hematocrit 27.8 % 27.6 % Mean Corpuscular Volume 88.7 FL 89.0 FL Mean Corpuscular Hemoglobin 28.4 PG 27.9 PG Mean Corpuscular Hemoglobin 32.0 % 31.4 % Concent Red Cell Distribution Width 17.1 % 17.6 % Platelet Count 345 TH/MM3 377 TH/MM3 Mean Platelet Volume 11.2 FL 11.2 FL Neutrophils (%) (Auto) 83.2 % 84.3 % Lymphocytes (%) (Auto) 4.9 % 5.3 % Monocytes (%) (Auto) 11.2 % 9.7 % Eosinophils (%) (Auto) 0.2 % 0.3 % Basophils (%) (Auto) 0.5 % 0.4 % Neutrophils # (Auto) 18.7 TH/MM3 20.0 TH/MM3 Lymphocytes # (Auto) 1.1 TH/MM3 1.3 TH/MM3 Monocytes # (Auto) 2.5 TH/MM3 2.3 TH/MM3 Eosinophils # (Auto) 0.0 TH/MM3 0.1 TH/MM3 Basophils # (Auto) 0.1 TH/MM3 0.1 TH/MM3 CBC Comment AUTO DIFF AUTO DIFF Differential Comment AUTO DIFF FINAL DIFF CONFIRMED MANUAL Platelet Estimate NORMAL NORMAL Platelet Morphology Comment NORMAL NORMAL Keratocytes OCC Differential Total Cells 100 Counted Neutrophils % (Manual) 82 % Band Neutrophils % 1 % Lymphocytes % 4 % Monocytes % 10 % Eosinophils % 1 % Neutrophils # (Manual) 19.7 TH/MM3 Plasma Cells 2 % Laboratory Tests Test 07/22/16 07/23/16 04:20 04:30 Sodium Level 138 MEQ/L 139 MEQ/L Potassium Level 3.9 MEQ/L 3.4 MEQ/L Chloride Level 97 MEQ/L 97 MEQ/L Carbon Dioxide Level 26.9 MEQ/L 27.7 MEQ/L Anion Gap 14 MEQ/L 14 MEQ/L Blood Urea Nitrogen 52 MG/DL 54 MG/DL Creatinine 5.84 MG/DL 5.30 MG/DL Estimat Glomerular Filtration 10 ML/MIN 11 ML/MIN Rate Random Glucose 82 MG/DL 172 MG/DL Calcium Level 7.8 MG/DL 7.9 MG/DL Phosphorus Level 7.5 MG/DL 5.7 MG/DL Albumin 1.2 GM/DL Parathyroid Hormone (Intact) 488.8 PG/ML Magnesium Level 2.2 MG/DL Microbiology Date/Time Procedure Status Source Growth 07/21/16 13:16 Gram Stain - Final Complete Bronchial Washings Right Lower Lobe 07/21/16 13:16 Bronchial Culture - Final Complete Bronchial Washings Right Lower Lobe HEAVY GROWTH NORMAL RESPIRATORY PAVEL 07/21/16 13:16 Acid Fast Stain - Final Resulted Bronchial Washings Right Lower Lobe NO ACID FAST BACILLI SEEN 07/21/16 13:16 Mycobacterial Culture Resulted Bronchial Washings Right Lower Lobe Pending 07/21/16 13:16 Fungal Smear - Final Resulted Bronchial Washings Right Lower Lobe RARE BUDDING YEAST CELLS 07/21/16 13:16 Fungal Culture Resulted Bronchial Washings Right Lower Lobe Pending 07/22/16 21:28 Aerobic Blood Culture - Preliminary Resulted Blood Peripheral NO GROWTH IN 1 DAY 07/22/16 21:28 Anaerobic Blood Culture - Preliminary Resulted Blood Peripheral NO GROWTH IN 1 DAY 07/22/16 21:39 Aerobic Blood Culture - Preliminary Resulted Blood Peripheral NO GROWTH IN 1 DAY 07/22/16 21:39 Anaerobic Blood Culture - Preliminary Resulted Blood Peripheral NO GROWTH IN 1 DAY Imaging Last Impressions Chest X-Ray 07/21/16 0000 Signed Impressions: Service Date/Time: June 14:30 - CONCLUSION: The tracheostomy tube appears to be in good position. No evidence of pneumothorax. Reese Roy MD Head CT 07/17/16 0000 Signed Impressions: Service Date/Time: Sunday, July 17, 2016 16:20 - CONCLUSION: Unremarkable study. Cary Sanchez MD Liver Ultrasound 07/15/16 0000 Signed Impressions: Service Date/Time: Friday, July 15, 2016 15:09 - CONCLUSION: 1. Thick-walled gallbladder containing stones in the neck. If there is clinical concern for acute cholecystitis a hepatobiliary scan may be helpful to confirm cystic duct obstruction. 2. Hepatomegaly. 3. Tiny right pleural effusion. 4. Echogenic right kidney with minimal perinephric fluid suggesting possible medical renal disease. Clinical correlation is recommended. Dontae Segura MD Brain MRI 07/14/16 0000 Signed Impressions: Service Date/Time: June 10:57 - CONCLUSION: 1. No acute infarct, acute hemorrhage, mass effect or extra-axial fluid collections. 2. Mucus retention cyst within the left maxillary sinus. Dontae Segura MD Abdomen/Pelvis CT 07/14/16 0000 Signed Impressions: Service Date/Time: June 19:02 - CONCLUSION: Bilateral pleural effusions and bibasilar compressive collapse and or consolidation with increase in the ascitic fluid since the prior study. Cary Sanchez MD Physical Exam GENERAL: Sedated, intubated SKIN: No jaundice, rashes, or lesions. Skin temperature appropriate. Not diaphoretic. HEENT: [place] conjunctiva. No scleral icterus. No injection or drainage. ET in mouth NECK: Trachea midline. Supple, nontender. CARDIOVASCULAR: Regular rate and rhythm with + harsh systolic and diastolic 3/6 murmurs (max on RUSB) RESPIRATORY/CHEST: Clear to auscultation. Breath sounds equal bilaterally. No wheezes, rales, or rhonchi. GASTROINTESTINAL: Abdomen soft, non-tender, not distended. PD cath in place. No guarding. Bowel sounds present. GENITOURINARY: Without palpable bladder distension. Coffman catheter in place with small amount of yellow clear urine MUSCULOSKELETAL: sp BLE BKA s - prominent cyanosis around incisions Has cyanosis RMF NEUROLOGICAL: unresponsive; no reaction to pain PSYCHIATRIC: unable to assess LINES: NO evidence of infection Assessment & Plan Remarks Sepsis, shock, better - C/S negative - ?due to ischemic BLE - PD fluid not sugg of infection Severe PVD S/P LBK and R BKA revision Respiratory failure Encephalopathy, likely anoxic ESRD, converted to HD persistent leukocytosis and low grade fever - all cultures are negative - yeast in BAL - dooubt clin significance PLAN: dc Zosyn rechk cultures (blood, urine, sputum) chk stool for C.diff cefepime, vanco, micafungi while P new clx If they all negative will dc abx Veena Benitez MD Jul 23, 2016 17:31
[2016-07-23] MEDS ORDERED: CEFEPIME INJ 1,000 MG in SODIUM CHLORIDE 0.9% INJ 100 ML IV PRN (17:45)
[2016-07-23] MEDS ORDERED: VANCOMYCIN INJ 1,000 MG in SODIUM CHLOR 0.9% 250 ML INJ 250 ML IV ONE (19:00)
[2016-07-23] MEDS ORDERED: MICAFUNGIN INJ 150 MG in SODIUM CHLORIDE 0.9% INJ 100 ML IV SCH (20:00)
[2016-07-23 21:58] LABS: C. DIFF EPI 027 PRESUMPTIVE NEGATIVE (NEGATIVE); C. DIFF TOXIN PCR NEGATIVE (NEGATIVE)
[2016-07-24] MEDS: INSULIN NovoLIN REGULAR SUPPLEMENTAL SCALE SQ SCH
[2016-07-24] MEDS: PIPERACIL-TAZO 2.25 GM PREMIX 50 ML IV SCH (00:10)
[2016-07-24] MEDS: HEPARIN SODIUM - SQ 10,000 UNITS/ML VIAL SQ SCH (00:11)
[2016-07-24] MEDS ORDERED: ATROPINE SULFATE 1 MG/10 ML SYRINGE ONE (00:28)
[2016-07-24 00:30] VITALS: O2SAT 90
[2016-07-24] MEDS ORDERED: NOREPINEPHRINE-DEXTROSE DRIP 250 ML IV ONE (00:43)
[2016-07-24] MEDS ORDERED: EPINEPHrine HCL (1:1000) 1 MG/ML VIAL ONE (00:45)
[2016-07-24] MEDS ORDERED: EPINEPHrine HCL (1:10,000) 1 MG/10 ML SYRINGE ONE (01:19)
--- NOTE | 2016-07-24 02:01 | PD.PROCEDR ---
Procedure Note Procedure Date: 07/24/2016 Procedure: Cardiopulmonary resucitation Indication: Asystole cardiac arrest Details of procedure: Pt developed asystole cardiac arrest. Per ACLS protocol pt received CPR, manual bag-valve ventilation via ETT, epinephrine x7, Atropine x2 mg IV, D50 x 1 amp, NS I liter IV. He went into PEA. At moments he would have ROSC and then arrest again. He underwent transcutaneous pacing. He was on epinephrine drip. U /s showed no evidence of PTX. He had equal breath sounds bilaterally. Ultrasound of heart showed severely depressed contractility with EF ~10% or less. Patient was unable to sustain a pulse after 68 minutes of resuscitative efforts. Multiple attempts were made to contact family, but there was no answer. After 68 minutes resucitation we were unable to restore spontaneous circulation. Pt was pronounced at 01:38 hours. Sheri Mcqueen MD Jul 24, 2016 02:01
--- NOTE | 2016-07-24 03:34 | HHI.PR ---
Addendum to Inpatient Note Addendum Reason: Additional Documentation Additional Information Resident's responded to multiple codes from 0438-2815. Patient reportedly became bradycardic and then apneic; patient found to be in asystole -> PEA on multiple codes. ACLS protocol was performed and led by Dr. Church on several occasions which resulted in ROSC. Ultimately, we were unable to maintain spontaneous circulation patient was pronounced . Multiple attempts were made to notify patient's significant other; these were unsuccessful. Seen and discussed with Geovany Medina MD R2 Jul 24, 2016 03:34
[2016-07-24] MEDS ORDERED: EPINEPHrine HCL (1:10,000) 1 MG/10 ML SYRINGE IV ONE ×2 (06:46)
[2016-07-24] MEDS ORDERED: SODIUM BICARBONATE 8.4% INJ 50 MEQ/50 ML SYR IV ONE (06:46)
[2016-07-24] MEDS ORDERED: ATROPINE SULFATE 1 MG/10 ML SYRINGE IV ONE (06:46)
[2016-07-24] MEDS ORDERED: DEXTROSE 50% IN WATER 50 ML SYRINGE IV ONE (06:46)
--- NOTE | 2016-07-24 13:55 | EKG ---
Date Performed: 07/24/2016 Time Performed: 00:54:32 PTAGE: 56 years EKG: Possible ectopic atrial rhythm. Right bundle branch block Possible inferior infarct - age u ndetermined Lateral T wave changes may be due to myocardial ischemia Patient has inferior ST elevatio n with some reciprocal change An acute ST segment infarction involving the inferior wall cannot be ex cluded. Abnormal ECG Compared to PREVIOUS TRACING , there has been an overall reduction in voltage. There has actually bee n a resolution of the lateral ST depression with borderline ST elevation. Again, this could reflect a cute ST segment elevation involving the inferior/lateral wall. Clinical correlation will be important . PREVIOUS TRACIN07/14/2016 12.45 DOCTOR: Whitney Macedo Interpretating Date/Time 07/24/2016 13:53:34
--- NOTE | 2016-07-25 21:30 | MD ---
cc: JW AGARWAL MD SUMMARY ADMISSION DATE: 07/12/2016 DISCHARGE DATE: 07/24/2016 HISTORY OF PRESENT DISEASE: This unfortunate 56-year-old male with multiple medical problems underwent right below-knee amputation earlier this year. The patient was now admitted for the left below-knee amputation because of the gangrene of the left foot. The patient presented to the office with a wet gangrene of the foot all the way to his ankle and signs and symptoms of early sepsis. The patient underwent left below-knee amputation. Postoperative the patient developed metabolic encephalopathy, remained on the ventilator, had to undergo tracheostomy. This gentleman is a longstanding patient with diabetes mellitus, hypertension, on peritoneal dialysis and severe peripheral vascular disease, previous colon cancer for which he finished chemotherapy as well as severe coronary artery disease and COPD. 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 Unfortunately despite all these measures on 07/24/2016 the patient developed sinus bradycardia, cardiac arrest, pulseless electrical activity, was resuscitated numerous times and finally the patient . Jw RAINES/JACK /1:56 AM /9:26 PM
== END 2016-07-24 06:47 | disposition expired | DRG 3 ==
LOC: N04A 16:29 → N03B 07-13 13:47
PROVIDERS: ADMIT Surgery; ATTEND Surgery
PROC: 3E1M39Z Irrigation of Peritoneal Cavity using Dialysate, Percutaneous Approach (ICD-10-PCS; 2016-07-12)
PROC: 5A1955Z Respiratory Ventilation, Greater than 96 Consecutive Hours (ICD-10-PCS; 2016-07-13)
PROC: 0HBKXZZ Excision of Right Lower Leg Skin, External Approach (ICD-10-PCS; 2016-07-13)
PROC: 30233N1 Transfusion of Nonautologous Red Blood Cells into Peripheral Vein, Percutaneous Approach (ICD-10-PCS; 2016-07-13)
PROC: 3E0T3CZ (ICD-10-PCS; 2016-07-13)
PROC: 3E0T3CZ (ICD-10-PCS; 2016-07-13)
PROC: 0Y6J0Z1 Detachment at Left Lower Leg, High, Open Approach (ICD-10-PCS; principal; 2016-07-13 11:24)
PROC: 05HM33Z Insertion of Infusion Device into Right Internal Jugular Vein, Percutaneous Approach (ICD-10-PCS; 2016-07-19)
PROC: 5A1D60Z (ICD-10-PCS; 2016-07-20)
PROC: 0B113F4 Bypass Trachea to Cutaneous with Tracheostomy Device, Percutaneous Approach (ICD-10-PCS; 2016-07-21)
PROC: 0B9B8ZX Drainage of Left Lower Lobe Bronchus, Via Natural or Artificial Opening Endoscopic, Diagnostic (ICD-10-PCS; 2016-07-21)
PROC: 5A12012 Performance of Cardiac Output, Single, Manual (ICD-10-PCS; 2016-07-24)
DX: E11.52 Type 2 diabetes mellitus with diabetic peripheral angiopathy with gangrene (principal); K72.00 Acute and subacute hepatic failure without coma; R65.21 Severe sepsis with septic shock; A41.9 Sepsis, unspecified organism; G93.41 Metabolic encephalopathy; G93.1 Anoxic brain damage, not elsewhere classified; E46 Unspecified protein-calorie malnutrition; N18.6 End stage renal disease; I12.0 Hypertensive chronic kidney disease with stage 5 chronic kidney disease or end stage renal disease; J96.91 Respiratory failure, unspecified with hypoxia; Z99.11 Dependence on respirator [ventilator] status; E87.2 Acidosis; E11.21 Type 2 diabetes mellitus with diabetic nephropathy; E11.65 Type 2 diabetes mellitus with hyperglycemia; D63.1 Anemia in chronic kidney disease; E03.9 Hypothyroidism, unspecified; E11.22 Type 2 diabetes mellitus with diabetic chronic kidney disease; E78.5 Hyperlipidemia, unspecified; E83.39 Other disorders of phosphorus metabolism; E87.6 Hypokalemia; G62.9 Polyneuropathy, unspecified; Z51.5 Encounter for palliative care; Z85.038 Personal history of other malignant neoplasm of large intestine; Z86.73 Personal history of transient ischemic attack (TIA), and cerebral infarction without residual deficits; Z87.891 Personal history of nicotine dependence; Z91.19 Patient's noncompliance with other medical treatment and regimen; Z92.21 Personal history of antineoplastic chemotherapy; Z92.3 Personal history of irradiation; I49.5 Sick sinus syndrome; I25.10 Atherosclerotic heart disease of native coronary artery without angina pectoris; Z99.2 Dependence on renal dialysis; I46.9 Cardiac arrest, cause unspecified; R23.0 Cyanosis
CPT/HCPCS: 31600; 31624; 36430; 36556; 36600; 70450; 70551; 71010; 74176; 76705; 76937; 80048; 80053; 80069; 80185; 80202; 81001; 82040; 82140; 82533; 82550; 82607; 82805; 82948; 83036; 83540; 83550; 83605; 83735; 83970; 84100; 84132; 84315; 84439; 84443; 84484; 85007; 85025; 85027; 85730; 86803; 86850; 86900; 86901; 86902; 86920; 86922; 87015; 87040; 87070; 87086; 87102; 87116; 87205; 87206; 87340; 87493; 87641; 88112; 88305; 88307; 88311; 89051; 90935; 92950; 93005; 93306; 94002; 94003; 95819; 96374; C9113; C9248; J0171; J0360; J0461; J1265; J1580; J1644; J1720; J1815; J1817; J1953; J2248; J2250; J2370; J2405; J2543; J3010; J3370; J3480; J7030; J7040; J7050; J7070; J7120; P9016; P9045; Q2009; Q4081; Q9963